=== PATIENT | female | born 1940 | race Caucasian/White ===

== ENCOUNTER → 2017-09-21 08:33 | Outpatient (CLI) | payer OTHER, SELFPAY ==
[2017-09-21 09:21] LABS: Add Manual Diff / Slide Review NO; Basophils Percent Auto 0.8 % (0-2); Hematocrit 39.8 % (36-46); Hemoglobin 13.4 g/dL (12.0-16.0); Lymphocytes Percent Auto 30.5 % (25-40); Mean Corpuscular HGB Conc 33.7 % (30-36); Mean Corpuscular Hemoglobin 29.4 PG (26-34); Mean Corpuscular Volume 87.2 fL (80-100); Monocytes Percent Auto 6.7 % (3-14); Neutrophils Absolute Auto 3700 /uL (3000-5900); Platelet Count 355 X10^3/uL (150-400); Red Blood Cell Count 4.56 X10^6/uL (4.0-5.2); Red Cell Distribution Width 14.7 % (11.6-14.8); White Blood Cell Count 6.5 X10^3/uL (4.5-11.0)
[2017-09-21 09:59] LABS: Alanine Aminotransferase 27 IU/L (9-52); Albumin 4.3 g/dL (3.5-5.0); Albumin Globulin Ratio 1.4 (1.0-2.8); Alkaline Phosphatase 102 U/L (38-126); Aspartate Aminotransferase 16 IU/L (14-36); BUN Creatinine Ratio 22.2 (6-22); Bilirubin Total 0.6 mg/dL (0.2-1.3); Blood Urea Nitrogen 20 mg/dL (7-17); Calcium 10.4 mg/dL (8.4-10.2); Carbon Dioxide 28 mmol/L (22-32); Chloride 104 mmol/L (98-107); Estimated Glomerular Filt Rate > 60.0 mL/min (>60); Glucose 112 mg/dL (80-110); HEMOLYSIS < 15 (0-50); Potassium 4.3 mmol/L (3.4-5.1); Sodium 144 mmol/L (137-145); Total Protein 7.3 g/dL (6.3-8.2)
[2017-09-21 10:59] LABS: Folate > 20.0 ng/mL (2.76-20.0); Vitamin B12 912 pg/mL (239-931)
== END ==
PROVIDERS: PCP Internal Medicine; Visit Provider Internal Medicine Gastroenterology
DX: K90.0 Celiac disease (principal); K59.1 Functional diarrhea; R10.84 Generalized abdominal pain; R13.12 Dysphagia, oropharyngeal phase; E66.01 Morbid (severe) obesity due to excess calories; M81.0 Age-related osteoporosis without current pathological fracture; Z86.010 Personal history of colon polyps
CPT/HCPCS: 36415; 80053; 82607; 82746; 83516; 85025

== ENCOUNTER → 2017-11-14 16:31 | Outpatient (CLI) | payer OTHER, SELFPAY ==
--- NOTE | 2017-11-14 | DI.MRI.S_ITS ---
PROCEDURE: MR LUMBAR SPINE WO CON INDICATIONS: LOW BACK PAIN RADIATING INTO RIGHT HIP AND DOWN LEG TECHNIQUE: Noncontrast sagittal T1 spin echo and T2 fast echo, sagittal STIR, axial T1 and T2 fast spin echo through the lumbar spine. In cases with scoliosis, additional coronal T2 fast spin echo may be performed. COMPARISON: [facility], , L-SPINE WITHOUT CONTRAST, 09/14/2016, 12:08. FINDINGS: Image quality: Excellent. Alignment and Curvature: There is normal bony alignment except for slight retrolisthesis at L3-4.. Bone Marrow: Marrow is of normal overall signal. Reactive changes at the L3-4 level. No acute vertebral body compression fractures. Spinal Cord: Conus medullaris terminates at the L1-2 level. Visualized cord demonstrates normal signal and size. Paraspinous Soft Tissues: No paravertebral masses. Exophytic 4.4 cm right renal cyst again noted. L1-L2: Mild disc degeneration and facet arthropathy with no central canal or foraminal stenosis, unchanged. L2-L3: Mild disc degeneration and facet arthropathy with no central canal or foraminal stenosis, unchanged. L3-L4: Disc degeneration with mild annular bulge, slight retrolisthesis deformity and mild facet arthropathy, unchanged. No central canal or right foraminal stenosis, mild left foraminal stenosis, unchanged. L4-L5: Operative level with dilatation of the thecal sac. No recurrent disc protrusion or central canal stenosis. Mild facet arthropathy. Left-sided transpedicular screw. There is moderate right and mild left foraminal stenosis, unchanged. L5-S1: Operative level with dilatation of the thecal sac. No recurrent disc protrusion or central canal stenosis. Left-sided transpedicular screw. There is mild right and moderate left foraminal stenosis, appearing unchanged. IMPRESSION: 1. Stable postoperative changes without evidence of recurrent disc protrusion or central canal stenosis. 2. Slight retrolisthesis at L3-4 and associated endplate reactive signal changes are also stable. 3. No new disc protrusions.. There is moderate foraminal stenosis on the right at L4-5 and on the left at L5-S1, unchanged. Mild foraminal stenosis left L3-L4, left L4-L5 and right L5-S1. Dictated by: Williams Weiss M.D. on 11/15/2017 at 8:59 Approved by: Williams Weiss M.D. on 11/15/2017 at 9:18
== END ==
PROVIDERS: PCP Internal Medicine; Visit Provider Orthopaedic Surgery
DX: M48.061 Spinal stenosis, lumbar region without neurogenic claudication (principal); M48.07 Spinal stenosis, lumbosacral region; M54.16 Radiculopathy, lumbar region; M54.5 Low back pain
CPT/HCPCS: 72148

== ENCOUNTER 2017-12-08 18:58 | Emergency (ER) | payer OTHER, SELFPAY ==
[2017-12-08 19:05] VITALS: BP 148/73; PULSE 100; RESP 22; TEMP 36.7; O2SAT 94
--- NOTE | 2017-12-08 19:06 | ED.ALLEREA ---
HPI - Allergic Reaction General Chief complaint: Allergic Reaction Stated complaint: STATES SEAFOOD ALLERGIC REACTION Time Seen by Provider: 12/08/17 19:06 Source: patient Mode of arrival: ambulatory Limitations: no limitations History of Present Illness HPI narrative: The patient has a history of multiple allergic reactions, but never to shellfish until this evening. She had shrimp about 6:00 p.m.. She developed facial and lip swelling. She used an EpiPen autoinjector. She also took 50 of Benadryl p.o.. She arrives with slight airway tightness, but no wheezing or dyspnea. She has no chest pain. This facial swelling has resolved. She still has erythema around the neck and only upper chest and upper back. She is in no distress talking in full sentences. She denies any recent illness. Related Data Home Medications Medication Instructions Recorded Confirmed loratadine [Claritin] 10 mg PO PRN #0 08/23/12 10/28/17 Previous Rx's Medication Instructions Recorded Fluticasone Propionate (FLONASE) 2 spray INTRANASAL QDAY #16 11/29/11 cyanocobalamin (vitamin B-12) 1,000 mcg PO QDAY #90 tab 04/27/16 olopatadine [Patanol] 0.1 % OPHTH TID #5 ml 09/24/16 naratriptan [Amerge] 0 PO PRN PRN #9 tab 12/03/16 furosemide [Lasix] 0 PO QDAY #450 tab 12/27/16 potassium chloride 10 meq PO BID #180 cap 12/27/16 betamethasone, augmented 1 jennifer TOPICAL BID #15 gm 02/22/17 atorvastatin [Lipitor] 10 mg PO HS #90 tab 03/29/17 lansoprazole 30 mg PO QDAY #90 tab 03/29/17 valsartan 80 mg PO QDAY #90 tab 04/15/17 amlodipine [Norvasc] 10 mg PO Q DAY #90 tab 06/27/17 sucralfate 1 gm PO ACHS #360 tab 07/15/17 epinephrine [EpiPen 2-Juanito] 0.3 mg IM PRN PRN #1 ea 09/20/17 albuterol sulfate [Ventolin HFA] 1 - 2 puff INH Q4HP PRN #8 gm 09/26/17 paroxetine 40 mg tablet 40 mg PO DAILY #90 tab 09/27/17 mometasone 200 mcg/actuation HFA 1 puff INHALATION BID #13 gram 10/25/17 aerosol inhaler clobetasol 0.05 % topical cream See Label Instructions TOP BID #60 10/28/17 gram losartan 100 mg tablet 100 mg PO DAILY #30 tab 10/28/17 cyclobenzaprine 10 mg tablet 10 mg PO TID #60 tab 11/24/17 hydrocodone 5 mg-acetaminophen 325 1 - 2 tab PO Q4HP PRN #90 tab 12/06/17 mg tablet epinephrine 0.3 mg IM Q10M PRN #2 each 12/08/17 epinephrine 0.3 mg IM Q10M PRN #2 each 12/08/17 epinephrine [EpiPen 2-Juanito] 0.3 mg IM Q10M PRN #2 each 12/08/17 prednisone 20 mg PO DAILY #10 tab 12/08/17 Allergies Allergy/AdvReac Type Severity Reaction Status Date / Time aspirin Allergy Severe ANAPHYLACTIC Verified 12/08/17 19:09 SHOCK venom-honey bee Allergy Severe ANAPHYLACTIC Verified 12/08/17 19:09 [bee venom (honey bee)] SHOCK adhesive Allergy Intermediate RASH FROM Verified 12/08/17 19:09 TAPE cephalexin Allergy Mild DIARRHEA Verified 12/08/17 19:09 shellfish derived Allergy Mild Anaphylaxis Verified 12/08/17 19:09 tetracycline Allergy Mild ITCH Verified 12/08/17 19:09 peanut Allergy Unknown Verified 12/08/17 19:09 oxycodone AdvReac Severe HALLUCINAT Verified 12/08/17 19:09 IONS Review of Systems Review of Systems All systems reviewed & are unremarkable except as noted in HPI and below Constitutional Reports as per HPI, Denies chills, Denies fever(s), Denies lethargy and Denies weakness Eyes Denies change in vision, Denies eye discharge and Denies irritation ENT Ears, Nose, Mouth, and Throat: Denies change in voice, Denies neck pain and Denies throat swelling Cardiovascular Denies chest pain, Denies irregular heart rhythm, Denies lightheadedness, Denies palpitations, Denies dyspnea and Denies orthopnea Respiratory Denies cough, Denies dyspnea and Denies wheezing Gastrointestinal Gastrointestinal: Denies abdominal pain, Denies change in bowel habits, Denies diarrhea, Denies nausea and Denies vomiting Musculoskeletal Denies neck pain Integumentary/Breasts Denies rash Neurologic Denies weakness Endocrine Denies palpitations Allergic/Immunologic Denies throat swelling and Denies wheezing [facility] Medical History Essential hypertension (Chronic 11/23/10) Hyperlipidemia (Chronic 11/23/10) Asthma (Chronic) Sleep apnea (Chronic) History of malignant neoplasm of breast (Inactive 11/23/10) History of deep venous thrombosis (Chronic 11/23/10) Celiac disease (Chronic 04/27/16) Nonrheumatic aortic valve stenosis (Chronic 04/27/16) Morbid obesity with body mass index (BMI) of 40.0 or higher (Chronic 07/27/16) Chronic obstructive pulmonary disease (Chronic 08/26/16) Surgical History History of cataract removal with insertion of prosthetic lens Status post breast lumpectomy (~2002) Social History marital status: number of children: 3 household members: spouse caregiver/support person: No housing: house pets and animals: No education level: college occupational status: other (Retired.) 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) Smoking Status: Never smoker Tobacco: How many years used: 0 quit status: quit date established (Never Started) second hand exposure: No alcohol intake: current (Occasionally) substance use type: does not use Exam Initial Vital Signs Initial Vital Signs: Vital Signs Temperature 98.1 F 12/08/17 19:05 Pulse Rate 100 H 12/08/17 19:05 Respiratory Rate 22 12/08/17 19:05 Blood Pressure 148/73 H 12/08/17 19:05 Pulse Oximetry 94 12/08/17 19:05 Const General: cooperative, healthy appearing and comfortable [facility] Head: normocephalic and atraumatic Nose: external nose normal and No nasal discharge Face and sinus: face symmetric Mouth: oral mucosae normal, moist mucous membranes and other ( No edema) Teeth and gingiva: dentition normal Throat: posterior oropharynx normal ( no edema) Eyes General: appearance normal, both eyes and all related structures Periorbital: periorbital findings normal Eyelids: eyelids normal Conjunctivae: conjunctivae normal Sclera: sclerae normal Pupils: PERRL EOM: EOM intact bilaterally Neck Neck: normal visual inspection, trachea midline and No lymphadenopathy Resp Effort & Inspection: normal respiratory effort, able to speak in complete sentences, no respiratory distress and no use of accessory muscles Auscultation: clear to auscultation bilaterally, no rales, no rhonchi and no wheezes Cardio Rate: regular rate Rhythm: regular rhythm Heart Sounds: no click, no gallops, no murmurs and no rubs Pulses: normal peripheral pulses Skin General: erythema ( to the face, neck, and upper torso.) Neuro General: alert, oriented x3, gait normal and no focal motor deficits Speech: speech normal Motor: muscle tone normal throughout Extrem General: full ROM and no pedal edema Psych Appearance: well kempt Attitude: cooperative Thought Content: suicidality Course Orders Ordered: Discontinued Medications Diphenhydramine HCl (Benadryl) 25 mg IV NOW ONE Stop: 12/08/17 19:12 Last Admin: 12/08/17 19:22 Dose: 25 mg Methylprednisolone (Solu-Medrol 125 Mg Vial) 125 mg IV NOW ONE Stop: 12/08/17 19:12 Last Admin: 12/08/17 19:24 Dose: 125 mg Vital Signs - 8 hr 12/08/17 19:05 12/08/17 20:33 12/08/17 21:12 Temperature 98.1 F Pulse Rate 100 H 88 87 Respiratory Rate 22 Blood Pressure 148/73 H 134/66 Blood Pressure [Left Arm] 134/66 Pulse Oximetry 94 91 96 [facility] - Allergic Reaction Medical Records Attestation: I reviewed the patient's medical records. [facility] Narrative Medical decision making narrative: All symptoms have resolved. There is no erythema or swelling. There is no airway tightness. She feels well, other than sleepy. She will be discharged. I will refill her EpiPen and discharge her on prednisone. Discharge Plan Departure Patient Disposition: Home Clinical Impression: Allergic reaction Discharge Date/Time: 12/08/17 21:28 Interventions: ED Discharge Assessment Last Done: 12/08/17 21:12 Instructions: Food Allergy Activity Restrictions/Additional Instructions: Benadryl every 4-6 hours as needed for itching or swelling. Prednisone 60 mg daily for 5 days if symptoms persist into tomorrow. I have refilled your EpiPen. Return here if symptoms return. Prescriptions: New prednisone 10 mg tablet 20 mg PO DAILY Qty: 10 RF: 0 epinephrine [EpiPen 2-Juanito] 0.3 mg/0.3 mL auto-injector 0.3 mg IM Q10M PRN (Reason: anaphylaxis) Qty: 2 RF: 0 epinephrine 0.3 mg/0.3 mL auto-injector 0.3 mg IM Q10M PRN (Reason: anaphylaxis) Qty: 2 RF: 1 epinephrine 0.3 mg/0.3 mL auto-injector 0.3 mg IM Q10M PRN (Reason: anaphylaxis) Qty: 2 RF: 1 No Action Fluticasone Propionate (FLONASE) 2 spray Intranasal QDAY Qty: 16 RF: 3 loratadine [Claritin] 10 MG tablet 10 mg PO PRN Qty: 0 RF: 0 cyanocobalamin (vitamin B-12) 1,000 MCG tablet extended release 1,000 mcg PO QDAY Qty: 90 RF: 11 olopatadine [Patanol] 5 ML drops 0.1 % OPHTH TID Qty: 5 RF: 0 naratriptan [Amerge] 2.5 MG tablet PO PRN PRNQty: 9 RF: 0 potassium chloride 10 MEQ capsule, extended release 10 meq PO BID Qty: 180 RF: 3 furosemide [Lasix] 20 MG tablet PO QDAY Qty: 450 RF: 3 betamethasone, augmented 0.05 % cream 1 jennifer Topical BID Qty: 15 RF: 3 atorvastatin [Lipitor] 10 MG tablet 10 mg PO HS Qty: 90 RF: 3 lansoprazole 30 MG capsule,delayed release(DR/EC) 30 mg PO QDAY Qty: 90 RF: 3 valsartan 80 MG tablet 80 mg PO QDAY Qty: 90 RF: 4 amlodipine [Norvasc] 10 MG tablet 10 mg PO Q DAY Qty: 90 RF: 2 sucralfate 1 GM tablet 1 gm PO ACHS Qty: 360 RF: 3 epinephrine [EpiPen 2-Juanito] 0.3 mg/0.3 mL auto-injector 0.3 mg IM PRN PRNQty: 1 RF: 1 albuterol sulfate [Ventolin HFA] 90 mcg/actuation HFA aerosol inhaler 1 - 2 puff INH Q4HP PRNQty: 8 RF: PRN paroxetine HCl [Paxil] 40 mg tablet 40 mg PO DAILY Qty: 90 RF: 3 mometasone [Asmanex HFA] 200 mcg/actuation HFA aerosol inhaler 1 puff INHALATION BID Qty: 13 RF: 2 cyclobenzaprine 10 mg tablet 10 mg PO TID Qty: 60 RF: 1 hydrocodone-acetaminophen [[place]] 5-325 mg tablet 1 - 2 tab PO Q4HP PRN (Reason: pain) Qty: 90 RF: 0 losartan 100 mg tablet 100 mg PO DAILY Qty: 30 RF: 0 clobetasol 0.05 % cream See Label Instructions TOP BID Qty: 60 RF: 0
[2017-12-08] MEDS: diphenhydrAMINE 50 MG/ML VIAL 25 MG IV (19:22)
[2017-12-08] MEDS: methylPREDNISolone 125 MG/2 ML VIAL IV (19:24)
[2017-12-08 20:33] VITALS: BP 134/66; PULSE 88; O2SAT 91
[2017-12-08 21:12] VITALS: BP 134/66; PULSE 87; O2SAT 96
== END 2017-12-08 21:28 | disposition home or self-care (01) ==
PROVIDERS: Emergency Provider Emergency Medicine; PCP Internal Medicine
DX: T78.40XA Allergy, unspecified, initial encounter (principal)
CPT/HCPCS: 96374; 96375; 99282; 99284; J1200; J2930

== ENCOUNTER → 2018-03-21 08:15 | Outpatient (CLI) | payer OTHER, SELFPAY ==
--- NOTE | 2018-03-21 | DI.MG.S_ITS ---
BILATERAL DIGITAL SCREENING MAMMOGRAM 3D/2D WITH CAD: 03/21/2018 CLINICAL: Routine screening. Personal history of right breast cancer. Family history of breast cancer. Comparison is made to exams dated: 02/28/2017 mammogram, 02/27/2016 mammogram, and 02/24/2015 mammogram - [facility]. There are scattered fibroglandular elements in both breasts. Current study was also evaluated with a Computer Aided Detection (CAD) system. There are benign post operative findings in the right breast. There also are benign vascular calcifications in both breasts. No significant masses, calcifications, or other findings are seen in either breast. There has been no significant interval change. IMPRESSION: There is no mammographic evidence of malignancy. A 1 year screening mammogram is recommended. This exam was interpreted at Station ID: [id number]. NOTE: For mammograms, a report in lay terms will be sent to the patient. Approximately 15% of breast malignancies will not be visualized mammographically. In the management of a palpable breast mass, a negative mammogram must not discourage biopsy of a clinically suspicious lesion. Electronically Signed By: Lety gonzalez/josh:03/21/2018 16:36:39 letter sent: Normal Exam ACR BI-RADS Category 2: Benign Finding(s) [id number]
== END ==
PROVIDERS: PCP Internal Medicine; Visit Provider Internal Medicine
DX: Z12.31 Encounter for screening mammogram for malignant neoplasm of breast (principal); Z85.3 Personal history of malignant neoplasm of breast; Z80.3 Family history of malignant neoplasm of breast
CPT/HCPCS: 77063; 77067

== ENCOUNTER → 2018-06-05 11:47 | Outpatient (CLI) | payer OTHER, SELFPAY ==
--- NOTE | 2018-06-05 | DI.US.S_ITS ---
PROCEDURE: US PERIPH VENOUS UP EXTREM RT INDICATIONS: ARM SWELLING TECHNIQUE: Real-time imaging, as well as color and pulse Doppler interrogation, was performed of the right upper extremity deep veins from the inferior neck to the antecubital fossa. COMPARISON: None. FINDINGS: The internal jugular vein, visualized portions of the subclavian vein, axillary, and brachial veins are free of intraluminal thrombus. Where physically possible, the veins are normally compressible. Color and pulse Doppler demonstrate normal intraluminal flow, with expected phasicity and pulsatility. Additional scanning of the cephalic and basilic veins of the superficial system demonstrate normal compressibility, without thrombus. IMPRESSION: No DVT found. Dictated by: Umiar Moreno M.D. on 06/05/2018 at 17:04 Approved by: Umair Moreno M.D. on 06/05/2018 at 17:04
== END ==
PROVIDERS: PCP Internal Medicine; Visit Provider Internal Medicine
DX: M79.89 Other specified soft tissue disorders (principal)
CPT/HCPCS: 93971

== ENCOUNTER → 2019-01-15 08:02 | Outpatient (CLI) | payer OTHER, SELFPAY ==
[2019-01-15 09:54] LABS: Alanine Aminotransferase 13 IU/L (9-52); Albumin 4.3 g/dL (3.5-5.0); Albumin Globulin Ratio 1.3 (1.0-2.8); Alkaline Phosphatase 104 U/L (38-126); Aspartate Aminotransferase 22 IU/L (14-36); BUN Creatinine Ratio 28.8 (6-22); Bilirubin Total 0.5 mg/dL (0.2-1.3); Blood Urea Nitrogen 23 mg/dL (7-17); Calcium 10.1 mg/dL (8.4-10.2); Carbon Dioxide 28 mmol/L (22-32); Chloride 106 mmol/L (98-107); Cholesterol 163 mg/dL (140-199); Estimated Glomerular Filt Rate > 60.0 mL/min (>60); Globulin 3.2 g/dL (1.7-4.1); Glucose 124 mg/dL (80-110); HDL Cholesterol 41 mg/dL (40-60); HEMOLYSIS < 15 (0-50); LDL Cholesterol Calculated 80 mg/dL (<100); Sodium 141 mmol/L (137-145); Total Protein 7.5 g/dL (6.3-8.2); Triglycerides 210 mg/dL (35-150)
[2019-01-15 11:01] LABS: TSH w/ Reflex to FT4 1.55 uIU/mL (0.47-4.68)
== END ==
PROVIDERS: PCP Internal Medicine; Visit Provider Internal Medicine
DX: E78.5 Hyperlipidemia, unspecified (principal); I10 Essential (primary) hypertension
CPT/HCPCS: 36415; 80053; 80061; 84443

== ENCOUNTER 2019-01-25 13:52 | Outpatient (CLI) | payer OTHER, SELFPAY ==
[2019-01-25] VITALS (7 sets, daily range): BP systolic 102–153; BP diastolic 58–81; PULSE 79–87; RESP 16–18; TEMP 37.3; O2SAT 93–95
--- NOTE | 2019-01-25 13:54 | DI.RAD.S_ITS ---
PROCEDURE: PAIN L/S TRANSFORAMINAL INJECT INDICATIONS: SPONDYLOSIS FINDINGS: Fluoroscopic spot filming was performed to verify placement of spinal needles at the L5-S1 level(s), as labeled on the films. Appropriate location(s) of the needle tip(s) was confirmed by injection of iodinated contrast. Dictated by: Jason Rascon M.D. on 01/25/2019 at 16:17 Approved by: Jason Rascon M.D. on 01/25/2019 at 16:19
[2019-01-25] MEDS: fentaNYL 100 MCG/2 ML INJ 50 MCG IV (14:50)
[2019-01-25] MEDS: MIDAZOLAM 5 MG/5 ML VIAL IV (14:50)
[2019-01-25] MEDS: BETAMETHASONE 30 MG/5 ML MDV 6 MG INJ (14:53)
[2019-01-25] MEDS: BUPIVACAINE 0.25% (PF) VIAL 2 ML INJ (14:53)
[2019-01-25] MEDS: IOPAMIDOL 15 ML VIAL 3 ML INJ (14:53)
[2019-01-25] MEDS: DEXAMETHASONE 10 MG/ML VIAL 20 MG INJ (14:54)
--- NOTE | 2019-01-25 14:59 | PC.NURSE ---
Post procedure note: Time out at 1447. Medicated per providers orders. tolerated well. VSS and O2 sat WNL on 3L/MINER OPERATOR. Procedure end at 1459. Patient sat up and transfered to wheelchair with 2 stand by assist. Mild right leg weakness without numbness or tingling. Pain level 0/10 Transported for post procedure monitoring. handoff report given to Merary Perkins RN at 1505.
--- NOTE | 2019-01-25 15:06 | PM.PROC.1 ---
Procedures Date/Time Date of procedure: 01/25/19 Time of procedure: 15:06 General Procedure description: PREOP DIAGNOSIS 1. FORMAINAL STENOSIS WITH LE SYMPTOMS, POST OP DIAGNOSIS 1. FORMAINAL STENOSIS WITH LE SYMPTOMS, PROCEDURES 1.FLUOROSCOPICALLY GUIDED CONTRAST CONTROLLED TRANSFORAMINAL EPIDURAL STEROID INJECTION - RIGHT L5/S1 TFESI PHYSICIAN: Uli Gillis DO INDICATIONS: Rj is referred by for treatment of Foraminal Stenosis with right LE Symptoms FINDINGS Foraminal Nerve Root Compression secondary to disc disease and facet hypertrophy DESCRIPTION OF PROCEDURE Following review of allergy and review of potential side effects and complications, including, but not necessarily limited to, infection, allergic reaction, local tissue breakdown, stroke, temporary or permanent nerve injury, paralysis, and possible , the patient indicated that the patient understood and agreed to proceed. An informed consent document was signed by the patient, witnessed by a nurse, and placed in the patient's chart. Additionally, other treatment options including medications, modalities, and physical therapy were reviewed with the patient. After review of previous anaesthesic history and IV conscious sedation the patient was deemed safe to proceed with todays procedure with IV conscious sedation as ASA class II designation. Safety time-out was performed to confirm patient ID, procedure to be performed and site of procedure. IV sedation was accomplished with a combination of 2mg of Versed and 50mcg of Fentanyl was administered by the RN after DO order, titrated to patient comfort during the course of the procedure while the patient remained responsive to all verbal commands In the prone position following sterile prep and drape of the lumbar region, the right L5/S1 posterior neuroforamen was identified fluoroscopically. The skin was anesthetized via a 25-gauge 1.5-inch needle with 1% lidocaine solution. At this point, a 22-gauge 5-inch spinal needle was atraumatically introduced and advanced under fluoroscopic guidance through the posterior right L5/S1 neuroforamen to approximately the anterior aspect of the canal. Depth was confirmed on lateral view. Following negative aspiration, injection of approximately 1.5 cc of Isovue 200 under live fluoroscopy in the AP view confirmed excellent flow along the nerve root, into the epidural space without vascular or intrathecal uptake observed Radiological data, including multiple fluoroscopic views of the lumbosacral spine, reveal a spinal needle at the right L5/S1 posterior neuroforamen. Subsequent views show flow of contrast material flowing superiorly and inferiorly along the nerve root confirming epidural flow. Subsequently, a test dose of 1.5 cc of 1% lidocaine solution was administered and patient was observed for two minutes for signs or symptoms of complications, including abdominal pain, shortness of breath, bilateral upper or lower extremity weakness, nausea and vomiting, prior to steroid injection. At this point, a total of 3cc or 20mg of dexamethasone and 6mg betamethasone was injected without incident. The procedure tolerated the procedure well without signs or symptoms of complications prior to transfer to the recovery area continued monitoring without incident. The patient was then transferred to the recovery area where they were observed for an appropriate time after the injection. The patient reported a VAS score of 7 prior to the procedure and a post-procedure VAS of 0. Total Fluoroscopy Time: 20.9 seconds Total Conscious Sedation Time: 24min POST OP INSTRUCTIONS The patient was provided a Pain Log to continue to record their response to the target-specific procedure prior to follow-up visit with their referring physician. Additionally, specific post-injection care instructions and a contact number to our office were provided if concerns arise regarding possible complications associated with the procedure are suspected. Uli Gillis, Complications: none
--- NOTE | 2019-01-25 15:12 | PC.NURSE ---
ACCEPTED CARE OF PT IN POST PROC AREA IN STABLE CONDITION AT 1510
== END 2019-01-25 15:28 | disposition home or self-care (01) ==
LOC: RAD 13:53
PROVIDERS: PCP Internal Medicine; Visit Provider Physical Medicine & Rehabilitation
DX: M48.07 Spinal stenosis, lumbosacral region (principal); M51.17 Intervertebral disc disorders with radiculopathy, lumbosacral region
CPT/HCPCS: 64483; 99152; J0702; J1100; J2250; J3010

== ENCOUNTER → 2019-02-26 07:28 | Outpatient (CLI) | payer OTHER, SELFPAY ==
--- NOTE | 2019-02-26 07:29 | DI.MRI.S_ITS ---
PROCEDURE: MR CERVICAL SPINE WO CON INDICATIONS: Neck pain radiating into right shoulder TECHNIQUE: Noncontrast sagittal T1 spin echo and T2 fast spin echo, sagittal STIR, foraminal oblique sagittal T2 fast spin echo, and axial gradient echo or T2 fast spin echo through the cervical spine. COMPARISON: [facility], , C-SPINE WITHOUT CONTRAST, 08/13/2014, 10:35. FINDINGS: Image quality: Excellent. Alignment and Curvature: There is normal bony alignment. Bone Marrow: Marrow demonstrates normal overall signal. Spinal Cord: Visualized spinal cord has normal size and signal. No cerebellar tonsillar herniation. Paraspinous Soft Tissues: No paravertebral masses. Prevertebral soft tissues are normal in thickness. C2-C3: Normal appearance. C3-C4: Mild degenerative disc height reduction, slight asymmetric right greater than left foraminal stenosis due to facet hyperostosis. There is potential for mild impingement on the course of the right C4 nerve root C4-C5: Bilateral degenerative facet osteoarthritis produces encroachment on the neural foramen also greater on the right than the left, minimal on the left and mild to moderate on the right. No significant spinal stenosis. Potential for right sided C5 nerve root impingement. C5-C6: Degenerative disc disease is moderately severe, and facet osteoarthritis is greater on the right than the left resulting in anterior effacement of CSF from the thecal sac and also asymmetric moderate right and mild left nerve root impingement involving the C6 nerve roots at the neural foraminal level. C6-C7: Left greater than right foraminal stenosis is present associated with a posterior mild transverse disc bulge combining with asymmetric left greater than right facet hyperostosis, moderate on the left and mild on the right. Minimal anterior spinal stenosis is associated. C7-T1: Normal appearance. IMPRESSION: Multilevel degenerative disc disease and facet osteoarthritis generally greater on the right than the left with asymmetric neural foraminal stenosis as discussed in detail by level in the body of the report above. No acute disease, no disc herniation is found. Dictated by: Umair Moreno M.D. on 02/26/2019 at 14:52 Approved by: Umair Moreno M.D. on 02/26/2019 at 15:05
--- NOTE | 2019-02-26 07:29 | DI.RAD.S_ITS ---
PROCEDURE: XR CERVICAL SPINE 2V OR 3V INDICATIONS: axial neck pain with right UE symptoms TECHNIQUE: 3 view(s) of the cervical spine were acquired. COMPARISON: None. FINDINGS: Bones: No fractures or dislocations to the T1 level. The lateral masses of C1 appear intact on the odontoid view. No suspicious bony lesions. There is moderately severe to severe degenerative disc disease from C3 inferiorly, with facet osteoarthritis also near severe to severe over the middle and lower thirds of the cervical spine. Soft tissues: No prevertebral soft tissue swelling. IMPRESSION: No trauma foun or subluxation but there is near severe multilevel degenerative disc disease and facet osteoarthritis over the middle and lower thirds of the cervical spine. MR scanning likely is warranted given the severity of disease in symptoms reported. Dictated by: Umair Moreno M.D. on 02/26/2019 at 9:37 Approved by: Umair Moreno M.D. on 02/26/2019 at 9:38
== END ==
PROVIDERS: PCP Internal Medicine; Visit Provider Registered Nurse
DX: M50.121 Cervical disc disorder at C4-C5 level with radiculopathy (principal); M47.22 Other spondylosis with radiculopathy, cervical region; M48.02 Spinal stenosis, cervical region
CPT/HCPCS: 72040; 72141

== ENCOUNTER → 2019-03-24 10:18 | Outpatient (CLI) | payer OTHER, SELFPAY ==
--- NOTE | 2019-03-24 | DI.MG.S_ITS ---
BILATERAL DIGITAL SCREENING MAMMOGRAM 3D/2D WITH CAD: 03/24/2019 CLINICAL: Routine screening. Personal history of right breast cancer. Family history of breast cancer. Comparison is made to exams dated: 03/21/2018 mammogram, 02/28/2017 mammogram, and 02/27/2016 mammogram - [facility]. There are scattered fibroglandular elements in both breasts. Current study was also evaluated with a Computer Aided Detection (CAD) system. The right breast has post-operative findings. There are benign appearing calcifications in both breasts that are not significantly changed. There is a possible developing irregular equal density asymmetry in the left breast at 1 o'clock middle depth. There also is an oval equal density focal asymmetry in the left breast at 1 o'clock posterior depth. No other significant masses, calcifications, or other findings are seen in either breast. IMPRESSION: INCOMPLETE: NEEDS ADDITIONAL IMAGING EVALUATION The possible developing irregular equal density asymmetry in the left breast at 1 o'clock middle depth is indeterminate. Additional views with possible ultrasound are recommended. The oval equal density focal asymmetry in the left breast at 1 o'clock posterior depth is indeterminate. Additional views with possible ultrasound are recommended. This exam was interpreted at Station ID: [id number]. NOTE: For mammograms, a report in lay terms will be sent to the patient. Approximately 15% of breast malignancies will not be visualized mammographically. In the management of a palpable breast mass, a negative mammogram must not discourage biopsy of a clinically suspicious lesion. Electronically Signed By: Darryl lloyd/:03/26/2019 11:42:25 Entry: - 03/26/2019 11:42:25 letter sent: Additional Imaging Needed ACR BI-RADS Category 0: Incomplete [id number]
== END ==
PROVIDERS: PCP Internal Medicine; Visit Provider Internal Medicine
DX: Z12.31 Encounter for screening mammogram for malignant neoplasm of breast (principal); Z85.3 Personal history of malignant neoplasm of breast; Z80.3 Family history of malignant neoplasm of breast
CPT/HCPCS: 77063; 77067

== ENCOUNTER → 2019-04-23 12:34 | Outpatient (CLI) | payer MEDICARE, SELFPAY ==
--- NOTE | 2019-04-23 | DI.MG.S_ITS ---
UNILATERAL LEFT DIGITAL DIAGNOSTIC MAMMOGRAM 3D/2D WITH ADDITIONAL VIEWS: 04/23/2019 CLINICAL: Additional evaluation requested from prior study. Prior history of left breast cancer. Comparison is made to exams dated: 03/24/2019 mammogram, 03/21/2018 mammogram, and 02/28/2017 mammogram - [facility]. There are scattered fibroglandular elements in left breast. Previously identified irregular equal density asymmetry in the superior lateral left breast (described as being at 1 o'clock middle depth on comparison screening mammogram of 03/24/19 but localizing closer to posterior depth on additional views performed today 04/23/19) persists with addtional views. Previously identified oval equal density focal asymmetry in the superior lateral left breast (described as being at 1 o'clock posterior depth on comparison screening mammogram of 03/24/19) persists with addtional views. There are vascular calcifications within the left breast. IMPRESSION: INCOMPLETE: NEEDS ADDITIONAL IMAGING EVALUATION 1) Previously identified irregular equal density asymmetry in the superior lateral left breast (described as being at 1 o'clock middle depth on comparison screening mammogram of 03/24/19 but localizing closer to posterior depth on additional views performed today 04/23/19) persists with addtional views. A targeted ultrasound is recommended and will be performed immediately following this exam. 2) Previously identified oval equal density focal asymmetry in the superior lateral left breast (described as being at 1 o'clock posterior depth on comparison screening mammogram of 03/24/19) persists with addtional views. A targeted ultrasound is recommended and will be performed immediately following this exam. This exam was interpreted at Station ID: [id number]. NOTE: For mammograms, a report in lay terms will be sent to the patient. Approximately 15% of breast malignancies will not be visualized mammographically. In the management of a palpable breast mass, a negative mammogram must not discourage biopsy of a clinically suspicious lesion. Electronically Signed By: Molina Aviles M.D. ecl/:04/23/2019 13:35:09 ACR BI-RADS Category 0: Incomplete [id number]
--- NOTE | 2019-04-23 12:36 | DI.US.S_ITS ---
LIMITED ULTRASOUND OF LEFT BREAST: 04/23/2019 CLINICAL: Additional evaluation requested from prior study. Comparison is made to exams dated: 04/23/2019 mammogram, 03/24/2019 mammogram, 03/21/2018 mammogram, 02/28/2017 mammogram, 03/16/2016 mammogram, and 02/27/2016 mammogram - [facility]. Color flow ultrasound of the left breast 12-3 o'clock, and retroareolar regions was performed. Santos scale images of the real-time examination were reviewed. There is a 2.0 cm x 1.4 cm x 1.1 cm irregular mass with an indistinct margin in the left breast at 3 o'clock 6 cm from the nipple. This irregular mass is hypoechoic with posterior acoustic shadowing. This may or may not correlate with mammography findings, as the mass is approximately the same size as the focal asymmetry seen on comparison mammography but appears to be located more inferior and lateral on ultrasound than expected position on mammography. Color flow imaging demonstrates that there is no vascularity present. Targeted ultrasound of the left axilla demonstrates a 1.6 cm left axillary lymph node demonstrating diffuse borderline cortical thickening just above 3 mm in thickness. This may correlate with the oval asymmetry seen on comparison screening and diagnostic mammography. IMPRESSION: SUSPICIOUS OF MALIGNANCY 1) 2.0 cm x 1.4 cm x 1.1 cm irregular mass in the left breast at 3 o'clock 6 cm from the nipple is suspicious of malignancy. An ultrasound guided biopsy is recommended. 2) Targeted ultrasound of the left axilla demonstrates a 1.6 cm left axillary lymph node demonstrating diffuse borderline cortical thickening just above 3 mm in thickness. An ultrasound guided biopsy is recommended. These results and recommendations were discussed with the patient at the time of the exam by the [facility] Radiologist Dr. Umair Moreno in person. This exam was interpreted at Station ID: [id number]. Electronically Signed By: Molina Aviles M.D. ecl/:04/23/2019 14:58:40 letter sent: Biopsy Required Ultrasound BI-RADS: 4 Suspicious for malignancy
== END ==
PROVIDERS: PCP Internal Medicine; Visit Provider Internal Medicine
DX: R92.8 Other abnormal and inconclusive findings on diagnostic imaging of breast (principal); N63.25 Unspecified lump in the left breast, overlapping quadrants; Z85.3 Personal history of malignant neoplasm of breast
CPT/HCPCS: 76642; 77065; G0279

== ENCOUNTER → 2019-05-14 07:30 | Outpatient (CLI) | payer MEDICARE, SELFPAY ==
--- NOTE | 2019-05-14 | DI.MG.S_ITS ---
UNILATERAL LEFT DIGITAL DIAGNOSTIC MAMMOGRAM POST-NEEDLE BIOPSY: 05/14/2019 CLINICAL: Left breast masses. Comparison is made to exams dated: 04/23/2019 mammogram, 03/24/2019 mammogram, and 03/21/2018 mammogram - [facility]. There are scattered fibroglandular elements in left breast. There is a marker clip in the appropriate position in the left breast at 3 o'clock anterior depth. This marker clip placement is at the biopsy site. There also is a marker clip in the appropriate position in the left axilla . This marker clip placement is at the biopsy site. IMPRESSION: POST PROCEDURE MAMMOGRAM FOR MARKER PLACEMENT There was a successful marker clip placement in the left breast at 3 o'clock anterior depth. There was a successful marker clip placement in the left axilla This exam was interpreted at Station ID: [id number]. NOTE: For mammograms, a report in lay terms will be sent to the patient. Approximately 15% of breast malignancies will not be visualized mammographically. In the management of a palpable breast mass, a negative mammogram must not discourage biopsy of a clinically suspicious lesion. Electronically Signed By: Jason delacruz/:05/14/2019 14:49:09 ACR BI-RADS Category Post-procedure mammogram for marker placement
--- NOTE | 2019-05-14 | PATH_ITS ---
[facility] Accession Number: [id number] . 01 Material submitted: . PART A: breast - LEFT BREAST MASS 3:00 6 CM FN PART B: axillary tail of breast - LEFT AXILLARY LYMPH NODE . 01 Diagnosis: A. Left Breast, 3 o'clock, 6 cm from Nipple, Ultrasound Guided Core Biopsy: Invasive mammary carcinoma, mixed ductal and lobular types, intermediate grade. - Valley score: 6 out of 9 possible (histologic=3, nuclear=2, mitotic index=1). - In situ carcinoma: Present, lobular type. - Greatest linear dimension of invasive carcinoma: 1.2 cm, as measured from the glass slide. -Lymphovascular invasion: Not identified. -Predictive markers: Positive for estrogen and progesterone receptors, and negative for overexpression of HER2 by immunohistochemistry (see comment). . B. Left Axilla, Lymph Node, Ultrasound Guided Core Biopsy: Fibroadipose tissue with involvement by invasive mammary carcinoma. Lymph node tissue not present in specimen. [facility] 05/16/2019 1502 Local . 01 Comment: Predictive marker immunohistochemical studies are performed on block A1 with the invasive carcinoma showing the following results: . Estrogen receptor (SP1): Positive (greater than 95%, strong intensity). Progesterone receptor (1E2): Positive (90%, strong intensity). Her2 (4B5): Positive for overexpression (1+). . . Internal controls for ER and DC are positive. Cold ischemic time is not provided. The scoring criteria for breast biomarkers by immunohistochemistry is based on the ASCO/CAP guidelines (Shanelle AC et al, J Clin Oncol: 2017Oct 11;36(20):4445-7457 and Carter ME et al, Arch Pathol Lab Med: 2009;134(6):907-22). Deparaffinized sections of formalin fixed tissue (along with appropriate positive controls) are incubated with the above antibody(s). Using the automated [place] stainer, tissue is incubated with the designated antibody which is then localized by a non-biotin, dual polymer detection system. The external controls are reviewed for appropriate reactivity and found to be adequate. Results on the target cell population are indicated above. These tests have not been validated on decalcified tissue. This test was developed and its performance characteristics determined by [facility]. It has not been cleared or approved by the U.S. Food and Drug Administration. The FDA has determined that such clearance or approval is not necessary. This test is used for clinical purposes. It should not be regarded as investigational or for research. . Note: The results of this case are verbally provided by Dr. Cobb to nurse Tianna Fam on 05/16/2019 at 2:00 p.m. . 01 Electronically signed: . Radha Cobb MD, Pathologist NPI- [id number] . 01 Gross description: . Received two formalin-filled containers, both labeled with the patient's name: . A. In a container labeled #1. LT 3 o'clock, the specimen is received with a plastic filter in container, sample loose in container and consists of multiple light yellow, partial cylindrical-shaped portions of tissue which range in size from less than 0.1 cm to 0.7 x 0.2 x 0.2 cm. The specimen is filtered, wrapped, and entirely submitted in cassette A. Collection date: 05/14/19. Collection time per container: 8:42 a.m. Total fixation time: Approximately 12 hours. B. In a container labeled #2, are two 0.1 cm in diameter, cylindrical shaped portions of tissue which range in length from 0.4 cm to 1.0 cm. The specimen is entirely submitted in cassette B. ([id number]) /ANJELICA 05/15/2019 0228 Local . 01 Microscopic: . E-cadherin and beta-catenin immunostains are performed on specimen A (left breast), with controls stained appropriately. The invasive tumor shows focal expression of both markers in a pattern which supports mixed ductal and lobular carcinoma. . Broad spectrum cytokeratins (TIFFANY) immunostain is performed on specimen B (left axillary lymph node), with control stained appropriately, and shows uniform expression in the scattered cells of interest, supporting the morphologic interpretation of invasive carcinoma. . 01 Pathologist provided ICD-10: C50.912 . 01 CPT . 963945, 152281, I90050, H11735, 806275, 138494, 169870 Performed at: 01 [facility] [address] [place] [address] [address], [place], [place] [id number] MD Asad Gomez MD Phone: [phone]
--- NOTE | 2019-05-14 07:32 | DI.US.S_ITS ---
ULTRASOUND GUIDED BIOPSY LEFT BREAST WITH MARKING DEVICE INSERTED: 05/14/2019 CLINICAL: Left breast mass. PATIENT CONSENT: Risks (minor bleeding, infection, vasovagal reaction and repeat procedure), benefits and alternatives were explained to the patient and written informed consent was obtained. Correlation is made to exams dated: 04/23/2019 ultrasound, 04/23/2019 mammogram, 03/24/2019 mammogram, and 03/21/2018 mammogram - [facility]. An ultrasound guided biopsy using real-time ultrasound was performed for the lymph node located in the left axilla/axillary tail. The skin was prepped in the usual manner. Local anesthetic was administered to the access site. The abnormality was approached from the lateral aspect. A biopsy needle was placed adjacent to the abnormality under ultrasound guidance. Once the needle was documented to be in the correct location, five specimens were obtained using a BARD biopsy device. A clip was inserted into the biopsy cavity. The specimens were sent to the laboratory for pathological analysis. IMPRESSION: ULTRASOUND GUIDED BIOPSY MALIGNANT Ultrasound guided biopsy of the lymph node in the left axilla/axillary tail was successful. Final pathology results per pathologist Dr. Radha Cobb identified fibroadipose tissue with involvement by invasive mammary carcinoma. Lymph node tissue not present in specimen. Pathology findings are concordant with imaging. Surgical and oncology consults are recommended for further evaluation and management. These results will be communicated to the patient's referring provider. This exam was interpreted at Station ID: [id number]. Jason delacruz,ecl/:05/18/2019 11:16:37
--- NOTE | 2019-05-14 07:59 | DI.US.S_ITS ---
Patient Name: ESTEFANIA LERMA date: 1940 Sex: F Attending Physician: Sandra Indications: Date: 05/14/2019 07:59 At the request of: MAKAYLA ARELLANO Procedure: US biopsy of axilla only ULTRASOUND GUIDED BIOPSY LEFT BREAST USING VACUUM DEVICE WITH MARKING DEVICE INSERTED: 05/14/2019 CLINICAL: Left axillary node biopsy. PATIENT CONSENT: Risks (minor bleeding, infection, vasovagal reaction and repeat procedure), benefits and alternatives were explained to the patient and written informed consent was obtained. Correlation is made to exams dated: 04/23/2019 ultrasound, 04/23/2019 mammogram, 03/24/2019 mammogram, and 03/21/2018 mammogram - [facility]. An ultrasound guided biopsy using real-time ultrasound was performed for the irregular shaped mass located in the left breast at 3 o'clock middle depth. The skin was prepped in the usual manner. Local anesthetic was administered to the access site. A small incision was made in the breast. The abnormality was approached from the lateral aspect. A biopsy needle was placed adjacent to the abnormality under ultrasound guidance. Once the needle was documented to be in the correct location, nine specimens were obtained using the Mammotome biopsy system. A clip was inserted into the biopsy cavity. The specimens were sent to the laboratory for pathological analysis. IMPRESSION: ULTRASOUND GUIDED BIOPSY MALIGNANT Ultrasound guided biopsy of the mass in the left breast at 3 o'clock middle depth was successful. Final pathology results per pathologist Dr. Radha Cobb identified invasive mammary carcinoma, mixed ductal and lobular types, intermediate grade, with in situ carcinoma present (lobular type). Pathology findings are concordant with imaging. Surgical and oncology consults are recommended for further evaluation and management. These results will be communicated to the patient's referring provider. This exam was interpreted at Station ID: [id number]. Jason Aviles M.D. Continued Report - Page 2 of 2 Patient Name: ESTEFANIA LERMA date: 1940 Sex: F Attending Physician: Sandra Indications: Date: 05/14/2019 07:59 At the request of: MAKAYLA ARELLANO Procedure: US biopsy of axilla only nubia,ecl/:05/18/2019 11:15:01
--- NOTE | 2019-05-21 14:37 | ONC.MSW ---
Description: Initial Referral Navigation T/C Activity: Called pt to introduce myself as the navigator, confirm that we received her referral and discussed the ongoing support and assistance through navigation. Discussed a potential time for initial consult with the provider next Tuesday, forwarded to schedulers to confirm the availability of the time for the that day. Called Dr. Flores' nurse and requested that they enter a referral to [facility].
== END ==
PROVIDERS: PCP Internal Medicine; Referring Provider Internal Medicine; Visit Provider Internal Medicine
DX: C50.812 Malignant neoplasm of overlapping sites of left female breast (principal); C77.3 Secondary and unspecified malignant neoplasm of axilla and upper limb lymph nodes; Z17.0 Estrogen receptor positive status [ER+]
CPT/HCPCS: 19083; 38505; 76942; 77065

== ENCOUNTER 2019-06-04 07:25 | Day surgery (SDC) | payer MEDICARE, SELFPAY ==
[2019-05-31 08:25] VITALS: BMI 52.4
[2019-06-04] VITALS (18 sets, daily range): BP systolic 98–158; BP diastolic 67–98; PULSE 73–99; RESP 9–23; TEMP 35.9–37.3; O2SAT 90–96; BMI 58.9
--- NOTE | 2019-06-04 | DI.MG.S_ITS ---
SPECIMEN: 06/04/2019 CLINICAL: Left breast specimen. Correlation is made to exams dated: 06/04/2019 localization, 05/14/2019 mammogram, and 04/23/2019 mammogram - [facility]. Left breast lumpectomy specimen includes the targeted biopsy clip and the localization wire. IMPRESSION: SPECIMEN Left breast lumpectomy specimen includes the targeted biopsy clip and the localization wire. This exam was interpreted at Station ID: [id number]. Sang Salomon M.D. slc/:06/04/2019 12:36:28
--- NOTE | 2019-06-04 | PATH_ITS ---
[facility] Accession Number: [id number] . 01 Material submitted: . PART A: breast - LEFT BREAST MASS PART B: breast - LEFT BREAST MASS PART C: lymph node - LEFT AXILLARY LYMPH NODES . 01 Clinical history: . A: SHORT STITCH IS MEDIAL, LONG STITCH ANTERIOR INTERMEDIATE STITCH IS SUPERIOR-TO RADIOLOGY B: STITCH TRUJILLO TUMOR SIDE C: TO RADIOLOGY THEN PATHOLOGY. SUTURE TRUJILLO SENTINEL NODE . 01 Diagnosis: A. Left Breast Mass, Lumpectomy: Invasive (lobular) carcinoma, grade 2 of 3 ([place] combined histologic grade, total score 7/9), with the following features: 1. Tumor size (invasive component): 2.7 cm tumor mass (grossly measured) in association with multiple additional smaller foci of invasive carcinoma measuring 0.05 cm to 0.5 cm; see comment. 2. Tubular differentiation: Little or none. (3/3) 3. Nuclear pleomorphism: High. (3/3) 4. Mitotic rate: Low. (1/3) 5. In situ carcinoma: a. Lobular carcinoma in situ/atypical lobular hyperplasia present, with focal pleomorphic features; see comment. b. 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 c. Ductal carcinoma in situ is not present. 6. Calcifications: Present; in association with invasive carcinoma (focally), atypical hyperplasia/lobular carcinoma in situ, benign breast tissue, and media of vessels. 7. Lymphovascular space invasion: Not applicable (see part C below). 8. Resection margins: a. Invasive carcinoma: Positive (tumor touching ink): - Medial and Inferomedial margins: Positive (blocks A17, A35, A36). - Lateral margin: 0.05 cm (A11), 0.1 cm (A15), 0.15 cm (A28 and A34). - Inferior and superior margins: 0.22 cm. - Remaining margins: More than 1 cm. b. Pleomorphic lobular carcinoma in situ: - Medial margin: less than 0.1 cm (A7) and 0.2 cm (A5). - Remaining margins: More than 1 cm. 9. Prognostic markers (performed on prior biopsy, [facility] case [id number], 05/14/2019), with the following reported results: a. Estrongen receptor: Positive. b. Progesterone receptor: Positive. c. HER2 status: Negative for protein overexpression (1+). 10. Regional lymph node status (see part C below): Metastatic carcinoma in nine out of ten lymph nodes (9/10) (including one positive sentinel lymph node). 11. Additional findings: a. Background breast with fibrocystic change, including columnar cell change/columnar cell hyperplasia, apocrine metaplasia, usual ductal hyperplasia, cystic duct dilatation, microcysts, and adenosis; small incidental papilloma is also present. b. Prior biopsy site/foreign body giant cell reaction is present. c. Skin, nipple, and skeletal muscle/chest wall are not present for evaluation. 12. Pathologic stage: At least pT2 pN2a(sn); see comment. . B. Left Breast Mass, Excision: Multiple foci of invasive lobular carcinoma ranging in size from 0.05 cm up to 0.55 cm. Resection margins: a. Invasive carcinoma: Focally positive (tumor touching ink): - 'Non-tumor side': Focally positive (block B6) and less than 0.03 cm away (B4). - 'Tumor side': 0.05 cm. Background with atypical lobular hyperplasia, focal atypical ductal hyperplasia, and focal flat epithelial atypia. Focal usual ductal hyperplasia and apocrine metaplasia also present. Calcifications are present in association with benign breast tissue and media of vessels. Ductal carcinoma in situ is not identified. . C. Left Axillary Lymph Nodes, Dissection: Metastatic carcinoma in nine out of ten lymph nodes (9/10), including one positive sentinel lymph node. Size of largest metastatic deposit: 15 mm. Extranodal extension: Present, multiple prominent foci; see comment. [facility] 06/11/2019 1013 Local . 01 Comment: - The invasive lobular carcinoma consists of one grossly measurable mass (2.7 cm) with irregular contours, spanning slices 7 through 12, in association with multiple smaller foci of invasive lobular carcinoma, of similar histomorphology (ranging in size from 0.05 cm to 0.5 cm) spanning slices 2 through slice 10. - In situ lobular neoplasia demonstrates a spectrum of morphologic change ranging from atypical lobular hyperplasia to lobular carcinoma in situ, to focally showing pleomorphic features, the latter spanning no more than 3 slices ( 1.4 cm of extent). - Given the involvement of the additional breast tissue excision in part B, the pathologic stage pT2 is considered a minimal stage; clinical and radiographic correlation is necessary to determine the appropriate T stage. - In addition to the positive lymph nodes and lymphovascular space invasion, there is secondary invasion of surrounding soft tissue. . 01 Electronically signed: . Regi Lester MD, Pathologist NPI- [id number] . 01 Gross description: . (A) Received: In formalin, labeled with left breast mass, short stitch is medial, long stitch-anterior, intermediate is superior. Specimen: Left partial mastectomy. Weight: 66 grams. Measurement: 9.2 cm anterior to posterior, 3.1 cm medial to lateral, and 6.0 cm superior to inferior. Skin Ellipse: Absent. Wire: Present, penetrating at the superior posterolateral aspect and exiting the central superomedial aspect. Margins: Oriented by surgeon with short superior suture, long anterior suture, and intermediate superior suture, and inked as follows: posterior=black; anterior=purple; superior=blue; inferior=green; medial=yellow; lateral=orange. Sliced: Anterior to posterior into 19 slices. Lesion: One mass is identified along with possible clusters of satellite masses. It is difficult to determine if these are separate masses or an extension of the main mass. Lesion: Description: Ballard, white, firm, lobulated mass with a nannette-shaped biopsy marker in slice 10. Size: 2.7 x 1.8 x 1.3 cm. Slices Involved: Slices 8-10. Biopsy Site: Present, nannette shaped, identified in slice 10. Distance To Margins: 2.9 cm from the anterior margin, 3.5 cm from the posterior margin, 1.2 cm from the superior margin, 1.3 cm from the inferior margin, 0.1 cm from the medial margin, and 1.0 cm from the lateral margin. Clusters/Possible Satellite Masses: Description: Ballard-white, firm, mostly clustered. Size: The largest cluster is 2.0 x 1.8 x 0.6 cm. Slices Involved: Slices 7-11. Distance To Margins: 2.2 cm from the anterior margin, 3.1 cm from the posterior margin, 1.1 cm from the superior margin, 0.1 cm from the inferior margin, less than 0.1 cm from the medial margin, and 0.7 cm from the lateral margin. Other: The remaining parenchyma is ballard-yellow, lobulated, adipose tissue. No other nodules, masses or lesions are identified. Fixation Time: The specimen was placed in formalin on 06/04/2019 with no time given. The total fixation time is calculated to be 56 hours 30 minutes. Sections: A1: Slice 1, manufacturers service representative anterior end of specimen, perpendicular. A2-A3: Slice 2, entirely submitted. A4-A5: Slice 3, no lesion identified, entirely submitted. A6-A8: Slice 4, no definitive lesion is identified, irregular firm area involving the lateral aspect, entirely submitted. A9-A11: Slice 5, possible cluster extension, not included in measurement, entirely submitted. A12-A15: Slice 6, no definitive lesion identified, irregular firm area along the lateral margin, tissue directly anterior to measurable cluster, entirely submitted. (Not included in cluster measurement.) A16-A21: Slice 7, cluster, tissue directly anterior to lesion, entirely submitted. A22-A25: Slice 8, mass with cluster, manufacturers service representative, tissue anterior to localization wire. A26-A29: Slice 9, mass with cluster, manufacturers service representative, tissue posterior to localization wire. A30-A33: Slice 10, mass with cluster, location of biopsy marker, manufacturers service representative. A34-A35: Slice 11, cluster, tissue directly posterior to lesion, manufacturers service representative. A36-A38: Slice 12, no cluster or lesion identified, tissue posterior to cluster, entirely submitted. A39: Slice 19, manufacturers service representative posterior end of specimen, perpendicular. (:[id number]) Additional sections: A40: Remainder of slice 1; slice is now entirely submitted. A41-A43: Slice 13, entirely submitted. A44-A45: Slice 14, entirely submitted. (:[id number]) . (B) Received: In formalin, labeled left breast mass, stitch trujillo tumor side. Specimen: Left partial mastectomy: Weight: 14 grams. Measurement: 6.2 x 4.8 x 0.8 cm. Skin Ellipse: Absent. Wire: Absent. Margins: The surgeon placed a suture indicating the tumor side. No other orientation is given. Therefore, the tumor side is inked orange and the remaining tissue is inked purple. Sliced: Serially sectioned along the long axis into 10 slices. Lesions: Multiple possible lesions are identified. Description: Ballard-white and firm. Size: 0.3 x 0.2 x 0.2 cm-0.6 x 0.5 x 0.5 cm. Slices Involved: Slices 1, 3, and 4. Biopsy Site: Absent. Distance To Margins: 0.4 cm from the tumor side and 0.1 cm from the opposite side (purple margin). Other: The remaining parenchyma is ballard-yellow, lobulated, adipose tissue. Fixation Time: The specimen was placed in formalin on 06/04/2019 with no time given. The total fixation time is calculated to be 56 hours 30 minutes. Sections: B1: Slice 1, perpendicularly sectioned, entirely submitted. B2: Slice 2, entirely submitted. B3-B4: Slice 3, entirely submitted. B5-B6: Slice 4, entirely submitted. B7-B8: Slice 5, entirely submitted. B9-B10: Slice 6, entirely submitted. B11-B12: Slice 7, entirely submitted. B13-B14: Slice 8, entirely submitted. B15-B16: Slice 9, entirely submitted. B17: Slice 10, perpendicularly sectioned, entirely submitted. . (C) Received in formalin, labeled left axillary lymph nodes, suture trujillo sentinel node, are multiple pieces of ballard-yellow rubbery adipose tissue (8.0 x 7.5 x 1.0 cm in aggregate) containing multiple possible lymph nodes (0.1 cm-1.8 x 1.8 x 0.9 cm). A suture indicates the sentinel node. Sections: The sentinel node is serially sectioned and entirely submitted in cassettes C1-C3, and the remaining are submitted as follows: (C4) one cluster, bisected; (C5-C6) one bisected lymph node; (C7) one bisected lymph node; (C8-C9) one trisected lymph node; (C10-C11) one cluster, bisected; (C12-C13) one bisected lymph node; (C14) one bisected cluster; (C15) one bisected lymph node; (C16-C17) one bisected cluster. ([id number]) /MRV 06/07/2019 1547 Local . 01 Microscopic: . In block B6, an TIFFANY immunostain is obtained, with appropriately staining external controls, to evaluate for carcinoma at inked/cauterized margins at 'non-tumor side'. Although TIFFANY highlights the invasive carcinoma being present less than 0.03 cm from the inked/cauterized margins, the subsequent H/E deeper sections show infiltrating tumor cells focally at the inked/cauterized margin at 'non-tumor side', in support of the diagnosis. . For future studies, block A32 contains good representation of the carcinoma. . * This test was developed and its performance characteristics determined by [facility]. It has not been cleared or approved by the U.S. Food and Drug Administration. The FDA has determined that such clearance or approval is not necessary. This test is used for clinical purposes. It should not be regarded as investigational or for research. . 01 Pathologist provided ICD-10: C50.912 . 01 CPT . 988055, 148576, 208086, F91506 Performed at: 01 [facility] [address] [place] [address], [place], [place] [id number] MD Asad Gomez MD Phone: [phone]
--- NOTE | 2019-06-04 | DI.MG.S_ITS ---
DIGITAL MAMMOGRAPHY GUIDED NEEDLE LOCALIZATION LEFT BREAST WITH POST DIGITAL MAMMOGRAPHIC IMAGIN06/04/2019 CLINICAL: Left breast cancer. Correlation is made to exams dated: 05/14/2019 mammogram, 04/23/2019 mammogram, and 03/24/2019 mammogram - [facility]. A needle localization using digital mammography guidance was performed for the marker clip located in the left breast at 3 o'clock middle depth. The skin was prepped in the usual manner. Local anesthetic was administered to the access site. A skin salazar was made in the breast. The localization was approached from the lateral aspect. A needle was inserted into the targeted area under digital mammography guidance. A skin adhesive was applied to the access site. Post placement digital mammographic imaging demonstrates the tip demarcates the boundaries of the targeted area. IMPRESSION: NEEDLE LOCALIZATION Needle localization for the marker clip in the left breast at 3 o'clock middle depth was successful with no apparent post procedure complications. A surgical excision is recommended. This exam was interpreted at Station ID: [id number]. Sánchez [email or web address]/:06/05/2019 10:37:05
--- NOTE | 2019-06-04 07:55 | DI.NM.S_ITS ---
PROCEDURE: NM SENTINEL NODE W IMAGING RADIOPHARMACEUTICAL: 0.5-1.0 mCi Millipore filtered Tc-99m sulfur colloid. INDICATIONS: Left breast cancer TECHNIQUE: The area around the nipple was prepped and draped in a sterile fashion. Tc-99m sulfur colloid was injected intra-dermally in the outer edge of the areola in the left breast. Images were obtained subsequently. A body contour outline was obtained. FINDINGS: There is/are no sentinel nodes identified by gamma camera imaging. [place] nodes will be localized intraoperatively. IMPRESSION: Administration of radiotracer into the left breast periareolar region for intra-operative sentinel lymph node localization. Dictated by: Lala Escamilla MD, PhD on 06/04/2019 at 10:51 Approved by: Lala Escamilla MD, PhD on 06/04/2019 at 10:58
--- NOTE | 2019-06-04 10:23 | PM.PREOP ---
Pre-operative Note Interval Note History & Physical reviewed/Exam performed by Physician: Yes Changes to H&P: Yes H&P completed within 30 days and has changed as indicated here:: Lesion in the breast localized. Nuclear medicine study shows positive sentinel nodes. 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
[2019-06-04] MEDS: LACTATED RINGERS 1,000 ML 100 ML IV ×2 (10:37→14:36)
[2019-06-04] MEDS: CEFAZOLIN VIAL 3 GM in SODIUM CHLORIDE 0.9% 100 ML 200 ML IV (11:00)
--- NOTE | 2019-06-04 11:05 | SUR.OPER ---
Supine on padded OR bed, head on pillow, arms secured on padded arm boards at <90 degrees abduction, legs uncrossed, safety belt at thigh, tape over blanket over lower legs.
[2019-06-04] MEDS: BUPIVACAINE 0.5% (PF) VIAL 30 ML INJ (11:19)
[2019-06-04] MEDS: ACETAMINOPHEN IV 1,000 MG/100 ML VIAL 400 MG IV (13:31)
--- NOTE | 2019-06-04 14:07 | PM.OP.1 ---
Operative Date/Time/Diagnoses Date of procedure: 06/04/19 Time of procedure: 14:07 Pre-op diagnosis: Left-sided breast cancer with positive lymph node left axilla Post-op diagnosis: same Procedure & Clinicians Procedure: Needle localization lumpectomy with sentinel node biopsy and removal of additional deep axillary nodes. Same procedure as scheduled: Yes Indications: Patient with breast cancer. Opted adamantly to undergo lumpectomy and sentinel node biopsy. Surgeon: Gustabo Wesley Click Yes if Unassisted: Yes Anesthesia Type: General Operative Notes Findings: Multiple small hard nodes in the axilla. Clips removed from the breast and the axilla in were in both specimens. The mass in the breast appeared to be completely removed. Closure Type: primary Specimen(s): other (Breast mass with wire and multiple lymph nodes) Applied: drain(s) (7 mm Mt-Cordova placed in the axilla) Estimated Blood Loss (mL): 50 Blood products transfused: none Procedure in detail: The patient is placed supine on the operating room table and underwent general LMA anesthesia. She was prepped and draped in the usual fashion. Care was taken not to move the wire. The radiologist reported he attempted to place a wire in the axilla but with movement after placement the wire dislodged. Therefore he was not able to localize the axillary clip. Curvilinear incision was made overlying the mass in the central portion of the breast. Was carried down into breast tissue proper. I was able to feel a mass and using palpation in the wire excise a large amount of tissue around the wire. It was marked with sutures medial was a short sutures superior was a medium length suture an anterior was a long suture. Specimen was removed and sent for specimen mammography. The clip and wire were within the specimen. As I was dissecting the specimen out I could feel the tip of the wire and this was located in the medial specimen. I removed additional tissue at that margin should it be positive that additional tissue will be significant. The additional tissue was sent separately and marked with a suture on the tumor side. Meticulous hemostasis was achieved. Major vessels or arteries were ligated with 3 0 Vicryl sutures. Wound was irrigated and space closed with interrupted 3 0 Vicryl. The subcu was closed with interrupted 3 0 Vicryl and skin was closed running 4 0 Vicryl subcuticular stitch. Attention was turned to the axilla. An incision was made fade at what appeared to be the natural fold between the axilla and breast. Was carried down into the axilla proper. Using palpation and the navigator probe I isolated numerous nodes that were palpable. It was difficult however to identify unique node with the navigator as whole areas seem to light up. I ultimately decided that I had removed enough tissue and had removed the sentinel node and sent all of the axillary tissue for specimen mammography to make sure the clip was present. It was. 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 Any further outflow problems of her lymphatics would certainly be a problem and she would probably require axillary radiation as well. Therefore I did not want to do a complete axillary dissection on this particular patient. Therefore I had removed the positive node and additional lymphadenopathy. Hemostasis was achieved with cautery and with suture ligatures. A drain was placed and brought through a separate stab incision inferior to the wound. This was mm Mt-Cordova drain. It was secured to the skin with 3 0 nylon. Axilla was closed with interrupted 3 0 Vicryl and subcu was closed with interrupted 3 0 Vicryl. The skin was closed running 4 0 Vicryl subcuticular stitch. The wounds were cleaned. Steri-Strips and Mastisol were applied. Dressing was applied. The patient was awakened extubated and taken to the recovery room in good condition. Complications: none Post-operative Condition: stable Disposition: PACU Plan for aftercare: Deep pending on patient's status may be kept overnight.
[2019-06-04] MEDS: fentaNYL 100 MCG/2 ML INJ IV ×2 (14:14→14:23)
--- NOTE | 2019-06-04 14:33 | SUR.PHASEI ---
Patient reports pain at tolerable level.
[2019-06-04] MEDS: MORPHINE 4 MG/ML INJ IV (15:54)
--- NOTE | 2019-06-04 15:56 | SUR.PHASEII ---
Addendum entered by Phyllis Don R.N. 06/04/19 17:33: Patient taken up to room 224 with all belongings. Receiving RN at bedside. Addendum entered by Phyllis Don R.N. 06/04/19 16:37: Coordinator updated and patient assigned to room 224. Report given to receiving RN Kezia. Room is not clean yet, Kezia states she will call when it is ready. Original Note: When patient got to phase 2 she was placed on pulse oximeter and remains on her CPAP. Denied pain. Rested peacefully in bed for a while. Then began complaining of pain 11/11. Discussed options with patient and then with Dr. Wesley. Received orders to admit patient to acute care and order for IV morphine. Medicated per orders and updated patient on plan to stay the night. Patient and agree to stay.
[2019-06-04] MEDS: HYDROCODONE/ACET 5/325 TABLET 2 TAB PO (18:00)
[2019-06-04] MEDS: LACTATED RINGERS 1,000 ML 42 ML IV (19:50)
[2019-06-04] MEDS: GABAPENTIN 300 MG CAPSULE PO (22:20)
[2019-06-05] MEDS: HYDROCODONE/ACET 5/325 TABLET 2 TAB PO ×3 (00:07→11:09)
[2019-06-05 00:08] VITALS: BP 131/74; PULSE 78; RESP 16; TEMP 36.1; O2SAT 92
[2019-06-05 05:00] VITALS: BP 120/69; PULSE 68; RESP 18; TEMP 36.1; O2SAT 93
[2019-06-05 07:20] VITALS: BP 123/66; PULSE 70; RESP 19; TEMP 36.4; O2SAT 92
[2019-06-05] MEDS: LOSARTAN 50 MG TABLET PO (09:13)
[2019-06-05] MEDS: GABAPENTIN 300 MG CAPSULE PO (09:13)
[2019-06-05] MEDS: AMLODIPINE 5 MG TABLET PO (09:13)
[2019-06-05] MEDS: ENOXAPARIN 40 MG/0.4 ML SYRINGE SUBCUT (09:14)
[2019-06-05] MEDS: PARoxetine 20 MG TABLET 40 MG PO (09:14)
--- NOTE | 2019-06-05 13:04 | PC.NURSE ---
Days shift: Paperwork signed and all questions answered. Pt has all personal belongings. No new MD scrips. Instructed Pt and her spouse on MAXIMILIANO drain and dressing around the MAXIMILIANO entry site. Encouraged Pt to take stool softeners if taking narcs for pain. Taken to car by LUIS ANGEL John in . Pt's spouse will drive them home.
--- NOTE | 2019-06-05 15:00 | CM.DANOTE ---
DCP Assessment: (EMR Reviewed): Patient is a 78 year old female admitted to the care of Dr. Wesley following mastectomy of her left breast. Pt's PCP is Dr. Flores. Met with patient in room with , Deshawn, at bedside and introduced self and role. Patient reports lives at home with her , was previously independent with all ADLs, but that her is a big help and takes care of shopping, cooking, and cleaning for her. Patient reports has a four wheel walker which was in the room with her for discharge. Follow-up appointment with Dr. Wesley scheduled for Tuesday06/12/2019. Patient reports her DC wishes to return home with her . I: [employer] Medicare P: Discharge home with Deshawn. CM will remain available for any other discharge needs. SN Holly Loyola RN Discharge Planning/Care Management CM Discharge Assessment Start: 06/05/19 14:58 Freq: Status: Active Protocol: Document 06/05/19 11:00 HS (Rec: 06/05/19 15:00 HS [id number]) Discharge Planning Assessment Assigned Supervisor Film Processing Holly Zamora RN/SN Nir Advance Directives? Yes History Provided By Patient,Significant Other, Medical Record Has Patient been admitted in last 30 No days? Prior Living Arrangements House Household Members spouse Type of transporation used prior to Drives own vehicle admit Comment Pt does drive own vehicle but reports mainly relies on for transportation. Independent with ADL's Yes Is patient alert and oriented? Yes Needs Assistance With Meal Prep,Home Chores / Shopping Comment assists patient at home with chores, shopping, and cooking. Caregiver for Another No DME Already Rented / Owned FWW / Walker Barriers to Discharge No Discharge Plan Home Referrals Initiated None needed Whiteboard Updated in Patient Room with Yes name and ext. # of Supervisor Film Processing Review Status In Process Next Review Type Continued Stay Review Pre-Anesthesia Assessment Start: 05/31/19 08:25 Freq: Status: Active Protocol: Document 05/31/19 08:25 CAB (Rec: 05/31/19 08:42 CAB [id number]) Pre-Anesthesia Assessment PAC Comment Pt did not list current medications or allergies on medical history form, wrote, See hospital list Patient Information Reviewed Via Chart Review Primary Care Provider Sandor Flores Seen Specialist in Last 12 Months Yes Specialist Seen General surgeon,Oncologist, Sleep specialist Primary Language French Ui Designer Required No Height 160.02 cm Weight 134.263 kg Body Mass Index (BMI) 52.4 Hearing Ability Normal Visual Assist Glasses Dentition Type Teeth, Natural Present Barriers to Learning None Other Aids Yes: CPAP Hx Anesthesia Reactions No Hx Family Anesthesia Reaction No Hx Malignant Hyperthermia No Hx Blood Transfusions Yes: 1962 Hx Blood Transfusion Reaction No Anesthesia Review Requested No alcohol intake current alcohol intake frequency 0-2 drinks per day Smoking Status Never smoker Substance Use Type does not use Pain Present Pain Reported Comment All over Musculoskeletal Symptoms Back Pain,Joint Pain Patient is completely paralyzed or No completely immobile Prosthesis or Orthotic Device Cane,Front Wheel Walker Mental Status Oriented to own ability Is patient on oxygen? No Does patient have SMITH/SOB Yes: r/t COPD, Asthma Hx Sleep Apnea Yes: Wears CPAP, compliance unknown Currently Taking a Beta Alcides No Can You Climb a Flight of Stairs Without No SOB Hx Chest Pain No Hx SOB Yes: r/t COPD, Asthma Hx Syncope or Dizziness No Anti-Coagulant Therapy No Has a Chief Executive Or Managing Director No Cardiac Testing No Hx Pacemaker/ICD No Pacemaker Rep Required? No Urinary Catheter Present No Hx Urinary Self Catheterization No Diabetes No Patient No Lactating No Marital Status Lives With spouse Patient Discharge Plan Description Return Home Advance Directives? No
== END 2019-06-05 13:06 | disposition home or self-care (01) ==
LOC: OR 17:35 → AC 06-05 08:34
PROVIDERS: PCP Internal Medicine; Referring Provider Specialist; Visit Provider Specialist
PROC: (CPT 19301; principal; 2019-06-04 11:30)
DX: C50.912 Malignant neoplasm of unspecified site of left female breast (principal); C77.3 Secondary and unspecified malignant neoplasm of axilla and upper limb lymph nodes; Z17.0 Estrogen receptor positive status [ER+]
CPT/HCPCS: 38525; 19301; 19281; 76098; 78195; A9541; G0378; J0131; J0690; J1100; J1650; J2250; J2270; J2405; J2704; J3010

== ENCOUNTER → 2019-06-18 10:12 | Outpatient (CLI) | payer MEDICARE, SELFPAY ==
[2019-06-04 19:04] VITALS: BMI 58.9
--- NOTE | 2019-06-18 10:13 | DI.NM.S_ITS ---
PROCEDURE: [place] BONE SCAN WHOLE BODY RADIOPHARMACEUTICAL: 19.0 mCi Tc-99m MDP IV. INDICATIONS: breast cancer TECHNIQUE: Delayed whole-body scintigrams were obtained approximately 3-4 hours after intravenous injection of radiotracer. Anterior and posterior views were acquired from vertex to feet. COMPARISON: [facility], CT, CT CHEST ABD PEL W CON, 06/18/2019, 11:28. [facility], [place], BONE SCAN WHOLE BODY, 10/02/2007, 12:00. FINDINGS: Possibly diffuse increased uptake in skull. Slightly increased uptake in clavicles bilaterally. No definitive focal lesions are identified in sternum, scapulae, ribs, bony pelvis, and visualized shafts of the long bones. There is increased soft tissue uptake in the left breast. The comparison CT demonstrates diffuse mixed lytic and blastic bone lesions involving both axial and appendicular skeletons consist with widespread osseous metastasis. IMPRESSION: The bone scan grossly underestimates extensive osseous metastases which are seen on the comparison CT is diffuse mixed blastic and lytic bone lesions. Dictated by: Boris Jenkins M.D. on 06/18/2019 at 17:15 Approved by: Boris Jenkins M.D. on 06/18/2019 at 18:43
[2019-06-18 10:56] LABS: Add Manual Diff / Slide Review NO; Basophils Absolute Auto 0 /uL (0-100); Basophils Percent Auto 0.6 % (0-2); Eosinophils Absolute Auto 200 /uL (0-450); Eosinophils Percent Auto 3.3 % (2-4); Hematocrit 35.2 % (36-46); Hemoglobin 11.7 g/dL (12.0-16.0); Lymphocytes Absolute Auto 1800 /uL (1100-4500); Lymphocytes Percent Auto 32.5 % (25-40); Mean Corpuscular HGB Conc 33.2 % (30-36); Mean Corpuscular Hemoglobin 29.4 PG (26-34); Mean Corpuscular Volume 88.6 fL (80-100); Monocytes Absolute Auto 500 /uL (0-900); Monocytes Percent Auto 8.4 % (3-14); Neutrophils Absolute Auto 3100 /uL (1500-7000); Neutrophils Percent Auto 55.2 % (50-75); Platelet Count 425 X10^3/uL (150-400); Red Blood Cell Count 3.97 X10^6/uL (4.0-5.2); Red Cell Distribution Width 16.1 % (11.6-14.8); White Blood Cell Count 5.7 X10^3/uL (4.5-11.0)
[2019-06-18 11:11] LABS: Alanine Aminotransferase 23 IU/L (<35); Albumin 4.3 g/dL (3.5-5.0); Albumin Globulin Ratio 1.3 (1.0-2.8); Alkaline Phosphatase 174 U/L (38-126); Aspartate Aminotransferase 34 IU/L (14-36); BUN Creatinine Ratio 12.4 (6-22); Bilirubin Total 0.6 mg/dL (0.2-1.3); Blood Urea Nitrogen 12 mg/dL (7-17); Calcium 9.8 mg/dL (8.4-10.2); Carbon Dioxide 26 mmol/L (22-32); Chloride 105 mmol/L (98-107); Estimated Glomerular Filt Rate 55.7 mL/min (>60); Globulin 3.3 g/dL (1.7-4.1); Glucose 133 mg/dL (80-110); HEMOLYSIS < 15 (0-50); Potassium 4.1 mmol/L (3.4-5.1); Sodium 140 mmol/L (137-145); Total Protein 7.6 g/dL (6.3-8.2)
--- NOTE | 2019-06-18 11:28 | DI.CT.S_ITS ---
PROCEDURE: CT CHEST ABD PEL W CON INDICATIONS: breast cancer TECHNIQUE: After the administration of oral and intravenous contrast, 5 mm thick sections acquired from the lung apices to the symphysis. 5 mm coronal and sagittal reformats were performed, with additional 7 mm coronal MIP reformats through the lungs. For radiation dose reduction, the following was used: automated exposure control, adjustment of mA and/or kV according to patient size. COMPARISON: [facility], [place], [place] BONE SCAN WHOLE BODY, 06/18/2019, 14:15. [facility], RG, CT ABDOMEN/PELVIS W/WO CONTRAST, 12/05/2001, 10:18. [facility], [place], THYROID, 05/24/2016, 8:43. [facility], [place], US BREAST LT LIMITED, 04/23/2019, 14:16. [facility], CT, ANGIOGRAPHY CHEST, 05/13/2016, 13:47. FINDINGS: Image quality: There is mild motion artifact in. CHEST: Lungs and pleura: There is focal nodular thickening within the right upper lobe along the major fissure measuring up to 7 mm on series 3 image 90. Mild scarring and atelectasis are demonstrated bilaterally with a basilar predominance most prominent in the left base along a large hiatal hernia. No pleural effusions or pneumothorax. Central and peripheral airways appear patent and normal in caliber. Mediastinum: Heart size is normal. No pericardial effusion. There is cardiothoracic calcification. No mediastinal or hilar adenopathy by size criteria. Thoracic aorta and central pulmonary arteries are normal in size. Esophagus is normal in caliber. There is a large hiatal hernia redemonstrated. A small amount of fluid is demonstrated within the hernia. Chest wall: There are postsurgical changes within the left breast laterally as well as the left axilla with associated lobulated peripheral enhancing fluid collections consistent with postsurgical seromas or hematomas. There is associated subcutaneous edema and fat stranding. No axillary or supraclavicular adenopathy by size criteria. Thyroid gland is enlarged and heterogeneous in appearance with multiple nodules, measuring up to approximately 2.7 cm in the inferior left lobe. The findings are similar in appearance to the prior CT. ABDOMEN: Solid organs: Evaluation of the liver demonstrates no focal hepatic lesions. The gallbladder is surgically absent. Biliary system is non-dilated. Pancreas enhances normally. No peripancreatic fat stranding or fluid collections. No pancreatic duct dilatation. The spleen is normal in size. No adrenal nodules. Kidneys demonstrate no hydronephrosis. Peritoneum and bowel: Bowel loops demonstrate normal wall thickness and caliber. There is colonic diverticulosis without acute diverticulitis. There is a small amount of ascites in the abdomen and pelvis. Mild fat stranding is demonstrated within the omentum. No discrete peritoneal mass implant identified. Nodes and vessels: No retroperitoneal or mesenteric adenopathy by size criteria. Aorta and inferior vena cava are normal in size. Miscellaneous: No ventral hernias. PELVIS: Genitourinary: Bladder wall thickness is normal. Miscellaneous: No inguinal hernias or adenopathy. Bones: There are diffuse sclerotic and lytic lesions demonstrated throughout the visualized osseous structures consistent with metastatic disease. These include the axial and appendicular skeleton. No pathologic fractures identified. However, there is a lytic lesion within the T6 vertebral body involving the majority of the left vertebral body height. Patient may be at risk for pathologic fracture. No vertebral body compression fractures. IMPRESSION: 1. Extensive osseous metastases demonstrated throughout the visualized osseous structures. Lytic lesion within the T7 vertebral body may be at risk for pathologic fracture. 2. Small amount of ascites with mild hazy fat stranding of the omentum. The findings are suspicious for possible peritoneal carcinomatosis. 3. Postsurgical changes within the left breast and left axilla. 4. Small indeterminate pulmonary nodule along the right major fissure. Recommend attention on followup. 5. Diffuse enlargement of the thyroid with multiple nodules. Recommend followup ultrasound if clinically indicated. Dictated by: Asad Pires M.D. on 06/18/2019 at 17:09 Approved by: Asad Pires M.D. on 06/18/2019 at 17:21
== END ==
PROVIDERS: PCP Internal Medicine; Referring Provider Internal Medicine; Visit Provider Internal Medicine Hematology & Oncology
DX: C50.912 Malignant neoplasm of unspecified site of left female breast (principal); C79.51 Secondary malignant neoplasm of bone; R18.8 Other ascites; Z90.49 Acquired absence of other specified parts of digestive tract; E04.2 Nontoxic multinodular goiter; K44.9 Diaphragmatic hernia without obstruction or gangrene; K57.90 Diverticulosis of intestine, part unspecified, without perforation or abscess without bleeding; R91.1 Solitary pulmonary nodule
CPT/HCPCS: 36415; 71260; 74177; 78306; 80053; 85025; A9503; Q9967

== ENCOUNTER → 2019-07-18 10:30 | Outpatient (CLI) | payer MEDICARE, SELFPAY ==
[2019-06-04 19:04] VITALS: BMI 58.9
--- NOTE | 2019-07-18 | DI.MRI.S_ITS ---
PROCEDURE: MR THORACIC SPINE WO/W CON INDICATIONS: METS CANCER TECHNIQUE: Noncontrast sagittal T1 spin echo and T2 fast spin echo, sagittal STIR, axial T1 and T2 fast spin echo through the thoracic spine. After the administration of contrast, axial and sagittal T1 spin echo with fat saturation through the thoracic spine. COMPARISON: [facility], CT, CT CHEST ABD PEL W CON, 06/18/2019, 11:28. [facility], NM, NM BONE SCAN WHOLE BODY, 06/18/2019, 14:15. FINDINGS: Image quality: Excellent. Alignment and curvature: There is normal bony alignment. Marrow: Marrow is of generalized abnormal overall signal with replacement of normal fatty marrow by cellularity, throughout the entire visualized osseous components of the spine. The manubrium and sternum show the same pattern which was also seen on CT scanning as a heterogeneous mixed osteolytic and blastic change involving all the visualized axial and appendicular skeleton components. Extensive osseous metastatic disease appears present, with several areas of elevated signal on T1 imaging involving the T6 and T7 vertebral bodies considered most likely pre-existing vertebral body hemangiomas with fat content within. No acute vertebral body compression fractures. Spinal cord: Visualized spinal cord is of normal signal and size, without abnormal enhancement. Paraspinous soft tissues: No paravertebral masses or abnormal enhancement. Miscellaneous: Central canal and foramina appear widely patent at all scanned levels. IMPRESSION: Extensive osseous metastatic disease involving all visualized osseous components of the axial and appendicular skeleton. Focal elevated fat signal on T1 imaging within the T6 and T7 vertebral bodies is most likely a manifestation of pre-existing small vertebral body hemangiomas. No pathologic fracture is found. Dictated by: Umair Moreno M.D. on 07/18/2019 at 14:09 Approved by: Umair Moreno M.D. on 07/18/2019 at 14:18
[2019-07-18 11:05] LABS: Add Manual Diff / Slide Review NO; Basophils Absolute Auto 100 /uL (0-100); Basophils Percent Auto 0.9 % (0-2); Eosinophils Absolute Auto 200 /uL (0-450); Eosinophils Percent Auto 2.7 % (2-4); Hematocrit 35.5 % (36-46); Hemoglobin 11.8 g/dL (12.0-16.0); Lymphocytes Absolute Auto 1800 /uL (1100-4500); Mean Corpuscular HGB Conc 33.1 % (30-36); Mean Corpuscular Hemoglobin 29.3 PG (26-34); Mean Corpuscular Volume 88.6 fL (80-100); Monocytes Absolute Auto 500 /uL (0-900); Monocytes Percent Auto 8.7 % (3-14); Neutrophils Absolute Auto 3700 /uL (1500-7000); Neutrophils Percent Auto 58.7 % (50-75); Platelet Count 355 X10^3/uL (150-400); Red Blood Cell Count 4.01 X10^6/uL (4.0-5.2); Red Cell Distribution Width 16.4 % (11.6-14.8); White Blood Cell Count 6.3 X10^3/uL (4.5-11.0)
[2019-07-18 11:17] LABS: Alanine Aminotransferase 12 IU/L (<35); Albumin 4.2 g/dL (3.5-5.0); Albumin Globulin Ratio 1.3 (1.0-2.8); Alkaline Phosphatase 164 U/L (38-126); Aspartate Aminotransferase 19 IU/L (14-36); BUN Creatinine Ratio 15.6 (6-22); Bilirubin Total 0.5 mg/dL (0.2-1.3); Blood Urea Nitrogen 12 mg/dL (7-17); Calcium 10.4 mg/dL (8.4-10.2); Carbon Dioxide 24 mmol/L (22-32); Chloride 107 mmol/L (98-107); Estimated Glomerular Filt Rate > 60.0 mL/min (>60); Globulin 3.3 g/dL (1.7-4.1); Glucose 101 mg/dL (80-110); HEMOLYSIS < 15 (0-50); Potassium 4.1 mmol/L (3.4-5.1); Sodium 140 mmol/L (137-145); Total Protein 7.5 g/dL (6.3-8.2)
== END ==
PROVIDERS: PCP Internal Medicine; Referring Provider Internal Medicine Hematology & Oncology; Visit Provider Internal Medicine Hematology & Oncology
DX: C50.412 Malignant neoplasm of upper-outer quadrant of left female breast (principal); C79.51 Secondary malignant neoplasm of bone; Z17.0 Estrogen receptor positive status [ER+]
CPT/HCPCS: 36415; 72157; 80053; 85025; A9579

== ENCOUNTER 2019-07-23 09:47 | Emergency (ER) | payer MEDICARE, SELFPAY ==
[2019-06-04 19:04] VITALS: BMI 58.9
--- NOTE | 2019-07-23 09:58 | ED.GENADULT ---
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 They were on their way to see their oncologist when she had a near syncopal episode while sitting on her walker. She was brought to the emergency room for further evaluation. She describes no pain, headache, nausea, vomiting, diarrhea, chest pain, dyspnea or localizing weakness, simply global weakness that is worse than usual. Related Data Home Medications Medication Instructions Recorded Confirmed loratadine [Claritin] 10 mg PO PRN #0 08/23/12 06/04/19 propylene glycol 0.6 % eye drops 1 drp EYE-BOTH PRN PRN 12/12/18 05/31/19 albuterol sulfate [Ventolin HFA] 1 - 2 puff INH Q4HP PRN 05/31/19 06/04/19 furosemide 20 mg PO SEEINSTR 06/04/19 06/04/19 hyoscyamine sulfate 0.125 mg PO PRN PRN 06/04/19 06/04/19 naratriptan [Amerge] 2.5 mg PO PRN PRN 06/04/19 06/04/19 sucralfate 1 gram PO PRN PRN 06/04/19 06/04/19 Previous Rx's Medication Instructions Recorded cyanocobalamin (vitamin B-12) 1,000 mcg PO QDAY #90 tab 04/27/16 Disabled Parking #1 each 08/18/18 paroxetine HCl 40 mg tablet 40 mg PO DAILY #90 tab 09/18/18 mometasone 200 mcg/actuation HFA See Rx Instructions .ROUTE 12/26/18 aerosol inhaler .COMPLEX #13 gram hydrocodone 5 mg-acetaminophen 325 1 - 2 tab PO Q4HP PRN #90 tab 02/05/19 mg tablet epinephrine 0.3 mg/0.3 mL See Rx Instructions .ROUTE 02/26/19 injection, auto-injector .COMPLEX #2 unspecified fluticasone propionate 50 1 spray NASAL BID #18.2 ml 02/28/19 mcg/actuation nasal spray,suspension amlodipine 10 mg tablet See Rx Instructions .ROUTE 03/15/19 .COMPLEX #90 tablet atorvastatin 10 mg tablet See Rx Instructions .ROUTE 03/15/19 .COMPLEX #90 tablet lansoprazole 30 mg capsule,delayed See Rx Instructions .ROUTE 03/15/19 release .COMPLEX #90 capsule losartan 100 mg tablet See Rx Instructions .ROUTE 03/15/19 .COMPLEX #90 tablet potassium chloride 10 mEq See Rx Instructions .ROUTE 03/15/19 capsule,extended release .COMPLEX #180 capsule clobetasol 0.05 % topical cream See Rx Instructions TOP BID PRN 04/05/19 #60 gram lidocaine 5 % topical ointment 1 applic TOP BID-TID PRN #35.44 04/19/19 gram MDD three applications salmeterol 50 mcg/dose blister See Rx Instructions .ROUTE 04/19/19 powder for inhalation .COMPLEX #60 unspecified cyclobenzaprine 10 mg tablet 10 mg PO BID PRN #60 tab 04/30/19 letrozole [Femara] 2.5 mg PO DAILY #90 tab 06/21/19 palbociclib [Ibrance] 125 mg PO DAILY #21 cap 06/21/19 Allergies Allergy/AdvReac Type Severity Reaction Status Date / Time aspirin Allergy Severe ANAPHYLACTIC Verified 06/04/19 07:58 SHOCK venom-honey bee Allergy Severe ANAPHYLACTIC Verified 06/04/19 07:58 [bee venom (honey bee)] SHOCK adhesive Allergy Intermediate RASH FROM Verified 06/04/19 07:58 TAPE cephalexin Allergy Mild DIARRHEA Verified 06/04/19 07:58 shellfish derived Allergy Mild Anaphylaxis Verified 06/04/19 07:58 tetracycline Allergy Mild ITCH Verified 06/04/19 07:58 peanut Allergy Unknown Verified 06/04/19 07:58 oxycodone AdvReac Severe HALLUCINAT Verified 06/04/19 07:58 IONS Review of Systems Review of Systems Narrative: All systems reviewed and are unremarkable except as noted in HPI and below Patient History Medical History Arthritis (Acute) Asthma (Chronic) Celiac disease (Chronic 04/27/16) Chronic obstructive pulmonary disease (Chronic 08/26/16) Dorsalgia (Chronic) Edema (Acute) Essential hypertension (Chronic 11/23/10) Heart murmur (Acute) History of deep venous thrombosis (Chronic 11/23/10) History of malignant neoplasm of breast (Inactive 11/23/10) Hx of migraine headaches (Acute) Hyperlipidemia (Chronic 11/23/10) Morbid obesity with body mass index (BMI) of 40.0 or higher (Chronic 07/27/16) Nonrheumatic aortic valve stenosis (Chronic 04/27/16) Paresthesia and pain of both upper extremities (Chronic) Sinus drainage (Acute) Sleep apnea (Chronic) Ulcer (Acute) Surgical History History of bladder suspension procedure (Acute) History of cataract removal with insertion of prosthetic lens Hx of appendectomy (Acute) Hx of arthroscopy of knee (Acute) Hx of cholecystectomy (Acute) Hx of discectomy (Acute) Hx of hysterectomy (Acute) Hx of laminectomy (Acute) Hx of left breast biopsy (Acute 05/14/19) Hx of tonsillectomy (Acute) Status post breast lumpectomy (~2002) Family History Mother Hypertension Breast cancer Father Hypertension Heart disease Social History marital status: number of children: 3 household members: spouse caregiver/support person: No housing: house pets and animals: No education level: college occupational status: other 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 alessandro/denominational: [employer] travel history: recent leisure activities: reading and other Smoking Status: Never smoker Tobacco: How many years used: 0 quit status: quit date established second hand exposure: No alcohol intake: current substance use type: does not use Smoking Status: Never smoker alcohol intake frequency: a few times a month Substance Use Type: does not use Exam Narrative Exam Narrative: General: no acute distress. Globally weak but able to give pertinent history details HEENT: Moist mucous membranes, normal sclera with reactive pupils, Neck: No JVD, supple Respiratory: Lungs are clear to auscultation, no wheezing no rales no rhonchi. Full and symmetrical air movement Cardiac: Regular rate and rhythm, 4/6 systolic ejection murmur without bruits Abdomen: Soft nontender good bowel tones, no flank pain Skin: Warm and dry, no rashes Neurologic: Grossly neurologically intact with no obvious asymmetries or abnormalities Extremities: No trauma, well perfused Psych: Cooperative, appropriate insight and affect Initial Vital Signs Initial Vital Signs: Vital Signs Temperature 96.7 F L 07/23/19 10:21 Pulse Rate 67 07/23/19 10:21 Respiratory Rate 18 07/23/19 10:21 Blood Pressure 122/64 07/23/19 10:21 Pulse Oximetry 94 07/23/19 10:21 Course Orders Ordered: Discontinued Medications Sodium Chloride (Normal Saline 0.9%) 1,000 mls @ 1,000 mls/hr IV BOLUS ONE Stop: 07/23/19 11:09 Last Infusion: 07/23/19 12:31 Dose: 0 mls/hr Documented by: Admin: 07/23/19 11:06 Dose: 1,000 mls/hr Documented by: LIA Ondansetron HCl (Zofran) 4 mg IV NOW ONE Stop: 07/23/19 10:11 Last Admin: 07/23/19 11:07 Dose: 4 mg Documented by: LIA Vital Signs Vital signs: Vital Signs - 8 hr 07/23/19 10:21 Temperature 96.7 F L Pulse Rate 67 Respiratory Rate 18 Blood Pressure 122/64 Pulse Oximetry 94 Medical Decision Making Medical Records Medical records reviewed: Yes I reviewed the patient's medical records. Lab Data Lab results reviewed: Yes I reviewed the patient's lab results. Lab results narrative: Minimally elevated calcium at 10.7 Urine with multiple squamous epithelial cells likely simply not a clean catch. Will wait for culture prior to calling this an infection Result diagrams: 07/23/19 10:05 07/23/19 10:05 Labs: Lab Results 07/23/19 07/23/19 07/23/19 Range/Units 10:05 10:05 10:05 WBC 5.8 (4.5-11.0) X10^3/uL RBC 4.27 (4.0-5.2) X10^6/uL Hgb 12.7 (12.0-16.0) g/dL Hct 38.0 (36-46) % MCV 89.0 (80-100) fL MCH 29.7 (26-34) PG MCHC 33.3 (30-36) % RDW 16.6 H (11.6-14.8) % Plt Count 369 (150-400) X10^3/uL Neut % (Auto) 55.2 (50-75) % Lymph % (Auto) 33.3 (25-40) % [place] % (Auto) 7.3 (3-14) % Eos % (Auto) 3.1 (2-4) % Baso % (Auto) 1.1 (0-2) % Neut # (Auto) 3200 (2885-8775) /uL Lymph # (Auto) 1900 (2167-7346) /uL [place] # (Auto) 400 (0-900) /uL Eos # (Auto) 200 (0-450) /uL Baso # (Auto) 100 (0-100) /uL Sodium 143 (137-145) mmol/L Potassium 4.1 (3.4-5.1) mmol/L Chloride 108 H (98-107) mmol/L Carbon Dioxide 25 (22-32) mmol/L BUN 12 (7-17) mg/dL Creatinine 0.95 (0.52-1.04) mg/dL Estimated GFR 57.0 L (>60) mL/min BUN/Creatinine Ratio 12.6 (6-22) Glucose 156 H (80-110) mg/dL Calcium 10.7 H (8.4-10.2) mg/dL Total Bilirubin 0.6 (0.2-1.3) mg/dL AST 24 (14-36) IU/L ALT 15 (<35) IU/L Alkaline Phosphatase 188 H (38-126) U/L Troponin I < 0.012 (0.01-0.034) ng/mL Total Protein 7.9 (6.3-8.2) g/dL Albumin 4.4 (3.5-5.0) g/dL Globulin 3.5 (1.7-4.1) g/dL Albumin/Globulin Ratio 1.3 (1.0-2.8) Procalcitonin < 0.05 (<0.5) ng/mL Urine Color Urine Appearance Urine pH (4.5-8.0) Ur Specific [place] (1.000-1.035) Urine Protein (Negative) Urine Glucose (UA) (Negative) g/dL Urine Ketones (NEGATIVE) Urine Occult Blood (Negative) Urine Nitrate (Negative) Urine Bilirubin (NEGATIVE) Urine Urobilinogen (0.2) E.U./dL Ur Leukocyte Esterase (NEGATIVE) Urine RBC (0-5/HPF) Urine WBC (0-5/HPF) Ur Squamous Epith Cells (0-5/HPF) Ur Transition Epith Cell (0-5/HPF) Ur Renal Epithelial Cell (0-1/HPF) Calcium Oxalate Crystal Urine Bacteria (None) Hyaline Casts (None) Ur Culture Indicated? 07/23/19 Range/Units 11:13 WBC (4.5-11.0) X10^3/uL RBC (4.0-5.2) X10^6/uL Hgb (12.0-16.0) g/dL Hct (36-46) % MCV (80-100) fL MCH (26-34) PG MCHC (30-36) % RDW (11.6-14.8) % Plt Count (150-400) X10^3/uL Neut % (Auto) (50-75) % Lymph % (Auto) (25-40) % [place] % (Auto) (3-14) % Eos % (Auto) (2-4) % Baso % (Auto) (0-2) % Neut # (Auto) (9103-1363) /uL Lymph # (Auto) (5515-9294) /uL [place] # (Auto) (0-900) /uL Eos # (Auto) (0-450) /uL Baso # (Auto) (0-100) /uL Sodium (137-145) mmol/L Potassium (3.4-5.1) mmol/L Chloride (98-107) mmol/L Carbon Dioxide (22-32) mmol/L BUN (7-17) mg/dL Creatinine (0.52-1.04) mg/dL Estimated GFR (>60) mL/min BUN/Creatinine Ratio (6-22) Glucose (80-110) mg/dL Calcium (8.4-10.2) mg/dL Total Bilirubin (0.2-1.3) mg/dL AST (14-36) IU/L ALT (<35) IU/L Alkaline Phosphatase (38-126) U/L Troponin I (0.01-0.034) ng/mL Total Protein (6.3-8.2) g/dL Albumin (3.5-5.0) g/dL Globulin (1.7-4.1) g/dL Albumin/Globulin Ratio (1.0-2.8) Procalcitonin (<0.5) ng/mL Urine Color Yellow Urine Appearance Clear Urine pH 6.5 (4.5-8.0) Ur Specific [place] 1.020 (1.000-1.035) Urine Protein 2+ H (Negative) Urine Glucose (UA) Negative (Negative) g/dL Urine Ketones Negative (NEGATIVE) Urine Occult Blood Trace-intact (Negative) Urine Nitrate Negative (Negative) Urine Bilirubin Negative (NEGATIVE) Urine Urobilinogen 0.2 (0.2) E.U./dL Ur Leukocyte Esterase 1+ H (NEGATIVE) Urine RBC 1-5/hpf (0-5/HPF) Urine WBC 5-10/hpf H (0-5/HPF) Ur Squamous Epith Cells 5-10 /hpf H (0-5/HPF) Ur Transition Epith Cell 1-5/hpf (0-5/HPF) Ur Renal Epithelial Cell 1-5/hpf H (0-1/HPF) Calcium Oxalate Crystal Many H Urine Bacteria Few (2-10) H (None) Hyaline Casts 30-100/lpf (None) Ur Culture Indicated? Specimen cultured Imaging Data CT scan - head: Attestation: I personally reviewed and interpreted this imaging study as follows: Radiologist's Impression: IMPRESSION: 1. Age related volume loss and mild to moderate small vessel ischemic change. 2. No evidence acute stroke, hemorrhage, or mass. Dictated by: Edilberto Montejo M.D. on 07/23/2019 at 10:28 ECG Data Attestation: I personally reviewed and interpreted this ECG as follows: Interpretation: Sinus rhythm at a rate of 70 Normal axis, normal intervals No acute ischemia MDM Narrative Medical decision making narrative: 78-year-old woman with increasing global weakness today. Feeling better at this point with no evidence of sepsis, significant metabolic abnormalities, UTI, metastases to brain. She is safe for home discharge at this point. She has been tested for coronavirus as we have seen global weakness is the presenting and only concern for a number of cases. At this point she is safe for home discharge. She will follow-up with her oncologist regarding starting additional medications to treat her metastatic breast cancer. Discharge Plan Departure Patient Disposition: Home Clinical Impression: Weakness, Metastatic breast cancer Discharge Date/Time: 07/23/19 12:37 Activity Restrictions/Additional Instructions: Thank you for coming in today I am glad that you are feeling better. I am not finding any evidence of infection or significant metabolic abnormalities. Your calcium level was slightly elevated and will need to be followed as an outpatient. You did receive a L of fluid in the emergency department. The CT scan of your brain did not suggest any metastatic cancer to your brain. Please continue all currently scheduled medications and reschedule your appointment with your oncologist. If you develop fever, worsening weakness, new or changing symptoms please feel free to return to the emergency department for further evaluation I wish you the best Prescriptions: No Action loratadine [Claritin] 10 MG tablet 10 mg PO PRN Qty: 0 RF: 0 cyanocobalamin (vitamin B-12) 1,000 MCG tablet extended release 1,000 mcg PO QDAY Qty: 90 RF: 11 paroxetine HCl [Paxil] 40 mg tablet 40 mg PO DAILY Qty: 90 RF: 3 mometasone [Asmanex HFA] 200 mcg/actuation HFA aerosol inhaler See Rx Instructions .ROUTE .COMPLEX Qty: 13 RF: 3 epinephrine [EpiPen 2-Juanito] 0.3 mg/0.3 mL auto-injector See Rx Instructions .ROUTE .COMPLEX Qty: 2 RF: 0 fluticasone propionate 50 mcg/actuation spray,suspension 1 spray NASAL BID Qty: 18.2 RF: 3 potassium chloride 10 mEq capsule, extended release See Rx Instructions .ROUTE .COMPLEX Qty: 180 RF: 3 atorvastatin 10 mg tablet See Rx Instructions .ROUTE .COMPLEX Qty: 90 RF: 3 amlodipine 10 mg tablet See Rx Instructions .ROUTE .COMPLEX Qty: 90 RF: 3 losartan 100 mg tablet See Rx Instructions .ROUTE .COMPLEX Qty: 90 RF: 3 lansoprazole 30 mg capsule,delayed release(DR/EC) See Rx Instructions .ROUTE .COMPLEX Qty: 90 RF: 3 clobetasol 0.05 % cream See Rx Instructions TOP BID PRN (Reason: pain) Qty: 60 RF: 0 Serevent Diskus 50 mcg/dose blister with device See Rx Instructions .ROUTE .COMPLEX Qty: 60 RF: 3 (DME) Disabled Parking Qty: 1 RF: 0 hydrocodone-acetaminophen [[place]] 5-325 mg tablet 1 - 2 tab PO Q4HP PRN (Reason: pain) Qty: 90 RF: 0 cyclobenzaprine 10 mg tablet 10 mg PO BID PRN (Reason: muscle spasm) Qty: 60 RF: 0 albuterol sulfate [Ventolin HFA] 90 mcg/actuation HFA aerosol inhaler 1 - 2 puff INH Q4HP PRN (Reason: Shortness Of Breath) RF: 0 hyoscyamine sulfate 0.125 mg Tablet 0.125 mg PO PRN PRN (Reason: Stomach Upset) RF: 0 sucralfate 1 gram tablet 1 gram PO PRN PRN (Reason: Acid Reflux) RF: 0 furosemide 20 mg tablet 20 mg PO SEEINSTR RF: 0 naratriptan [Amerge] 2.5 MG tablet 2.5 mg PO PRN PRN (Reason: Headache) RF: 0 letrozole [Femara] 2.5 mg Tablet 2.5 mg PO DAILY Qty: 90 RF: 3 Ibrance 125 mg Capsule 125 mg PO DAILY Qty: 21 RF: 11 Systane Complete 0.6 % drops 1 drp EYE-BOTH PRN PRN (Reason: dry eye(s)) RF: 0 lidocaine 5 % ointment 1 applic TOP BID-TID MDD three applications PRN (Reason: lumbar pain) Qty: 35.44 RF: 5 Referrals: Sandor Flores MD [Primary Care Provider] -
--- NOTE | 2019-07-23 10:11 | DI.CT.S_ITS ---
PROCEDURE: CT HEAD/BRAIN WO CON INDICATIONS: weakness, known metastatic breast CA TECHNIQUE: Noncontrast 4.5 mm thick angled axial sections acquired from the foramen magnum to the vertex, with coronal and sagittal reformats. For radiation dose reduction, the following was used: automated exposure control, adjustment of mA and/or kV according to patient size. COMPARISON: None. FINDINGS: Image quality: Excellent. CSF spaces: Basal cisterns are patent. No extra-axial fluid collections. The ventricles are symmetric in size and shape. Brain: No intracranial bleeds or masses. There is cerebral volume loss for age, with resultant ventricular and sulcal prominence. There are mild to moderate periventricular and deep white matter chronic small vessel ischemic changes. There is intracranial internal carotid artery atherosclerosis. Skull and face: Calvarium and visualized facial bones appear intact, without suspicious lesions. Sinuses: Visualized sinuses and mastoids are clear. IMPRESSION: 1. Age related volume loss and mild to moderate small vessel ischemic change. 2. No evidence acute stroke, hemorrhage, or mass. Dictated by: Edilberto Montejo M.D. on 07/23/2019 at 10:28 Approved by: Edilberto Montejo M.D. on 07/23/2019 at 10:29
[2019-07-23 10:19] LABS: Add Manual Diff / Slide Review NO; Basophils Absolute Auto 100 /uL (0-100); Basophils Percent Auto 1.1 % (0-2); Eosinophils Absolute Auto 200 /uL (0-450); Eosinophils Percent Auto 3.1 % (2-4); Hemoglobin 12.7 g/dL (12.0-16.0); Lymphocytes Absolute Auto 1900 /uL (1100-4500); Lymphocytes Percent Auto 33.3 % (25-40); Mean Corpuscular HGB Conc 33.3 % (30-36); Mean Corpuscular Hemoglobin 29.7 PG (26-34); Monocytes Absolute Auto 400 /uL (0-900); Monocytes Percent Auto 7.3 % (3-14); Neutrophils Absolute Auto 3200 /uL (1500-7000); Neutrophils Percent Auto 55.2 % (50-75); Platelet Count 369 X10^3/uL (150-400); Red Blood Cell Count 4.27 X10^6/uL (4.0-5.2); Red Cell Distribution Width 16.6 % (11.6-14.8); White Blood Cell Count 5.8 X10^3/uL (4.5-11.0)
[2019-07-23 10:21] VITALS: BP 122/64; PULSE 67; RESP 18; TEMP 35.9; O2SAT 94
[2019-07-23 10:43] LABS: Alanine Aminotransferase 15 IU/L (<35); Albumin 4.4 g/dL (3.5-5.0); Albumin Globulin Ratio 1.3 (1.0-2.8); Alkaline Phosphatase 188 U/L (38-126); Aspartate Aminotransferase 24 IU/L (14-36); BUN Creatinine Ratio 12.6 (6-22); Bilirubin Total 0.6 mg/dL (0.2-1.3); Blood Urea Nitrogen 12 mg/dL (7-17); Calcium 10.7 mg/dL (8.4-10.2); Carbon Dioxide 25 mmol/L (22-32); Chloride 108 mmol/L (98-107); Globulin 3.5 g/dL (1.7-4.1); Glucose 156 mg/dL (80-110); HEMOLYSIS < 15 (0-50); Potassium 4.1 mmol/L (3.4-5.1); Sodium 143 mmol/L (137-145); Total Protein 7.9 g/dL (6.3-8.2)
[2019-07-23 10:55] LABS: Troponin I < 0.012 ng/mL (0.01-0.034)
[2019-07-23] MEDS: SODIUM CHLORIDE 0.9% 1,000 ML 1000 ML IV (11:06)
[2019-07-23] MEDS: ONDANSETRON 4 MG/2 ML INJ IV (11:07)
[2019-07-23 11:33] LABS: Procalcitonin < 0.05 ng/mL (<0.5)
[2019-07-23 12:00] VITALS: BP 140/69; PULSE 83; RESP 18; O2SAT 97
[2019-07-23 12:06] LABS: Appearance Urine UA CLEAR; Bilirubin Urine UA NEGATIVE (NEGATIVE); Color Urine UA YELLOW; Glucose Urine UA NEGATIVE (Negative); Ketones Urine UA NEGATIVE (NEGATIVE); Leukocyte Esterase Urine UA 1+ (NEGATIVE); Nitrite Urine UA NEGATIVE (Negative); Occult Blood Urine UA TRACE-INTACT (Negative); Protein Urine UA 2+ (Negative); Urobilinogen Urine UA 0.2 E.U./dL (0.2)
[2019-07-23 12:07] LABS: pH Urine UA 6.5 (4.5-8.0)
[2019-07-23 12:08] LABS: Bacteria Urine Few (2-10); Calcium Oxalate Crystals Urine Many; Culture Indicated Urine Specimen Cultured; Hyaline Casts Urine 30-100/LPF; RBC Urine 1-5/HPF (0-5/HPF); Renal Epithelial Cells Urine 1-5/HPF (0-1/HPF); Squamous Epithelial Cell Urine 5-10 /HPF (0-5/HPF); Transitional Epi Cells Urine 1-5/HPF (0-5/HPF); WBC Urine 5-10/HPF (0-5/HPF)
[2019-07-25 07:36] LABS: COVID19 Sendout Not Detected (Not Detected)
== END 2019-07-23 12:37 | disposition home or self-care (01) ==
PROVIDERS: Emergency Provider Emergency Medicine; PCP Internal Medicine
DX: R53.1 Weakness (principal); C50.912 Malignant neoplasm of unspecified site of left female breast; C79.51 Secondary malignant neoplasm of bone
CPT/HCPCS: 36415; 70450; 80053; 81001; 84145; 84484; 85025; 87086; 87635; 93005; 96361; 96374; 99284; J2405

== ENCOUNTER → 2019-08-10 10:04 | Outpatient (CLI) | payer MEDICARE, SELFPAY ==
[2019-06-04 19:04] VITALS: BMI 58.9
[2019-08-10 10:18] LABS: Add Manual Diff / Slide Review NO; Basophils Absolute Auto 0 /uL (0-100); Basophils Percent Auto 0.7 % (0-2); Eosinophils Absolute Auto 100 /uL (0-450); Eosinophils Percent Auto 4.3 % (2-4); Hematocrit 34.1 % (36-46); Hemoglobin 11.3 g/dL (12.0-16.0); Lymphocytes Absolute Auto 1600 /uL (1100-4500); Lymphocytes Percent Auto 49.5 % (25-40); Mean Corpuscular Hemoglobin 29.5 PG (26-34); Mean Corpuscular Volume 89.6 fL (80-100); Monocytes Absolute Auto 100 /uL (0-900); Monocytes Percent Auto 2.9 % (3-14); Neutrophils Absolute Auto 1400 /uL (1500-7000); Neutrophils Percent Auto 42.6 % (50-75); Platelet Count 352 X10^3/uL (150-400); Red Blood Cell Count 3.81 X10^6/uL (4.0-5.2); Red Cell Distribution Width 16.7 % (11.6-14.8); White Blood Cell Count 3.2 X10^3/uL (4.5-11.0)
[2019-08-10 10:48] LABS: Alanine Aminotransferase 20 IU/L (<35); Albumin 4.1 g/dL (3.5-5.0); Albumin Globulin Ratio 1.2 (1.0-2.8); Alkaline Phosphatase 157 U/L (38-126); Aspartate Aminotransferase 22 IU/L (14-36); BUN Creatinine Ratio 13.7 (6-22); Bilirubin Total 0.6 mg/dL (0.2-1.3); Blood Urea Nitrogen 13 mg/dL (7-17); Calcium 9.8 mg/dL (8.4-10.2); Carbon Dioxide 22 mmol/L (22-32); Chloride 109 mmol/L (98-107); Globulin 3.4 g/dL (1.7-4.1); Glucose 149 mg/dL (80-110); HEMOLYSIS 32 (0-50); Potassium 4.4 mmol/L (3.4-5.1); Sodium 141 mmol/L (137-145); Total Protein 7.5 g/dL (6.3-8.2)
== END ==
PROVIDERS: PCP Internal Medicine; Referring Provider Internal Medicine Hematology & Oncology; Visit Provider Internal Medicine Hematology & Oncology
DX: C50.912 Malignant neoplasm of unspecified site of left female breast (principal)
CPT/HCPCS: 36415; 80053; 85025

== ENCOUNTER → 2019-09-07 09:55 | Outpatient (CLI) | payer MEDICARE, SELFPAY ==
[2019-06-04 19:04] VITALS: BMI 58.9
[2019-09-07 10:26] LABS: Add Manual Diff / Slide Review NO; Basophils Absolute Auto 100 /uL (0-100); Basophils Percent Auto 1.5 % (0-2); Eosinophils Absolute Auto 100 /uL (0-450); Eosinophils Percent Auto 2.5 % (2-4); Hemoglobin 12.1 g/dL (12.0-16.0); Lymphocytes Absolute Auto 2100 /uL (1100-4500); Lymphocytes Percent Auto 48.8 % (25-40); Mean Corpuscular HGB Conc 34.6 % (30-36); Mean Corpuscular Hemoglobin 31.7 PG (26-34); Mean Corpuscular Volume 91.7 fL (80-100); Monocytes Absolute Auto 100 /uL (0-900); Monocytes Percent Auto 3.1 % (3-14); Neutrophils Absolute Auto 1900 /uL (1500-7000); Neutrophils Percent Auto 44.1 % (50-75); Platelet Count 502 X10^3/uL (150-400); Red Blood Cell Count 3.82 X10^6/uL (4.0-5.2); Red Cell Distribution Width 21.7 % (11.6-14.8); White Blood Cell Count 4.2 X10^3/uL (4.5-11.0)
[2019-09-07 10:42] LABS: Alanine Aminotransferase 12 IU/L (<35); Albumin 4.4 g/dL (3.5-5.0); Albumin Globulin Ratio 1.3 (1.0-2.8); Alkaline Phosphatase 132 U/L (38-126); Aspartate Aminotransferase 19 IU/L (14-36); BUN Creatinine Ratio 15.2 (6-22); Bilirubin Total 0.4 mg/dL (0.2-1.3); Blood Urea Nitrogen 15 mg/dL (7-17); Calcium 10.5 mg/dL (8.4-10.2); Carbon Dioxide 22 mmol/L (22-32); Chloride 110 mmol/L (98-107); Estimated Glomerular Filt Rate 54.4 mL/min (>60); Globulin 3.4 g/dL (1.7-4.1); Glucose 127 mg/dL (80-110); HEMOLYSIS < 15 (0-50); Potassium 3.9 mmol/L (3.4-5.1); Sodium 142 mmol/L (137-145); Total Protein 7.8 g/dL (6.3-8.2)
[2019-09-07 10:50] LABS: Anisocytosis 2+
== END ==
PROVIDERS: PCP Internal Medicine; Referring Provider Internal Medicine Hematology & Oncology; Visit Provider Internal Medicine Hematology & Oncology
DX: C50.912 Malignant neoplasm of unspecified site of left female breast (principal)
CPT/HCPCS: 36415; 80053; 85025

== ENCOUNTER → 2019-09-21 13:33 | Outpatient (CLI) | payer MEDICARE, SELFPAY ==
[2019-06-04 19:04] VITALS: BMI 58.9
[2019-09-21 13:56] LABS: Add Manual Diff / Slide Review NO; Basophils Absolute Auto 100 /uL (0-100); Basophils Percent Auto 2.6 % (0-2); Eosinophils Absolute Auto 100 /uL (0-450); Eosinophils Percent Auto 1.7 % (2-4); Hematocrit 33.7 % (36-46); Hemoglobin 11.6 g/dL (12.0-16.0); Lymphocytes Absolute Auto 1700 /uL (1100-4500); Lymphocytes Percent Auto 45.2 % (25-40); Mean Corpuscular HGB Conc 34.5 % (30-36); Mean Corpuscular Hemoglobin 32.4 PG (26-34); Mean Corpuscular Volume 93.8 fL (80-100); Monocytes Absolute Auto 300 /uL (0-900); Monocytes Percent Auto 8.3 % (3-14); Neutrophils Absolute Auto 1600 /uL (1500-7000); Neutrophils Percent Auto 42.2 % (50-75); Platelet Count 380 X10^3/uL (150-400); Red Blood Cell Count 3.59 X10^6/uL (4.0-5.2); Red Cell Distribution Width 23.1 % (11.6-14.8); White Blood Cell Count 3.7 X10^3/uL (4.5-11.0)
[2019-09-21 14:08] LABS: Alanine Aminotransferase 11 IU/L (<35); Albumin 4.4 g/dL (3.5-5.0); Albumin Globulin Ratio 1.4 (1.0-2.8); Alkaline Phosphatase 120 U/L (38-126); Aspartate Aminotransferase 17 IU/L (14-36); BUN Creatinine Ratio 13.7 (6-22); Bilirubin Total 0.5 mg/dL (0.2-1.3); Blood Urea Nitrogen 13 mg/dL (7-17); Calcium 10.4 mg/dL (8.4-10.2); Carbon Dioxide 24 mmol/L (22-32); Chloride 108 mmol/L (98-107); Globulin 3.2 g/dL (1.7-4.1); Glucose 107 mg/dL (80-110); HEMOLYSIS < 15 (0-50); Potassium 4.7 mmol/L (3.4-5.1); Sodium 142 mmol/L (137-145); Total Protein 7.6 g/dL (6.3-8.2)
[2019-09-21 14:22] LABS: Anisocytosis 2+; Macrocytosis 1+
== END ==
PROVIDERS: PCP Internal Medicine; Referring Provider Internal Medicine Hematology & Oncology; Visit Provider Internal Medicine Hematology & Oncology
DX: C50.912 Malignant neoplasm of unspecified site of left female breast (principal); Z78.0 Asymptomatic menopausal state; Z82.62 Family history of osteoporosis
CPT/HCPCS: 36415; 77080; 80053; 85025

== ENCOUNTER → 2019-10-09 16:58 | Outpatient (CLI) | payer MEDICARE, SELFPAY ==
[2019-06-04 19:04] VITALS: BMI 58.9
--- NOTE | 2019-10-09 | DI.MRI.S_ITS ---
PROCEDURE: MR CERVICAL SPINE WO/W CON INDICATIONS: Secondary malignant neoplasm of bone TECHNIQUE: Noncontrast sagittal T1 spin echo and T2 fast spin echo, sagittal STIR, foraminal oblique sagittal T2 fast spin echo, axial gradient echo or T2 fast spin echo through the cervical spine. After the administration of contrast, axial and sagittal T1 spin echo with fat saturation through the cervical spine. COMPARISON: [facility], [place], [place] BONE SCAN WHOLE BODY, 06/18/2019, 14:15. [facility], MR, MR CERVICAL SPINE WO CON, 02/26/2019, 7:37. [facility], MR, C-SPINE WITHOUT CONTRAST, 08/13/2014, 10:35. [facility], MR, MR THORACIC SPINE WO/W CON, 07/18/2019, 11:11. [facility], CT, CT HEAD/BRAIN WO CON, 07/23/2019, 10:11. FINDINGS: Image quality: This examination is limited by involuntary motion artifact. Alignment and curvature: There is mild reversal of the normal cervical lordosis, with the apex at the C5-C6 level. Marrow: Marrow is normal in overall signal, without suspicious enhancement. An apparent vertebral body hemangioma can be seen within the posterior aspect of the C2 vertebral body. Spinal cord: Visualized spinal cord has normal size and signal. No cerebellar tonsillar herniation. No abnormal intramedullary enhancement. Paraspinous soft tissues: No paravertebral masses or suspicious enhancement. There is a prominent thyroid seen, particularly on the left. C2-3: Moderate loss of disc height is seen. Loss of disc signal is seen. A mild degree of generalized disc osteophyte complex is seen. There is moderate right-sided and mild left-sided facet hypertrophy seen. No significant neural foraminal or central canal narrowing can be seen. Stable from the prior study. C3-4: Moderate loss of disc height is seen. Loss of disc signal is seen. At least moderate disc osteophyte complex is seen, which is eccentric to the right. Moderate facet hypertrophy is seen, right worse than left. There is moderate to severe right-sided and mild left-sided neural foraminal narrowing seen. Mild central canal narrowing is seen. When comparison is made with the prior examination, these findings are similar. C4-5: Moderate loss of disc height is seen. Loss of disc signal is seen. Mild to moderate disc osteophyte complex is seen. There is prominent right-sided and mild left-sided facet hypertrophy seen. There is moderate to severe right-sided and minimal left-sided neural foraminal narrowing seen. Mild central canal narrowing is seen. When comparison is made with the prior examination, these findings are similar. C5-6: There is at least moderate loss of disc height and disc signal seen. Moderate generalized disc osteophyte complex is seen. Bridging endplate osteophytes are seen. Moderate facet joint hypertrophy is seen. At least moderate bilateral neural foraminal narrowing is seen. Moderate central canal narrowing is seen. There is associated mass effect upon the ventral spinal cord. When comparison is made with the prior examination, these findings are similar. C6-7: At least moderate loss of disc height and disc signal can be seen. Bridging endplate osteophytes are seen. At least moderate disc osteophyte complex is seen, which is eccentric to the left. There is moderate to severe left-sided and at least moderate right-sided neural foraminal narrowing seen. Mild central canal narrowing is seen. No significant change from the prior. C7-T1: No significant abnormality is seen. IMPRESSION: No ramiro findings of metastatic disease can be seen to the cervical spine. No abnormal enhancement is seen. Multiple levels of cervical spine degenerative change are seen, which are not significantly progressed compared to the 2019 examination. Posterior C3 level hemangioma noted. Reversal of the normal cervical lordosis is seen. This is commonly observed in patients with muscular spasm. Dictated by: John Garrido M.D. on 10/09/2019 at 17:03 Approved by: John Garrido M.D. on 10/09/2019 at 17:10
== END ==
PROVIDERS: PCP Internal Medicine; Referring Provider Radiology Radiation Oncology; Visit Provider Radiology Radiation Oncology
DX: C50.412 Malignant neoplasm of upper-outer quadrant of left female breast (principal); C79.51 Secondary malignant neoplasm of bone; C77.3 Secondary and unspecified malignant neoplasm of axilla and upper limb lymph nodes; M47.812 Spondylosis without myelopathy or radiculopathy, cervical region; D18.09 Hemangioma of other sites; Z17.0 Estrogen receptor positive status [ER+]
CPT/HCPCS: 72156

== ENCOUNTER → 2019-10-19 10:31 | Outpatient (CLI) | payer MEDICARE, SELFPAY ==
[2019-06-04 19:04] VITALS: BMI 58.9
--- NOTE | 2019-10-19 | DI.NM.S_ITS ---
PROCEDURE: [place] BONE SCAN WHOLE BODY RADIOPHARMACEUTICAL: 19.7 mCi Tc-99m MDP IV. INDICATIONS: SECONDARY MALIGNANT OF BONE TECHNIQUE: Delayed whole-body scintigrams were obtained approximately 3-4 hours after intravenous injection of radiotracer. Anterior and posterior views were acquired from vertex to feet. Oblique images of the chest were acquired. COMPARISON: [facility], CT, CT CRUZ, 10/02/2019, 14:54. [place], [place], [place] BONE SCAN WHOLE BODY, 06/18/2019, 14:15. FINDINGS: Axial skeleton: Increased uptake in a confluent manner over the vertex of the calvarium and in a patchy distribution over the right frontal bone. Fairly symmetric and confluent uptake in the sternum, clavicular heads, thoracolumbar spine, and sacral ala. Appendicular skeleton: Symmetric uptake in the shoulder joints, knee joints, ankles, and and feet. Slight increase linear uptake in the right mid tibial diaphysis. Photopenic defect of right knee prosthesis is present. There is asymmetric right breast soft tissue uptake. There is physiologic excretion of radiotracer. IMPRESSION: 1. As before, bone scan appearance underestimates the extent of widespread osseous metastases seen on the recent localizing CT scan. Metastases appear largely sclerotic on CT. 2. Linear uptake over the right tibial diaphysis may be secondary to stress fracture but has not significantly progressed since the prior study. Correlate clinically. 3. Mild right breast uptake. Dictated by: Padmini Nevarez M.D. on 10/19/2019 at 15:37 Approved by: Padmini Nevarez M.D. on 10/19/2019 at 15:47
[2019-10-19 11:53] LABS: Add Manual Diff / Slide Review NO; Basophils Absolute Auto 100 /uL (0-100); Basophils Percent Auto 1.8 % (0-2); Eosinophils Absolute Auto 100 /uL (0-450); Eosinophils Percent Auto 1.6 % (2-4); Hematocrit 34.5 % (36-46); Hemoglobin 11.7 g/dL (12.0-16.0); Lymphocytes Absolute Auto 1600 /uL (1100-4500); Mean Corpuscular HGB Conc 33.9 % (30-36); Mean Corpuscular Hemoglobin 33.5 PG (26-34); Mean Corpuscular Volume 98.9 fL (80-100); Monocytes Absolute Auto 300 /uL (0-900); Monocytes Percent Auto 7.6 % (3-14); Neutrophils Absolute Auto 1600 /uL (1500-7000); Platelet Count 282 X10^3/uL (150-400); Red Blood Cell Count 3.49 X10^6/uL (4.0-5.2); Red Cell Distribution Width 21.8 % (11.6-14.8); White Blood Cell Count 3.6 X10^3/uL (4.5-11.0)
[2019-10-19 12:27] LABS: Alanine Aminotransferase 12 IU/L (<35); Albumin 4.2 g/dL (3.5-5.0); Albumin Globulin Ratio 1.6 (1.0-2.8); Alkaline Phosphatase 106 U/L (38-126); Anisocytosis 2+; Aspartate Aminotransferase 18 IU/L (14-36); BUN Creatinine Ratio 17.7 (6-22); Bilirubin Total 0.4 mg/dL (0.2-1.3); Blood Urea Nitrogen 17 mg/dL (7-17); Calcium 10.5 mg/dL (8.4-10.2); Carbon Dioxide 25 mmol/L (22-32); Chloride 108 mmol/L (98-107); Estimated Glomerular Filt Rate 56.2 mL/min (>60); Globulin 2.7 g/dL (1.7-4.1); Glucose 109 mg/dL (80-110); HEMOLYSIS < 15 (0-50); Macrocytosis 2+; Potassium 4.1 mmol/L (3.4-5.1); Sodium 141 mmol/L (137-145); Total Protein 6.9 g/dL (6.3-8.2)
== END ==
PROVIDERS: Internal Medicine; PCP Internal Medicine; Referring Provider Radiology Radiation Oncology; Visit Provider Radiology Radiation Oncology
DX: C50.912 Malignant neoplasm of unspecified site of left female breast (principal); C79.51 Secondary malignant neoplasm of bone
CPT/HCPCS: 78306; 80053; 85025; A9503

== ENCOUNTER → 2019-10-31 10:34 | Outpatient (CLI) | payer MEDICARE, SELFPAY ==
[2019-06-04 19:04] VITALS: BMI 58.9
[2019-10-31 11:30] LABS: Alanine Aminotransferase 13 IU/L (<35); Albumin 4.3 g/dL (3.5-5.0); Albumin Globulin Ratio 1.4 (1.0-2.8); Alkaline Phosphatase 98 U/L (38-126); Aspartate Aminotransferase 18 IU/L (14-36); BUN Creatinine Ratio 15.5 (6-22); Bilirubin Total 0.6 mg/dL (0.2-1.3); Blood Urea Nitrogen 18 mg/dL (7-17); Calcium 10.6 mg/dL (8.4-10.2); Carbon Dioxide 26 mmol/L (22-32); Chloride 109 mmol/L (98-107); Estimated Glomerular Filt Rate 45.2 mL/min (>60); Globulin 3.1 g/dL (1.7-4.1); Glucose 116 mg/dL (80-110); HEMOLYSIS < 15 (0-50); Potassium 4.1 mmol/L (3.4-5.1); Sodium 141 mmol/L (137-145); Total Protein 7.4 g/dL (6.3-8.2)
== END ==
PROVIDERS: PCP Internal Medicine; Referring Provider Internal Medicine; Visit Provider Internal Medicine
DX: C79.51 Secondary malignant neoplasm of bone (principal)
CPT/HCPCS: 36415; 80053

== ENCOUNTER → 2019-11-20 09:21 | Outpatient (CLI) | payer MEDICARE, SELFPAY ==
[2019-06-04 19:04] VITALS: BMI 58.9
--- NOTE | 2019-11-20 | DI.MRI.S_ITS ---
PROCEDURE: MR SHOULDER RT WO/W CON INDICATIONS: SECONDARY METS TO BONE TECHNIQUE: Noncontrast oblique coronal T1 spin echo and T2 fast spin echo with fat saturation, oblique sagittal T1 spin echo and T2 fast spin echo with fat saturation, axial T1 spin echo and T2 fast spin echo with fat saturation through the shoulder. Post-contrast oblique coronal, oblique sagittal, and axial T1 spin echo with fat saturation through the shoulder. COMPARISON: [facility], CT, CT CHEST ABD PEL W CON, 06/18/2019, 11:28. [facility], [place], [place] BONE SCAN WHOLE BODY, 10/19/2019, 14:27. FINDINGS: Image quality: Excellent. Rotator cuff: Supraspinatus tendinopathy with partial thickness articular and bursal sided tear however no full-thickness tear identified. There is also infraspinatus tendinopathy and mild thickening. Teres minor appears grossly intact. Subscapularis appears grossly intact. Atrophy of the supraspinatus muscle, and fatty infiltration of the supraspinatus and infraspinatus muscles. Bones and bursae: No bone marrow contusions or fractures. There are marked diffuse patchy marrow signal changes extending to the visualized humeral diaphysis, presumably represent reflecting diffuse osseous metastases. Associated patchy ill-defined enhancement. Based on the CT appearance from the prior study, there is probably infiltrative metastatic disease involving the visualized clavicle and scapula, although the marrow signal changes are less conspicuous. There is also T2 hyperintense signal changes present within the glenoid, which could be degenerative versus less likely metastatic in nature. There is full-thickness articular cartilage loss in the glenohumeral joint. Severe hypertrophic acromioclavicular joint degeneration. There is also glenohumeral osteoarthritis. Acromion demonstrates conventional anatomy, without an os acromiale. No subacromial-subdeltoid bursitis. Joint effusion is present. Capsule and soft tissues: Labrum: Circumferential degenerative fraying of the labrum, likely chronic. Slight posterior subluxed appearance of the humeral head relative to the glenoid raising the possibility of microinstability. Long head biceps tendinopathy. The rotator interval appears normal, without fibrosis. Coracohumeral ligament intact. IMPRESSION: Diffuse ill-defined, marrow signal changes throughout the visualized humerus extending from the humeral head to the mid diaphysis presumably reflecting intraosseous metastatic disease. Based on the CT appearance from prior study from 06/18/19, there is probable metastatic involvement of the scapula and visualized clavicle although the marrow signal changes are less conspicuous. Supraspinatus tendinopathy with partial thickness articular and bursal sided tear. Infraspinatus tendinopathy with mild thickening Atrophy of the supraspinatus muscle. Severe osteoarthritis. Joint effusion Circumferential labral degenerative fraying versus chronic tear. Slight posterior subluxed appearance of the humeral head relative to the glenoid raising the possibility of microinstability. Long head biceps tendinopathy Dictated by: Jason Rascon M.D. on 11/20/2019 at 12:05 Approved by: Jason Rascon M.D. on 11/20/2019 at 13:27
== END ==
PROVIDERS: PCP Internal Medicine; Referring Provider Radiology Radiation Oncology; Visit Provider Radiology Radiation Oncology
DX: C50.412 Malignant neoplasm of upper-outer quadrant of left female breast; C79.51 Secondary malignant neoplasm of bone; Z17.0 Estrogen receptor positive status [ER+]; M75.111 Incomplete rotator cuff tear or rupture of right shoulder, not specified as traumatic; M19.011 Primary osteoarthritis, right shoulder; M25.411 Effusion, right shoulder; M67.921 Unspecified disorder of synovium and tendon, right upper arm
CPT/HCPCS: 73223; A9579

== ENCOUNTER → 2019-12-11 09:41 | Outpatient (CLI) | payer MEDICARE, SELFPAY ==
[2019-06-04 19:04] VITALS: BMI 58.9
--- NOTE | 2019-12-11 09:43 | DI.CT.S_ITS ---
PROCEDURE: CT CHEST ABD PEL W CON INDICATIONS: f/u metastatic breast ca with bone mets TECHNIQUE: After the administration of oral and intravenous contrast, 5 mm thick sections acquired from the lung apices to the symphysis. 5 mm coronal and sagittal reformats were performed, with additional 7 mm coronal MIP reformats through the lungs. For radiation dose reduction, the following was used: automated exposure control, adjustment of mA and/or kV according to patient size. COMPARISON: [facility], [place], NM BONE SCAN WHOLE BODY, 10/19/2019, 14:27. [facility], CT, CT CHEST ABD PEL W CON, 06/18/2019, 11:28. FINDINGS: Image quality: Excellent. CHEST: Scattered subsegmental atelectasis and/or scarring. No focal consolidation. Airway thickening in keeping with nonspecific bronchitis and/or reactive airways disease. Nodular thickening involving the right fissure has resolved since the prior study from 06/18/19. Diffuse mosaic lung attenuation suggestive of small airways disease. Mediastinum: Heart size is normal. Coronary artery calcifications are present. Trace pericardial effusion. No mediastinal or hilar adenopathy by size criteria. Thoracic aorta and central pulmonary arteries are normal in size. Large hiatal hernia is present.. Chest wall: No axillary or supraclavicular adenopathy by size criteria. Thyroid gland demonstrates multinodular appearance, with enlargement of the left lobe and substernal extension. Multiple surgical breast clips are seen. There is interval resolution of large hematoma/seroma within the left breast since the prior study. Bilateral breast thickening is again noted, grossly unchanged. Of note, there are prominent left parasternal and paravertebral/periscapular contrast opacified collaterals raising possibility of left subclavian vein narrowing/stenosis.. ABDOMEN: Solid organs: Liver is normal in size and enhancement. Gallbladder surgically absent. Biliary system is non dilated. Pancreas enhances normally. Spleen is normal in size and enhancement. No adrenal nodules. Simple appearing right renal cyst Peritoneum and bowel: Bowel loops demonstrate normal wall thickness and caliber. No free fluid or air. Colonic diverticulosis is seen without evidence of acute complication. Nodes and vessels: No retroperitoneal or mesenteric adenopathy by size criteria. Aorta and inferior vena cava are normal in size. Miscellaneous: No ventral hernias. PELVIS: Genitourinary: Bladder wall thickness is normal. Miscellaneous: No inguinal hernias or adenopathy. Widespread skeletal metastases are again noted, involving essentially all visualized bony structures. The appearance is grossly unchanged since the prior study. IMPRESSION: Widespread skeletal metastases as before. Interval resolution of right fissural nodular thickening since the prior study. Interval improvement in presumed left breast postsurgical changes. Prominent left-sided periscapular, paravertebral and parasternal venous collaterals suggestive of left subclavian vein stenosis. Large hiatal hernia. Additional chronic and incidental findings as above. Dictated by: Jason Rascon M.D. on 12/11/2019 at 14:02 Approved by: Jason Rascon M.D. on 12/11/2019 at 14:23
[2019-12-11 10:01] LABS: Add Manual Diff / Slide Review NO; Basophils Absolute Auto 100 /uL (0-100); Basophils Percent Auto 2.2 % (0-2); Eosinophils Absolute Auto 100 /uL (0-450); Eosinophils Percent Auto 2.2 % (2-4); Lymphocytes Absolute Auto 1600 /uL (1100-4500); Lymphocytes Percent Auto 48.1 % (25-40); Mean Corpuscular HGB Conc 34.2 % (30-36); Mean Corpuscular Hemoglobin 35.9 PG (26-34); Monocytes Absolute Auto 200 /uL (0-900); Monocytes Percent Auto 5.7 % (3-14); Neutrophils Absolute Auto 1400 /uL (1500-7000); Neutrophils Percent Auto 41.8 % (50-75); Platelet Count 265 X10^3/uL (150-400); Red Blood Cell Count 3.33 X10^6/uL (4.0-5.2); Red Cell Distribution Width 16.1 % (11.6-14.8); White Blood Cell Count 3.4 X10^3/uL (4.5-11.0)
[2019-12-11 10:20] LABS: Alanine Aminotransferase 22 IU/L (<35); Albumin 4.3 g/dL (3.5-5.0); Albumin Globulin Ratio 1.3 (1.0-2.8); Alkaline Phosphatase 99 U/L (38-126); Aspartate Aminotransferase 44 IU/L (14-36); BUN Creatinine Ratio 16.4 (6-22); Bilirubin Total 0.7 mg/dL (0.2-1.3); Blood Urea Nitrogen 22 mg/dL (7-17); Calcium 9.2 mg/dL (8.4-10.2); Carbon Dioxide 29 mmol/L (22-32); Chloride 106 mmol/L (98-107); Estimated Glomerular Filt Rate 38.3 mL/min (>60); Globulin 3.4 g/dL (1.7-4.1); Glucose 97 mg/dL (80-110); HEMOLYSIS < 15 (0-50); Potassium 4.2 mmol/L (3.4-5.1); Sodium 140 mmol/L (137-145); Total Protein 7.7 g/dL (6.3-8.2)
== END ==
PROVIDERS: PCP Internal Medicine; Referring Provider Internal Medicine; Visit Provider Internal Medicine
DX: C50.412 Malignant neoplasm of upper-outer quadrant of left female breast (principal); C79.51 Secondary malignant neoplasm of bone; K44.9 Diaphragmatic hernia without obstruction or gangrene; I25.10 Atherosclerotic heart disease of native coronary artery without angina pectoris; Z17.0 Estrogen receptor positive status [ER+]
CPT/HCPCS: 36415; 71260; 74177; 80053; 85025; Q9967

== ENCOUNTER → 2019-12-27 11:59 | Outpatient (CLI) | payer MEDICARE, SELFPAY ==
[2019-06-04 19:04] VITALS: BMI 58.9
--- NOTE | 2019-12-27 | DI.MRI.S_ITS ---
PROCEDURE: MR LUMBAR SPINE WO/W CON INDICATIONS: Breast cancer. Assess for bone Mets. TECHNIQUE: Noncontrast sagittal T1 spin echo and T2 fast spin echo, sagittal STIR, post-Gadolinium axial T1 spin echo with fat saturation through the thoracic and lumbar spines, with additional T2 fast spin echo and post-contrast axial T1 spin echo with fat saturation sequences acquired through levels of suspected cord compression. COMPARISON: [facility], CT, CT CHEST ABD PEL W CON, 12/11/2019, 10:35. FINDINGS: Image quality: Excellent. Bones: Postsurgical changes compatible with L4-L5 PLIF. Postsurgical changes compatible with prior L4 and L5 laminectomies. Diffuse decreased T1 signal, heterogeneous T2 signal and heterogeneous post-contrast enhancement noted in the visualized osseous skeleton compatible with extensive osseous metastatic disease. Hyperintense T1 and hyperintense fast T2 signal noted in the marrow space of the L4 and L5 vertebral bodies compatible with fatty replacement which could be related to chronic reactive change versus prior radiation therapy. No central canal narrowing. No significant neural foraminal narrowing. Spinal cord: Visualized spinal cord is normal in size and signal. Conus medullaris is normal in location. No enhancing epidural mass lesions. Paraspinous soft tissues: No paravertebral masses. 4.5 centimeter exophytic right renal cyst. IMPRESSION: 1. Extensive skeletal metastatic disease. 2. Status post L4-L5 PLIF and L4, L5 laminectomies. 3. No vertebral body compression fractures. 4. No central canal narrowing. 5. No significant neural foraminal narrowing. 6. No neural compression. Dictated by: Lala Escamilla MD, PhD on 12/27/2019 at 16:50 Approved by: Lala Escamilla MD, PhD on 12/27/2019 at 16:56
--- NOTE | 2019-12-27 12:02 | DI.RAD.S_ITS ---
PROCEDURE: XR FEMUR LT MIN 2V INDICATIONS: Breast cancer metastatic to bone, left femur pain TECHNIQUE: 4 views of the femur were acquired. COMPARISON: [facility], CT, CT CHEST ABD PEL W CON, 12/11/2019, 10:35. FINDINGS: Bones: Mottled appearance of the included skeleton with innumerable tiny osteoblastic foci is compatible with known diffuse osseous metastatic disease as seen on prior CT from 12/11/2019. Findings are more prominent at the proximal femur relative to the distal femur. No pathologic fracture is seen. Mild degenerative changes are seen in the left hip with formation of small marginal osteophytes. Soft tissues: No suspicious soft tissue calcifications or masses. IMPRESSION: Diffusely mottled appearance of the visualized osseous structures is compatible with known diffuse osseous metastatic disease. No pathologic fracture is seen. Dictated by: Alvin Bourgeois M.D. on 12/27/2019 at 13:26 Approved by: Alvin Bourgeois M.D. on 12/27/2019 at 13:39
== END ==
PROVIDERS: PCP Internal Medicine; Referring Provider Internal Medicine; Visit Provider Internal Medicine
DX: C50.412 Malignant neoplasm of upper-outer quadrant of left female breast (principal); C79.51 Secondary malignant neoplasm of bone; M79.652 Pain in left thigh; Z98.1 Arthrodesis status
CPT/HCPCS: 72158; 73552

== ENCOUNTER 2020-01-14 15:32 | Emergency (ER) | payer MEDICARE, SELFPAY ==
[2019-06-04 19:04] VITALS: BMI 58.9
[2020-01-14] VITALS (12 sets, daily range): BP systolic 134–162; BP diastolic 62–96; PULSE 78–93; RESP 24; TEMP 37; O2SAT 88–98; BMI 46.9
--- NOTE | 2020-01-14 15:45 | DI.RAD.S_ITS ---
PROCEDURE: XR HIP W PEL IF DONE LT 2V INDICATIONS: Fall, hx bone cancer, radiation TECHNIQUE: AP pelvis with lateral view(s) of the left hip(s). [facility], [facility], XR FEMUR LT MIN 2V, 12/27/2019, 11:57. FINDINGS: Bones: No fractures or dislocations. Pelvic ring appears intact. There is diffuse sclerosis of the lumbar spine, bony pelvis and proximal femurs, consistent with diffuse osseous metastatic disease. Lower lumbar spine fusion. Soft tissues: The visualized bowel gas pattern is normal. No suspicious soft tissue calcifications. IMPRESSION: 1. No fracture or dislocation. 2. Diffuse osseous metastatic disease. Dictated by: Boris Jenkins M.D. on 01/14/2020 at 17:05 Approved by: Boris Jenkins M.D. on 01/14/2020 at 17:08
--- NOTE | 2020-01-14 15:52 | DI.CT.S_ITS ---
PROCEDURE: CT LUMBAR SPINE WO CON INDICATIONS: lumbar pain post fall TECHNIQUE: Noncontrast 3 mm thick sections acquired from the T12 level to the sacrum. Sagittal and coronal reformats were constructed. For radiation dose reduction, the following was used: automated exposure control. COMPARISON: [facility], MR, MR LUMBAR SPINE WO/W CON, 12/27/2019, 12:27. FINDINGS: Image quality: Excellent. Bones: There is normal bony alignment. No acute vertebral body compression fractures. There is diffuse skeletal sclerosis consistent with diffuse osseous metastases. Postsurgical changes with discectomy, laminectomy and posterior fusion at L4-L5. Central spinal caliber is of normal overall caliber. No pars defects. Soft tissues: No retroperitoneal masses or hematomas. Visualized aorta is normal in caliber. There is a moderate-sized hiatal hernia. Mild atherosclerosis. IMPRESSION: 1. No acute osseous abnormalities. 2. Extensive osseous metastases. Dictated by: Boris Jenkins M.D. on 01/14/2020 at 16:46 Approved by: Boris Jenkins M.D. on 01/14/2020 at 16:51
--- NOTE | 2020-01-14 15:52 | DI.RAD.S_ITS ---
PROCEDURE: XR KNEE LT 1TO2V INDICATIONS: Left knee pain post fall TECHNIQUE: 2 views of the knee were acquired. COMPARISON: [facility], CR, XR HIP W PEL IF DONE LT 2V, 01/14/2020, 15:57. [facility], CT, CT LUMBAR SPINE WO CON, 01/14/2020, 16:12. FINDINGS: Bones: There is appearance of cortical step-off in the medial tibial plateau. No suspicious bony lesions. There is moderate degenerative joint disease. Soft tissues: No joint effusion. No suspicious soft tissue calcifications. IMPRESSION: 1. Appearance of cortical step of in the medial tibial plateau. CT or MRI is suggested for further evaluation. 2. Moderate degenerative joint disease. Dictated by: Boris Jenkins M.D. on 01/14/2020 at 17:00 Approved by: Boris Jenkins M.D. on 01/14/2020 at 17:04
--- NOTE | 2020-01-14 15:55 | ED.FALL ---
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 Patient reports she received an injection of radiation to her left hip approximately a week ago. She has had a rash for a week, was given fluconazole but states the rash is worse. She was on her way to see her primary care provider but fell on her bottom due to pain. Patient has a history of left-sided hip pain, she has had previous left hip x-ray and lumbar spine MRI on 12/27/2019 showing extensive metastatic disease without fracture. Patient denies any other symptoms such as fevers, chills, chest pain, shortness of breath, nausea, vomiting, diarrhea, or any concerns. Related Data Home Medications Medication Instructions Recorded Confirmed loratadine [Claritin] 10 mg PO PRN #0 08/23/12 01/15/20 propylene glycol 0.6 % eye drops 1 drp EYE-BOTH PRN PRN 12/12/18 01/15/20 albuterol sulfate [Ventolin HFA] 1 - 2 puff INH Q4HP PRN 05/31/19 01/15/20 furosemide 20 mg PO SEEINSTR 06/04/19 01/15/20 hyoscyamine sulfate 0.125 mg PO PRN PRN 06/04/19 01/15/20 naratriptan [Amerge] 2.5 mg PO PRN PRN 06/04/19 01/15/20 sucralfate 1 gram PO PRN PRN 06/04/19 01/15/20 Previous Rx's Medication Instructions Recorded cyanocobalamin (vitamin B-12) 1,000 mcg PO QDAY #90 tab 04/27/16 Disabled [address]ing #1 each 08/18/18 epinephrine 0.3 mg/0.3 mL See Rx Instructions .ROUTE 02/26/19 injection, auto-injector .COMPLEX #2 unspecified fluticasone propionate 50 1 spray NASAL BID #18.2 ml 02/28/19 mcg/actuation nasal spray,suspension amlodipine 10 mg tablet See Rx Instructions .ROUTE 03/15/19 .COMPLEX #90 tablet atorvastatin 10 mg tablet See Rx Instructions .ROUTE 03/15/19 .COMPLEX #90 tablet lansoprazole 30 mg capsule,delayed See Rx Instructions .ROUTE 03/15/19 release .COMPLEX #90 capsule losartan 100 mg tablet See Rx Instructions .ROUTE 03/15/19 .COMPLEX #90 tablet potassium chloride 10 mEq See Rx Instructions .ROUTE 03/15/19 capsule,extended release .COMPLEX #180 capsule clobetasol 0.05 % topical cream See Rx Instructions TOP BID PRN 04/05/19 #60 gram lidocaine 5 % topical ointment 1 applic TOP BID-TID PRN #35.44 04/19/19 gram MDD three applications letrozole [Femara] 2.5 mg PO DAILY #90 tab 06/21/19 palbociclib [Ibrance] 125 mg PO DAILY #21 cap 06/21/19 paroxetine HCl 40 mg tablet 40 mg PO DAILY #90 tab 09/11/19 salmeterol 50 mcg/dose blister See Rx Instructions .ROUTE 10/15/19 powder for inhalation .COMPLEX #60 unspecified cyclobenzaprine 10 mg tablet 10 mg PO BID PRN #60 tab 12/11/19 mometasone 200 mcg/actuation HFA 1 puff INHALATION BID #13 gram 12/27/19 aerosol inhaler hydrocodone-acetaminophen [Perry] 1 - 2 tab PO Q4HP PRN #90 tab 01/01/20 clotrimazole 1 applictn TOP BID 14 Days gram 01/14/20 hydrocodone-acetaminophen [Perry] 2 tab PO Q6H PRN #14 tab 01/14/20 Allergies Allergy/AdvReac Type Severity Reaction Status Date / Time aspirin Allergy Severe ANAPHYLACTIC Verified 01/15/20 15:19 SHOCK venom-honey bee Allergy Severe ANAPHYLACTIC Verified 01/15/20 15:19 [bee venom (honey bee)] SHOCK adhesive Allergy Intermediate RASH FROM Verified 01/15/20 15:19 TAPE cephalexin Allergy Mild DIARRHEA Verified 01/15/20 15:19 shellfish derived Allergy Mild Anaphylaxis Verified 01/15/20 15:19 tetracycline Allergy Mild ITCH Verified 01/15/20 15:19 peanut Allergy Unknown Verified 01/15/20 15:19 oxycodone AdvReac Severe HALLUCINAT Verified 01/15/20 15:19 IONS Review of Systems <Shaniqua Hedlin, POWER CUTTING MACHINE OPERATOR - Last Filed: 01/14/20 21:18> Review of Systems Narrative: REVIEW OF SYSTEMS: GENERAL: Denies fever or chills. HENT: No head trauma. CARDIOVASCULAR: No chest pain. RESPIRATORY: No shortness of breath or cough. GASTROINTESTINAL: No nausea, vomiting, diarrhea, or constipation. GENITOURINARY: No flank pain. MUSCULOSKELETAL: Complains of left leg pain post fall, see HPI. INTEGUMENTARY: Reports rash on abdomen, see HPI. NEURO: No numbness, tingling. PSYCH: No behavior or mood changes. Patient History <YUN Buckley - Last Filed: 01/14/20 21:18> Medical History Arthritis (Acute) Asthma (Chronic) Celiac disease (Chronic 04/27/16) Chronic obstructive pulmonary disease (Chronic 08/26/16) Dorsalgia (Chronic) Edema (Acute) Essential hypertension (Chronic 11/23/10) Heart murmur (Acute) History of deep venous thrombosis (Chronic 11/23/10) History of malignant neoplasm of breast (Inactive 11/23/10) Hx of migraine headaches (Acute) Hyperlipidemia (Chronic 11/23/10) Morbid obesity with body mass index (BMI) of 40.0 or higher (Chronic 07/27/16) Nonrheumatic aortic valve stenosis (Chronic 04/27/16) Paresthesia and pain of both upper extremities (Chronic) Sinus drainage (Acute) Sleep apnea (Chronic) Ulcer (Acute) Surgical History History of bladder suspension procedure (Acute) History of cataract removal with insertion of prosthetic lens Hx of appendectomy (Acute) Hx of arthroscopy of knee (Acute) Hx of cholecystectomy (Acute) Hx of discectomy (Acute) Hx of hysterectomy (Acute) Hx of laminectomy (Acute) Hx of left breast biopsy (Acute 05/14/19) Hx of tonsillectomy (Acute) Status post breast lumpectomy (~2002) Family History Mother Hypertension Breast cancer Father Hypertension Heart disease Social History marital status: number of children: 3 household members: spouse caregiver/support person: No housing: house pets and animals: No education level: college occupational status: other 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 alessandro/spiritism: Holiness travel history: recent leisure activities: reading and other Smoking Status: Never smoker Tobacco: How many years used: 0 quit status: quit date established second hand exposure: No alcohol intake: current substance use type: does not use Smoking Status: Never smoker alcohol intake frequency: a few times a month Substance Use Type: does not use Exam <YUN Buckley - Last Filed: 01/14/20 21:18> Initial Vital Signs Initial Vital Signs: Vital Signs Temperature 98.6 F 01/14/20 15:35 Pulse Rate 92 H 01/14/20 15:35 Respiratory Rate 24 01/14/20 15:35 Blood Pressure 162/79 H 01/14/20 15:35 Pulse Oximetry 98 01/14/20 15:35 PHYSICAL EXAMINATION: GENERAL: Obese, alert, slow to answer questions. is the main source of history. HENT: Normocephalic, atraumatic. EYES: Symmetrical, sclera white, no periorbital swelling. CARDIOVASCULAR: S1 and S2 sounds normal. Regular rate and rhythm, no murmurs, clicks, or bruits. RESPIRATORY: Normal respiratory rate, trachea midline, airway patent. No stridor, nasal flaring or accessory muscle use. Lungs are clear in all mckeon. MUSCULOSKELETAL: Normal gait and coordination. Equal tone and mass bilaterally. No spinal tenderness or deformities. EXTREMITIES: CMS intact. No pedal edema. SKIN: Warm, dry, soft, appropriate color for ethnicity. Yeast-like rash noted to inter abdominal folds, small amount of yellow exudate, no pustules. NEURO: Alert and Oriented X 3. No sensory deficits. PSYCH: Appropriate affect and mood. <Jose D Nuñez MD - Last Filed: 01/15/20 18:08> Initial Vital Signs Initial Vital Signs: Vital Signs Temperature 98.6 F 01/14/20 15:35 Pulse Rate 92 H 01/14/20 15:35 Respiratory Rate 24 01/14/20 15:35 Blood Pressure 162/79 H 01/14/20 15:35 Pulse Oximetry 98 01/14/20 15:35 Course <Shaniqua Boyd POWER CUTTING MACHINE OPERATOR - Last Filed: 01/14/20 21:18> Course Course Narrative: 173: Patient reported increasing pain per nursing. She was prescribed 0.5 of IM Dilaudid. 1814: Nursing reports patient is still in pain, has some concerns about taking her home with the amount of pain. 1844: Dr. Barron, discussed chronic versus acute pain. She recommended trying morphine and she discussed she will have Dr. Flores follow up with her in the morning. Discussed increasing hydrocodone to 2 pills versus her usual 1. 1929: Patient states she is feeling much better, discussed plan of care with such as follow-up in the morning. He states that have an appointment tomorrow as well. He feels comfortable taking her home at this time. Patient able to transfer to wheelchair without significant pain. Orders Ordered: Discontinued Medications Hydromorphone HCl (Dilaudid) 0.5 mg IM NOW ONE Stop: 01/14/20 17:46 Last Admin: 01/14/20 17:52 Dose: 0.5 mg Documented by: RIANNA Morphine Sulfate (Morphine) 4 mg IV NOW ONE Stop: 01/14/20 18:47 Last Admin: 01/14/20 18:58 Dose: 4 mg Documented by: SRINIVAS Reevaluation(s) Reevaluation #1: Patient staffed with Dr. Nuñez. Discussed test and test results. Vital Signs Vital signs: Vital Signs - 8 hr 01/14/20 15:35 01/14/20 15:52 01/14/20 15:53 Temperature 98.6 F Pulse Rate 92 H 82 82 Respiratory Rate 24 Blood Pressure 162/79 H 143/76 H Pulse Oximetry 98 96 95 01/14/20 16:00 01/14/20 16:37 01/14/20 16:38 Temperature Pulse Rate 78 81 81 Respiratory Rate Blood Pressure 142/66 H 151/69 H Pulse Oximetry 95 92 90 L 01/14/20 17:00 01/14/20 18:57 01/14/20 18:58 Temperature Pulse Rate 84 90 90 Respiratory Rate Blood Pressure 153/70 H 160/96 H Pulse Oximetry 91 88 L 98 01/14/20 19:00 01/14/20 19:30 01/14/20 20:00 Temperature Pulse Rate 93 H 86 89 Respiratory Rate Blood Pressure 134/62 136/63 Pulse Oximetry 98 <Jose D Nuñez MD - Last Filed: 01/15/20 18:08> Orders Ordered: Discontinued Medications Hydromorphone HCl (Dilaudid) 0.5 mg IM NOW ONE Stop: 01/14/20 17:46 Last Admin: 01/14/20 17:52 Dose: 0.5 mg Documented by: RIANNA Morphine Sulfate (Morphine) 4 mg IV NOW ONE Stop: 01/14/20 18:47 Last Admin: 01/14/20 18:58 Dose: 4 mg Documented by: SRINIVAS Vital Signs Vital signs: Vital Signs - 8 hr 01/14/20 15:35 01/14/20 15:52 01/14/20 15:53 Temperature 98.6 F Pulse Rate 92 H 82 82 Respiratory Rate 24 Blood Pressure 162/79 H 143/76 H Pulse Oximetry 98 96 95 01/14/20 16:00 01/14/20 16:37 01/14/20 16:38 Temperature Pulse Rate 78 81 81 Respiratory Rate Blood Pressure 142/66 H 151/69 H Pulse Oximetry 95 92 90 L 01/14/20 17:00 01/14/20 18:57 01/14/20 18:58 Temperature Pulse Rate 84 90 90 Respiratory Rate Blood Pressure 153/70 H 160/96 H Pulse Oximetry 91 88 L 98 01/14/20 19:00 01/14/20 19:30 01/14/20 20:00 Temperature Pulse Rate 93 H 86 89 Respiratory Rate Blood Pressure 134/62 136/63 Pulse Oximetry 98 MDM - Fall <YUN Buckley - Last Filed: 01/14/20 21:18> Medical Records Attestation: I reviewed the patient's medical records. Lab Data Attestation: I reviewed the patient's lab results. Result diagrams: 01/14/20 18:48 01/14/20 18:48 Labs: Lab Results 01/14/20 01/14/20 Range/Units 18:48 18:48 WBC 4.8 (4.5-11.0) X10^3/uL RBC 3.26 L (4.0-5.2) X10^6/uL Hgb 11.5 L (12.0-16.0) g/dL Hct 34.4 L (36-46) % MCV 105.3 H (80-100) fL MCH 35.3 H (26-34) PG MCHC 33.5 (30-36) % RDW 15.3 H (11.6-14.8) % Plt Count 388 (150-400) X10^3/uL Neut % (Auto) 47.5 L (50-75) % Lymph % (Auto) 35.0 (25-40) % Amite % (Auto) 14.8 H (3-14) % Eos % (Auto) 1.3 L (2-4) % Baso % (Auto) 1.4 (0-2) % Neut # (Auto) 2300 (6680-0745) /uL Lymph # (Auto) 1700 (2749-1943) /uL Amite # (Auto) 700 (0-900) /uL Eos # (Auto) 100 (0-450) /uL Baso # (Auto) 100 (0-100) /uL Sodium 140 (137-145) mmol/L Potassium 4.1 (3.4-5.1) mmol/L Chloride 110 H (98-107) mmol/L Carbon Dioxide 24 (22-32) mmol/L BUN 13 (7-17) mg/dL Creatinine 0.70 (0.52-1.04) mg/dL Estimated GFR > 60.0 (>60) mL/min BUN/Creatinine Ratio 18.6 (6-22) Glucose 98 (80-110) mg/dL Calcium 8.8 (8.4-10.2) mg/dL Total Bilirubin 0.5 (0.2-1.3) mg/dL AST 29 (14-36) IU/L ALT 26 (<35) IU/L Alkaline Phosphatase 122 D (38-126) U/L Total Protein 7.3 (6.3-8.2) g/dL Albumin 3.9 (3.5-5.0) g/dL Globulin 3.4 (1.7-4.1) g/dL Albumin/Globulin Ratio 1.1 (1.0-2.8) Imaging Data Extremity x-ray #1: Radiologist's Impression: [address] [address] XRay Report Signed Patient: Rj Beck LMR#: [id number] : 2Acct:[id number] Age/Sex: 79 / FDate of Service: 01/14/20 Loc: ED Accession Number: [id number] Procedure: XR knee LT 1to2V Ordering Provider: Shaniqua Boyd PROCEDURE: XR KNEE LT 1TO2V INDICATIONS: Left knee pain post fall TECHNIQUE: 2 views of the knee were acquired. COMPARISON: [facility], CR, XR HIP W PEL IF DONE LT 2V, 01/14/2020, 15:57. [facility], CT, CT LUMBAR SPINE WO CON, 01/14/2020, 16:12. FINDINGS: Bones: There is appearance of cortical step-off in the medial tibial plateau. No suspicious bony lesions. There is moderate degenerative joint disease. Soft tissues: No joint effusion. No suspicious soft tissue calcifications. IMPRESSION: 1. Appearance of cortical step of in the medial tibial plateau. CT or MRI is suggested for further evaluation. 2. Moderate degenerative joint disease. Dictated by: Boris Jenkins M.D. on 01/14/2020 at 17:00 Approved by: Boris Jenkins M.D. on 01/14/2020 at 17:04 Extremity x-ray #2: Radiologist's Impression: [place] [address] XRay Report Signed Patient: Rj Beck LMR#: [id number] : 2Acct:[id number] Age/Sex: 79 / FDate of Service: 01/14/20 Loc: ED Accession Number: [id number] Procedure: XR hip w pel if done LT 2V Ordering Provider: Jose D Nuñez MD PROCEDURE: XR HIP W PEL IF DONE LT 2V INDICATIONS: Fall, hx bone cancer, radiation TECHNIQUE: AP pelvis with lateral view(s) of the left hip(s). COMPARISON: [facility], CR, HIP 2V RIGHT, 10/02/2007, 12:52. [facility], CR, XR FEMUR LT MIN 2V, 12/27/2019, 11:57. FINDINGS: Bones: No fractures or dislocations. Pelvic ring appears intact. There is diffuse sclerosis of the lumbar spine, bony pelvis and proximal femurs, consistent with diffuse osseous metastatic disease. Lower lumbar spine fusion. Soft tissues: The visualized bowel gas pattern is normal. No suspicious soft tissue calcifications. IMPRESSION: 1. No fracture or dislocation. 2. Diffuse osseous metastatic disease. Dictated by: Boris Jenkins M.D. on 01/14/2020 at 17:05 Approved by: Boris Jenkins M.D. on 01/14/2020 at 17:[address]: Radiologist's Impression: [address] [address] [address] Scan Report Signed Patient: Rj Beck LMR#: [id number] : 2At:[id number] Age/Sex: 79 / FDate of Service: 01/14/20 Loc: ED Accession Number: [id number] Procedure: CT lumbar spine wo con Ordering Provider: Shaniqua Boyd PROCEDURE: CT LUMBAR SPINE WO CON INDICATIONS: lumbar pain post fall TECHNIQUE: Noncontrast 3 mm thick sections acquired from the T12 level to the sacrum. Sagittal and coronal reformats were constructed. For radiation dose reduction, the following was used: automated exposure control. COMPARISON: [facility], , MR LUMBAR SPINE WO/W CON, 12/27/2019, 12:27. FINDINGS: Image quality: Excellent. Bones: There is normal bony alignment. No acute vertebral body compression fractures. There is diffuse skeletal sclerosis consistent with diffuse osseous metastases. Postsurgical changes with discectomy, laminectomy and posterior fusion at L4-L5. Central spinal caliber is of normal overall caliber. No pars defects. Soft tissues: No retroperitoneal masses or hematomas. Visualized aorta is normal in caliber. There is a moderate-sized hiatal hernia. Mild atherosclerosis. IMPRESSION: 1. No acute osseous abnormalities. 2. Extensive osseous metastases. Dictated by: Boris Jenkins M.D. on 01/14/2020 at 16:46 Approved by: Boris Jenkins M.D. on 01/14/2020 at 16:[address]: Radiologist's Impression: [address] [address] [address] Scan Report Signed Patient: Rj Beck LMR#: [id number] : 2Acct:[id number] Age/Sex: 79 / FDate of Service: 01/14/20 Loc: ED Accession Number: [id number] Procedure: CT LE LT wo con Ordering Provider: Shaniqua Boyd PROCEDURE: CT LE LT W CON INDICATIONS: Cortical step seen on x-ray, CT for further eval TECHNIQUE: Noncontrast 1-1.5 mm axial sections acquired from the mid-patella to the proximal tibia, with coronal and sagittal reformats. COMPARISON: [facility], CR, XR KNEE LT 1TO2V, 01/14/2020, 15:57. FINDINGS: Image quality: Diagnostic. . Bones: Alignment of left knee is anatomic. There is no acute fracture or dislocation. Moderate medial femoral tibial compartment osteoarthritic changes are seen with joint space narrowing, subchondral sclerosis and cyst formation and marginal osteophyte formation. Mild lateral femoral tibial compartment and patellofemoral compartment osteoarthritic changes also seen. No suspicious intraosseous lesion. Soft tissues: There is no joint effusion. No gross cruciate ligament rupture. Distal quadriceps tendon and patellar tendon are intact. IMPRESSION: 1. No acute left knee fracture or dislocation. 2. Moderate medial femoral tibial compartment osteoarthritis and mild osteoarthritis in lateral femoral tibial compartment and patellofemoral compartment. 3. No joint effusion. Distal quadriceps tendon and patellar tendon are grossly intact. No gross cruciate ligament rupture. Dictated by: Sánchez Amaral M.D. on 01/14/2020 at 17:46 Approved by: Sánchez Amaral M.D. on 01/14/2020 at 17:49 MDM Narrative Medical decision making narrative: 79-year-old female with history of metastatic bone lesions from breast cancer presents emergency department for left hip pain post fall. Initially, there is some concern for tibia plateau fracture on the x-ray, however, lower extremity CT reveals no fractures but extensive bone metastasis. Negative left hip x-ray and lumbar CT. Initially, there is some concern for inability to control pain. Patient's had some concern for caring for her. After discussion with , morphine was given, patient had significant improvement after administration of morphine. She was able to transfer to wheelchair, reported feeling better. Dr. Barron recommended follow-up in the morning, she will relay the message to Dr. Flores for discussion about long-term care, I discussed this plan of care with patient's felt comfortable taking her home at this time. Pain medication was increased to 2 Vicodin every 6 hours versus 1. Discussed with , there is some concern with ongoing dementia however, this has been ongoing problem. Return precautions given for new or worsening symptoms. Patient and family agreed to plan of care verbalized understanding. <Jose D Nuñez MD - Last Filed: 01/15/20 18:08> Lab Data Labs: Lab Results 01/14/20 01/14/20 Range/Units 18:48 18:48 WBC 4.8 (4.5-11.0) X10^3/uL RBC 3.26 L (4.0-5.2) X10^6/uL Hgb 11.5 L (12.0-16.0) g/dL Hct 34.4 L (36-46) % MCV 105.3 H (80-100) fL MCH 35.3 H (26-34) PG MCHC 33.5 (30-36) % RDW 15.3 H (11.6-14.8) % Plt Count 388 (150-400) X10^3/uL Neut % (Auto) 47.5 L (50-75) % Lymph % (Auto) 35.0 (25-40) % Amite % (Auto) 14.8 H (3-14) % Eos % (Auto) 1.3 L (2-4) % Baso % (Auto) 1.4 (0-2) % Neut # (Auto) 2300 (3416-0420) /uL Lymph # (Auto) 1700 (1544-8194) /uL Amite # (Auto) 700 (0-900) /uL Eos # (Auto) 100 (0-450) /uL Baso # (Auto) 100 (0-100) /uL Sodium 140 (137-145) mmol/L Potassium 4.1 (3.4-5.1) mmol/L Chloride 110 H (98-107) mmol/L Carbon Dioxide 24 (22-32) mmol/L BUN 13 (7-17) mg/dL Creatinine 0.70 (0.52-1.04) mg/dL Estimated GFR > 60.0 (>60) mL/min BUN/Creatinine Ratio 18.6 (6-22) Glucose 98 (80-110) mg/dL Calcium 8.8 (8.4-10.2) mg/dL Total Bilirubin 0.5 (0.2-1.3) mg/dL AST 29 (14-36) IU/L ALT 26 (<35) IU/L Alkaline Phosphatase 122 D (38-126) U/L Total Protein 7.3 (6.3-8.2) g/dL Albumin 3.9 (3.5-5.0) g/dL Globulin 3.4 (1.7-4.1) g/dL Albumin/Globulin Ratio 1.1 (1.0-2.8) Discharge Plan Departure Patient Disposition: Home Clinical Impression: Metastatic cancer to bone, [place] infection Fall Qualifiers: Encounter type: initial encounter Qualified Code(s): W19.XXXA - Unspecified fall, initial encounter Discharge Date/Time: 01/14/20 20:26 Instructions: How to Prevent Falls, Yeast Infection-Skin Activity Restrictions/Additional Instructions: Thank you for entrusting me with your care today. As discussed, your hip x-ray, lumbar CT, and lower extremity CT are negative for any fractures. Arthritis and metastatic bone disease has been seen on your images, this is most likely the cause of pain. I spoke with Dr. Barron today, who states she will have Dr. Flores check in with you tomorrow morning. I prescribed you additional Vicodin, she can take 2 pills every 8 hours to help with pain. Additionally, I prescribed you a cream, please apply this to the rash. Is very important that you keep this area dry, after washing the area placed a towel in between the skin folds to help prevent moisture buildup. Please call Dr. Flores if he does not get in touch with you tomorrow. Keep your scheduled appointment tomorrow. Return emergency department for any new or worsening symptoms. Prescriptions: New hydrocodone-acetaminophen [Perry] 5-325 mg tablet 2 tab PO Q6H PRN (Reason: pain) Qty: 14 RF: 0 clotrimazole 1 % cream 1 applictn TOP BID 14 Days RF: 0 No Action loratadine [Claritin] 10 MG tablet 10 mg PO PRN Qty: 0 RF: 0 cyanocobalamin (vitamin B-12) 1,000 MCG tablet extended release 1,000 mcg PO QDAY Qty: 90 RF: 11 epinephrine [EpiPen 2-Juanito] 0.3 mg/0.3 mL auto-injector See Rx Instructions .ROUTE .COMPLEX Qty: 2 RF: 0 fluticasone propionate 50 mcg/actuation spray,suspension 1 spray NASAL BID Qty: 18.2 RF: 3 potassium chloride 10 mEq capsule, extended release See Rx Instructions .ROUTE .COMPLEX Qty: 180 RF: 3 atorvastatin 10 mg tablet See Rx Instructions .ROUTE .COMPLEX Qty: 90 RF: 3 amlodipine 10 mg tablet See Rx Instructions .ROUTE .COMPLEX Qty: 90 RF: 3 losartan 100 mg tablet See Rx Instructions .ROUTE .COMPLEX Qty: 90 RF: 3 lansoprazole 30 mg capsule,delayed release(DR/EC) See Rx Instructions .ROUTE .COMPLEX Qty: 90 RF: 3 clobetasol 0.05 % cream See Rx Instructions TOP BID PRN (Reason: pain) Qty: 60 RF: 0 paroxetine HCl [Paxil] 40 mg tablet 40 mg PO DAILY Qty: 90 RF: 3 Serevent Diskus 50 mcg/dose blister with device See Rx Instructions .ROUTE .COMPLEX Qty: 60 RF: 3 cyclobenzaprine 10 mg tablet 10 mg PO BID PRN (Reason: muscle spasm) Qty: 60 RF: 0 Asmanex HFA 200 mcg/actuation HFA aerosol inhaler 1 puff inhalation BID Qty: 13 RF: 3 (DME) Disabled Parking Qty: 1 RF: 0 albuterol sulfate [Ventolin HFA] 90 mcg/actuation HFA aerosol inhaler 1 - 2 puff INH Q4HP PRN (Reason: Shortness Of Breath) RF: 0 hyoscyamine sulfate 0.125 mg Tablet 0.125 mg PO PRN PRN (Reason: Stomach Upset) RF: 0 sucralfate 1 gram tablet 1 gram PO PRN PRN (Reason: Acid Reflux) RF: 0 furosemide 20 mg tablet 20 mg PO SEEINSTR RF: 0 naratriptan [Amerge] 2.5 MG tablet 2.5 mg PO PRN PRN (Reason: Headache) RF: 0 letrozole [Femara] 2.5 mg Tablet 2.5 mg PO DAILY Qty: 90 RF: 3 Ibrance 125 mg Capsule 125 mg PO DAILY Qty: 21 RF: 11 hydrocodone-acetaminophen [Perry] 5-325 mg tablet 1 - 2 tab PO Q4HP PRN (Reason: pain) Qty: 90 RF: 0 Systane Complete 0.6 % drops 1 drp EYE-BOTH PRN PRN (Reason: dry eye(s)) RF: 0 lidocaine 5 % ointment 1 applic TOP BID-TID MDD three applications PRN (Reason: lumbar pain) Qty: 35.44 RF: 5 Referrals: Sandor Flores MD [Primary Care Provider] - <Jose D Nuñez MD - Last Filed: 01/15/20 18:08> Cosign ED Attending Cosignature Attestation: I was immediately available in the department for consultation. This documentation has been reviewed and I agree with assessment and plan. Supervised by Jose D Nuñez MD
--- NOTE | 2020-01-14 17:05 | DI.CT.S_ITS ---
PROCEDURE: CT LE LT W CON INDICATIONS: Cortical step seen on x-ray, CT for further eval TECHNIQUE: Noncontrast 1-1.5 mm axial sections acquired from the mid-patella to the proximal tibia, with coronal and sagittal reformats. COMPARISON: [facility], CR, XR KNEE LT 1TO2V, 01/14/2020, 15:57. FINDINGS: Image quality: Diagnostic. . Bones: Alignment of left knee is anatomic. There is no acute fracture or dislocation. Moderate medial femoral tibial compartment osteoarthritic changes are seen with joint space narrowing, subchondral sclerosis and cyst formation and marginal osteophyte formation. Mild lateral femoral tibial compartment and patellofemoral compartment osteoarthritic changes also seen. No suspicious intraosseous lesion. Soft tissues: There is no joint effusion. No gross cruciate ligament rupture. Distal quadriceps tendon and patellar tendon are intact. IMPRESSION: 1. No acute left knee fracture or dislocation. 2. Moderate medial femoral tibial compartment osteoarthritis and mild osteoarthritis in lateral femoral tibial compartment and patellofemoral compartment. 3. No joint effusion. Distal quadriceps tendon and patellar tendon are grossly intact. No gross cruciate ligament rupture. Dictated by: Sánchez Amaral M.D. on 01/14/2020 at 17:46 Approved by: Sánchez Amaral M.D. on 01/14/2020 at 17:49
--- NOTE | 2020-01-14 17:37 | PC.NURSE ---
Pt reports increasing pain. Deb romero.
[2020-01-14] MEDS: HYDROMORPHONE 1 MG INJ 0.5 MG IM (17:52)
[2020-01-14] MEDS: MORPHINE 4 MG/ML INJ IV (18:58)
[2020-01-14 19:06] LABS: Add Manual Diff / Slide Review NO; Basophils Absolute Auto 100 /uL (0-100); Basophils Percent Auto 1.4 % (0-2); Eosinophils Absolute Auto 100 /uL (0-450); Eosinophils Percent Auto 1.3 % (2-4); Hematocrit 34.4 % (36-46); Hemoglobin 11.5 g/dL (12.0-16.0); Lymphocytes Absolute Auto 1700 /uL (1100-4500); Mean Corpuscular HGB Conc 33.5 % (30-36); Mean Corpuscular Hemoglobin 35.3 PG (26-34); Mean Corpuscular Volume 105.3 fL (80-100); Monocytes Absolute Auto 700 /uL (0-900); Monocytes Percent Auto 14.8 % (3-14); Neutrophils Absolute Auto 2300 /uL (1500-7000); Neutrophils Percent Auto 47.5 % (50-75); Platelet Count 388 X10^3/uL (150-400); Red Blood Cell Count 3.26 X10^6/uL (4.0-5.2); Red Cell Distribution Width 15.3 % (11.6-14.8); White Blood Cell Count 4.8 X10^3/uL (4.5-11.0)
[2020-01-14 19:18] LABS: Alanine Aminotransferase 26 IU/L (<35); Albumin 3.9 g/dL (3.5-5.0); Albumin Globulin Ratio 1.1 (1.0-2.8); Alkaline Phosphatase 122 U/L (38-126); Aspartate Aminotransferase 29 IU/L (14-36); BUN Creatinine Ratio 18.6 (6-22); Bilirubin Total 0.5 mg/dL (0.2-1.3); Blood Urea Nitrogen 13 mg/dL (7-17); Calcium 8.8 mg/dL (8.4-10.2); Carbon Dioxide 24 mmol/L (22-32); Chloride 110 mmol/L (98-107); Estimated Glomerular Filt Rate > 60.0 mL/min (>60); Globulin 3.4 g/dL (1.7-4.1); Glucose 98 mg/dL (80-110); HEMOLYSIS 30 (0-50); Potassium 4.1 mmol/L (3.4-5.1); Sodium 140 mmol/L (137-145); Total Protein 7.3 g/dL (6.3-8.2)
== END 2020-01-14 20:26 | disposition home or self-care (01) ==
PROVIDERS: Emergency Provider Nurse Practitioner; PCP Internal Medicine
DX: B37.2 Candidiasis of skin and nail (principal); C79.51 Secondary malignant neoplasm of bone; M54.5 Low back pain; M25.562 Pain in left knee; W19.XXXA Unspecified fall, initial encounter
CPT/HCPCS: 36415; 72131; 73502; 73560; 73700; 80053; 85025; 96372; 96374; 99284; J1170; J2270

== ENCOUNTER → 2020-01-15 13:40 | Oncology outpatient (ONC) | payer MEDICARE, SELFPAY ==
--- NOTE | 2019-05-28 10:49 | ONC.CONS ---
History of Present Illness - Data of Consult Patient: new to practice Consult date: 05/28/19 Requesting Physician: Dr. Wesley Primary Care Provider: Sandor Flores MD - Consult Narrative Reason for consult: Left sided ER+, DC+, HER2- breast cancer Narrative: Rj Beck is a 78 year old female. She has a remote history of right breast invasive ductal carcinoma, ER/DC positive, HER2 negative, status post lumpectomy, 6months of CMF followed by adjuvant radiation and letrozole completed 10/2007. She underwent screening mammogram in 03/2019 which was reported as abnormal. On 04/10/2019, she was evaluated by Sandor Hanson. On 04/23/2019 patient underwent diagnostic unilateral left digital mammogram that showed previously identified irregular equal density asymmetry in the superior lateral left breast, and previously identified oval equal density focal asymmetry in the superior lateral left breast. On 05/14/2019, patient underwent ultrasound-guided biopsy of left breast with marking device inserted. In addition patient also underwent ultrasound-guided biopsy of the lymph node in the left axillary/axillary tail. 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 Lymph nodes not present. The breast cancer was found to be ER positive (greater than 95%, strong intensity), progesterone receptor positive (90%, strong intensity), HER2 negative (1+, IHC). She did not note any palpable lumps or pain. She has a little headache, not new, more like sinus. She has low energy, and she just wanted to sleep. No chest pain. She has shortness of breath due to COPD/asthma, and is using inhaler. She has bone pain, and she is hurting all over, which was started early Mar 2019. Any joint, fingers and shoulders, knees and back are really bad. She has spinal stenosis. 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 She is taking Tylenol and flexeril. She is using [place] occasionally. She is only taking 4# a week. No nausea, and no vomiting. She has ciliac disease. Dr. Wesley is planning for surgery (lumpecotomy and sentinel node biopsy) next Tuesday. CC: Shayan Lamas MD Patient reports pain?: Yes Home Medications and Allergies Home Medications Medication Instructions Recorded Confirmed Type loratadine [Claritin] 10 mg PO PRN #0 08/23/12 05/23/19 History cyanocobalamin (vitamin B-12) 1,000 mcg PO QDAY #90 tab 04/27/16 05/23/19 Rx naratriptan [Amerge] 0 PO PRN PRN #9 tab 12/03/16 05/23/19 Rx albuterol sulfate [Ventolin HFA] 1 - 2 puff INH Q4HP PRN #8 gm 07/03/18 05/23/19 Rx Disabled Parking #1 each 08/18/18 04/30/19 Rx paroxetine HCl 40 mg tablet 40 mg PO DAILY #90 tab 09/18/18 05/23/19 Rx propylene glycol 0.6 % eye drops EYE-BOTH PRN 12/12/18 04/30/19 History furosemide 20 mg tablet See Rx Instructions .ROUTE 12/14/18 05/23/19 Rx .COMPLEX #450 tablet mometasone 200 mcg/actuation HFA See Rx Instructions .ROUTE 12/26/18 05/23/19 Rx aerosol inhaler .COMPLEX #13 gram hydrocodone 5 mg-acetaminophen 325 1 - 2 tab PO Q4HP PRN #90 tab 02/05/19 05/23/19 Rx mg tablet epinephrine 0.3 mg/0.3 mL See Rx Instructions .ROUTE 02/26/19 04/30/19 Rx injection, auto-injector .COMPLEX #2 unspecified fluticasone propionate 50 1 spray NASAL BID #18.2 ml 02/28/19 05/23/19 Rx mcg/actuation nasal spray,suspension amlodipine 10 mg tablet See Rx Instructions .ROUTE 03/15/19 05/23/19 Rx .COMPLEX #90 tablet atorvastatin 10 mg tablet See Rx Instructions .ROUTE 03/15/19 05/23/19 Rx .COMPLEX #90 tablet lansoprazole 30 mg capsule,delayed See Rx Instructions .ROUTE 03/15/19 05/23/19 Rx release .COMPLEX #90 capsule losartan 100 mg tablet See Rx Instructions .ROUTE 03/15/19 05/23/19 Rx .COMPLEX #90 tablet potassium chloride 10 mEq See Rx Instructions .ROUTE 03/15/19 05/23/19 Rx capsule,extended release .COMPLEX #180 capsule sucralfate 1 gram tablet 1 gram PO ACHS #360 tab 03/21/19 05/23/19 Rx clobetasol 0.05 % topical cream See Rx Instructions TOP BID PRN 04/05/19 05/23/19 Rx #60 gram lidocaine 5 % topical ointment 1 applic TOP BID-TID PRN #35.44 04/19/19 05/23/19 Rx gram MDD three applications salmeterol 50 mcg/dose blister See Rx Instructions .ROUTE 04/19/19 05/23/19 Rx powder for inhalation .COMPLEX #60 unspecified cyclobenzaprine 10 mg tablet 10 mg PO BID PRN #60 tab 04/30/19 05/23/19 Rx Allergies Allergy/AdvReac Type Severity Reaction Status Date / Time aspirin Allergy Severe ANAPHYLACTIC Verified 05/23/19 15:32 SHOCK venom-honey bee Allergy Severe ANAPHYLACTIC Verified 05/23/19 15:32 [bee venom (honey bee)] SHOCK adhesive Allergy Intermediate RASH FROM Verified 05/23/19 15:32 TAPE cephalexin Allergy Mild DIARRHEA Verified 05/23/19 15:32 shellfish derived Allergy Mild Anaphylaxis Verified 05/23/19 15:32 tetracycline Allergy Mild ITCH Verified 05/23/19 15:32 peanut Allergy Unknown Verified 05/23/19 15:32 oxycodone AdvReac Severe HALLUCINAT Verified 05/23/19 15:32 IONS Medical History - Medical, Surgical, Family History Medical History: Medical History (Last Reviewed 05/02/19 @ 10:20 by Sandor Flores MD) Asthma Celiac disease Onset Date: 04/27/16 Chronic obstructive pulmonary disease Onset Date: 08/26/16 Dorsalgia Essential hypertension Onset Date: 11/23/10 History of deep venous thrombosis Onset Date: 11/23/10 History of malignant neoplasm of breast Onset Date: 11/23/10 Hyperlipidemia Onset Date: 11/23/10 Morbid obesity with body mass index (BMI) of 40.0 or higher Onset Date: 07/27/16 Nonrheumatic aortic valve stenosis Onset Date: 04/27/16 Paresthesia and pain of both upper extremities Sleep apnea Surgical History: Surgical History (Last Updated 05/23/19 @ 15:44 by Justina Longoria RN) History of bladder suspension procedure History of cataract removal with insertion of prosthetic lens Hx of appendectomy Hx of arthroscopy of knee Hx of cholecystectomy Hx of discectomy Hx of hysterectomy Hx of laminectomy Hx of tonsillectomy Status post breast lumpectomy Onset Date: ~2002 Family History: Family History (Last Reviewed 05/28/19 @ 11:11 by Shayan Lamas MD) Mother Hypertension Breast cancer Father Hypertension Heart disease - Social History Smoking Status: Never smoker Review of Systems All systems PM: reviewed and no additional remarkable complaints except as stated Constitutional: decreased activity level, decreased exercise tolerance Eyes: no double vision Cardiovascular: no chest pain, no palpitations, no edema, no heart murmur Respiratory: shortness of breath, wheezing, no hemoptysis Musculoskeletal: pain Exam Vital signs: 05/28/19 11:34 Last Vital Signs Temp 97.8 F 05/28/19 10:52 Pulse 78 05/28/19 10:52 Resp 16 05/28/19 10:52 BP 120/75 05/28/19 10:52 Pulse Ox 94 05/28/19 10:52 Narrative: ECOG 1 Gen: WDWN, NAD, pleasant and cooperative. Morbid obese. Accompanied by her . HEENT: NCAT, EOMI, PERRLA, anicteric sclera. Neck: Supple, No palpable thyromegaly or lymphadenopathy. Respiratory: CTAB, no wheezes audible. No JVD Cardiovascular: RRR, S1 and S2 normal, 4/6 SM at aortic valve. Abdomen: Soft, exquisite tenderness elicited over the right abdomen, even when I palpated on the left side. Because of the obesity, it is difficult to examine the organomegaly. Extremities: No LE pitting edema. Lymphatic: no palpable lymph nodes in the neck, axillae Neurological: AOx3, CN II-XII grossly intact. No focal motor or sensory deficit. Psychiatric: Good judgment and insight; normal affect; normal thought process; cooperative, no depression, no anxiety. Breast exam: Right breast is status post previous lumpectomy. There is some deformity. No palpable nodes. No palpable lumps. The left breast is without nipple retraction. No actually palpable lumps in the left breast. No palpable lymph nodes in the left axilla either. All physical examinations were chaperoned. Results - Labs Pending - Imaging Additional studies: Procedures Excision of intervertebral disc (12/04/10) Fusion or refusion of 2-3 vertebrae (11/21/12) Injection of steroid (02/20/13) Injection or infusion of other therapeutic or prophylactic substance (02/20/13) Insertion of interbody spinal fusion device (11/21/12) Intra-operative neurophysiologic monitoring (11/21/12) Lumbar and lumbosacral fusion of the anterior column, anterior technique (11/21/12) Lumbar and lumbosacral fusion of the anterior column, posterior technique (11/21/12) Non-invasive mechanical ventilation (11/21/12) Other nonoperative respiratory measurements (02/20/13) Total knee replacement (11/01/13) Assessment and Plan (1) Breast cancer, left breast Overveiw: 78-year-old female with recently diagnosed left breast invasive ductal/lobular carcinoma, ER positive, DC positive, HER2 negative, and potentially node positive on 05/14/2019. Patient clinically is complaining of significant whole body aches as well as abdominal pain on my physical examination. Assessment: Given the positivity of axillary lymph node on biopsy, and also clinically patient is complaining significant whole body aches as well as abdominal pain on my physical examination, I will proceed with more complete staging including bone scan and CT of the chest abdomen pelvis. Plan : 1. CT CAP w/contrast 2. Bone scan 3. CBC, CMP 4. F/u with Dr. Wesley for planned surgery next Tuesday 5. RTC in 2 weeks (2) History of right breast cancer She has a remote history of right breast invasive ductal carcinoma, ER/DC positive, HER2 negative, status post lumpectomy, 6months of CMF followed by adjuvant radiation and letrozole completed 10/2007.
[2019-05-28 10:52] VITALS: BP 120/75; PULSE 78; RESP 16; TEMP 36.6; O2SAT 94
--- NOTE | 2019-05-29 12:43 | ONC.SCHED ---
Sent clinicals for review for [facility] Whole Body Bone Scan.
--- NOTE | 2019-06-04 14:07 | ONC.MSW ---
Description: T/C re: Scheduling Activity: Pt called and left this INSOLE BUFFER a question asking about when her bone scan and CT scan will be scheduled. INSOLE BUFFER called back and left message that the sales and production manager is waiting for prior-authorization from the insurance company, then she will call and schedule both of these scans, hopefully by tomorrow, or at the latest, the day after.
--- NOTE | 2019-06-11 11:03 | ONC.MSW ---
Description: T/C from pt's spouse re: next appt. time Activity: Pt's spouse called expressing frustration that they did not know when their next provider appt is, and that they had thought they had an appt. last , however were told that they didn't when they called. Forwarded to scheduling to f/u and reschedule the soonest appt. w/.
--- NOTE | 2019-06-11 13:02 | ONC.SCHED ---
Received approval on [place] Bone Scan, CT's do not require PA. Auths in system. Patient scheduled for scans 06/18/19 with follow up on 06/21/19. Relayed all this to , Deshawn.
[2019-06-21 13:36] VITALS: BP 145/65; PULSE 74; RESP 20; TEMP 37.7; O2SAT 92
--- NOTE | 2019-06-21 13:38 | P.PNONC_ITS ---
PN -Subjective Interval history: ID/CC: 78-year-old female with newly diagnosed metastatic left breast cancer. HPI: Rj Beck is a 78 year old female. She has a remote history of right breast invasive ductal carcinoma, ER/NC positive, HER2 negative, status post lumpectomy, 6months of CMF followed by adjuvant radiation and letrozole completed 10/2007. She underwent screening mammogram in 03/2019 which was reported as abnormal. On 04/10/2019, she was evaluated by Sandor Hanson. On 04/23/2019 patient underwent diagnostic unilateral left digital mammogram that showed previously identified irregular equal density asymmetry in the superior lateral left breast, and previously identified oval equal density focal asymmetry in the superior lateral left breast. On 05/14/2019, patient underwent ultrasound-guided biopsy of left breast with marking device inserted. In addition patient also underwent ultrasound-guided biopsy of the lymph node in the left axillary/axillary tail. The pathology showed mixed ductal and lobular breast cancer, [place] grade 6/9, in-situ carcinoma present lobular type, lymphovascular invasion not identified, left axilla lymph node biopsy showed fibroadipose tissue with involvement by invasive mammary carcinoma. Lymph nodes not present. The breast cancer was found to be ER positive (greater than 95%, strong intensity), progesterone receptor positive (90%, strong intensity), HER2 negative (1+, IHC). She did not note any palpable lumps or pain. She has a little headache, not new, more like sinus. She has low energy, and she just wanted to sleep. No chest pain. She has shortness of breath due to COPD/asthma, and is using inhaler. She has bone pain, and she is hurting all over, which was started early Mar 2019. Any joint, fingers and shoulders, knees and back are really bad. She has spinal stenosis. 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 She is taking Tylenol and flexeril. She is using [place] occasionally. She is only taking 4# a week. No nausea, and no vomiting. She has ciliac disease. Interim Events: On 06/04/2019, patient underwent needle localization lumpectomy with sentinel lymp h node biopsy and removal of additional deep axillary nodes. The pathology showed invasive lobular carcinoma, grade 2/3, measuring 2.7 cm, with lobular carcinoma in-situ/atypical lobular hyperplasia, without ductal carcinoma in- situ, with calcifications, with negative lymphovascular invasion, with positive margins, ER positive, NC positive, HER2 negative. Left axillary lymph node dissection removed 10 lymph nodes 9 of them positive. Postoperatively, patient has recovered smoothly from the surgical procedures. Patient is complaining mild left upper breast tenderness. On 06/18/2019, patient underwent a CT chest abdomen pelvis that showed extensive osseous metastatic disease demonstrating throughout the visualized osseous structures. Lytic lesion within the T7 vertebral body may be at risk for pathological fracture, small amount of ascites with mild hazy fat stranding of the omentum, postsurgical changes within the left breast and left axilla, small indeterminate pulmonary nodule along the right major fissure, and diffuse enlargement of the thyroid with multiple nodules. A 06/18/2019 patient also underwent whole-body bone scans, it underestimates extensive osseous metastasis which are seen on the comparison CT scan. She and her presented here today for follow-up. According to patient's , patient has become somewhat confused since after the surgery. Patient herself denies any headache double vision or blurred vision. She has pleasant. She is not complaining any shortness of breath or chest pain. No abdominal pain no diarrhea and no constipation. Especially she is not complaining any bone pain today - Patient Self-Reported Symptoms SR Constitution: Fatigue/Malaise SR eye issues: Vision changes SR respiratory issues: Difficulty breathing SR Cardiovascular issues: Shortness of breath with activity or lying flat SR Gastrointestinal issues: Diarrhea SR Genitourinary issues: Incontinence SR Musculoskeletal issues: Joint pain or swelling, Muscle weakness, Muscle pain or cramps, Back or neck pain, Cold hands or feet, Difficulty walking SR Neuro issues: Lightheaded/dizzy, Tremors or shaking - Additional ROS All systems PM: reviewed and no additional remarkable complaints except as stated Home Medications and Allergies Home Medications Medication Instructions Recorded Confirmed Type loratadine [Claritin] 10 mg PO PRN #0 08/23/12 06/04/19 History cyanocobalamin (vitamin B-12) 1,000 mcg PO QDAY #90 tab 04/27/16 06/04/19 Rx Disabled Parking #1 each 08/18/18 06/05/19 Rx paroxetine HCl 40 mg tablet 40 mg PO DAILY #90 tab 09/18/18 06/04/19 Rx propylene glycol 0.6 % eye drops 1 drp EYE-BOTH PRN PRN 12/12/18 05/31/19 History mometasone 200 mcg/actuation HFA See Rx Instructions .ROUTE 12/26/18 06/04/19 Rx aerosol inhaler .COMPLEX #13 gram hydrocodone 5 mg-acetaminophen 325 1 - 2 tab PO Q4HP PRN #90 tab 02/05/19 06/04/19 Rx mg tablet epinephrine 0.3 mg/0.3 mL See Rx Instructions .ROUTE 02/26/19 06/04/19 Rx injection, auto-injector .COMPLEX #2 unspecified fluticasone propionate 50 1 spray NASAL BID #18.2 ml 02/28/19 06/04/19 Rx mcg/actuation nasal spray,suspension amlodipine 10 mg tablet See Rx Instructions .ROUTE 03/15/19 06/04/19 Rx .COMPLEX #90 tablet atorvastatin 10 mg tablet See Rx Instructions .ROUTE 03/15/19 06/04/19 Rx .COMPLEX #90 tablet lansoprazole 30 mg capsule,delayed See Rx Instructions .ROUTE 03/15/19 06/04/19 Rx release .COMPLEX #90 capsule losartan 100 mg tablet See Rx Instructions .ROUTE 03/15/19 06/04/19 Rx .COMPLEX #90 tablet potassium chloride 10 mEq See Rx Instructions .ROUTE 03/15/19 05/31/19 Rx capsule,extended release .COMPLEX #180 capsule clobetasol 0.05 % topical cream See Rx Instructions TOP BID PRN 04/05/19 05/31/19 Rx #60 gram lidocaine 5 % topical ointment 1 applic TOP BID-TID PRN #35.44 04/19/19 05/31/19 Rx gram MDD three applications salmeterol 50 mcg/dose blister See Rx Instructions .ROUTE 04/19/19 06/04/19 Rx powder for inhalation .COMPLEX #60 unspecified cyclobenzaprine 10 mg tablet 10 mg PO BID PRN #60 tab 04/30/19 05/31/19 Rx albuterol sulfate [Ventolin HFA] 1 - 2 puff INH Q4HP PRN 05/31/19 06/04/19 History furosemide 20 mg PO SEEINSTR 06/04/19 06/04/19 History hyoscyamine sulfate 0.125 mg PO PRN PRN 06/04/19 06/04/19 History naratriptan [Amerge] 2.5 mg PO PRN PRN 06/04/19 06/04/19 History sucralfate 1 gram PO PRN PRN 06/04/19 06/04/19 History letrozole [Femara] 2.5 mg PO DAILY #90 tab 06/21/19 Rx palbociclib [Ibrance] 125 mg PO DAILY #21 cap 06/21/19 Rx Allergies Allergy/AdvReac Type Severity Reaction Status Date / Time aspirin Allergy Severe ANAPHYLACTIC Verified 06/04/19 07:58 SHOCK venom-honey bee Allergy Severe ANAPHYLACTIC Verified 06/04/19 07:58 [bee venom (honey bee)] SHOCK adhesive Allergy Intermediate RASH FROM Verified 06/04/19 07:58 TAPE cephalexin Allergy Mild DIARRHEA Verified 06/04/19 07:58 shellfish derived Allergy Mild Anaphylaxis Verified 06/04/19 07:58 tetracycline Allergy Mild ITCH Verified 06/04/19 07:58 peanut Allergy Unknown Verified 06/04/19 07:58 oxycodone AdvReac Severe HALLUCINAT Verified 06/04/19 07:58 IONS Exam Vital signs: Vital Signs Temp Pulse Resp BP Pulse Ox 06/21/19 13:36 99.8 F H 74 20 145/65 H 92 Intake and Output 06/20/19 06/21/19 06/21/19 23:59 07:59 15:59 Other: Weight 131 kg Patient Weight 06/21/19 23:59 Weight 131 kg Narrative: ECOG 1 Gen: WDWN, NAD, pleasant and cooperative. HEENT: NCAT, EOMI, PERRLA, anicteric sclera. Neck: Supple, No palpable thyromegaly or lymphadenopathy. Respiratory: CTAB, no wheezes audible. No JVD Cardiovascular: RRR, S1 and S2 normal, no M/G/R. Abdomen: Soft, NTND, BS normal, no palpable organomegaly Extremities: No LE pitting edema. Lymphatic: no palpable lymph nodes in the neck, axillae, or groins. Neurological: AOx3, CN II-XII grossly intact. No focal motor or sensory deficit. Psychiatric: Normal affect, appropriate mood, no depression, no anxiety. Breast exams: Deferred. Results - Labs Reviewed. See HPI. - Imaging Additional studies: Procedures Excision of intervertebral disc (03/07/10) Fusion or refusion of 2-3 vertebrae (11/21/12) Injection of steroid (02/20/13) Injection or infusion of other therapeutic or prophylactic substance (02/20/13) Insertion of interbody spinal fusion device (11/21/12) Intra-operative neurophysiologic monitoring (11/21/12) Lumbar and lumbosacral fusion of the anterior column, anterior technique (11/21/12) Lumbar and lumbosacral fusion of the anterior column, posterior technique (0 11/21/12) Non-invasive mechanical ventilation (11/21/12) Other nonoperative respiratory measurements (02/20/13) Total knee replacement (11/01/13) Assessment and Plan (1) Breast cancer, left breast Overveiw: 78-year-old female with recently diagnosed left breast invasive ductal/lobular carcinoma, ER positive, NC positive, HER2 negative, and potentially node positive on 05/14/2019. Patient clinically is complaining of significant whole body aches as well as abdominal pain on my physical examination. Assessment: I reviewed the CT scan results as well as the bone scan results with the patient. I pointed out to her and her that the scan showed extensive bone metastasis. I explained to the patient that for metastatic breast cancer, it is usually considered incurable. The goal of the therapy is trying to slow down the progression of the disease and to maintain the quality of time as best as we can. I talked with her that the treatment options will include aromatase inhibitor with CDK4 6 inhibitor. I talked with the patient that she can start the aromatase inhibitor letrozole now after she receives the medication. However I would like her to hold the palbociclib until she sees me next visit. Plan : Letrozole 2.5 mg once daily, Pre authorization for palbociclib 125 mg daily on day 1 through 21 every 28 days, Brain MRI Thoracic spine MRI DEXA scan Return to clinic in 4 weeks for follow-up. (2) History of right breast cancer She has a remote history of right breast invasive ductal carcinoma, ER/NC p ositive, HER2 negative, status post lumpectomy, 6months of CMF followed by adjuvant radiation and letrozole completed 10/2007.
--- NOTE | 2019-06-26 09:26 | ONC.SCHED ---
Submitted PA for Ibrance through covermymeds.
--- NOTE | 2019-06-26 09:28 | ONC.SCHED ---
Letrozole: per covermymeds, Letrozole is on your plan's list of covered drugs. PA is not required at this time.
--- NOTE | 2019-06-27 11:26 | ONC.SCHED ---
Received PA for Ibrance: Approved through Medicare Part D through 04/03/2020 [id number]. Entered in ARM and scanned.
--- NOTE | 2019-06-27 16:32 | PC.NURSE ---
[facility] ACCOUNT ESTABLISHED: PATIENT ACCOUNT NR. IS [id number]. [facility] PHONE NR: [phone]. PRESCRIPTIONS CAN BE FAXED TO [phone] OR [phone]. PATIENT CALLED AND INFORMED OF ACCOUNT NR AND THAT RX HAS BEEN FAXED.
--- NOTE | 2019-06-28 13:52 | ONC.MSW ---
Description: T/C re: financial concerns re: Ibrance Activity: Pt's called with concerns about the potential out of pocket cost that Ibrance may pose for them. AUT[employer]IC [employer] OPERATOR shared that it appears that the insurances that they have will most likely cover it 100%, however if there is going to be a significant out of pocket, that there is financial assistance available for this drug. They expressed feeling reassured, and have no further needs at this time.
--- NOTE | 2019-06-28 15:33 | PC.NURSE ---
BRAIN MRI: [employer] ASKED IF BRAIN MRI HAD BEEN APPROVED. MESSAGE GIVEN TO SENIOR SVP BOBBY TO LET PATIENT KNOW WHEN PRE-AUTH IS DONE.
--- NOTE | 2019-07-02 10:30 | PC.NURSE ---
FAXED RX FOR IBRANCE TO [facility]
--- NOTE | 2019-07-02 15:13 | ONC.MSW ---
T/C re: Ibrance Financial Assistance Activity: Spoke with pt/spouse re: the need for financial assistance for the co-pay for Ibrance. Spouse came in and signed the [employer] Patient Assistance forms, will fax in later today. Plan to call pt once [employer] has made a determination.
--- NOTE | 2019-07-03 15:51 | PC.NURSE ---
CALLED STATING PATIENT HAS A SMALL RED SPOT AT TIP OF TONGUE WHICH HE SAYS LOOKS LIKE A CUT. SHE IS EATING (VERY LITTLE APPETITE) AND DRINKING, NO OTHER SORES IN MOUTH, NO FACIAL OR ORAL SWELLING, URINATION AND BOWEL MOVEMENTS OK, NO FEVER. THIS NURSE ADVISED TO DO ORAL RINSES WITH 1/2 TSP SALT AND 1/2 TSP BAKING SODA IN [place]KE[place] WATER AND TO CALL IF NOT IMPROVING.
--- NOTE | 2019-07-09 10:44 | ONC.MSW ---
Description: T/C re: [employer] Co-Pay Assistance Activity: Left message for pt's spouse that [employer] is requesting that we need to either fax in copies of his DPOA forms, or Maribell will need to come in and sign them herself. Provided direct contact info for him to return this call.
--- NOTE | 2019-07-12 15:07 | ONC.MSW ---
Ibrance Co-Pay Assistance Activity: BISQUE TILE BURNER made several calls today in trying to determine open funding for [employer], as [employer] is denying due to open funds available elsewhere. Obtained funding through [employer], for $4000. Pt ID#[id number]. Called [employer] to provide co-pay jayda details, however they were unable to verify the info with [employer], as CC had already closed for the day. They will call again tomorrow. BISQUE TILE BURNER called pt's spouse, Deshawn, to let him know that [place] would be contacting him about delivery details, and that when this jayda runs out, we will be able to apply for a second jayda. BISQUE TILE BURNER will f/u on Tuesday to confirm that delivery has been set-up.
--- NOTE | 2019-07-30 12:36 | ONC.PN ---
PN -Subjective Interval history: ID/CC: 78-year-old female with newly diagnosed metastatic left breast cancer. HPI: Rj Beck is a 78 year old female. She has a remote history of right breast invasive ductal carcinoma, ER/AL positive, HER2 negative, status post lumpectomy, 6months of CMF followed by adjuvant radiation and letrozole completed 10/2007. She underwent screening mammogram in 03/2019 which was reported as abnormal. On 04/10/2019, she was evaluated by aSndor Hanson. On 04/23/2019 patient underwent diagnostic unilateral left digital mammogram that showed previously identified irregular equal density asymmetry in the superior lateral left breast, and previously identified oval equal density focal asymmetry in the superior lateral left breast. On 05/14/2019, patient underwent ultrasound-guided biopsy of left breast with marking device inserted. In addition patient also underwent ultrasound-guided biopsy of the lymph node in the left axillary/axillary tail. 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 Lymph nodes not present. The breast cancer was found to be ER positive (greater than 95%, strong intensity), progesterone receptor positive (90%, strong intensity), HER2 negative (1+, IHC). She did not note any palpable lumps or pain. She has a little headache, not new, more like sinus. She has low energy, and she just wanted to sleep. No chest pain. She has shortness of breath due to COPD/asthma, and is using inhaler. She has bone pain, and she is hurting all over, which was started early Mar 2019. Any joint, fingers and shoulders, knees and back are really bad. She has spinal stenosis. 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 She is taking Tylenol and flexeril. She is using [place] occasionally. She is only taking 4# a week. No nausea, and no vomiting. She has ciliac disease. On 06/04/2019, patient underwent needle localization lumpectomy with sentinel lymph node biopsy and removal of additional deep axillary nodes. The pathology showed invasive lobular carcinoma, grade 2/3, measuring 2.7 cm, with lobular carcinoma in-situ/atypical lobular hyperplasia, without ductal carcinoma in-situ, with calcifications, with negative lymphovascular invasion, with positive margins, ER positive, AL positive, HER2 negative. Left axillary lymph node dissection removed 10 lymph nodes 9 of them positive. Postoperatively, patient has recovered smoothly from the surgical procedures. Patient is complaining mild left upper breast tenderness. On 06/18/2019, patient underwent a CT chest abdomen pelvis that showed extensive osseous metastatic disease demonstrating throughout the visualized osseous structures. Lytic lesion within the T7 vertebral body may be at risk for pathological fracture, small amount of ascites with mild hazy fat stranding of the omentum, postsurgical changes within the left breast and left axilla, small indeterminate pulmonary nodule along the right major fissure, and diffuse enlargement of the thyroid with multiple nodules. A 06/18/2019 patient also underwent whole-body bone scans, it underestimates extensive osseous metastasis which are seen on the comparison CT scan. Interim Events: Since her previous visit, patient has been using letrozole 2.5 mg once a day. According to patient and patient's , patient has tolerated the letrozole well. No significant hot flashes or shortness of breath. No joint pain. However patient is complaining of severe back pain. Patient does not have any lower extremity tingling or weakness at this moment. On 07/18/2019, patient underwent MR thoracic spine without and with contrast. It showed extensive osseous metastatic disease involving all visualized osseous components of the axial and appendicular skeleton. Focal elevated fat signal on T1 imaging within the T6 and T7 vertebral bodies is most likely a manifestation of pre-existing small vertebral body hemangiomas. No pathologic fracture is found. In addition, she underwent CT of the head on 07/23/2019. It showed age-related volume loss and mild to moderate small vessel ischemic change. No evidence of acute stroke, hemorrhage, or mass. - Patient Self-Reported Symptoms SR Constitution: Fatigue/Malaise SR eye issues: Vision changes SR respiratory issues: Difficulty breathing SR Cardiovascular issues: Shortness of breath with activity or lying flat SR Skin issues: Skin rash or itching SR Gastrointestinal issues: Diarrhea SR Genitourinary issues: Incontinence SR Musculoskeletal issues: Joint pain or swelling, Muscle weakness, Muscle pain or cramps, Back or neck pain, Cold hands or feet, Difficulty walking SR Neuro issues: Lightheaded/dizzy, Tremors or shaking - Additional ROS All systems PM: reviewed and no additional remarkable complaints except as stated (those mentioned in HPI, Interval History and SR above.) Home Medications and Allergies Home Medications Medication Instructions Recorded Confirmed Type loratadine [Claritin] 10 mg PO PRN #0 08/23/12 06/04/19 History cyanocobalamin (vitamin B-12) 1,000 mcg PO QDAY #90 tab 04/27/16 06/04/19 Rx Disabled Parking #1 each 08/18/18 06/05/19 Rx paroxetine HCl 40 mg tablet 40 mg PO DAILY #90 tab 09/18/18 06/04/19 Rx propylene glycol 0.6 % eye drops 1 drp EYE-BOTH PRN PRN 12/12/18 05/31/19 History mometasone 200 mcg/actuation HFA See Rx Instructions .ROUTE 12/26/18 06/04/19 Rx aerosol inhaler .COMPLEX #13 gram epinephrine 0.3 mg/0.3 mL See Rx Instructions .ROUTE 02/26/19 06/04/19 Rx injection, auto-injector .COMPLEX #2 unspecified fluticasone propionate 50 1 spray NASAL BID #18.2 ml 02/28/19 06/04/19 Rx mcg/actuation nasal spray,suspension amlodipine 10 mg tablet See Rx Instructions .ROUTE 03/15/19 06/04/19 Rx .COMPLEX #90 tablet atorvastatin 10 mg tablet See Rx Instructions .ROUTE 03/15/19 06/04/19 Rx .COMPLEX #90 tablet lansoprazole 30 mg capsule,delayed See Rx Instructions .ROUTE 03/15/19 06/04/19 Rx release .COMPLEX #90 capsule losartan 100 mg tablet See Rx Instructions .ROUTE 03/15/19 06/04/19 Rx .COMPLEX #90 tablet potassium chloride 10 mEq See Rx Instructions .ROUTE 03/15/19 05/31/19 Rx capsule,extended release .COMPLEX #180 capsule clobetasol 0.05 % topical cream See Rx Instructions TOP BID PRN 04/05/19 05/31/19 Rx #60 gram lidocaine 5 % topical ointment 1 applic TOP BID-TID PRN #35.44 04/19/19 05/31/19 Rx gram MDD three applications salmeterol 50 mcg/dose blister See Rx Instructions .ROUTE 04/19/19 06/04/19 Rx powder for inhalation .COMPLEX #60 unspecified cyclobenzaprine 10 mg tablet 10 mg PO BID PRN #60 tab 04/30/19 05/31/19 Rx albuterol sulfate [Ventolin HFA] 1 - 2 puff INH Q4HP PRN 05/31/19 06/04/19 History furosemide 20 mg PO SEEINSTR 06/04/19 06/04/19 History hyoscyamine sulfate 0.125 mg PO PRN PRN 06/04/19 06/04/19 History naratriptan [Amerge] 2.5 mg PO PRN PRN 06/04/19 06/04/19 History sucralfate 1 gram PO PRN PRN 06/04/19 06/04/19 History letrozole [Femara] 2.5 mg PO DAILY #90 tab 06/21/19 Rx palbociclib [Ibrance] 125 mg PO DAILY #21 cap 06/21/19 Rx hydrocodone-acetaminophen [[place]] 1 - 2 tab PO Q4HP PRN #90 tab 07/30/19 Rx Allergies Allergy/AdvReac Type Severity Reaction Status Date / Time aspirin Allergy Severe ANAPHYLACTIC Verified 06/04/19 07:58 SHOCK venom-honey bee Allergy Severe ANAPHYLACTIC Verified 06/04/19 07:58 [bee venom (honey bee)] SHOCK adhesive Allergy Intermediate RASH FROM Verified 06/04/19 07:58 TAPE cephalexin Allergy Mild DIARRHEA Verified 06/04/19 07:58 shellfish derived Allergy Mild Anaphylaxis Verified 06/04/19 07:58 tetracycline Allergy Mild ITCH Verified 06/04/19 07:58 peanut Allergy Unknown Verified 06/04/19 07:58 oxycodone AdvReac Severe HALLUCINAT Verified 06/04/19 07:58 IONS Exam Vital signs: Last Vital Signs Temp 99.8 F H 06/21/19 13:36 Pulse 74 06/21/19 13:36 Resp 20 06/21/19 13:36 BP 145/65 H 06/21/19 13:36 Pulse Ox 92 06/21/19 13:36 Narrative: ECOG 1 Gen: WDWN, NAD, pleasant and cooperative. HEENT: NCAT, EOMI, PERRLA, anicteric sclera. Respiratory: No use of accessory respiratory muscle. Extremities: No LE pitting edema. Neurological: AOx3, CN II-XII grossly intact. No focal motor or sensory deficit. Psychiatric: Normal affect, appropriate mood, no depression, no anxiety. Breast exams: Deferred. Results - Labs Labs from 07/23/2019 were reviewed. CBCs are unremarkable. CMP showed mildly elevated serum calcium level of 10.7 and mildly elevated serum alk-phos level of 188. The remaining 6 MP is on remarkable. - Imaging Additional studies: Procedures Excision of intervertebral disc (03/07/10) Fusion or refusion of 2-3 vertebrae (11/21/12) Injection of steroid (02/20/13) Injection or infusion of other therapeutic or prophylactic substance (02/20/13) Insertion of interbody spinal fusion device (11/21/12) Intra-operative neurophysiologic monitoring (11/21/12) Lumbar and lumbosacral fusion of the anterior column, anterior technique (11/21/12) Lumbar and lumbosacral fusion of the anterior column, posterior technique (11/21/12) Non-invasive mechanical ventilation (11/21/12) Other nonoperative respiratory measurements (02/20/13) Total knee replacement (11/01/13) Assessment and Plan (1) Breast cancer, left breast Overveiw: 78-year-old female with recently diagnosed left breast invasive ductal/lobular carcinoma, ER positive, AL positive, HER2 negative, and potentially node positive on 05/14/2019. Patient clinically is complaining of significant whole body aches as well as abdominal pain on my physical examination. Assessment: Today, I reviewed the CT of the head and MRI of the thoracic spine with the patient. I talked with the patient and her that there is no evidence of intracranial metastasis. There is no evidence of pathological fractures in T7. However it confirms the widely metastatic osseous disease. Patient has already received palbociclib. I talked with the patient that I will initiate the treatment today. We will see the patient in 2 weeks. I explained to the patient that per product insert, patient will be monitored every 2 weeks for about 2 months. Then I will probably space out to once a month follow-up. I once again explained to the patient that the main concern has been the benign neutropenia. Occasionally we see significant neutropenia requiring dose adjustment. Plan : Continue Letrozole 2.5 mg once daily, Ok to start palbociclib 125 mg daily on day 1 through 21 every 28 days, Pending DEXA scan RTC in 2 weeks, CBC, CMP (2) History of right breast cancer She has a remote history of right breast invasive ductal carcinoma, ER/AL positive, HER2 negative, status post lumpectomy, 6 months of CMF followed by adjuvant radiation and letrozole completed 10/2007.
[2019-08-13 11:17] VITALS: BP 127/61; PULSE 77; RESP 16; TEMP 37.1; O2SAT 96
--- NOTE | 2019-08-13 11:23 | P.PNONC_ITS ---
PN -Subjective Interval history: Identification and Chief Complaint: 78-year-old female with metastatic left breast cancer. History of Present Illness: Rj Beck is a 78 year old female. She has a remote history of right breast invasive ductal carcinoma, ER/ND positive, HER2 negative, status post lumpectomy, 6 months of CMF followed by adjuvant radiation and letrozole completed 10/2007. She underwent screening mammogram in 03/2019 which was reported as abnormal. On 04/10/2019, she was evaluated by Sandor Hanson. On 04/23/2019 patient underwent diagnostic unilateral left digital mammogram that showed previously identified irregular equal density asymmetry in the superior lateral left breast, and previously identified oval equal density focal asymmetry in the superior lateral left breast. On 05/14/2019, patient underwent ultrasound-guided biopsy of left breast with marking device inserted. In addition patient also underwent ultrasound-guided biopsy of the lymph node in the left axillary/axillary tail. 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 Lymph nodes not present. The breast cancer was found to be ER positive (greater than 95%, strong intensity), progesterone receptor positive (90%, strong intensity), HER2 negative (1+, IHC). She did not note any palpable lumps or pain. She has a little headache, not new, more like sinus. She has low energy, and she just wanted to sleep. No chest pain. She has shortness of breath due to COPD/asthma, and is using inhaler. She has bone pain, and she is hurting all over, which was started early Mar 2019. Any joint, fingers and shoulders, knees and back are really bad. She has spinal stenosis. 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 She is taking Tylenol and flexeril. She is using [place] occasionally. She is only taking 4# a week. No nausea, and no vomiting. She has ciliac disease. On 06/04/2019, patient underwent needle localization lumpectomy with sentinel lymph node biopsy and removal of additional deep axillary nodes. The pathology showed invasive lobular carcinoma, grade 2/3, measuring 2.7 cm, with lobular carcinoma in-situ/atypical lobular hyperplasia, without ductal carcinoma in- situ, with calcifications, with negative lymphovascular invasion, with positive margins, ER positive, ND positive, HER2 negative. Left axillary lymph node dissection removed 10 lymph nodes, 9 of them positive. Postoperatively, patient has recovered smoothly from the surgical procedures. Patient is complaining mild left upper breast tenderness. On 06/18/2019, patient underwent a CT chest abdomen pelvis that showed extensive osseous metastatic disease demonstrating throughout the visualized osseous structures. Lytic lesion within the T7 vertebral body may be at risk for pathological fracture, small amount of ascites with mild hazy fat stranding of the omentum, postsurgical changes within the left breast and left axilla, small indeterminate pulmonary nodule along the right major fissure, and diffuse enlargement of the thyroid with multiple nodules. A 06/18/2019 patient also underwent whole-body bone scans, it underestimates extensive osseous metastasis which are seen on the comparison CT scan. About in 06/2019, she was started on letrozole 2.5 mg once a day. On 07/18/2019, patient underwent MR thoracic spine without and with contrast. It showed extensive osseous metastatic disease involving all visualized osseous components of the axial and appendicular skeleton. Focal elevated fat signal on T1 imaging within the T6 and T7 vertebral bodies is most likely a manifestation of pre-existing small vertebral body hemangiomas. No pathologic fracture is found. In addition, she underwent CT of the head on 07/23/2019. It showed age-re lated volume loss and mild to moderate small vessel ischemic change. No evidence of acute stroke, hemorrhage, or mass. Interim Events: Since her previous visit, she has been on Ibrance for about 15 days (started 07/30/2019). Overall she has tolerated very well. She denies any fever or chills. She denies any nausea or vomiting. She denies any abdominal pain, diarrhea or constipation. She does report right shoulder pain. She said she was not able to move the showed around otherwise it is painful. - Patient Self-Reported Symptoms SR Constitution: Weight loss/gain SR eye issues: Vision changes SR ears, nose, mouth, throat issues: Bleeding gums SR respiratory issues: Difficulty breathing SR Cardiovascular issues: Shortness of breath with activity or lying flat SR Skin issues: Skin rash or itching SR Gastrointestinal issues: Diarrhea SR Genitourinary issues: Incontinence SR Musculoskeletal issues: Joint pain or swelling, Muscle weakness, Muscle pain or cramps, Back or neck pain, Cold hands or feet, Difficulty walking SR Neuro issues: Lightheaded/dizzy, Tremors or shaking - Additional ROS All systems PM: reviewed and no additional remarkable complaints except as stated (those in HPI, interval history and above self-reported.) Home Medications and Allergies Home Medications Medication Instructions Recorded Confirmed Type loratadine [Claritin] 10 mg PO PRN #0 08/23/12 08/13/19 History cyanocobalamin (vitamin B-12) 1,000 mcg PO QDAY #90 tab 04/27/16 08/13/19 Rx Disabled Parking #1 each 08/18/18 08/13/19 Rx paroxetine HCl 40 mg tablet 40 mg PO DAILY #90 tab 09/18/18 08/13/19 Rx propylene glycol 0.6 % eye drops 1 drp EYE-BOTH PRN PRN 12/12/18 08/13/19 History mometasone 200 mcg/actuation HFA See Rx Instructions .ROUTE 12/26/18 08/13/19 Rx aerosol inhaler .COMPLEX #13 gram epinephrine 0.3 mg/0.3 mL See Rx Instructions .ROUTE 02/26/19 08/13/19 Rx injection, auto-injector .COMPLEX #2 unspecified fluticasone propionate 50 1 spray NASAL BID #18.2 ml 02/28/19 08/13/19 Rx mcg/actuation nasal spray,suspension amlodipine 10 mg tablet See Rx Instructions .ROUTE 03/15/19 08/13/19 Rx .COMPLEX #90 tablet atorvastatin 10 mg tablet See Rx Instructions .ROUTE 03/15/19 08/13/19 Rx .COMPLEX #90 tablet lansoprazole 30 mg capsule,delayed See Rx Instructions .ROUTE 03/15/19 08/13/19 Rx release .COMPLEX #90 capsule losartan 100 mg tablet See Rx Instructions .ROUTE 03/15/19 08/13/19 Rx .COMPLEX #90 tablet potassium chloride 10 mEq See Rx Instructions .ROUTE 03/15/19 08/13/19 Rx capsule,extended release .COMPLEX #180 capsule clobetasol 0.05 % topical cream See Rx Instructions TOP BID PRN 04/05/19 08/13/19 Rx #60 gram lidocaine 5 % topical ointment 1 applic TOP BID-TID PRN #35.44 04/19/19 08/13/19 Rx gram MDD three applications salmeterol 50 mcg/dose blister See Rx Instructions .ROUTE 04/19/19 08/13/19 Rx powder for inhalation .COMPLEX #60 unspecified cyclobenzaprine 10 mg tablet 10 mg PO BID PRN #60 tab 04/30/19 08/13/19 Rx albuterol sulfate [Ventolin HFA] 1 - 2 puff INH Q4HP PRN 05/31/19 08/13/19 History furosemide 20 mg PO SEEINSTR 06/04/19 08/13/19 History hyoscyamine sulfate 0.125 mg PO PRN PRN 06/04/19 08/13/19 History naratriptan [Amerge] 2.5 mg PO PRN PRN 06/04/19 08/13/19 History sucralfate 1 gram PO PRN PRN 06/04/19 08/13/19 History letrozole [Femara] 2.5 mg PO DAILY #90 tab 06/21/19 08/13/19 Rx palbociclib [Ibrance] 125 mg PO DAILY #21 cap 06/21/19 08/13/19 Rx hydrocodone-acetaminophen [[place]] 1 - 2 tab PO Q4HP PRN #90 tab 07/30/19 08/13/19 Rx Allergies Allergy/AdvReac Type Severity Reaction Status Date / Time aspirin Allergy Severe ANAPHYLACTIC Verified 06/04/19 07:58 SHOCK venom-honey bee Allergy Severe ANAPHYLACTIC Verified 06/04/19 07:58 [bee venom (honey bee)] SHOCK adhesive Allergy Intermediate RASH FROM Verified 06/04/19 07:58 TAPE cephalexin Allergy Mild DIARRHEA Verified 06/04/19 07:58 shellfish derived Allergy Mild Anaphylaxis Verified 06/04/19 07:58 tetracycline Allergy Mild ITCH Verified 06/04/19 07:58 peanut Allergy Unknown Verified 06/04/19 07:58 oxycodone AdvReac Severe HALLUCINAT Verified 06/04/19 07:58 IONS Exam Vital signs: Vital Signs Temp Pulse Resp BP Pulse Ox 08/13/19 11:17 98.8 F 77 16 127/61 96 Intake and Output 08/12/19 08/13/19 08/13/19 23:59 07:59 15:59 Other: Weight 124.2 kg Patient Weight 08/13/19 23:59 Weight 124.2 kg Narrative: ECOG 1 Gen: WDWN, NAD, pleasant and cooperative. HEENT: NCAT, EOMI, PERRLA, anicteric sclera. Respiratory: No use of accessory respiratory muscle. Extremities: No LE pitting edema. Neurological: AOx3, CN II-XII grossly intact. No focal motor or sensory deficit. Psychiatric: Normal affect, appropriate mood, no depression, no anxiety. Breast exams: Deferred. Results - Imaging Additional studies: Procedures Excision of intervertebral disc (03/07/10) Fusion or refusion of 2-3 vertebrae (11/21/12) Injection of steroid (02/20/13) Injection or infusion of other therapeutic or prophylactic substance (02/20/13) Insertion of interbody spinal fusion device (11/21/12) Intra-operative neurophysiologic monitoring (11/21/12) Lumbar and lumbosacral fusion of the anterior column, anterior technique (11/21/12) Lumbar and lumbosacral fusion of the anterior column, posterior technique (11/21/12) Non-invasive mechanical ventilation (11/21/12) Other nonoperative respiratory measurements (02/20/13) Total knee replacement (11/01/13) Assessment and Plan (1) Breast cancer, left breast Overveiw: 78-year-old female was diagnosed with left breast invasive ductal/lobular carcinoma, ER+, ND+, HER2-, potentially node positive on 05/14/2019. He underwent needle localization lumpectomy with sentinel lymph node biopsy and removal of additional deep axillary nodes on 06/04/2019. Pathology stage was at least pT2 pN2a(sn). CT CAP on 06/18/2019 extensive osseous metastatic disease demonstrating throughout the visualized osseous structures. About in 06/2019, she was started on letrozole 2.5 mg once a day. Assessment: She started Ibrance on 07/30/2019. I reviewed the laboratory tests results with the patient. Patient has developed mild neutropenia and mild anemia. I explained to patient and her that these findings are expected. It has been reported that Ibrance can be associated with afebrile neutropenia. Majority of the time it does not need to any significant infectious disease complications. However we do have to be diligent in monitoring the counts. Based on the label, it is recommended every 2 weeks for 2 months. Patient voiced understanding. As far as the right shoulder pain is concerned, it is probably related to the clavicle metastatic disease or it may be a different disease for example frozen shoulder etc.. I talked with them that if the pain becomes progressively worse, I will repeat the scan and consider possibly palliative radiation therapy. Plan : Continue Letrozole 2.5 mg once daily, Continue palbociclib 125 mg daily on day 1 through 21 every 28 days, Pending DEXA scan RTC in 2 weeks, CBC, CMP (2) History of right breast cancer She has a remote history of right breast invasive ductal carcinoma, ER/ND positive, HER2 negative, status post lumpectomy, 6 months of CMF followed by adjuvant radiation and letrozole completed 10/2007.
--- NOTE | 2019-09-10 12:42 | ONC.PN ---
PN -Subjective Interval history: Identification and Chief Complaint: 78-year-old female with metastatic left breast cancer. History of Present Illness: Rj Beck is a 78 year old female. She has a remote history of right breast invasive ductal carcinoma, ER/MT positive, HER2 negative, status post lumpectomy, 6 months of CMF followed by adjuvant radiation and letrozole completed 10/2007. She underwent screening mammogram in 03/2019 which was reported as abnormal. On 04/10/2019, she was evaluated by Sandor Hanson. On 04/23/2019 patient underwent diagnostic unilateral left digital mammogram that showed previously identified irregular equal density asymmetry in the superior lateral left breast, and previously identified oval equal density focal asymmetry in the superior lateral left breast. On 05/14/2019, patient underwent ultrasound-guided biopsy of left breast with marking device inserted. In addition patient also underwent ultrasound-guided biopsy of the lymph node in the left axillary/axillary tail. The pathology showed mixed ductal and lobular breast cancer, [place] grade 6/9, in-situ carcinoma present lobular type, lymphovascular invasion not identified, left axilla lymph node biopsy showed fibroadipose tissue with involvement by invasive mammary carcinoma. Lymph nodes not present. The breast cancer was found to be ER positive (greater than 95%, strong intensity), progesterone receptor positive (90%, strong intensity), HER2 negative (1+, IHC). She did not note any palpable lumps or pain. She has a little headache, not new, more like sinus. She has low energy, and she just wanted to sleep. No chest pain. She has shortness of breath due to COPD/asthma, and is using inhaler. She has bone pain, and she is hurting all over, which was started early Mar 2019. Any joint, fingers and shoulders, knees and back are really bad. She has spinal stenosis. 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 She is taking Tylenol and flexeril. She is using [place] occasionally. She is only taking 4# a week. No nausea, and no vomiting. She has ciliac disease. On 06/04/2019, patient underwent needle localization lumpectomy with sentinel lymph node biopsy and removal of additional deep axillary nodes. The pathology showed invasive lobular carcinoma, grade 2/3, measuring 2.7 cm, with lobular carcinoma in-situ/atypical lobular hyperplasia, without ductal carcinoma in-situ, with calcifications, with negative lymphovascular invasion, with positive margins, ER positive, MT positive, HER2 negative. Left axillary lymph node dissection removed 10 lymph nodes, 9 of them positive. Postoperatively, patient has recovered smoothly from the surgical procedures. Patient is complaining mild left upper breast tenderness. On 06/18/2019, patient underwent a CT chest abdomen pelvis that showed extensive osseous metastatic disease demonstrating throughout the visualized osseous structures. Lytic lesion within the T7 vertebral body may be at risk for pathological fracture, small amount of ascites with mild hazy fat stranding of the omentum, postsurgical changes within the left breast and left axilla, small indeterminate pulmonary nodule along the right major fissure, and diffuse enlargement of the thyroid with multiple nodules. A 06/18/2019 patient also underwent whole-body bone scans, it underestimates extensive osseous metastasis which are seen on the comparison CT scan. About in 06/2019, she was started on letrozole 2.5 mg once a day. On 07/18/2019, patient underwent MR thoracic spine without and with contrast. It showed extensive osseous metastatic disease involving all visualized osseous components of the axial and appendicular skeleton. Focal elevated fat signal on T1 imaging within the T6 and T7 vertebral bodies is most likely a manifestation of pre-existing small vertebral body hemangiomas. No pathologic fracture is found. In addition, she underwent CT of the head on 07/23/2019. It showed age-related volume loss and mild to moderate small vessel ischemic change. No evidence of acute stroke, hemorrhage, or mass. She was started on Ibrance on 07/30/2019. Interim Events: Up until now, patient has tolerated very well. Patient said the main complaint has been fatigue. However she does not have shortness breath or chest pain. She does not have fever or chills. She does not have any abdominal pain diarrhea or constipation. She continues to complain right shoulder pain which has remained about the same. - Patient Self-Reported Symptoms SR Constitution: Weight loss/gain SR eye issues: Vision changes SR ears, nose, mouth, throat issues: Bleeding gums SR respiratory issues: Difficulty breathing SR Cardiovascular issues: Shortness of breath with activity or lying flat SR Skin issues: Skin rash or itching SR Gastrointestinal issues: Diarrhea SR Genitourinary issues: Incontinence SR Musculoskeletal issues: Joint pain or swelling, Muscle weakness, Muscle pain or cramps, Back or neck pain, Cold hands or feet, Difficulty walking SR Neuro issues: Lightheaded/dizzy, Tremors or shaking - Additional ROS All systems PM: reviewed and no additional remarkable complaints except as stated Home Medications and Allergies Home Medications Medication Instructions Recorded Confirmed Type loratadine [Claritin] 10 mg PO PRN #0 08/23/12 08/13/19 History cyanocobalamin (vitamin B-12) 1,000 mcg PO QDAY #90 tab 04/27/16 08/13/19 Rx Disabled Parking #1 each 08/18/18 08/13/19 Rx paroxetine HCl 40 mg tablet 40 mg PO DAILY #90 tab 09/18/18 08/13/19 Rx propylene glycol 0.6 % eye drops 1 drp EYE-BOTH PRN PRN 12/12/18 08/13/19 History mometasone 200 mcg/actuation HFA See Rx Instructions .ROUTE 12/26/18 08/13/19 Rx aerosol inhaler .COMPLEX #13 gram epinephrine 0.3 mg/0.3 mL See Rx Instructions .ROUTE 02/26/19 08/13/19 Rx injection, auto-injector .COMPLEX #2 unspecified fluticasone propionate 50 1 spray NASAL BID #18.2 ml 02/28/19 08/13/19 Rx mcg/actuation nasal spray,suspension amlodipine 10 mg tablet See Rx Instructions .ROUTE 03/15/19 08/13/19 Rx .COMPLEX #90 tablet atorvastatin 10 mg tablet See Rx Instructions .ROUTE 03/15/19 08/13/19 Rx .COMPLEX #90 tablet lansoprazole 30 mg capsule,delayed See Rx Instructions .ROUTE 03/15/19 08/13/19 Rx release .COMPLEX #90 capsule losartan 100 mg tablet See Rx Instructions .ROUTE 03/15/19 08/13/19 Rx .COMPLEX #90 tablet potassium chloride 10 mEq See Rx Instructions .ROUTE 03/15/19 08/13/19 Rx capsule,extended release .COMPLEX #180 capsule clobetasol 0.05 % topical cream See Rx Instructions TOP BID PRN 04/05/19 08/13/19 Rx #60 gram lidocaine 5 % topical ointment 1 applic TOP BID-TID PRN #35.44 04/19/19 08/13/19 Rx gram MDD three applications salmeterol 50 mcg/dose blister See Rx Instructions .ROUTE 04/19/19 08/13/19 Rx powder for inhalation .COMPLEX #60 unspecified cyclobenzaprine 10 mg tablet 10 mg PO BID PRN #60 tab 04/30/19 08/13/19 Rx albuterol sulfate [Ventolin HFA] 1 - 2 puff INH Q4HP PRN 05/31/19 08/13/19 History furosemide 20 mg PO SEEINSTR 06/04/19 08/13/19 History hyoscyamine sulfate 0.125 mg PO PRN PRN 06/04/19 08/13/19 History naratriptan [Amerge] 2.5 mg PO PRN PRN 06/04/19 08/13/19 History sucralfate 1 gram PO PRN PRN 06/04/19 08/13/19 History letrozole [Femara] 2.5 mg PO DAILY #90 tab 06/21/19 08/13/19 Rx palbociclib [Ibrance] 125 mg PO DAILY #21 cap 06/21/19 08/13/19 Rx hydrocodone-acetaminophen [[place]] 1 - 2 tab PO Q4HP PRN #90 tab 07/30/19 08/13/19 Rx Allergies Allergy/AdvReac Type Severity Reaction Status Date / Time aspirin Allergy Severe ANAPHYLACTIC Verified 06/04/19 07:58 SHOCK venom-honey bee Allergy Severe ANAPHYLACTIC Verified 06/04/19 07:58 [bee venom (honey bee)] SHOCK adhesive Allergy Intermediate RASH FROM Verified 06/04/19 07:58 TAPE cephalexin Allergy Mild DIARRHEA Verified 06/04/19 07:58 shellfish derived Allergy Mild Anaphylaxis Verified 06/04/19 07:58 tetracycline Allergy Mild ITCH Verified 06/04/19 07:58 peanut Allergy Unknown Verified 06/04/19 07:58 oxycodone AdvReac Severe HALLUCINAT Verified 06/04/19 07:58 IONS Exam Vital signs: 09/10/19 13:07 Last Vital Signs Temp 98.4 F 09/10/19 12:43 Pulse 80 09/10/19 12:43 Resp 18 09/10/19 12:43 BP 137/71 09/10/19 12:43 Pulse Ox 97 09/10/19 12:43 Narrative: ECOG 1 Gen: WDWN, NAD, pleasant and cooperative. HEENT: NCAT, EOMI, PERRLA, anicteric sclera. Respiratory: No use of accessory respiratory muscle. CTAB, no wheezes. Card: RRR, S1/S2 normal, no MRG. ABD: soft, non-tender Extremities: No LE pitting edema. Lymph nodes: No palpable lymph nodes in the neck, or axillary areas. Neurological: AOx3, CN II-XII grossly intact. No focal motor or sensory deficit. Psychiatric: Normal affect, appropriate mood, no depression, no anxiety. Breast exams: Deferred. Results - Labs Labs from 09/07/2019, WBC 4.2, hemoglobin 12.1, hematocrit 35.0, platelets 502, sodium 142, potassium 3.9, chloride 110, carbon dioxide 22, BUN 15, creatinine 0.99, glucose 127, calcium 10.5, total bilirubin 0.4, AST 19, ALT 12, alkaline phosphate is 132, total protein 7.8, albumin 4.4, globulin 3.4. - Imaging Additional studies: Procedures Endoscopic destruction of other lesion or tissue of large intestine (11/10/11) Endoscopic polypectomy of large intestine (11/10/11) Excision of intervertebral disc (03/07/10) Fusion or refusion of 2-3 vertebrae (11/21/12) Injection of steroid (02/20/13) Injection or infusion of other therapeutic or prophylactic substance (02/20/13) Insertion of interbody spinal fusion device (11/21/12) Intra-operative neurophysiologic monitoring (11/21/12) Lumbar and lumbosacral fusion of the anterior column, anterior technique (11/21/12) Lumbar and lumbosacral fusion of the anterior column, posterior technique (11/21/12) Non-invasive mechanical ventilation (11/21/12) Other endoscopy of small intestine (12/29/11) Other nonoperative respiratory measurements (02/20/13) Total knee replacement (11/01/13) Assessment and Plan (1) Breast cancer, left breast Overveiw: 78-year-old female was diagnosed with left breast invasive ductal/lobular carcinoma, ER+, MT+, HER2-, potentially node positive on 05/14/2019. She underwent needle localization lumpectomy with sentinel lymph node biopsy and removal of additional deep axillary nodes on 06/04/2019. Pathology stage was at least pT2 pN2a(sn). CT CAP on 06/18/2019 extensive osseous metastatic disease demonstrating throughout the visualized osseous structures. About in 06/2019, she was started on letrozole 2.5 mg once a day. She started Ibrance on 07/30/2019. Assessment: Up until now patient has tolerated the combination of letrozole and Ibrance very well. No neutropenic fever. I reviewed the CBCs and CMPs with the patient. The results are not remarkable. I talked with her that I will continue current treatment without any changes. Today I discussed with the patient and her about the use of Xgeva. Patient has extensive bone metastasis. Xgeva usually is highly recommended. I recommended that patient be evaluated by dentist for clearance. Patient voiced understanding. I have scheduled the patient to come back in 2 weeks for follow-up visit. Plan : Continue Letrozole 2.5 mg once daily, Continue palbociclib 125 mg daily on day 1 through 21 every 28 days, Re-order DEXA scan Dental clearance RTC in 2 weeks, CBC, CMP (2) History of right breast cancer She has a remote history of right breast invasive ductal carcinoma, ER/MT positive, HER2 negative, status post lumpectomy, 6 months of CMF followed by adjuvant radiation and letrozole completed 10/2007.
[2019-09-10 12:43] VITALS: BP 137/71; PULSE 80; RESP 18; TEMP 36.9; O2SAT 97
--- NOTE | 2019-09-25 13:04 | ONC.MSW ---
Rosaura Co-Pay Assistance Activity: Second day of coordination calls with [facility] and [facility]. [employer] was able to request an additional $6000 in jayda funding from [employer], as pt's previous jayda had just ran out. [facility] faxed them a claim to prove the co-pay amount. Called pt to update, they will call [facility] and confirm for their next delivery in a few days.
[2019-09-26 13:10] VITALS: BP 124/70; PULSE 71; RESP 18; TEMP 36.7; O2SAT 96
--- NOTE | 2019-09-26 13:47 | ONC.PN ---
PN -Subjective Interval history: Ms. Beck presents today for follow-up of her metastatic breast cancer. She is 78 years old. She originally presented in 2002 with a right breast cancer treated with lumpectomy, CMF, radiation therapy, and 5 years of letrozole which she completed in October of 2007. She did well until March 2019 when a screening mammogram showed showed an abnormality in the left (contralateral) breast which was confirmed on additional mammographic views and ultrasound. On May 14, 2019 biopsy of the breast mass showed a grade 2 invasive ductal carcinoma with lobular features, lobular carcinoma in Situ, no lymphovascular invasion ER 3+ greater than 95% of the cells, DC 3+ in 90% of the cells, HER2 [place] gene product negative. Node biopsy at that time was negative. On June 04, 2019 she had a left lumpectomy that showed a 2.7 cm grade 2 invasive lobular carcinoma metastatic 9 of 10 lymph nodes. Subsequent staging study on June 17 CT scan of the chest, abdomen and pelvis showed extensive bone metastases involving a lytic lesion at T7. There was also haziness of the omental fat with stranding and indeterminate right lung nodule. Bone scan showed metastatic disease to bone but was much less apparent on the bone scan than it was on the CT scan. In on June 21 she started on letrozole. On July 17 she had an MRI of the thoracic spine that showed diffuse metastatic disease but no fractures. On July [address] scan was negative. On July 29 started on palbociclib. On September 09 she was seen by Dr[address] Lamas for follow-up and advised to see the dentist prior to starting Xgeva treatments. She comes today for follow-up visit. She notes increasing pain in her right scapular area. It bothers her during the day and at night. It makes it hard to sleep. She takes Tylenol and as needed Vicodin for this with some improvement but the pain has been a chronic an increasing problem over the last several weeks. She has not had any history of any injury or trauma. She is not having much in the way of pain in other locations. She notes increasing fatigue over the last month or 2 and is wanting this is due to her palbociclib. She denies other pain, bleeding, localized weakness, fever, chills, nausea or vomiting. She has dyspnea on exertion. All other systems are negative. Past medical history is reviewed from her previous notes. - Patient Self-Reported Symptoms SR Constitution: Weight loss/gain, Fatigue/Malaise, Night Sweats SR eye issues: Vision changes SR ears, nose, mouth, throat issues: Changes in taste SR respiratory issues: Shortness of breath SR Cardiovascular issues: Dizzy/lightheaded SR Skin issues: Dry skin, Skin rash or itching SR Gastrointestinal issues: Diarrhea, Abdominal pain SR Genitourinary issues: Incontinence SR Musculoskeletal issues: Joint pain or swelling, Muscle weakness, Muscle pain or cramps, Back or neck pain, Cold hands or feet, Difficulty walking SR Neuro issues: Lightheaded/dizzy SR Endocrine issues: Cold intolerance Home Medications and Allergies Home Medications Medication Instructions Recorded Confirmed Type loratadine [Claritin] 10 mg PO PRN #0 08/23/12 08/13/19 History cyanocobalamin (vitamin B-12) 1,000 mcg PO QDAY #90 tab 04/27/16 08/13/19 Rx Disabled Parking #1 each 08/18/18 08/13/19 Rx propylene glycol 0.6 % eye drops 1 drp EYE-BOTH PRN PRN 12/12/18 08/13/19 History mometasone 200 mcg/actuation HFA See Rx Instructions .ROUTE 12/26/18 08/13/19 Rx aerosol inhaler .COMPLEX #13 gram epinephrine 0.3 mg/0.3 mL See Rx Instructions .ROUTE 02/26/19 08/13/19 Rx injection, auto-injector .COMPLEX #2 unspecified fluticasone propionate 50 1 spray NASAL BID #18.2 ml 02/28/19 08/13/19 Rx mcg/actuation nasal spray,suspension amlodipine 10 mg tablet See Rx Instructions .ROUTE 03/15/19 08/13/19 Rx .COMPLEX #90 tablet atorvastatin 10 mg tablet See Rx Instructions .ROUTE 03/15/19 08/13/19 Rx .COMPLEX #90 tablet lansoprazole 30 mg capsule,delayed See Rx Instructions .ROUTE 03/15/19 08/13/19 Rx release .COMPLEX #90 capsule losartan 100 mg tablet See Rx Instructions .ROUTE 03/15/19 08/13/19 Rx .COMPLEX #90 tablet potassium chloride 10 mEq See Rx Instructions .ROUTE 03/15/19 08/13/19 Rx capsule,extended release .COMPLEX #180 capsule clobetasol 0.05 % topical cream See Rx Instructions TOP BID PRN 04/05/19 08/13/19 Rx #60 gram lidocaine 5 % topical ointment 1 applic TOP BID-TID PRN #35.44 04/19/19 08/13/19 Rx gram MDD three applications salmeterol 50 mcg/dose blister See Rx Instructions .ROUTE 04/19/19 08/13/19 Rx powder for inhalation .COMPLEX #60 unspecified cyclobenzaprine 10 mg tablet 10 mg PO BID PRN #60 tab 04/30/19 08/13/19 Rx albuterol sulfate [Ventolin HFA] 1 - 2 puff INH Q4HP PRN 05/31/19 08/13/19 History furosemide 20 mg PO SEEINSTR 06/04/19 08/13/19 History hyoscyamine sulfate 0.125 mg PO PRN PRN 06/04/19 08/13/19 History naratriptan [[place]merge] 2.5 mg PO PRN PRN 06/04/19 08/13/19 History sucralfate 1 gram PO PRN PRN 06/04/19 08/13/19 History letrozole [Femara] 2.5 mg PO DAILY #90 tab 06/21/19 08/13/19 Rx palbociclib [Ibrance] 125 mg PO DAILY #21 cap 06/21/19 08/13/19 Rx hydrocodone-acetaminophen [[place]] 1 - 2 tab PO Q4HP PRN #90 tab 07/30/19 08/13/19 Rx paroxetine HCl 40 mg tablet 40 mg PO DAILY #90 tab 09/11/19 Rx Allergies Allergy/AdvReac Type Severity Reaction Status Date / Time aspirin Allergy Severe ANAPHYLACTIC Verified 06/04/19 07:58 SHOCK venom-honey bee Allergy Severe ANAPHYLACTIC Verified 06/04/19 07:58 [bee venom (honey bee)] SHOCK adhesive Allergy Intermediate RASH FROM Verified 06/04/19 07:58 TAPE cephalexin Allergy Mild DIARRHEA Verified 06/04/19 07:58 shellfish derived Allergy Mild Anaphylaxis Verified 06/04/19 07:58 tetracycline Allergy Mild ITCH Verified 06/04/19 07:58 peanut Allergy Unknown Verified 06/04/19 07:58 oxycodone AdvReac Severe HALLUCINAT Verified 06/04/19 07:58 IONS Exam Vital signs: Vital Signs Temp Pulse Resp BP Pulse Ox 09/26/19 13:10 98.1 F 71 18 124/70 96 Intake and Output 09/25/19 09/26/19 09/26/19 23:59 07:59 15:59 Other: Weight 123 kg Patient Weight 09/26/19 23:59 Weight 123 kg Narrative: She was awake, alert and oriented x3. She was ambulatory with her walker. Results - Imaging Additional studies: Procedures Endoscopic destruction of other lesion or tissue of large intestine (11/10/11) Endoscopic polypectomy of large intestine (11/10/11) Excision of intervertebral disc (03/07/10) Fusion or refusion of 2-3 vertebrae (11/21/12) Injection of steroid (02/20/13) Injection or infusion of other therapeutic or prophylactic substance (02/20/13) Insertion of interbody spinal fusion device (11/21/12) Intra-operative neurophysiologic monitoring (11/21/12) Lumbar and lumbosacral fusion of the anterior column, anterior technique (11/21/12) Lumbar and lumbosacral fusion of the anterior column, posterior technique (11/21/12) Non-invasive mechanical ventilation (11/21/12) Other endoscopy of small intestine (12/29/11) Other nonoperative respiratory measurements (02/20/13) Total knee replacement (11/01/13) Assessment and Plan (1) Breast cancer, left breast Overveiw: 78-year-old female was diagnosed with left breast invasive ductal/lobular carcinoma, ER+, DC+, HER2-, potentially node positive on 05/14/2019. She underwent needle localization lumpectomy with sentinel lymph node biopsy and removal of additional deep axillary nodes on 06/04/2019. Pathology stage was at least pT2 pN2a(sn). CT CAP on 06/18/2019 extensive osseous metastatic disease demonstrating throughout the visualized osseous structures. About in 06/2019, she was started on letrozole 2.5 mg once a day. She started Ibrance on 07/30/2019. Assessment: Up until now patient has tolerated the combination of letrozole and Ibrance very well. No neutropenic fever. I reviewed the CBCs and CMPs with the patient. The results are not remarkable. I talked with her that I will continue current treatment without any changes. Today I discussed with the patient and her about the use of Xgeva. Patient has extensive bone metastasis. Xgeva usually is highly recommended. I recommended that patient be evaluated by dentist for clearance. Patient voiced understanding. I have scheduled the patient to come back in 2 weeks for follow-up visit. Plan : Continue Letrozole 2.5 mg once daily, Continue palbociclib 125 mg daily on day 1 through 21 every 28 days, Re-order DEXA scan Dental clearance RTC in 2 weeks, CBC, CMP (2) History of right breast cancer The patient is having increasing right scapular pain. She has diffuse metastatic disease. Her alkaline phosphatase has normalized. She is tolerating her treatments well except for fatigue. Her counts have been holding up well. Her bone density at baseline is normal. I personally reviewed her CT scan from June. This shows extensive bone disease including involvement of her scapula where there is appears to be a cortical break. Given these findings, she will be referred to Radiation Oncology at [facility] for consideration of palliative radiation therapy to her symptomatic bone disease. She will continue with her letrozole and palbociclib. We will want to consider reimaging her after 3-6 months on the combination. A follow-up CT scan would likely be the most informative study. We discussed the fact that about 30-40% of patients on palbociclib require dose adjustments, typically for myelosuppression or fatigue. Her counts are holding up fairly well. If treatment of her right shoulder with radiation therapy improves her fatigue, we will continue with current program. She also needs to have a tooth pulled. I explained we want to get this done before starting her on Xgeva. We will do a blood count in 2 weeks and 4 weeks in anticipation of her upcoming dental procedure. 0 when she returns in 4 weeks for follow-up, if things are going smoothly, we could increase her follow-up blood count monitoring to every 4 weeks instead of every 2 weeks. She and her had multiple questions that were answered in detail I personally spent 26 minutes in today's [id number] visit with greater than 50% of the time spent in counseling regarding the issues outlined above.
[2019-10-23 11:48] VITALS: BP 133/79; PULSE 70; RESP 16; TEMP 36.5; O2SAT 95
--- NOTE | 2019-10-23 12:31 | ONC.PN ---
PN -Subjective Interval history: Ms. Beck presents today for follow-up of her metastatic breast cancer. She is 78 years old. She originally presented in 2002 with a right breast cancer treated with lumpectomy, CMF, radiation therapy, and 5 years of letrozole which she completed in October of 2007. She did well until March 2019 when a screening mammogram showed showed an abnormality in the left (contralateral) breast which was confirmed on additional mammographic views and ultrasound. 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 Node biopsy at that time was negative. On June 04, 2019 she had a left lumpectomy that showed a 2.7 cm grade 2 invasive lobular carcinoma metastatic 9 of 10 lymph nodes. Subsequent staging study on June 17 CT scan of the chest, abdomen and pelvis showed extensive bone metastases involving a lytic lesion at T7. There was also haziness of the omental fat with stranding and indeterminate right lung nodule. Bone scan showed metastatic disease to bone but was much less apparent on the bone scan than it was on the CT scan. In on June 21 she started on letrozole. On July 17 she had an MRI of the thoracic spine that showed diffuse metastatic disease but no fractures. On July [address] scan was negative. On July 29 started on palbociclib. On September 09 she was seen by Dr. Lamas for follow-up and advised to see the dentist prior to starting Xgeva treatments. She comes today for follow-up visit. She notes increasing pain in her right scapular area. It bothers her during the day and at night. It makes it hard to sleep. She takes Tylenol and as needed Vicodin for this with some improvement but the pain has been a chronic an increasing problem over the last several weeks. She has not had any history of any injury or trauma. She is not having much in the way of pain in other locations. She notes increasing fatigue over the last month or 2 and is wondering if this is due to her palbociclib. The fatigue that she is experiencing carries over into the off week but has essentially resolved by the time she starts the next cycle. She denies other pain, bleeding, localized weakness, fever, chills, nausea or vomiting. She has dyspnea on exertion. All other systems are negative. She went to the dentist and had a tooth extraction on September 30. The socket is healing up well without any problems. She needs to have an eye exam is wondering if that is okay while she is on the combination of letrozole and palbociclib. She needs new hearing aids in wondering if that is okay to do well she is on letrozole and palbociclib. I told her that both of these would be okay. Past medical history is reviewed from her previous notes. - Patient Self-Reported Symptoms SR Constitution: Weight loss/gain, Fatigue/Malaise, Night Sweats SR eye issues: Vision changes SR ears, nose, mouth, throat issues: Changes in taste SR respiratory issues: Shortness of breath SR Cardiovascular issues: Dizzy/lightheaded SR Skin issues: Dry skin, Skin rash or itching SR Gastrointestinal issues: Constipation SR Genitourinary issues: Incontinence SR Musculoskeletal issues: Back or neck pain, Difficulty walking SR Neuro issues: Lightheaded/dizzy SR Endocrine issues: Cold intolerance Home Medications and Allergies Home Medications Medication Instructions Recorded Confirmed Type loratadine [Claritin] 10 mg PO PRN #0 08/23/12 10/23/19 History cyanocobalamin (vitamin B-12) 1,000 mcg PO QDAY #90 tab 04/27/16 10/23/19 Rx Disabled Parking #1 each 08/18/18 10/23/19 Rx propylene glycol 0.6 % eye drops 1 drp EYE-BOTH PRN PRN 12/12/18 10/23/19 History mometasone 200 mcg/actuation HFA See Rx Instructions .ROUTE 12/26/18 10/23/19 Rx aerosol inhaler .COMPLEX #13 gram epinephrine 0.3 mg/0.3 mL See Rx Instructions .ROUTE 02/26/19 10/23/19 Rx injection, auto-injector .COMPLEX #2 unspecified fluticasone propionate 50 1 spray NASAL BID #18.2 ml 02/28/19 10/23/19 Rx mcg/actuation nasal spray,suspension amlodipine 10 mg tablet See Rx Instructions .ROUTE 03/15/19 10/23/19 Rx .COMPLEX #90 tablet atorvastatin 10 mg tablet See Rx Instructions .ROUTE 03/15/19 10/23/19 Rx .COMPLEX #90 tablet lansoprazole 30 mg capsule,delayed See Rx Instructions .ROUTE 03/15/19 10/23/19 Rx release .COMPLEX #90 capsule losartan 100 mg tablet See Rx Instructions .ROUTE 03/15/19 10/23/19 Rx .COMPLEX #90 tablet potassium chloride 10 mEq See Rx Instructions .ROUTE 03/15/19 10/23/19 Rx capsule,extended release .COMPLEX #180 capsule clobetasol 0.05 % topical cream See Rx Instructions TOP BID PRN 04/05/19 10/23/19 Rx #60 gram lidocaine 5 % topical ointment 1 applic TOP BID-TID PRN #35.44 04/19/19 10/23/19 Rx gram MDD three applications cyclobenzaprine 10 mg tablet 10 mg PO BID PRN #60 tab 04/30/19 10/23/19 Rx albuterol sulfate [Ventolin HFA] 1 - 2 puff INH Q4HP PRN 05/31/19 10/23/19 History furosemide 20 mg PO SEEINSTR 06/04/19 10/23/19 History hyoscyamine sulfate 0.125 mg PO PRN PRN 06/04/19 10/23/19 History naratriptan [Amerge] 2.5 mg PO PRN PRN 06/04/19 10/23/19 History sucralfate 1 gram PO PRN PRN 06/04/19 10/23/19 History letrozole [Femara] 2.5 mg PO DAILY #90 tab 06/21/19 10/23/19 Rx palbociclib [Ibrance] 125 mg PO DAILY #21 cap 06/21/19 10/23/19 Rx hydrocodone-acetaminophen [Kerens] 1 - 2 tab PO Q4HP PRN #90 tab 07/30/19 10/23/19 Rx paroxetine HCl 40 mg tablet 40 mg PO DAILY #90 tab 09/11/19 10/23/19 Rx salmeterol 50 mcg/dose blister See Rx Instructions .ROUTE 10/15/19 10/23/19 Rx powder for inhalation .COMPLEX #60 unspecified Allergies Allergy/AdvReac Type Severity Reaction Status Date / Time aspirin Allergy Severe ANAPHYLACTIC Verified 06/04/19 07:58 SHOCK venom-honey bee Allergy Severe ANAPHYLACTIC Verified 06/04/19 07:58 [bee venom (honey bee)] SHOCK adhesive Allergy Intermediate RASH FROM Verified 06/04/19 07:58 TAPE cephalexin Allergy Mild DIARRHEA Verified 06/04/19 07:58 shellfish derived Allergy Mild Anaphylaxis Verified 06/04/19 07:58 tetracycline Allergy Mild ITCH Verified 06/04/19 07:58 peanut Allergy Unknown Verified 06/04/19 07:58 oxycodone AdvReac Severe HALLUCINAT Verified 06/04/19 07:58 IONS Exam Vital signs: Vital Signs Temp Pulse Resp BP Pulse Ox 10/23/19 11:48 97.7 F 70 16 133/79 95 Intake and Output 10/22/19 10/23/19 10/23/19 23:59 07:59 15:59 Other: Weight 122.7 kg Patient Weight 10/23/19 23:59 Weight 122.7 kg Narrative: She was awake, alert and oriented x3. She was ambulatory with her walker. Results - Imaging Additional studies: Procedures Endoscopic destruction of other lesion or tissue of large intestine (11/10/11) Endoscopic polypectomy of large intestine (11/10/11) Excision of intervertebral disc (03/07/10) Fusion or refusion of 2-3 vertebrae (11/21/12) Injection of steroid (02/20/13) Injection or infusion of other therapeutic or prophylactic substance (02/20/13) Insertion of interbody spinal fusion device (11/21/12) Intra-operative neurophysiologic monitoring (11/21/12) Lumbar and lumbosacral fusion of the anterior column, anterior technique (11/21/12) Lumbar and lumbosacral fusion of the anterior column, posterior technique (11/21/12) Non-invasive mechanical ventilation (11/21/12) Other endoscopy of small intestine (12/29/11) Other nonoperative respiratory measurements (02/20/13) Total knee replacement (11/01/13) Assessment and Plan (1) Breast cancer, left breast Overveiw: She is now 79 years old. She has been undergoing combined endocrine therapy with letrozole and palbociclib. She has some progressive fatigue and asymptomatic leukopenia which is not severe. Overall she is tolerating the program fairly well. Next week she will be a month out from her tooth extraction so we will start her on Xgeva at that time. Orders were meant entered for Xgeva to be given every 4 weeks. We discussed the rationale for this in terms of reducing the rate of bone complications and we also discussed possible side effects including flu-like symptoms and osteonecrosis of the jaw. She continues to have right scapular and shoulder pain. I personally reviewed her recent bone scan which does show increased uptake in the right humeral head. This may be the source of her pain and a potential target for radiation therapy. The patient has a follow-up appointment with Dr. bateman for him to review the bone scan and her recent MRI which showed only degenerative changes. We discussed her fatigue that is complicating her palbociclib therapy. Will leave her on the same dose for the time being. Showed her fatigue continue to worsen, a dose reduction of palbociclib to 100 mg daily 3 weeks out of 4 would be appropriate. She will continue to have blood counts and a chemistry panel done every 4 weeks. Will get a follow-up CT scan in December to further assess her response to treatment. Plan : Continue Letrozole 2.5 mg once daily, Continue palbociclib 125 mg daily on day 1 through 21 every 28 days, Continue monthly labs Begin Xgeva injections every 4 weeks starting next week Follow-up with me in 4 weeks She may require a dose adjustment of palbociclib if her fatigue is progressive Follow-up with Dr. bateman to consider palliative radiation therapy to her bone metastases Plan follow-up CT scan of the chest abdomen pelvis in December. (2) History of right breast cancer The patient is having increasing right scapular pain. She has diffuse metastatic disease. Her alkaline phosphatase has normalized. She is tolerating her treatments well except for fatigue. Her counts have been holding up well. Her bone density at baseline is normal. I personally reviewed her CT scan from June. This shows extensive bone disease including involvement of her scapula where there is appears to be a cortical break. Given these findings, she will be referred to Radiation Oncology at [facility] for consideration of palliative radiation therapy to her symptomatic bone disease. She will continue with her letrozole and palbociclib. We will want to consider reimaging her after 3-6 months on the combination. A follow-up CT scan would likely be the most informative study. We discussed the fact that about 30-40% of patients on palbociclib require dose adjustments, typically for myelosuppression or fatigue. Her counts are holding up fairly well. If treatment of her right shoulder with radiation therapy improves her fatigue, we will continue with current program. She also needs to have a tooth pulled. I explained we want to get this done before starting her on Xgeva. We will do a blood count in 2 weeks and 4 weeks in anticipation of her upcoming dental procedure. 0 when she returns in 4 weeks for follow-up, if things are going smoothly, we could increase her follow-up blood count monitoring to every 4 weeks instead of every 2 weeks. She and her had multiple questions that were answered in detail I personally spent 26 minutes in today's [id number] visit with greater than 50% of the time spent in counseling regarding the issues outlined above.
[2019-10-31 14:12] VITALS: BP 118/72; PULSE 74; RESP 18; TEMP 36.6; O2SAT 96
[2019-10-31] MEDS: DENOSUMAB 120 MG/1.7 ML VIAL SUBCUT (14:15)
[2019-11-16 11:55] LABS: Add Manual Diff / Slide Review NO; Basophils Absolute Auto 100 /uL (0-100); Basophils Percent Auto 2.5 % (0-2); Eosinophils Absolute Auto 100 /uL (0-450); Eosinophils Percent Auto 2.4 % (2-4); Hemoglobin 11.6 g/dL (12.0-16.0); Lymphocytes Absolute Auto 1700 /uL (1100-4500); Mean Corpuscular HGB Conc 33.3 % (30-36); Mean Corpuscular Hemoglobin 34.6 PG (26-34); Monocytes Absolute Auto 200 /uL (0-900); Monocytes Percent Auto 7.1 % (3-14); Neutrophils Absolute Auto 1200 /uL (1500-7000); Platelet Count 284 X10^3/uL (150-400); Red Blood Cell Count 3.36 X10^6/uL (4.0-5.2); Red Cell Distribution Width 18.2 % (11.6-14.8); White Blood Cell Count 3.2 X10^3/uL (4.5-11.0)
[2019-11-16 12:24] LABS: Alanine Aminotransferase 11 IU/L (<35); Albumin Globulin Ratio 1.5 (1.0-2.8); Alkaline Phosphatase 96 U/L (38-126); Aspartate Aminotransferase 18 IU/L (14-36); BUN Creatinine Ratio 14.1 (6-22); Bilirubin Total 0.5 mg/dL (0.2-1.3); Blood Urea Nitrogen 14 mg/dL (7-17); Calcium 9.4 mg/dL (8.4-10.2); Carbon Dioxide 23 mmol/L (22-32); Chloride 110 mmol/L (98-107); Estimated Glomerular Filt Rate 54.2 mL/min (>60); Globulin 2.7 g/dL (1.7-4.1); Glucose 118 mg/dL (80-110); HEMOLYSIS < 15 (0-50); Potassium 4.4 mmol/L (3.4-5.1); Sodium 141 mmol/L (137-145); Total Protein 6.7 g/dL (6.3-8.2)
[2019-11-21 14:28] VITALS: BP 119/82; PULSE 123; RESP 16; TEMP 36; O2SAT 94
--- NOTE | 2019-11-21 15:09 | ONC.PN ---
PN -Subjective Interval history: Ms. Beck presents today for follow-up of her metastatic breast cancer. She is 78 years old. She originally presented in 2002 with a right breast cancer treated with lumpectomy, CMF, radiation therapy, and 5 years of letrozole which she completed in October of 2007. She did well until March 2019 when a screening mammogram showed showed an abnormality in the left (contralateral) breast which was confirmed on additional mammographic views and ultrasound. 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 Node biopsy at that time was negative. On June 04, 2019 she had a left lumpectomy that showed a 2.7 cm grade 2 invasive lobular carcinoma metastatic 9 of 10 lymph nodes. Subsequent staging study on June 17 CT scan of the chest, abdomen and pelvis showed extensive bone metastases involving a lytic lesion at T7. There was also haziness of the omental fat with stranding and indeterminate right lung nodule. Bone scan showed metastatic disease to bone but was much less apparent on the bone scan than it was on the CT scan. In on June 21 she started on letrozole. On July 17 she had an MRI of the thoracic spine that showed diffuse metastatic disease but no fractures. On July [address] scan was negative. On July 29 started on palbociclib. On September 09 she was seen by Dr[address] Lamas for follow-up and advised to see the dentist prior to starting Xgeva treatments. She comes today for follow-up visit. She notes increasing pain in her right scapular area. It bothers her during the day and at night. It makes it hard to sleep. She takes Tylenol and as needed Vicodin for this with some improvement but the pain has been a chronic an increasing problem over the last several weeks. She has not had any history of any injury or trauma. She is not having much in the way of pain in other locations. She notes increasing fatigue over the last month or 2 and is wondering if this is due to her palbociclib. The fatigue that she is experiencing carries over into the off week but has essentially resolved by the time she starts the next cycle. She denies other pain, bleeding, localized weakness, fever, chills, nausea or vomiting. She has dyspnea on exertion. All other systems are negative. She went to the dentist and had a tooth extraction on September 30. She got her 1st dose of Xgeva on October 30. She had some flu-like symptoms for a day after this. She has pain in her lower back and pelvis that is worse when she is walking around. It responds sometimes to Tylenol and Flexeril. It also responds well to a Vicodin tablet but this makes her sleepy sometimes. Her shoulder pain is a little better. She saw Dr. bateman. She had a bone scan October 18 and at shoulder MRI on November 19 that showed metastatic disease, degenerative changes, tendinopathy and a partial rotator cuff tear. She is otherwise feeling fairly good. Past medical history is reviewed from her previous notes. - Patient Self-Reported Symptoms SR Constitution: Fatigue/Malaise SR eye issues: Vision changes SR ears, nose, mouth, throat issues: Cough, Nose bleeds SR respiratory issues: Cough SR Cardiovascular issues: Dizzy/lightheaded SR Skin issues: Dry skin, Skin rash or itching, Skin lesions or moles, Hair loss or scalp prob SR Gastrointestinal issues: Constipation SR Genitourinary issues: Incontinence SR Musculoskeletal issues: Joint pain or swelling, Muscle weakness, Back or neck pain, Cold hands or feet, Difficulty walking SR Neuro issues: Headache SR Hematologic issues: Slow healing SR Endocrine issues: Cold intolerance Home Medications and Allergies Home Medications Medication Instructions Recorded Confirmed Type loratadine [Claritin] 10 mg PO PRN #0 08/23/12 11/21/19 History cyanocobalamin (vitamin B-12) 1,000 mcg PO QDAY #90 tab 04/27/16 11/21/19 Rx Disabled Parking #1 each 08/18/18 11/21/19 Rx propylene glycol 0.6 % eye drops 1 drp EYE-BOTH PRN PRN 12/12/18 11/21/19 History mometasone 200 mcg/actuation HFA See Rx Instructions .ROUTE 12/26/18 11/21/19 Rx aerosol inhaler .COMPLEX #13 gram epinephrine 0.3 mg/0.3 mL See Rx Instructions .ROUTE 02/26/19 11/21/19 Rx injection, auto-injector .COMPLEX #2 unspecified fluticasone propionate 50 1 spray NASAL BID #18.2 ml 02/28/19 11/21/19 Rx mcg/actuation nasal spray,suspension amlodipine 10 mg tablet See Rx Instructions .ROUTE 03/15/19 11/21/19 Rx .COMPLEX #90 tablet atorvastatin 10 mg tablet See Rx Instructions .ROUTE 03/15/19 11/21/19 Rx .COMPLEX #90 tablet lansoprazole 30 mg capsule,delayed See Rx Instructions .ROUTE 03/15/19 11/21/19 Rx release .COMPLEX #90 capsule losartan 100 mg tablet See Rx Instructions .ROUTE 03/15/19 11/21/19 Rx .COMPLEX #90 tablet potassium chloride 10 mEq See Rx Instructions .ROUTE 03/15/19 11/21/19 Rx capsule,extended release .COMPLEX #180 capsule clobetasol 0.05 % topical cream See Rx Instructions TOP BID PRN 04/05/19 11/21/19 Rx #60 gram lidocaine 5 % topical ointment 1 applic TOP BID-TID PRN #35.44 04/19/19 11/21/19 Rx gram MDD three applications cyclobenzaprine 10 mg tablet 10 mg PO BID PRN #60 tab 04/30/19 11/21/19 Rx albuterol sulfate [Ventolin HFA] 1 - 2 puff INH Q4HP PRN 05/31/19 11/21/19 History furosemide 20 mg PO SEEINSTR 06/04/19 11/21/19 History hyoscyamine sulfate 0.125 mg PO PRN PRN 06/04/19 11/21/19 History naratriptan [Amerge] 2.5 mg PO PRN PRN 06/04/19 11/21/19 History sucralfate 1 gram PO PRN PRN 06/04/19 11/21/19 History letrozole [Femara] 2.5 mg PO DAILY #90 tab 06/21/19 11/21/19 Rx palbociclib [Ibrance] 125 mg PO DAILY #21 cap 06/21/19 11/21/19 Rx hydrocodone-acetaminophen [Clinton] 1 - 2 tab PO Q4HP PRN #90 tab 07/30/19 11/21/19 Rx paroxetine HCl 40 mg tablet 40 mg PO DAILY #90 tab 09/11/19 11/21/19 Rx salmeterol 50 mcg/dose blister See Rx Instructions .ROUTE 10/15/19 11/21/19 Rx powder for inhalation .COMPLEX #60 unspecified Allergies Allergy/AdvReac Type Severity Reaction Status Date / Time aspirin Allergy Severe ANAPHYLACTIC Verified 06/04/19 07:58 SHOCK venom-honey bee Allergy Severe ANAPHYLACTIC Verified 06/04/19 07:58 [bee venom (honey bee)] SHOCK adhesive Allergy Intermediate RASH FROM Verified 06/04/19 07:58 TAPE cephalexin Allergy Mild DIARRHEA Verified 06/04/19 07:58 shellfish derived Allergy Mild Anaphylaxis Verified 06/04/19 07:58 tetracycline Allergy Mild ITCH Verified 06/04/19 07:58 peanut Allergy Unknown Verified 06/04/19 07:58 oxycodone AdvReac Severe HALLUCINAT Verified 06/04/19 07:58 IONS Exam Vital signs: Vital Signs Temp Pulse Resp BP Pulse Ox 11/21/19 14:28 96.8 F L 123 H 16 119/82 94 Intake and Output 11/20/19 11/21/19 11/21/19 23:59 07:59 15:59 Other: Weight 122.7 kg Patient Weight 11/21/19 23:59 Weight 122.7 kg Narrative: She was awake, alert and oriented x3. She was ambulatory with her walker. Results - Labs Laboratory Last Values WBC 3.2 X10^3/uL (4.5-11.0) L 11/16/19 10:54 RBC 3.36 X10^6/uL (4.0-5.2) L 11/16/19 10:54 Hgb 11.6 g/dL (12.0-16.0) L 11/16/19 10:54 Hct 35.0 % (36-46) L 11/16/19 10:54 MCV 104.0 fL (80-100) H 11/16/19 10:54 MCH 34.6 PG (26-34) H 11/16/19 10:54 MCHC 33.3 % (30-36) 11/16/19 10:54 RDW 18.2 % (11.6-14.8) H 11/16/19 10:54 Plt Count 284 X10^3/uL (150-400) 11/16/19 10:54 Neut % (Auto) 37.0 % (50-75) L 11/16/19 10:54 Lymph % (Auto) 51.0 % (25-40) H 11/16/19 10:54 [place] % (Auto) 7.1 % (3-14) 11/16/19 10:54 Eos % (Auto) 2.4 % (2-4) 11/16/19 10:54 Baso % (Auto) 2.5 % (0-2) H 11/16/19 10:54 Neut # (Auto) 1200 /uL (6173-8939) L 11/16/19 10:54 Lymph # (Auto) 1700 /uL (8134-9665) 11/16/19 10:54 [place] # (Auto) 200 /uL (0-900) 11/16/19 10:54 Eos # (Auto) 100 /uL (0-450) 11/16/19 10:54 Baso # (Auto) 100 /uL (0-100) 11/16/19 10:54 Sodium 141 mmol/L (137-145) 11/16/19 10:54 Potassium 4.4 mmol/L (3.4-5.1) 11/16/19 10:54 Chloride 110 mmol/L (98-107) H 11/16/19 10:54 Carbon Dioxide 23 mmol/L (22-32) 11/16/19 10:54 BUN 14 mg/dL (7-17) 11/16/19 10:54 Creatinine 0.99 mg/dL (0.52-1.04) 11/16/19 10:54 Estimated GFR 54.2 mL/min (>60) L 11/16/19 10:54 BUN/Creatinine Ratio 14.1 (6-22) 11/16/19 10:54 Glucose 118 mg/dL (80-110) H 11/16/19 10:54 Calcium 9.4 mg/dL (8.4-10.2) 11/16/19 10:54 Total Bilirubin 0.5 mg/dL (0.2-1.3) 11/16/19 10:54 AST 18 IU/L (14-36) 11/16/19 10:54 ALT 11 IU/L (<35) 11/16/19 10:54 Alkaline Phosphatase 96 U/L (38-126) 11/16/19 10:54 Total Protein 6.7 g/dL (6.3-8.2) 11/16/19 10:54 Albumin 4.0 g/dL (3.5-5.0) 11/16/19 10:54 Globulin 2.7 g/dL (1.7-4.1) 11/16/19 10:54 Albumin/Globulin Ratio 1.5 (1.0-2.8) 11/16/19 10:54 - Imaging Additional studies: Procedures Endoscopic destruction of other lesion or tissue of large intestine (11/10/11) Endoscopic polypectomy of large intestine (11/10/11) Excision of intervertebral disc (03/07/10) Fusion or refusion of 2-3 vertebrae (11/21/12) Injection of steroid (02/20/13) Injection or infusion of other therapeutic or prophylactic substance (02/20/13) Insertion of interbody spinal fusion device (11/21/12) Intra-operative neurophysiologic monitoring (11/21/12) Lumbar and lumbosacral fusion of the anterior column, anterior technique (11/21/12) Lumbar and lumbosacral fusion of the anterior column, posterior technique (11/21/12) Non-invasive mechanical ventilation (11/21/12) Other endoscopy of small intestine (12/29/11) Other nonoperative respiratory measurements (02/20/13) Total knee replacement (11/01/13) Assessment and Plan (1) Breast cancer, left breast Overveiw: Overall she is doing fairly well. Her shoulder pain is better. She has some pelvic pain. Bone scan from last month showed no changes in that area. She is due for CT scan which we will schedule in about 3 weeks and will see that area on the CT scan as well. We discussed getting plain films today but she was not inclined to do that. She was advised that she could try half a Vicodin instead of a whole Vicodin try to preserve the analgesics affect with less sedation. She will also continue to use her Tylenol Flexeril. Her shoulder is better. Her MRI shows multiple findings. She does have metastatic disease to bone but I suspect her arthritis and rotator cuff tear are playing a significant role. Will hold off any treatment directed that area for the time being. She also will continue with her Xgeva shots every 4 weeks. She would like to have things lined up as much as possible. Accordingly, orders were entered for her to have a CBC, metabolic panel and CT scan of the chest, abdomen pelvis without contrast on TuesdayDecember 16. She will see me on TuesdayDecember 17 when she will get her next dose of Xgeva and will start her next round of palbociclib if her counts are good. She will continue on daily letrozole. Will then continue with this schedule every 4 weeks with Tuesday labs Tuesday visit and Xgeva injection with initiation of palbociclib. I planned leave her on the current program unless she shows evidence of clinically significant disease progression in the future. Plan : Continue Letrozole 2.5 mg once daily, Continue palbociclib 125 mg daily on day 1 through 21 every 28 days, Continue monthly labs Continue Xgeva injections every 4 weeks Follow-up with me in 3 weeks with CBC, CMP, CT of the chest, abdomen pelvis without contrast prior Her schedule was adjusted so she gets her labs and CT scan the day prior to her visit and Xgeva injections. (2) History of right breast cancer The patient is having increasing right scapular pain. She has diffuse metastatic disease. Her alkaline phosphatase has normalized. She is tolerating her treatments well except for fatigue. Her counts have been holding up well. Her bone density at baseline is normal. I personally reviewed her CT scan from June. This shows extensive bone disease including involvement of her scapula where there is appears to be a cortical break. Given these findings, she will be referred to Radiation Oncology at [facility] for consideration of palliative radiation therapy to her symptomatic bone disease. She will continue with her letrozole and palbociclib. We will want to consider reimaging her after 3-6 months on the combination. A follow-up CT scan would likely be the most informative study. We discussed the fact that about 30-40% of patients on palbociclib require dose adjustments, typically for myelosuppression or fatigue. Her counts are holding up fairly well. If treatment of her right shoulder with radiation therapy improves her fatigue, we will continue with current program. She also needs to have a tooth pulled. I explained we want to get this done before starting her on Xgeva. We will do a blood count in 2 weeks and 4 weeks in anticipation of her upcoming dental procedure. 0 when she returns in 4 weeks for follow-up, if things are going smoothly, we could increase her follow-up blood count monitoring to every 4 weeks instead of every 2 weeks. She and her had multiple questions that were answered in detail I personally spent 26 minutes in today's [id number] visit with greater than 50% of the time spent in counseling regarding the issues outlined above.
[2019-12-18 14:00] VITALS: BP 111/68; PULSE 78; RESP 18; TEMP 36.6; O2SAT 94
[2019-12-18] MEDS: DENOSUMAB 120 MG/1.7 ML VIAL SUBCUT (15:01)
--- NOTE | 2019-12-18 15:11 | ONC.PN ---
PN -Subjective Interval history: Ms. Beck presents today for follow-up of her metastatic breast cancer. She is 78 years old. She originally presented in 2002 with a right breast cancer treated with lumpectomy, CMF, radiation therapy, and 5 years of letrozole which she completed in October of 2007. She did well until March 2019 when a screening mammogram showed showed an abnormality in the left (contralateral) breast which was confirmed on additional mammographic views and ultrasound. 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 Node biopsy at that time was negative. On June 04, 2019 she had a left lumpectomy that showed a 2.7 cm grade 2 invasive lobular carcinoma metastatic 9 of 10 lymph nodes. Subsequent staging study on June 17 CT scan of the chest, abdomen and pelvis showed extensive bone metastases involving a lytic lesion at T7. There was also haziness of the omental fat with stranding and indeterminate right lung nodule. Bone scan showed metastatic disease to bone but was much less apparent on the bone scan than it was on the CT scan. In on June 21 she started on letrozole. On July 17 she had an MRI of the thoracic spine that showed diffuse metastatic disease but no fractures. On July [address] scan was negative. On July 29 started on palbociclib. On September 09 she was seen by Dr[address] Lamas for follow-up and advised to see the dentist prior to starting Xgeva treatments. She went to the dentist and had a tooth extraction on September 30. She got her 1st dose of Xgeva on October 30. She was having right scapular pain and was referred to Dr. bateman. He did a bone scan and certified substance abuse counselor her about the possibility of radiation therapy. She has not pursue this in this pains gotten better. Today her main complaint is pain in her left thigh. She describes it is going from the groin I am somewhat to the back down to the knee. It goes along the medial aspect of her left thigh and into the groin. It is an ache that she describes as severe. It is worse with weight-bearing and it also wakes her up at night. She is using a walker. Narcotic pain medicine and a heating pad help with the pain. She does not have any bowel or bladder symptoms. She has not noticed any increase in leg weakness. Her other pains are doing fairly well. She denies other pain, bleeding, localized weakness, fever, chills, nausea, vomiting, cough shortness of breath. All other systems are negative. Past medical history is reviewed from her previous notes. - Patient Self-Reported Symptoms SR Constitution: Fatigue/Malaise SR eye issues: Vision changes, Double vision SR ears, nose, mouth, throat issues: Cough, Nose bleeds SR respiratory issues: Cough SR Cardiovascular issues: Dizzy/lightheaded SR Skin issues: Dry skin, Skin rash or itching, Nail changes SR Gastrointestinal issues: Diarrhea, Constipation SR Genitourinary issues: Incontinence SR Musculoskeletal issues: Muscle pain or cramps, Cold hands or feet, Difficulty walking, Bone pain SR Neuro issues: Difficulty balancing SR Hematologic issues: Slow healing SR Endocrine issues: Cold intolerance, Excessive thirst Home Medications and Allergies Home Medications Medication Instructions Recorded Confirmed Type loratadine [Claritin] 10 mg PO PRN #0 08/23/12 12/18/19 History cyanocobalamin (vitamin B-12) 1,000 mcg PO QDAY #90 tab 04/27/16 12/18/19 Rx Disabled Parking #1 each 08/18/18 11/21/19 Rx propylene glycol 0.6 % eye drops 1 drp EYE-BOTH PRN PRN 12/12/18 12/18/19 History mometasone 200 mcg/actuation HFA See Rx Instructions .ROUTE 12/26/18 12/18/19 Rx aerosol inhaler .COMPLEX #13 gram epinephrine 0.3 mg/0.3 mL See Rx Instructions .ROUTE 02/26/19 12/18/19 Rx injection, auto-injector .COMPLEX #2 unspecified fluticasone propionate 50 1 spray NASAL BID #18.2 ml 02/28/19 12/18/19 Rx mcg/actuation nasal spray,suspension amlodipine 10 mg tablet See Rx Instructions .ROUTE 03/15/19 12/18/19 Rx .COMPLEX #90 tablet atorvastatin 10 mg tablet See Rx Instructions .ROUTE 03/15/19 12/18/19 Rx .COMPLEX #90 tablet lansoprazole 30 mg capsule,delayed See Rx Instructions .ROUTE 03/15/19 12/18/19 Rx release .COMPLEX #90 capsule losartan 100 mg tablet See Rx Instructions .ROUTE 03/15/19 12/18/19 Rx .COMPLEX #90 tablet potassium chloride 10 mEq See Rx Instructions .ROUTE 03/15/19 12/18/19 Rx capsule,extended release .COMPLEX #180 capsule clobetasol 0.05 % topical cream See Rx Instructions TOP BID PRN 04/05/19 12/18/19 Rx #60 gram lidocaine 5 % topical ointment 1 applic TOP BID-TID PRN #35.44 04/19/19 12/18/19 Rx gram MDD three applications albuterol sulfate [Ventolin HFA] 1 - 2 puff INH Q4HP PRN 05/31/19 12/18/19 History furosemide 20 mg PO SEEINSTR 06/04/19 12/18/19 History hyoscyamine sulfate 0.125 mg PO PRN PRN 06/04/19 12/18/19 History naratriptan [Amerge] 2.5 mg PO PRN PRN 06/04/19 12/18/19 History sucralfate 1 gram PO PRN PRN 06/04/19 12/18/19 History letrozole [Femara] 2.5 mg PO DAILY #90 tab 06/21/19 12/18/19 Rx palbociclib [Ibrance] 125 mg PO DAILY #21 cap 06/21/19 12/18/19 Rx paroxetine HCl 40 mg tablet 40 mg PO DAILY #90 tab 09/11/19 12/18/19 Rx salmeterol 50 mcg/dose blister See Rx Instructions .ROUTE 10/15/19 12/18/19 Rx powder for inhalation .COMPLEX #60 unspecified cyclobenzaprine 10 mg tablet 10 mg PO BID PRN #60 tab 12/11/19 12/18/19 Rx hydrocodone-acetaminophen [[place]] 1 - 2 tab PO Q4HP PRN #90 tab 12/18/19 Rx Allergies Allergy/AdvReac Type Severity Reaction Status Date / Time aspirin Allergy Severe ANAPHYLACTIC Verified 06/04/19 07:58 SHOCK venom-honey bee Allergy Severe ANAPHYLACTIC Verified 06/04/19 07:58 [bee venom (honey bee)] SHOCK adhesive Allergy Intermediate RASH FROM Verified 06/04/19 07:58 TAPE cephalexin Allergy Mild DIARRHEA Verified 06/04/19 07:58 shellfish derived Allergy Mild Anaphylaxis Verified 06/04/19 07:58 tetracycline Allergy Mild ITCH Verified 06/04/19 07:58 peanut Allergy Unknown Verified 06/04/19 07:58 oxycodone AdvReac Severe HALLUCINAT Verified 06/04/19 07:58 IONS Exam Vital signs: Vital Signs Temp Pulse Resp BP Pulse Ox 12/18/19 14:00 98 F 78 18 111/68 94 Intake and Output 12/17/19 12/18/19 12/18/19 23:59 07:59 15:59 Other: Weight 124 kg Patient Weight 12/18/19 23:59 Weight 124 kg Narrative: She was awake, alert and oriented x3. She was ambulatory with her walker. Results - Labs Laboratory Last Values WBC 3.2 X10^3/uL (4.5-11.0) L 11/16/19 10:54 RBC 3.36 X10^6/uL (4.0-5.2) L 11/16/19 10:54 Hgb 11.6 g/dL (12.0-16.0) L 11/16/19 10:54 Hct 35.0 % (36-46) L 11/16/19 10:54 MCV 104.0 fL (80-100) H 11/16/19 10:54 MCH 34.6 PG (26-34) H 11/16/19 10:54 MCHC 33.3 % (30-36) 11/16/19 10:54 RDW 18.2 % (11.6-14.8) H 11/16/19 10:54 Plt Count 284 X10^3/uL (150-400) 11/16/19 10:54 Neut % (Auto) 37.0 % (50-75) L 11/16/19 10:54 Lymph % (Auto) 51.0 % (25-40) H 11/16/19 10:54 [place] % (Auto) 7.1 % (3-14) 11/16/19 10:54 Eos % (Auto) 2.4 % (2-4) 11/16/19 10:54 Baso % (Auto) 2.5 % (0-2) H 11/16/19 10:54 Neut # (Auto) 1200 /uL (4622-1107) L 11/16/19 10:54 Lymph # (Auto) 1700 /uL (8638-7302) 11/16/19 10:54 [place] # (Auto) 200 /uL (0-900) 11/16/19 10:54 Eos # (Auto) 100 /uL (0-450) 11/16/19 10:54 Baso # (Auto) 100 /uL (0-100) 11/16/19 10:54 Sodium 141 mmol/L (137-145) 11/16/19 10:54 Potassium 4.4 mmol/L (3.4-5.1) 11/16/19 10:54 Chloride 110 mmol/L (98-107) H 11/16/19 10:54 Carbon Dioxide 23 mmol/L (22-32) 11/16/19 10:54 BUN 14 mg/dL (7-17) 11/16/19 10:54 Creatinine 0.99 mg/dL (0.52-1.04) 11/16/19 10:54 Estimated GFR 54.2 mL/min (>60) L 11/16/19 10:54 BUN/Creatinine Ratio 14.1 (6-22) 11/16/19 10:54 Glucose 118 mg/dL (80-110) H 11/16/19 10:54 Calcium 9.4 mg/dL (8.4-10.2) 11/16/19 10:54 Total Bilirubin 0.5 mg/dL (0.2-1.3) 11/16/19 10:54 AST 18 IU/L (14-36) 11/16/19 10:54 ALT 11 IU/L (<35) 11/16/19 10:54 Alkaline Phosphatase 96 U/L (38-126) 11/16/19 10:54 Total Protein 6.7 g/dL (6.3-8.2) 11/16/19 10:54 Albumin 4.0 g/dL (3.5-5.0) 11/16/19 10:54 Globulin 2.7 g/dL (1.7-4.1) 11/16/19 10:54 Albumin/Globulin Ratio 1.5 (1.0-2.8) 11/16/19 10:54 - Imaging Additional studies: Procedures Endoscopic destruction of other lesion or tissue of large intestine (11/10/11) Endoscopic polypectomy of large intestine (11/10/11) Excision of intervertebral disc (03/07/10) Fusion or refusion of 2-3 vertebrae (11/21/12) Injection of steroid (02/20/13) Injection or infusion of other therapeutic or prophylactic substance (02/20/13) Insertion of interbody spinal fusion device (11/21/12) Intra-operative neurophysiologic monitoring (11/21/12) Lumbar and lumbosacral fusion of the anterior column, anterior technique (11/21/12) Lumbar and lumbosacral fusion of the anterior column, posterior technique (11/21/12) Non-invasive mechanical ventilation (11/21/12) Other endoscopy of small intestine (12/29/11) Other nonoperative respiratory measurements (02/20/13) Total knee replacement (11/01/13) Assessment and Plan (1) Breast cancer, left breast Overveiw: Overall she is doing fairly well. Her shoulder pain is better. She has some pelvic pain. Bone scan from October showed no changes in that area. Her CT scan from last week was personally reviewed and showed resolution of the nodular thickening in the right fissure as well as resolution of the intra-abdominal mesenteric findings. Bone lesions appeared unchanged. Her pain in the left groin, inner aspect of the left thigh down to the knee would localized to an L1-L2 nerve root distribution. The severity of the pain is also consistent with this. Accordingly, we will set her up for an MRI of the lumbosacral spine as well as a plain film of the leg left femur. Will also check tumor markers given the difficulties in monitoring her bone only metastatic disease not she has had resolution of her previously noted areas of possible soft tissue involvement. She also will continue with her Xgeva shots every 4 weeks. We reviewed the importance of bone support agents such as Xgeva or bisphosphonates. If she continues to have trouble with Xgeva we could switch her over to Zometa or pamidronate but it would be standard of care for her to receive 1 of these agents. She and her understood that. Plan : Continue Letrozole 2.5 mg once daily, Continue palbociclib 125 mg daily on day 1 through 21 every 28 days, Continue monthly labs Continue Xgeva injections every 4 weeks Plain film of the left femur MRI of the lumbosacral spine Tumor markers Return after MRI and plain films with further plans regarding her pain to be made at that time Refill on her pain medicine was sent to her pharmacy I personally spent 26 minutes in today's [id number] visit with greater than 50% of the time spent in counseling regarding the issues outlined above. (2) History of right breast cancer The patient is having increasing right scapular pain. She has diffuse metastatic disease. Her alkaline phosphatase has normalized. She is tolerating her treatments well except for fatigue. Her counts have been holding up well. Her bone density at baseline is normal. I personally reviewed her CT scan from June. This shows extensive bone disease including involvement of her scapula where there is appears to be a cortical break. Given these findings, she will be referred to Radiation Oncology at [facility] for consideration of palliative radiation therapy to her symptomatic bone disease. She will continue with her letrozole and palbociclib. We will want to consider reimaging her after 3-6 months on the combination. A follow-up CT scan would likely be the most informative study. We discussed the fact that about 30-40% of patients on palbociclib require dose adjustments, typically for myelosuppression or fatigue. Her counts are holding up fairly well. If treatment of her right shoulder with radiation therapy improves her fatigue, we will continue with current program. She also needs to have a tooth pulled. I explained we want to get this done before starting her on Xgeva. We will do a blood count in 2 weeks and 4 weeks in anticipation of her upcoming dental procedure. 0 when she returns in 4 weeks for follow-up, if things are going smoothly, we could increase her follow-up blood count monitoring to every 4 weeks instead of every 2 weeks. She and her had multiple questions that were answered in detail I personally spent 26 minutes in today's [id number] visit with greater than 50% of the time spent in counseling regarding the issues outlined above.
--- NOTE | 2019-12-19 16:28 | ONC.SCHED ---
Confirmed no PA required for [employer] members due to reduction act of 04/04/2017 no PA needed for MRI. Called patient with appointment and told to do x-ray after MRI.
[2020-01-01 10:31] VITALS: BP 127/76; PULSE 80; RESP 18; TEMP 36.8; O2SAT 97
--- NOTE | 2020-01-01 11:02 | P.PNONC_ITS ---
PN -Subjective Interval history: Ms. Beck presents today for follow-up of her metastatic breast cancer. She is 78 years old. She originally presented in 2002 with a right breast cancer treated with lumpectomy, CMF, radiation therapy, and 5 years of letrozole which she completed in October of 2007. She did well until March 2019 when a screening mammogram showed showed an abnormality in the left (contralateral) breast which was confirmed on additional mammographic views and ultrasound. 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 Node biopsy at that time was negative. On June 04, 2019 she had a left lumpectomy that showed a 2.7 cm grade 2 invasive lobular carcinoma metastatic 9 of 10 lymph nodes. Subsequent staging study on June 17 CT scan of the chest, abdomen and pelvis showed extensive bone metastases involving a lytic lesion at T7. There was also haziness of the omental fat with stranding and indeterminate right lung nodule. Bone scan showed metastatic disease to bone but was much less apparent on the bone scan than it was on the CT scan. In on June 21 she started on letrozole. On July 17 she had an MRI of the thoracic spine that showed diffuse metastatic disease but no fractures. On July [address] scan was negative. On July 29 started on palbociclib. On September 09 she was seen by Dr[address] Lamas for follow-up and advised to see the dentist prior to starting Xgeva treatments. She went to the dentist and had a tooth extraction on September 30. She got her 1st dose of Xgeva on October 30. Her most recent dose was on December 17. She was having right scapular pain and was referred to Dr. bateman. He did a bone scan and career technical counselor her about the possibility of radiation therapy. She has not pursue this in this pains gotten better. Today her main complaint is pain in her left thigh. She was in for this 2 weeks ago and had imaging studies done. She comes in today to review the results. She describes it is going from the groin I am somewhat to the back down to the knee. It goes along the medial aspect of her left thigh and into the groin. It is an ache that she describes as severe. It is worse with weight-bearing and it also wakes her up at night. She is using a walker. Narcotic pain medicine and a heating pad help with the pain. She does not have any bowel or bladder symptoms. She has not noticed any increase in leg weakness. Her other pains are doing fairly well. She denies other pain, bleeding, localized weakness, fever, chills, nausea, vomiting, cough shortness of breath. All other systems are negative. Past medical history is reviewed from her previous notes. - Patient Self-Reported Symptoms SR Constitution: Fatigue/Malaise SR eye issues: Double vision SR ears, nose, mouth, throat issues: Changes in taste SR respiratory issues: Cough SR Cardiovascular issues: Shortness of breath with activity or lying flat, Dizzy/lightheaded SR Skin issues: Dry skin, Skin rash or itching, Nail changes SR Gastrointestinal issues: Constipation SR Genitourinary issues: Incontinence SR Musculoskeletal issues: Cold hands or feet, Difficulty walking, Bone pain SR Neuro issues: Lightheaded/dizzy SR Hematologic issues: Slow healing SR Endocrine issues: Cold intolerance Home Medications and Allergies Home Medications Medication Instructions Recorded Confirmed Type loratadine [Claritin] 10 mg PO PRN #0 08/23/12 12/18/19 History cyanocobalamin (vitamin B-12) 1,000 mcg PO QDAY #90 tab 04/27/16 12/18/19 Rx Disabled Parking #1 each 08/18/18 11/21/19 Rx propylene glycol 0.6 % eye drops 1 drp EYE-BOTH PRN PRN 12/12/18 12/18/19 History epinephrine 0.3 mg/0.3 mL See Rx Instructions .ROUTE 02/26/19 12/18/19 Rx injection, auto-injector .COMPLEX #2 unspecified fluticasone propionate 50 1 spray NASAL BID #18.2 ml 02/28/19 12/18/19 Rx mcg/actuation nasal spray,suspension amlodipine 10 mg tablet See Rx Instructions .ROUTE 03/15/19 12/18/19 Rx .COMPLEX #90 tablet atorvastatin 10 mg tablet See Rx Instructions .ROUTE 03/15/19 12/18/19 Rx .COMPLEX #90 tablet lansoprazole 30 mg capsule,delayed See Rx Instructions .ROUTE 12/12/19 09/15/20 Rx release .COMPLEX #90 capsule losartan 100 mg tablet See Rx Instructions .ROUTE 03/15/19 12/18/19 Rx .COMPLEX #90 tablet potassium chloride 10 mEq See Rx Instructions .ROUTE 03/15/19 12/18/19 Rx capsule,extended release .COMPLEX #180 capsule clobetasol 0.05 % topical cream See Rx Instructions TOP BID PRN 04/05/19 12/18/19 Rx #60 gram lidocaine 5 % topical ointment 1 applic TOP BID-TID PRN #35.44 04/19/19 12/18/19 Rx gram MDD three applications albuterol sulfate [Ventolin HFA] 1 - 2 puff INH Q4HP PRN 05/31/19 12/18/19 History furosemide 20 mg PO SEEINSTR 06/04/19 12/18/19 History hyoscyamine sulfate 0.125 mg PO PRN PRN 06/04/19 12/18/19 History naratriptan [Amerge] 2.5 mg PO PRN PRN 06/04/19 12/18/19 History sucralfate 1 gram PO PRN PRN 06/04/19 12/18/19 History letrozole [Femara] 2.5 mg PO DAILY #90 tab 06/21/19 12/18/19 Rx palbociclib [Ibrance] 125 mg PO DAILY #21 cap 06/21/19 12/18/19 Rx paroxetine HCl 40 mg tablet 40 mg PO DAILY #90 tab 09/11/19 12/18/19 Rx salmeterol 50 mcg/dose blister See Rx Instructions .ROUTE 10/15/19 12/18/19 Rx powder for inhalation .COMPLEX #60 unspecified cyclobenzaprine 10 mg tablet 10 mg PO BID PRN #60 tab 12/11/19 12/18/19 Rx mometasone 200 mcg/actuation HFA 1 puff INHALATION BID #13 gram 12/27/19 Rx aerosol inhaler hydrocodone-acetaminophen [[place]] 1 - 2 tab PO Q4HP PRN #90 tab 01/01/20 Rx Allergies Allergy/AdvReac Type Severity Reaction Status Date / Time aspirin Allergy Severe ANAPHYLACTIC Verified 06/04/19 07:58 SHOCK venom-honey bee Allergy Severe ANAPHYLACTIC Verified 06/04/19 07:58 [bee venom (honey bee)] SHOCK adhesive Allergy Intermediate RASH FROM Verified 06/04/19 07:58 TAPE cephalexin Allergy Mild DIARRHEA Verified 06/04/19 07:58 shellfish derived Allergy Mild Anaphylaxis Verified 06/04/19 07:58 tetracycline Allergy Mild ITCH Verified 06/04/19 07:58 peanut Allergy Unknown Verified 06/04/19 07:58 oxycodone AdvReac Severe HALLUCINAT Verified 06/04/19 07:58 IONS Exam Vital signs: Vital Signs Temp Pulse Resp BP Pulse Ox 01/01/20 10:31 98.2 F 80 18 127/76 97 Intake and Output 12/31/19 01/01/20 01/01/20 23:59 07:59 15:59 Other: Weight 122 kg Patient Weight 01/01/20 23:59 Weight 122 kg Narrative: She was awake, alert and oriented x3. She was ambulatory with her walker. Results - Labs Laboratory Last Values WBC 3.2 X10^3/uL (4.5-11.0) L 11/16/19 10:54 RBC 3.36 X10^6/uL (4.0-5.2) L 11/16/19 10:54 Hgb 11.6 g/dL (12.0-16.0) L 11/16/19 10:54 Hct 35.0 % (36-46) L 11/16/19 10:54 MCV 104.0 fL (80-100) H 11/16/19 10:54 MCH 34.6 PG (26-34) H 11/16/19 10:54 MCHC 33.3 % (30-36) 11/16/19 10:54 RDW 18.2 % (11.6-14.8) H 11/16/19 10:54 Plt Count 284 X10^3/uL (150-400) 11/16/19 10:54 Neut % (Auto) 37.0 % (50-75) L 11/16/19 10:54 Lymph % (Auto) 51.0 % (25-40) H 11/16/19 10:54 [place] % (Auto) 7.1 % (3-14) 11/16/19 10:54 Eos % (Auto) 2.4 % (2-4) 11/16/19 10:54 Baso % (Auto) 2.5 % (0-2) H 11/16/19 10:54 Neut # (Auto) 1200 /uL (1526-0848) L 11/16/19 10:54 Lymph # (Auto) 1700 /uL (9632-4503) 11/16/19 10:54 [place] # (Auto) 200 /uL (0-900) 11/16/19 10:54 Eos # (Auto) 100 /uL (0-450) 11/16/19 10:54 Baso # (Auto) 100 /uL (0-100) 11/16/19 10:54 Sodium 141 mmol/L (137-145) 11/16/19 10:54 Potassium 4.4 mmol/L (3.4-5.1) 11/16/19 10:54 Chloride 110 mmol/L (98-107) H 11/16/19 10:54 Carbon Dioxide 23 mmol/L (22-32) 11/16/19 10:54 BUN 14 mg/dL (7-17) 11/16/19 10:54 Creatinine 0.99 mg/dL (0.52-1.04) 11/16/19 10:54 Estimated GFR 54.2 mL/min (>60) L 11/16/19 10:54 BUN/Creatinine Ratio 14.1 (6-22) 11/16/19 10:54 Glucose 118 mg/dL (80-110) H 11/16/19 10:54 Calcium 9.4 mg/dL (8.4-10.2) 11/16/19 10:54 Total Bilirubin 0.5 mg/dL (0.2-1.3) 11/16/19 10:54 AST 18 IU/L (14-36) 11/16/19 10:54 ALT 11 IU/L (<35) 11/16/19 10:54 Alkaline Phosphatase 96 U/L (38-126) 11/16/19 10:54 Total Protein 6.7 g/dL (6.3-8.2) 11/16/19 10:54 Albumin 4.0 g/dL (3.5-5.0) 11/16/19 10:54 Globulin 2.7 g/dL (1.7-4.1) 11/16/19 10:54 Albumin/Globulin Ratio 1.5 (1.0-2.8) 11/16/19 10:54 - Imaging Additional studies: Procedures Endoscopic destruction of other lesion or tissue of large intestine (11/10/11) Endoscopic polypectomy of large intestine (11/10/11) Excision of intervertebral disc (03/07/10) Fusion or refusion of 2-3 vertebrae (11/21/12) Injection of steroid (02/20/13) Injection or infusion of other therapeutic or prophylactic substance (02/20/13) Insertion of interbody spinal fusion device (11/21/12) Intra-operative neurophysiologic monitoring (11/21/12) Lumbar and lumbosacral fusion of the anterior column, anterior technique (11/21/12) Lumbar and lumbosacral fusion of the anterior column, posterior technique (11/21/12) Non-invasive mechanical ventilation (11/21/12) Other endoscopy of small intestine (12/29/11) Other nonoperative respiratory measurements (02/20/13) Total knee replacement (11/01/13) Assessment and Plan (1) Breast cancer, left breast Ms. Keane been continues to have severe pain. I personally reviewed her x-ray of the left femur that shows some mottling consistent with metastatic cancer but no orthopedic Sherry significant lesions and no areas of fracture. I also reviewed her MRI of the spine with Radiology. There are no areas of cord compression, neural foraminal narrowing, or paraspinous masses in either the MRI or the recent CT scan. We discussed the fact that her imaging study showed diffuse metastatic breast cancer. We do not see a fracture, severe arthritis, nerve impingement or other potential explanations for this pain. The pain is life dominating. I called Radiation Oncology at [facility] to set up an urgent radiation oncology consultation to try to get her some relief from this. Will plan to see her back after the radiation. She and her wondered if this meant the current letrozole and palbociclib treatment is ineffective. I explained that in other areas where we saw evidence of active disease parentheses in the lungs and abdomen) the scans looked better. She does not have other areas of bone pain to suggest disease progression. Accordingly, and my inclination would be to radiate the current active site, monitor her closely, and consider switching to an alternative therapy if it is clear that she is progressing on the current regimen. She also will continue with her Xgeva shots every 4 weeks. We reviewed the importance of bone support agents such as Xgeva or bisphosphonates. If she continues to have trouble with Xgeva we could switch her over to Zometa or pamidronate but it would be standard of care for her to receive 1 of these agents. She and her understood that. Plan : Continue Letrozole 2.5 mg once daily, Continue palbociclib 125 mg daily on day 1 through 21 every 28 days, Continue monthly labs Continue Xgeva injections every 4 weeks Urgent Radiation Oncology referral to [facility] in [place] Refill on her pain medicine was sent to her pharmacy I personally spent 26 minutes in today's [id number] visit with greater than 50% of the time spent in counseling regarding the issues outlined above. (2) History of right breast cancer The patient is having increasing right scapular pain. She has diffuse metastatic disease. Her alkaline phosphatase has normalized. She is tolerating her treatments well except for fatigue. Her counts have been holding up well. Her bone density at baseline is normal. I personally reviewed her CT scan from June. This shows extensive bone disease including involvement of her scapula where there is appears to be a cortical break. Given these findings, she will be referred to Radiation Oncology at [facility] for consideration of palliative radiation therapy to her symptomatic bone disease. She will continue with her letrozole and palbociclib. We will want to consider reimaging her after 3-6 months on the combination. A follow-up CT scan would likely be the most informative study. We discussed the fact that about 30-40% of patients on palbociclib require dose adjustments, typically for myelosuppress ion or fatigue. Her counts are holding up fairly well. If treatment of her right shoulder with radiation therapy improves her fatigue, we will continue with current program. She also needs to have a tooth pulled. I explained we want to get this done before starting her on Xgeva. We will do a blood count in 2 weeks and 4 weeks in anticipation of her upcoming dental procedure. 0 when she returns in 4 weeks for follow-up, if things are going smoothly, we could increase her follow-up blood count monitoring to every 4 weeks instead of every 2 weeks. She and her had multiple questions that were answered in detail I personally spent 26 minutes in today's [id number] visit with greater than 50% of the time spent in counseling regarding the issues outlined above.
--- NOTE | 2020-01-01 16:06 | ONC.SCHED ---
Sent urgent referral to radiation oncology.
[2020-01-11 10:43] LABS: Add Manual Diff / Slide Review NO; Basophils Absolute Auto 100 /uL (0-100); Basophils Percent Auto 2.7 % (0-2); Eosinophils Absolute Auto 100 /uL (0-450); Eosinophils Percent Auto 2.7 % (2-4); Hematocrit 36.7 % (36-46); Hemoglobin 12.5 g/dL (12.0-16.0); Lymphocytes Absolute Auto 1100 /uL (1100-4500); Lymphocytes Percent Auto 41.7 % (25-40); Mean Corpuscular Hemoglobin 36.1 PG (26-34); Mean Corpuscular Volume 106.1 fL (80-100); Monocytes Absolute Auto 200 /uL (0-900); Neutrophils Absolute Auto 1200 /uL (1500-7000); Neutrophils Percent Auto 43.9 % (50-75); Platelet Count 353 X10^3/uL (150-400); Red Blood Cell Count 3.46 X10^6/uL (4.0-5.2); Red Cell Distribution Width 15.5 % (11.6-14.8); White Blood Cell Count 2.7 X10^3/uL (4.5-11.0)
[2020-01-11 10:58] LABS: Alanine Aminotransferase 72 IU/L (<35); Albumin 4.2 g/dL (3.5-5.0); Albumin Globulin Ratio 1.3 (1.0-2.8); Alkaline Phosphatase 216 U/L (38-126); Aspartate Aminotransferase 104 IU/L (14-36); BUN Creatinine Ratio 11.9 (6-22); Bilirubin Total 0.5 mg/dL (0.2-1.3); Blood Urea Nitrogen 10 mg/dL (7-17); Calcium 8.8 mg/dL (8.4-10.2); Carbon Dioxide 23 mmol/L (22-32); Chloride 112 mmol/L (98-107); Estimated Glomerular Filt Rate > 60.0 mL/min (>60); Globulin 3.2 g/dL (1.7-4.1); Glucose 113 mg/dL (80-110); HEMOLYSIS < 15 (0-50); Potassium 4.6 mmol/L (3.4-5.1); Sodium 140 mmol/L (137-145); Total Protein 7.4 g/dL (6.3-8.2)
[2020-01-12 06:36] LABS: CA 15-3 36.9 U/mL (0.0-25.0); Cancer Antigen 27.29 48.6 U/mL (0.0-38.6)
--- NOTE | 2020-01-15 14:35 | ONC.PN ---
PN -Subjective Interval history: Ms. Beck presents today for follow-up of her metastatic breast cancer. She is 78 years old. She originally presented in 2002 with a right breast cancer treated with lumpectomy, CMF, radiation therapy, and 5 years of letrozole which she completed in October of 2007. She did well until March 2019 when a screening mammogram showed showed an abnormality in the left (contralateral) breast which was confirmed on additional mammographic views and ultrasound. On May 14, 2019 biopsy of the breast mass showed a grade 2 invasive ductal carcinoma with lobular features, lobular carcinoma in Situ, no lymphovascular invasion ER 3+ greater than 95% of the cells, CA 3+ in 90% of the cells, HER2 Winnie gene product negative. Node biopsy at that time was negative. On June 04, 2019 she had a left lumpectomy that showed a 2.7 cm grade 2 invasive lobular carcinoma metastatic 9 of 10 lymph nodes. Subsequent staging study on June 17 CT scan of the chest, abdomen and pelvis showed extensive bone metastases involving a lytic lesion at T7. There was also haziness of the omental fat with stranding and indeterminate right lung nodule. Bone scan showed metastatic disease to bone but was much less apparent on the bone scan than it was on the CT scan. In on June 21 she started on letrozole. On July 17 she had an MRI of the thoracic spine that showed diffuse metastatic disease but no fractures. On July [address] scan was negative. On July 29 started on palbociclib. On September 09 she was seen by Dr. Lamas for follow-up and advised to see the dentist prior to starting Xgeva treatments. She went to the dentist and had a tooth extraction on September 30. She got her 1st dose of Xgeva on October 30. Her most recent dose was on December 17. She was having right scapular pain and was referred to Dr. bateman. He did a bone scan and adolescent counselor her about the possibility of radiation therapy. She has not pursue this in this pains gotten better. For the past 3 weeks she has had problems with left groin pain. Assessment for this has included plain films of her hip, knee and lumbar spine, MRI of the lumbar spine and knee and a CT scan of the lumbar spine and knee. She is known to have widespread metastatic breast cancer involving bone but no fracture is been identified on any of these studies. She saw Dr. bateman and had single fraction radiation treatment 8 days ago on January 06. Since then her pain has not gotten any better. She has developed a rash in both groin areas that is moist. She was in the emergency room yesterday and received Dilaudid with improvement in her pain and she was sent home. She comes to the office today for follow-up. Today she is reporting ongoing pain. Her states that they were not able to manage things at home with her pain. She has been confused and tachypneic. She has not been eating or drinking. She there she there is no history of bleeding, nausea vomiting or cough. All other systems are negative. Past medical history is reviewed from her previous notes. - Patient Self-Reported Symptoms SR Constitution: Fatigue/Malaise SR eye issues: Double vision SR ears, nose, mouth, throat issues: Changes in taste SR respiratory issues: Cough SR Cardiovascular issues: Shortness of breath with activity or lying flat, Dizzy/lightheaded SR Skin issues: Dry skin, Skin rash or itching, Nail changes SR Gastrointestinal issues: Constipation SR Genitourinary issues: Incontinence SR Musculoskeletal issues: Cold hands or feet, Difficulty walking, Bone pain SR Neuro issues: Lightheaded/dizzy SR Hematologic issues: Slow healing SR Endocrine issues: Cold intolerance Home Medications and Allergies Home Medications Medication Instructions Recorded Confirmed Type loratadine [Claritin] 10 mg PO PRN #0 08/23/12 01/15/20 History cyanocobalamin (vitamin B-12) 1,000 mcg PO QDAY #90 tab 04/27/16 01/15/20 Rx Disabled Parking #1 each 08/18/18 01/15/20 Rx propylene glycol 0.6 % eye drops 1 drp EYE-BOTH PRN PRN 12/12/18 01/15/20 History epinephrine 0.3 mg/0.3 mL See Rx Instructions .ROUTE 02/26/19 01/15/20 Rx injection, auto-injector .COMPLEX #2 unspecified fluticasone propionate 50 1 spray NASAL BID #18.2 ml 02/28/19 01/15/20 Rx mcg/actuation nasal spray,suspension amlodipine 10 mg tablet See Rx Instructions .ROUTE 03/15/19 01/15/20 Rx .COMPLEX #90 tablet atorvastatin 10 mg tablet See Rx Instructions .ROUTE 03/15/19 01/15/20 Rx .COMPLEX #90 tablet lansoprazole 30 mg capsule,delayed See Rx Instructions .ROUTE 03/15/19 01/15/20 Rx release .COMPLEX #90 capsule losartan 100 mg tablet See Rx Instructions .ROUTE 03/15/19 01/15/20 Rx .COMPLEX #90 tablet potassium chloride 10 mEq See Rx Instructions .ROUTE 03/15/19 01/15/20 Rx capsule,extended release .COMPLEX #180 capsule clobetasol 0.05 % topical cream See Rx Instructions TOP BID PRN 04/05/19 01/15/20 Rx #60 gram lidocaine 5 % topical ointment 1 applic TOP BID-TID PRN #35.44 04/19/19 01/15/20 Rx gram MDD three applications albuterol sulfate [Ventolin HFA] 1 - 2 puff INH Q4HP PRN 05/31/19 01/15/20 History furosemide 20 mg PO SEEINSTR 06/04/19 01/15/20 History hyoscyamine sulfate 0.125 mg PO PRN PRN 06/04/19 01/15/20 History naratriptan [Amerge] 2.5 mg PO PRN PRN 06/04/19 01/15/20 History sucralfate 1 gram PO PRN PRN 06/04/19 01/15/20 History letrozole [Femara] 2.5 mg PO DAILY #90 tab 06/21/19 01/15/20 Rx palbociclib [Ibrance] 125 mg PO DAILY #21 cap 06/21/19 01/15/20 Rx paroxetine HCl 40 mg tablet 40 mg PO DAILY #90 tab 09/11/19 01/15/20 Rx salmeterol 50 mcg/dose blister See Rx Instructions .ROUTE 10/15/19 01/15/20 Rx powder for inhalation .COMPLEX #60 unspecified cyclobenzaprine 10 mg tablet 10 mg PO BID PRN #60 tab 12/11/19 01/15/20 Rx mometasone 200 mcg/actuation HFA 1 puff INHALATION BID #13 gram 12/27/19 01/15/20 Rx aerosol inhaler hydrocodone-acetaminophen [Basco] 1 - 2 tab PO Q4HP PRN #90 tab 01/01/20 01/15/20 Rx clotrimazole 1 applictn TOP BID 14 Days gram 01/14/20 01/15/20 Rx hydrocodone-acetaminophen [Basco] 2 tab PO Q6H PRN #14 tab 01/14/20 01/15/20 Rx Allergies Allergy/AdvReac Type Severity Reaction Status Date / Time aspirin Allergy Severe ANAPHYLACTIC Verified 01/14/20 15:40 SHOCK venom-honey bee Allergy Severe ANAPHYLACTIC Verified 01/14/20 15:40 [bee venom (honey bee)] SHOCK adhesive Allergy Intermediate RASH FROM Verified 01/14/20 15:40 TAPE cephalexin Allergy Mild DIARRHEA Verified 01/14/20 15:40 shellfish derived Allergy Mild Anaphylaxis Verified 01/14/20 15:40 tetracycline Allergy Mild ITCH Verified 01/14/20 15:40 peanut Allergy Unknown Verified 01/14/20 15:40 oxycodone AdvReac Severe HALLUCINAT Verified 01/14/20 15:40 IONS Exam Narrative: She was tachypneic on exam. Vital signs are as noted with her blood pressure lower than usual. There was no evidence of deep vein thrombosis in either lower extremity. Results - Labs Laboratory Last Values WBC 2.7 X10^3/uL (4.5-11.0) L 01/11/20 10:17 RBC 3.46 X10^6/uL (4.0-5.2) L 01/11/20 10:17 Hgb 12.5 g/dL (12.0-16.0) 01/11/20 10:17 Hct 36.7 % (36-46) 01/11/20 10:17 MCV 106.1 fL (80-100) H 01/11/20 10:17 MCH 36.1 PG (26-34) H 01/11/20 10:17 MCHC 34.0 % (30-36) 01/11/20 10:17 RDW 15.5 % (11.6-14.8) H 01/11/20 10:17 Plt Count 353 X10^3/uL (150-400) 01/11/20 10:17 Neut % (Auto) 43.9 % (50-75) L 01/11/20 10:17 Lymph % (Auto) 41.7 % (25-40) H 01/11/20 10:17 [place] % (Auto) 9.0 % (3-14) 01/11/20 10:17 Eos % (Auto) 2.7 % (2-4) 01/11/20 10:17 Baso % (Auto) 2.7 % (0-2) H 01/11/20 10:17 Neut # (Auto) 1200 /uL (2627-8534) L 01/11/20 10:17 Lymph # (Auto) 1100 /uL (0421-4397) 01/11/20 10:17 [place] # (Auto) 200 /uL (0-900) 01/11/20 10:17 Eos # (Auto) 100 /uL (0-450) 01/11/20 10:17 Baso # (Auto) 100 /uL (0-100) 01/11/20 10:17 Sodium 140 mmol/L (137-145) 01/11/20 10:17 Potassium 4.6 mmol/L (3.4-5.1) 01/11/20 10:17 Chloride 112 mmol/L (98-107) H 01/11/20 10:17 Carbon Dioxide 23 mmol/L (22-32) 01/11/20 10:17 BUN 10 mg/dL (7-17) 01/11/20 10:17 Creatinine 0.84 mg/dL (0.52-1.04) 01/11/20 10:17 Estimated GFR > 60.0 mL/min (>60) 01/11/20 10:17 BUN/Creatinine Ratio 11.9 (6-22) 01/11/20 10:17 Glucose 113 mg/dL (80-110) H 01/11/20 10:17 Calcium 8.8 mg/dL (8.4-10.2) 01/11/20 10:17 Total Bilirubin 0.5 mg/dL (0.2-1.3) 01/11/20 10:17 AST 104 IU/L (14-36) H 01/11/20 10:17 ALT 72 IU/L (<35) H 01/11/20 10:17 Alkaline Phosphatase 216 U/L (38-126) H 01/11/20 10:17 Total Protein 7.4 g/dL (6.3-8.2) 01/11/20 10:17 Albumin 4.2 g/dL (3.5-5.0) 01/11/20 10:17 Globulin 3.2 g/dL (1.7-4.1) 01/11/20 10:17 Albumin/Globulin Ratio 1.3 (1.0-2.8) 01/11/20 10:17 CA 15-3 Antigen 36.9 U/mL (0.0-25.0) H 01/11/20 10:17 CA 27-29 48.6 U/mL (0.0-38.6) H 01/11/20 10:17 - Imaging Additional studies: Procedures Endoscopic destruction of other lesion or tissue of large intestine (11/10/11) Endoscopic polypectomy of large intestine (11/10/11) Excision of intervertebral disc (03/07/10) Fusion or refusion of 2-3 vertebrae (11/21/12) Injection of steroid (02/20/13) Injection or infusion of other therapeutic or prophylactic substance (02/20/13) Insertion of interbody spinal fusion device (11/21/12) Intra-operative neurophysiologic monitoring (11/21/12) Lumbar and lumbosacral fusion of the anterior column, anterior technique (11/21/12) Lumbar and lumbosacral fusion of the anterior column, posterior technique (11/21/12) Non-invasive mechanical ventilation (11/21/12) Other endoscopy of small intestine (12/29/11) Other nonoperative respiratory measurements (02/20/13) Total knee replacement (11/01/13) Assessment and Plan (1) Breast cancer, left breast Ms. Keane been continues to have severe pain. It has not gotten better with radiation. In fact it has gotten worse. Imaging studies have not shown a fracture although she has not had CT scan or MRI of the pelvis and hip for her pain has been centered primarily. These would be appropriate studies to obtain. She also has an increase in her heart rate and respiration rate, a drop in her usual blood pressure in oximetry with bilateral skin rashes with open lesions in the groin. She has been on palbociclib although her most recent neutrophil counts have been consistently over a 1000. Nonetheless, she could have an underlying infection driving her acute deterioration. I discussed with her the fact that she has a living will. We reviewed the fact that she would want fixable problems fixed but he did not think she would want to be on life support system or respirator if there if she did not have a fixable problem. I discussed the case with Dr. Sandor Flores, her primary physician, who agreed to admit her to the hospital. However, with her vital signs and clinical status that involved here in the clinic, I discussed her case with the emergency room and the plan will be to send her there for initial assessment and stabilization prior to admission. She was transported there by our clinic staff. Impression: 1. Metastatic breast cancer with bone involved 2. Marked increase in left pelvic and hip pain 3. Multiple imaging studies have been done but she has not had a CT or MRI of the pelvis and left hip 4. New rash in both groin regions 5. Mental status changes, tachypnea, tachycardia, hypotension, transient hypoxia of uncertain etiology Recommendation: 1. Case was discussed with Dr. Flores 2. Case was discussed with emergency department 3. Transfer to emergency department for stabilization prior to planned admission 4. CT or MRI of the pelvis and left hip to rule out a for supper radiographic fracture 5. Cultures and empiric antibiotics would be a consideration given her more acute changes outlined above 6. She has responded well to IV narcotic medicine yesterday for pain control 7. Would hold palbociclib until her situation is clarified 8. I discussed with her that she has a living will I personally spent 41 minutes in today's [id number] visit with greater than 50% of the time spent in counseling regarding the issues outlined above. (2) History of right breast cancer \
[2020-01-15 14:52] VITALS: BP 95/56; PULSE 101; RESP 20; O2SAT 96
--- NOTE | 2020-01-15 16:40 | PC.NURSE ---
MA came and reported to the triage nurse that the patient wasn't feeling good and was declining in health status, Dr. Alvarado wanted to try and do a direct admit and spoke with Dr. Flores. This RN called [facility] charge nurse to discuss room availability. PAIGE took Pt vitals and they were significantly low. As I went to check back on Pt, pt was found to have altered LOC and was beginning to lose consciousness. With pt current health status, this RN called 911 to have pt transported to the ED. Pt was responsive to stimulus, but was easily confused and not remembering things. Pt could not ambulate. Pt was brought via gurney to ED with paramedics, where transfer of care to ED nurse took place.
--- NOTE | 2020-01-23 15:31 | ONC.SCHED ---
Jocelin Chong to follow up with patient s/p ER visit.
--- NOTE | 2020-01-24 09:36 | ONC.MSW ---
[employer] called [facility], confirmed that pt began hospice care on 01/20/20.
--- NOTE | 2020-02-04 10:04 | ONC.SCHED ---
Patient's , Deshawn, called to inform us that patient is now on Hospice [facility]. He asked that we cancel her upcoming appointment.
--- NOTE | 2020-07-30 09:49 | ONC.MSW ---
*Sent bereavement card.
== END ==
PROVIDERS: PCP Internal Medicine; Referring Provider Internal Medicine; Visit Provider Internal Medicine
DX: C50.412 Malignant neoplasm of upper-outer quadrant of left female breast (principal); C77.3 Secondary and unspecified malignant neoplasm of axilla and upper limb lymph nodes; C79.51 Secondary malignant neoplasm of bone; R10.2 Pelvic and perineal pain; M25.552 Pain in left hip; R21 Rash and other nonspecific skin eruption; R41.82 Altered mental status, unspecified; R06.82 Tachypnea, not elsewhere classified; R00.0 Tachycardia, unspecified; I95.9 Hypotension, unspecified; R09.02 Hypoxemia; Z17.0 Estrogen receptor positive status [ER+]; Z85.3 Personal history of malignant neoplasm of breast
CPT/HCPCS: 36415; 80053; 85025; 86300; 96372; 99204; 99214; 99215; J0897

== ENCOUNTER 2020-01-15 14:54 | Inpatient (IN) | payer MEDICARE, SELFPAY ==
[2019-06-04 19:04] VITALS: BMI 58.9
[2020-01-15] VITALS (19 sets, daily range): BP systolic 105–152; BP diastolic 47–80; PULSE 64–108; RESP 20–48; TEMP 36.4–37.4; O2SAT 80–100; BMI 46.3
--- NOTE | 2020-01-15 15:01 | DI.CT.S_ITS ---
PROCEDURE: CT ANGIO HEAD AND NECK INDICATIONS: Altered mental status TECHNIQUE: Pre-contrast 4.5 mm thick sections acquired from the foramen magnum to the vertex. After the administration of intravenous contrast, 1 mm thick sections acquired from the aortic arch through the [place] of [place]. Post-contrast 4.5 mm thick sections then re-acquired from the foramen magnum to the vertex. 3-dimensional [id number] (MIP) and/or volume rendering reformats were acquired of the central intracranial vasculature and neck separately. COMPARISON: [facility], CT, CT CHEST ABD PEL W CON, 12/11/2019, 10:35. [facility], CT, CT STROKE, 01/15/2020, 15:00. FINDINGS: Image quality: Excellent. BRAIN: CSF spaces: Ventricles are normal in size and shape. Basal cisterns are patent. No extra-axial fluid collections. Brain: No midline shift. No intracranial bleeds or masses. Santos-white matter interface appears intact. No obvious mass. Skull and face: Calvarium and facial bones appear intact, without suspicious lesions. Orbits appear normal. Sinuses: Sinuses and mastoids are clear. HEAD CT ANGIOGRAPHY: Anterior circulation: Intracranial internal carotid arteries are normal in size and flow. The distal ICA intracranial atherosclerotic calcifications. The flow within the paired anterior cerebral arteries is normal and symmetric. The flow within the middle cerebral arteries is normal and symmetric. The anterior communicating artery is seen. Posterior communicating arteries are hypoplastic or absent. No aneurysms are seen. Posterior circulation: Visualized portions of the vertebral arteries demonstrate normal caliber, and join to form a normal appearing basilar artery. Flow within the posterior cerebral arteries is normal and symmetric. No aneurysms are seen. NECK CT ANGIOGRAPHY: Carotid system: The great vessels demonstrate a conventional anatomy as they arise from the aortic arch. The origins of the common carotid arteries appear patent. The common carotid arteries demonstrate normal caliber. Medialization of the common carotid arteries. Moderate calcification at the left carotid bulb and mild on the right. Approximately 50 percent stenosis on the left ICA. Less than 50 percent stenosis on the right. Posterior circulation: The origins of the vertebral arteries both appear widely patent. The more superior extracranial portions of both vertebral arteries also demonstrate normal courses and calibers. They join to form a normal appearing basilar artery. Soft tissues: Multinodular goiter. Rim calcified nodule or cyst posterior to the superior thyroid gland. Small lymph node in the anterior mediastinum. Small nodules in the posterior neck subcutaneous fat, (8/120). Anterior chest wall varices. Right breast surgical clip seen. Large hiatal hernia. Aortic valvular calcifications. Coronary artery calcifications. Mild the patchy airspace opacities in the lung dependent lungs. Subtle mosaic attenuation. Bones: Diffuse heterogeneous appearance of the bones consistent with metastatic disease. No fractures identified. Moderate degenerative change in the cervical spine. IMPRESSION: 1. No large vessel occlusion. Chronic microvascular ischemic disease. 2. Approximately 50 percent stenosis in the left ICA due to moderate calcified atherosclerotic plaque. Less than 50 percent stenosis in the right ICA. 3. Diffuse metastatic osseous disease. 4. Mosaic attenuation and mild patchy airspace opacity bilaterally. This could represent mild fluid overload and/or atelectasis. This is increased compared to the December 2019. 5. Multinodular goiter. Any quantitative measurements of stenosis were performed using NASCET criteria. Comment: Findings were discussed with Jose D Nuñez at the time of dictation. Dictated by: Sang Salomon M.D. on 01/15/2020 at 15:33 Approved by: Sang Salomon M.D. on 01/15/2020 at 15:53
--- NOTE | 2020-01-15 15:01 | DI.CT.S_ITS ---
PROCEDURE: CT STROKE INDICATIONS: Altered mental status. History of breast cancer. TECHNIQUE: Noncontrast 4.5 mm thick angled axial sections acquired from the foramen magnum to the vertex, with coronal reformats. For radiation dose reduction, the following was used: automated exposure control, adjustment of mA and/or kV according to patient size. COMPARISON: [facility], [place], [place] BONE SCAN WHOLE BODY, 06/18/2019, 14:15. [place], [place], [place] BONE SCAN WHOLE BODY, 10/19/2019, 14:27. [facility], CT, CT HEAD/BRAIN WO CON, 07/23/2019, 10:11. FINDINGS: Image quality: Excellent. CSF spaces: Basal cisterns are patent. No extra-axial fluid collections. The ventricles are symmetric in size and shape. There is mild cerebral volume loss, with resultant ventricular and sulcal prominence. Brain: No intracranial hemorrhage, mass, or mass effect. There are subcortical, periventricular and deep white matter hypodensities consistent with mild chronic small vessel ischemic changes. The tafoya-white matter junction appears preserved. Skull and face: Calvarium and visualized facial bones appear intact. There are diffuse heterogeneous sclerotic lesions redemonstrated throughout the calvarium and other visualized osseous structures consistent with bony metastatic disease. Findings are similar to the prior CT. Sinuses: Visualized sinuses and mastoids are clear. IMPRESSION: 1. No acute intracranial abnormality. Specifically, no imaging contraindications to tPA identified. 2. Diffuse sclerotic osseous metastatic disease redemonstrated. 3. Mild chronic white matter small vessel ischemic changes and cerebral volume loss. Findings discussed with Dr. Walter on 01/15/2020 at 3:14 p.m.. This study fulfills neurological imaging criteria for inclusion or exclusion of acute stroke therapies based on available published neurological guidelines. Dictated by: Asad Pires M.D. on 01/15/2020 at 15:12 Approved by: Asad Pires M.D. on 01/15/2020 at 15:17
[2020-01-15 15:37] LABS: Add Manual Diff / Slide Review NO; Basophils Absolute Auto 100 /uL (0-100); Basophils Percent Auto 1.2 % (0-2); Eosinophils Absolute Auto 100 /uL (0-450); Eosinophils Percent Auto 1.9 % (2-4); Hematocrit 34.8 % (36-46); Hemoglobin 11.5 g/dL (12.0-16.0); Lymphocytes Absolute Auto 1200 /uL (1100-4500); Lymphocytes Percent Auto 24.3 % (25-40); Mean Corpuscular HGB Conc 32.9 % (30-36); Mean Corpuscular Hemoglobin 34.9 PG (26-34); Monocytes Absolute Auto 900 /uL (0-900); Monocytes Percent Auto 17.6 % (3-14); Neutrophils Absolute Auto 2700 /uL (1500-7000); Platelet Count 397 X10^3/uL (150-400); Red Blood Cell Count 3.29 X10^6/uL (4.0-5.2); Red Cell Distribution Width 15.4 % (11.6-14.8); White Blood Cell Count 4.9 X10^3/uL (4.5-11.0)
[2020-01-15 15:45] LABS: INR 1.1 (0.9-1.3); Prothrombin Time 12.8 SECONDS (10.1-12.7)
[2020-01-15 15:47] LABS: PTT Partial Thromboplastin Tim 33 SECONDS (26.4-36.2)
[2020-01-15 15:48] LABS: Alanine Aminotransferase 101 IU/L (<35); Albumin 4.1 g/dL (3.5-5.0); Albumin Globulin Ratio 1.2 (1.0-2.8); Alkaline Phosphatase 231 U/L (38-126); Aspartate Aminotransferase 145 IU/L (14-36); Blood Urea Nitrogen 19 mg/dL (7-17); Calcium 8.5 mg/dL (8.4-10.2); Carbon Dioxide 20 mmol/L (22-32); Chloride 110 mmol/L (98-107); Creatine Kinase 138 U/L (30-135); Estimated Glomerular Filt Rate 43.9 mL/min (>60); Globulin 3.5 g/dL (1.7-4.1); Glucose 99 mg/dL (80-110); Sodium 138 mmol/L (137-145); Total Protein 7.6 g/dL (6.3-8.2)
--- NOTE | 2020-01-15 15:48 | ED.NEUROSD ---
HPI - Neuro Symptoms/Deficit General Chief Complaint: Neuro Symptoms/Deficit Stated Complaint: MAJOR PAIN BAD RASH ON THE STOMACH Time Seen by Provider: 01/15/20 15:00 Source: patient, family, EMS and other Mode of arrival: EMS Limitations: altered mental status History of Present Illness HPI Narrative: Patient here for altered mental status. Patient seen here yesterday for injury to the left knee. CT scan of lumbar spine and knee negative for fracture. Please see notes from yesterday. Patient does have history of being set of the pain medication, with hallucinations. 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 I did receive phone call from the oncologist dr dunn, he states that patient's blood pressure had dropped as well as oxygenation and became confused. Had expressive aphasia. Patient blood pressure not hypotensive here. 129 ft 6 on arrival. 100% room air with respiration at 41 which improved quickly to 20. Patient does continue to have expressive aphasia. At times does have answers after correct according to . No motor deficits no slurred speech or facial droop. Patient sent immediately to CAT scan and angiography Related Data Home Medications Medication Instructions Recorded Confirmed loratadine [Claritin] 10 mg PO PRN #0 08/23/12 01/15/20 propylene glycol 0.6 % eye drops 1 drp EYE-BOTH PRN PRN 12/12/18 01/15/20 albuterol sulfate [Ventolin HFA] 1 - 2 puff INH Q4HP PRN 05/31/19 01/15/20 furosemide 20 mg PO SEEINSTR 06/04/19 01/15/20 hyoscyamine sulfate 0.125 mg PO PRN PRN 06/04/19 01/15/20 naratriptan [Amerge] 2.5 mg PO PRN PRN 06/04/19 01/15/20 sucralfate 1 gram PO PRN PRN 06/04/19 01/15/20 Previous Rx's Medication Instructions Recorded cyanocobalamin (vitamin B-12) 1,000 mcg PO QDAY #90 tab 04/27/16 Disabled Parking #1 each 08/18/18 epinephrine 0.3 mg/0.3 mL See Rx Instructions .ROUTE 02/26/19 injection, auto-injector .COMPLEX #2 unspecified fluticasone propionate 50 1 spray NASAL BID #18.2 ml 02/28/19 mcg/actuation nasal spray,suspension amlodipine 10 mg tablet See Rx Instructions .ROUTE 03/15/19 .COMPLEX #90 tablet atorvastatin 10 mg tablet See Rx Instructions .ROUTE 03/15/19 .COMPLEX #90 tablet lansoprazole 30 mg capsule,delayed See Rx Instructions .ROUTE 03/15/19 release .COMPLEX #90 capsule losartan 100 mg tablet See Rx Instructions .ROUTE 03/15/19 .COMPLEX #90 tablet potassium chloride 10 mEq See Rx Instructions .ROUTE 03/15/19 capsule,extended release .COMPLEX #180 capsule clobetasol 0.05 % topical cream See Rx Instructions TOP BID PRN 04/05/19 #60 gram lidocaine 5 % topical ointment 1 applic TOP BID-TID PRN #35.44 04/19/19 gram MDD three applications letrozole [Femara] 2.5 mg PO DAILY #90 tab 06/21/19 palbociclib [Ibrance] 125 mg PO DAILY #21 cap 06/21/19 paroxetine HCl 40 mg tablet 40 mg PO DAILY #90 tab 09/11/19 salmeterol 50 mcg/dose blister See Rx Instructions .ROUTE 10/15/19 powder for inhalation .COMPLEX #60 unspecified cyclobenzaprine 10 mg tablet 10 mg PO BID PRN #60 tab 12/11/19 mometasone 200 mcg/actuation HFA 1 puff INHALATION BID #13 gram 12/27/19 aerosol inhaler hydrocodone-acetaminophen [[place]] 1 - 2 tab PO Q4HP PRN #90 tab 01/01/20 clotrimazole 1 applictn TOP BID 14 Days gram 01/14/20 hydrocodone-acetaminophen [[place]] 2 tab PO Q6H PRN #14 tab 01/14/20 Allergies Allergy/AdvReac Type Severity Reaction Status Date / Time aspirin Allergy Severe ANAPHYLACTIC Verified 01/15/20 15:19 SHOCK venom-honey bee Allergy Severe ANAPHYLACTIC Verified 01/15/20 15:19 [bee venom (honey bee)] SHOCK adhesive Allergy Intermediate RASH FROM Verified 01/15/20 15:19 TAPE cephalexin Allergy Mild DIARRHEA Verified 01/15/20 15:19 shellfish derived Allergy Mild Anaphylaxis Verified 01/15/20 15:19 tetracycline Allergy Mild ITCH Verified 01/15/20 15:19 peanut Allergy Unknown Verified 01/15/20 15:19 oxycodone AdvReac Severe HALLUCINAT Verified 01/15/20 15:19 IONS Review of Systems Review of Systems Narrative: GENERAL: Denies chills, fatigue, malaise, fever, sweats. HEENT: Denies sinus pain, ear pain, sore throat, difficulty swallowing RESPIRATORY: Denies dyspnea, cough CARDIOVASCULAR: Denies chest pain, palpitations, edema, GASTROINTESTINAL: Denies nausea, vomiting, abdominal pain, diarrhea, constipation, melena. : Denies dysuria, frequency, hematuria MUSCULOSKELETAL: denies muscle or bony pain SKIN: Denies rash, skin lesions NEUROLOGIC: Denies weakness, headache, numbness, complains change in speech, confusion PSYCHIATRIC: No SI or HI or hallucinations ROS Unobtainable: All systems reviewed & are unremarkable except as noted in HPI and below Patient History Medical History Arthritis (Acute) Asthma (Chronic) Celiac disease (Chronic 04/27/16) Chronic obstructive pulmonary disease (Chronic 08/26/16) Dorsalgia (Chronic) Edema (Acute) Essential hypertension (Chronic 11/23/10) Heart murmur (Acute) History of deep venous thrombosis (Chronic 11/23/10) History of malignant neoplasm of breast (Inactive 11/23/10) Hx of migraine headaches (Acute) Hyperlipidemia (Chronic 11/23/10) Morbid obesity with body mass index (BMI) of 40.0 or higher (Chronic 07/27/16) Nonrheumatic aortic valve stenosis (Chronic 04/27/16) Paresthesia and pain of both upper extremities (Chronic) Sinus drainage (Acute) Sleep apnea (Chronic) Ulcer (Acute) Surgical History History of bladder suspension procedure (Acute) History of cataract removal with insertion of prosthetic lens Hx of appendectomy (Acute) Hx of arthroscopy of knee (Acute) Hx of cholecystectomy (Acute) Hx of discectomy (Acute) Hx of hysterectomy (Acute) Hx of laminectomy (Acute) Hx of left breast biopsy (Acute 05/14/19) Hx of tonsillectomy (Acute) Status post breast lumpectomy (~2002) Family History Mother Hypertension Breast cancer Father Hypertension Heart disease Social History marital status: number of children: 3 household members: spouse caregiver/support person: No housing: house pets and animals: No education level: college occupational status: other 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 alessandro/restoration: [employer] travel history: recent leisure activities: reading and other Smoking Status: Never smoker Tobacco: How many years used: 0 quit status: quit date established second hand exposure: No alcohol intake: current substance use type: does not use Smoking Status: Never smoker alcohol intake frequency: a few times a month Substance Use Type: does not use Exam Narrative Exam Narrative: GENERAL: patient appears stated age. Well-nourished, well-developed patient, in no distress, not toxic not dyspneic HEAD: Normocephalic. EYES: Pupils equal round and reactive. No scleral icterus. No injection no discharge ENT: Mucous membranes moist. No drooling no tongue elevation no trismus no malocclusion NECK: Trachea midline. Non tender CARDIOVASCULAR: Regular rate and rhythm without murmurs, gallops, or rubs. RESPIRATORY: Clear to auscultation. Breath sounds equal bilaterally. No wheezes, rales, or rhonchi. GASTROINTESTINAL: Abdomen soft, non-tender, nondistended. EXTREMITIES: No gross deformities. BACK: Nontender without deformity or crepitance. No flank tenderness. NEURO: Patient is awake and alert but only oriented to self and name of and her children. Does have clear speech when speaking but does have expressive aphasia with identifying items. 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 Light touch intact to bilateral face hands and legs. Able to identify each limb with light touch. Has existing left knee pain with limited mobility of this limb. SKIN: Warm and dry PSYCH: Is anxious, is cooperative Initial Vital Signs Initial Vital Signs: Vital Signs Temperature 98.1 F 01/15/20 14:54 Pulse Rate 93 H 01/15/20 14:54 Respiratory Rate 41 H 01/15/20 14:54 Blood Pressure 129/56 L 01/15/20 14:54 Pulse Oximetry 100 01/15/20 14:54 Scores NIH Stroke Scale Level of Conciousness: Alert, keenly responsive Ask month/age: Answers both questions correctly. Open/close eyes, close hand: Performs both tasks correctly Best gaze horizontal: Normal Visual mckeon: No visual loss Facial palsy: Normal symetrical movement Left arm drift: No drift for full 10 sec Right arm drift: No drift for full 10 sec Left leg drift: No effort against gravity Right leg drift: No drift for full 5 sec Limb ataxia: Absent Sensory on face/arms/legs: Normal, no sensory loss Best language: Mild to moderate, slurs some words Dysarthria: Normal Extinction or inattention: No abnormality Total NIH Stroke scale score: 4 Course Course Course Narrative: Time 3:42 p.m.. Radiologist called and CAT scan angiogram is negative. Plain CT scan of the head is negative as well. Decision to Admit Date: 01/15/20 Decision to Admit time: 15:59 Orders Ordered: ED Orders 01/15/20 15:[address] angio head and neck Stat 01/15/20 15:02 Urinalysis and Microscopic Stat 01/15/20 15:04 Urine Drug Screen, Rapid Stat EKG-12 Lead Stat 01/15/20 15:26 COVID19 -ED/INPAT/OR/L&D Stat Complete Blood Count AUTO DIFF Stat Comprehensive Metabolic Panel Stat Partial Thromboplastin Time Stat Prothrombin Time INR Stat Troponin & CK Cardiac Panel Stat 01/15/20 18:00 Consult to Discharge Planning Routine Consult to Physical Therapy Evaluate & Treat Consult to Speech Therapy Evaluate & Treat EC echo doppler complete Routine Education, smoking cessation ONGOING 01/16/20 07:02 MR pelvis wo con Urgent Albuterol (Ventolin Hfa (Vent/Covid R/O)) 2 puff INH Q4H PRN PRN Reason: Shortness Of Breath Amlodipine Besylate (Norvasc) 10 mg PO DAILY [facility] Atorvastatin Calcium (Lipitor) 10 mg PO DAILY [facility] Enoxaparin Sodium (Lovenox) 40 mg SUBCUT DAILY [facility] Fentanyl (Duragesic) 25 mcg TOP Q72H [facility] Magnesium Hydroxide (Milk Of Magnesia) 30 ml PO DAILY PRN PRN Reason: Constipation Morphine Sulfate (Morphine) 2 mg IV Q2HR [facility] Morphine Sulfate (Morphine) 4 mg IV Q2H PRN PRN Reason: Pain, Severe (7-10) Naloxone HCl (Narcan) 0.2 mg IV Q2MIN PRN PRN Reason: Opiate Reversal Non-Formulary Medication (Mometasone [Asmanex Hfa]) 1 puff INHALATION BID [facility] Ondansetron HCl (Zofran) 4 mg IV Q6HR PRN PRN Reason: Nausea And Vomiting Pantoprazole Sodium (Protonix) 40 mg PO DAILY [facility] Paroxetine HCl (Paxil) 40 mg PO DAILY [facility] Salmeterol Xinafoate (Serevent Diskus) 1 puff INH BID [facility] Sennosides (Senna) 17.2 mg PO BEDTIME [facility] Discontinued Medications Sodium Chloride (Normal Saline 0.9%) 500 mls @ 1,000 mls/hr IV BOLUS ONE Stop: 01/15/20 15:31 Last Admin: 01/15/20 15:55 Dose: Not Given Documented by: HECTOR Sodium Chloride (Normal Saline 0.9%) 1,000 mls @ 1,000 mls/hr IV BOLUS ONE Stop: 01/15/20 16:54 Last Infusion: 01/15/20 17:49 Dose: 500 mls/hr Documented by: Admin: 01/15/20 16:01 Dose: 500 mls/hr Documented by: HECTOR Calcium Gluconate 4.65 meq/ (Sodium Chloride) 60 mls @ 180 mls/hr IV NOW ONE Stop: 01/15/20 16:39 Last Infusion: 01/15/20 17:49 Dose: 180 mls/hr Documented by: Admin: 01/15/20 17:14 Dose: 180 mls/hr Documented by: CONNOR Letrozole (Femara) 2.5 mg PO DAILY [facility] Morphine Sulfate (Morphine) 4 mg IV NOW ONE Stop: 01/15/20 15:47 Last Admin: 01/15/20 15:51 Dose: 4 mg Documented by: HETCOR Naloxone HCl (Narcan) 0.2 mg IV Q2MIN PRN PRN Reason: Opiate Reversal Palbociclib [Ibrance (] 125 Mg) 125 mg PO DAILY [facility] Ondansetron HCl (Zofran) 4 mg IV NOW ONE Stop: 01/15/20 15:47 Last Admin: 01/15/20 15:51 Dose: 4 mg Documented by: HECTOR Ondansetron HCl (Zofran) 4 mg IV NOW ONE Stop: 01/15/20 16:11 Last Admin: 01/15/20 17:14 Dose: Not Given Documented by: CONNOR Reevaluation(s) Reevaluation #1: No changes this time. Patient complains of pain, globally. Time: 15:48 Reevaluation #2: agrees with the stroke doctor. No no no tPA. Patient can be admitted here. MRI and echocardiogram tomorrow Time: 16:00 Consultations Consultation #1: Spoke with stroke team Dr. Keane, he used robotic telemedicine to interview patient and . After completion patient agrees with stroke doctor no no no tPA. High risk for patient. Possibly opiate reaction with hallucinations that she has had in the past. Time: 15:49 Consultation #2: Spoke with primary care Dr. Flores, he will admit patient. He states likely hallucination from pain medication. He will order MRI and echocardiogram for tomorrow, we reviewed hyperkalemia and laboratory changes from 24 hours ago Time: 16:00 Vital Signs Vital signs: Vital Signs - 8 hr 01/15/20 14:54 01/15/20 15:00 01/15/20 15:21 Temperature 98.1 F Pulse Rate 93 H 64 90 Respiratory Rate 41 H 26 H Blood Pressure 129/56 L 111/53 L Pulse Oximetry 100 99 99 01/15/20 15:30 01/15/20 15:31 01/15/20 15:45 Temperature Pulse Rate 93 H 91 H 88 Respiratory Rate Blood Pressure 139/67 Pulse Oximetry 98 99 99 01/15/20 15:46 01/15/20 16:00 01/15/20 16:15 Temperature Pulse Rate 89 87 88 Respiratory Rate 48 H Blood Pressure 152/60 H 143/79 H 127/70 Pulse Oximetry 99 99 98 01/15/20 16:30 Temperature Pulse Rate 86 Respiratory Rate 20 Blood Pressure 136/80 Pulse Oximetry 80 L MDM - Neuro Symptoms/Deficit Differential Diagnosis Differential diagnosis: Likely other (TIA stroke altered mental status opiate reaction) Medical Records Attestation: I reviewed the patient's medical records. Lab Data Attestation: I reviewed the patient's lab results. Result diagrams: 01/15/20 15:26 01/15/20 15:26 Labs: Lab Results 01/15/20 01/15/20 01/15/20 Range/Units 15:26 15:26 15:26 WBC 4.9 (4.5-11.0) X10^3/uL RBC 3.29 L (4.0-5.2) X10^6/uL Hgb 11.5 L (12.0-16.0) g/dL Hct 34.8 L (36-46) % MCV 106.0 H (80-100) fL MCH 34.9 H (26-34) PG MCHC 32.9 (30-36) % RDW 15.4 H (11.6-14.8) % Plt Count 397 (150-400) X10^3/uL Neut % (Auto) 55.0 (50-75) % Lymph % (Auto) 24.3 L (25-40) % [place] % (Auto) 17.6 H (3-14) % Eos % (Auto) 1.9 L (2-4) % Baso % (Auto) 1.2 (0-2) % Neut # (Auto) 2700 (8670-4767) /uL Lymph # (Auto) 1200 (1862-8018) /uL [place] # (Auto) 900 (0-900) /uL Eos # (Auto) 100 (0-450) /uL Baso # (Auto) 100 (0-100) /uL PT 12.8 H (10.1-12.7) SECONDS INR 1.1 (0.9-1.3) APTT 33 (26.4-36.2) SECONDS Sodium 138 (137-145) mmol/L Potassium 6.1 H D (3.4-5.1) mmol/L Chloride 110 H (98-107) mmol/L Carbon Dioxide 20 L (22-32) mmol/L BUN 19 H (7-17) mg/dL Creatinine 1.19 H (0.52-1.04) mg/dL Estimated GFR 43.9 L (>60) mL/min BUN/Creatinine Ratio 16.0 (6-22) Glucose 99 (80-110) mg/dL Calcium 8.5 (8.4-10.2) mg/dL Total Bilirubin 1.0 (0.2-1.3) mg/dL AST 145 H (14-36) IU/L ALT 101 H (<35) IU/L Alkaline Phosphatase 231 H D (38-126) U/L Total Creatine Kinase 138 H (30-135) U/L CK-MB (CK-2) 1.02 (<2.37) ng/mL CK-MB (CK-2) Rel Index 0.7 L (1.5-5.0) % Troponin I < 0.012 (0.01-0.034) ng/mL Total Protein 7.6 (6.3-8.2) g/dL Albumin 4.1 (3.5-5.0) g/dL Globulin 3.5 (1.7-4.1) g/dL Albumin/Globulin Ratio 1.2 (1.0-2.8) COVID-19 PCR (Negative) 01/15/20 Range/Units 15:26 WBC (4.5-11.0) X10^3/uL RBC (4.0-5.2) X10^6/uL Hgb (12.0-16.0) g/dL Hct (36-46) % MCV (80-100) fL MCH (26-34) PG MCHC (30-36) % RDW (11.6-14.8) % Plt Count (150-400) X10^3/uL Neut % (Auto) (50-75) % Lymph % (Auto) (25-40) % [place] % (Auto) (3-14) % Eos % (Auto) (2-4) % Baso % (Auto) (0-2) % Neut # (Auto) (0164-2899) /uL Lymph # (Auto) (2005-6669) /uL [place] # (Auto) (0-900) /uL Eos # (Auto) (0-450) /uL Baso # (Auto) (0-100) /uL PT (10.1-12.7) SECONDS INR (0.9-1.3) APTT (26.4-36.2) SECONDS Sodium (137-145) mmol/L Potassium (3.4-5.1) mmol/L Chloride (98-107) mmol/L Carbon Dioxide (22-32) mmol/L BUN (7-17) mg/dL Creatinine (0.52-1.04) mg/dL Estimated GFR (>60) mL/min BUN/Creatinine Ratio (6-22) Glucose (80-110) mg/dL Calcium (8.4-10.2) mg/dL Total Bilirubin (0.2-1.3) mg/dL AST (14-36) IU/L ALT (<35) IU/L Alkaline Phosphatase (38-126) U/L Total Creatine Kinase (30-135) U/L CK-MB (CK-2) (<2.37) ng/mL CK-MB (CK-2) Rel Index (1.5-5.0) % Troponin I (0.01-0.034) ng/mL Total Protein (6.3-8.2) g/dL Albumin (3.5-5.0) g/dL Globulin (1.7-4.1) g/dL Albumin/Globulin Ratio (1.0-2.8) COVID-19 PCR Negative (Negative) Point of Care Testing Glucose POC [address] scan - head: Radiologist's Impression: [address] [address] [address] Scan Report Signed Patient: Rj Beck LMR#: [id number] : 2Acct:[id number] Age/Sex: 79 / FDate of Service: 01/15/20 Loc: ED Accession Number: [id number] Procedure: CT Stroke Ordering Provider: Jose D Nuñez MD PROCEDURE: CT STROKE INDICATIONS: Altered mental status. History of breast cancer. TECHNIQUE: Noncontrast 4.5 mm thick angled axial sections acquired from the foramen magnum to the vertex, with coronal reformats. For radiation dose reduction, the following was used: automated exposure control, adjustment of mA and/or kV according to patient size. COMPARISON: [place], [place], CT BONE SCAN WHOLE BODY, 06/18/2019, 14:15. [place], [place] BONE SCAN WHOLE BODY, 10/19/2019, 14:27. [facility], CT, CT HEAD/BRAIN WO CON, 07/23/2019, 10:11. FINDINGS: Image quality: Excellent. CSF spaces: Basal cisterns are patent. No extra-axial fluid collections. The ventricles are symmetric in size and shape. There is mild cerebral volume loss, with resultant ventricular and sulcal prominence. Brain: No intracranial hemorrhage, mass, or mass effect. There are subcortical, periventricular and deep white matter hypodensities consistent with mild chronic small vessel ischemic changes. The santos-white matter junction appears preserved. Skull and face: Calvarium and visualized facial bones appear intact. There are diffuse heterogeneous sclerotic lesions redemonstrated throughout the calvarium and other visualized osseous structures consistent with bony metastatic disease. Findings are similar to the prior CT. Sinuses: Visualized sinuses and mastoids are clear. IMPRESSION: 1. No acute intracranial abnormality. Specifically, no imaging contraindications to tPA identified. 2. Diffuse sclerotic osseous metastatic disease redemonstrated. 3. Mild chronic white matter small vessel ischemic changes and cerebral volume loss. Findings discussed with Dr. Walter on 01/15/2020 at 3:14 p.m.. This study fulfills neurological imaging criteria for inclusion or exclusion of acute stroke therapies based on available published neurological guidelines. Dictated by: Asad Pires M.D. on 01/15/2020 at 15:12 Approved by: Asad Pires M.D. on 01/15/2020 at 15:17 CTA - brain/neck: Radiologist's Impression: [place] [address] CT Scan Report Signed Patient: Rj Beck LMR#: [id number] : 2Acct:[id number] Age/Sex: 79 / FDate of Service: 01/15/20 Loc: ED Accession Number: [id number] Procedure: CT angio head and neck Ordering Provider: Jose D Nuñez MD PROCEDURE: CT ANGIO HEAD AND NECK INDICATIONS: Altered mental status TECHNIQUE: Pre-contrast 4.5 mm thick sections acquired from the foramen magnum to the vertex. After the administration of intravenous contrast, 1 mm thick sections acquired from the aortic arch through the [place] of [place]. Post-contrast 4.5 mm thick sections then re-acquired from the foramen magnum to the vertex. 3-dimensional hnihgxl-rnnpvyome-mokamzdruw (MIP) and/or volume rendering reformats were acquired of the central intracranial vasculature and neck separately. COMPARISON: [facility], CT, CT CHEST ABD PEL W CON, 12/11/2019, 10:35. [facility], CT, CT STROKE, 01/15/2020, 15:00. FINDINGS: Image quality: Excellent. BRAIN: CSF spaces: Ventricles are normal in size and shape. Basal cisterns are patent. No extra-axial fluid collections. Brain: No midline shift. No intracranial bleeds or masses. Santos-white matter interface appears intact. No obvious mass. Skull and face: Calvarium and facial bones appear intact, without suspicious lesions. Orbits appear normal. Sinuses: Sinuses and mastoids are clear. HEAD CT ANGIOGRAPHY: Anterior circulation: Intracranial internal carotid arteries are normal in size and flow. The distal ICA intracranial atherosclerotic calcifications. The flow within the paired anterior cerebral arteries is normal and symmetric. The flow within the middle cerebral arteries is normal and symmetric. The anterior communicating artery is seen. Posterior communicating arteries are hypoplastic or absent. No aneurysms are seen. Posterior circulation: Visualized portions of the vertebral arteries demonstrate normal caliber, and join to form a normal appearing basilar artery. Flow within the posterior cerebral arteries is normal and symmetric. No aneurysms are seen. NECK CT ANGIOGRAPHY: Carotid system: The great vessels demonstrate a conventional anatomy as they arise from the aortic arch. The origins of the common carotid arteries appear patent. The common carotid arteries demonstrate normal caliber. Medialization of the common carotid arteries. Moderate calcification at the left carotid bulb and mild on the right. Approximately 50 percent stenosis on the left ICA. Less than 50 percent stenosis on the right. Posterior circulation: The origins of the vertebral arteries both appear widely patent. The more superior extracranial portions of both vertebral arteries also demonstrate normal courses and calibers. They join to form a normal appearing basilar artery. Soft tissues: Multinodular goiter. Rim calcified nodule or cyst posterior to the superior thyroid gland. Small lymph node in the anterior mediastinum. Small nodules in the posterior neck subcutaneous fat, (8/120). Anterior chest wall varices. Right breast surgical clip seen. Large hiatal hernia. Aortic valvular calcifications. Coronary artery calcifications. Mild the patchy airspace opacities in the lung dependent lungs. Subtle mosaic attenuation. Bones: Diffuse heterogeneous appearance of the bones consistent with metastatic disease. No fractures identified. Moderate degenerative change in the cervical spine. IMPRESSION: 1. No large vessel occlusion. Chronic microvascular ischemic disease. 2. Approximately 50 percent stenosis in the left ICA due to moderate calcified atherosclerotic plaque. Less than 50 percent stenosis in the right ICA. 3. Diffuse metastatic osseous disease. 4. Mosaic attenuation and mild patchy airspace opacity bilaterally. This could represent mild fluid overload and/or atelectasis. This is increased compared to the December 2019. 5. Multinodular goiter. Any quantitative measurements of stenosis were performed using NASCET criteria. Comment: Findings were discussed with Jose D Nuñez at the time of dictation. Dictated by: Sang Salomon M.D. on 01/15/2020 at 15:33 Approved by: Sang Salomon M.D. on 01/15/2020 at 15:53 ECG Data Attestation: I personally reviewed and interpreted this ECG as follows: Interpretation: Normal sinus rhythm normal EKG ventricular rate 88. No peaked T-waves no ST elevation MDM Narrative Medical decision making narrative: Upper for admission. No tPA after evaluation by stroke position with telemedicine robotic. Has been agrees. Electrolytes reviewed. Less than 24 hour difference. Hyperkalemia noted. Calcium gluconate and IV fluids given. Patient being admitted. EKG with no peaked T-waves. Normal sinus rhythm. Normal EKG Discharge Plan Departure Patient Disposition: Admitted as Observation Clinical Impression: Acute hyperkalemia Altered mental status Qualifiers: Altered mental status type: unspecified Qualified Code(s): R41.82 - Altered mental status, unspecified Discharge Date/Time: 01/15/20 17:51 Referrals: Sandor Flores MD [Primary Care Provider] - Admit Date/Time: 01/15/20 16:30 Admit Provider: Sandor Flores
[2020-01-15 15:50] LABS: Potassium 6.1 mmol/L (3.4-5.1)
[2020-01-15] MEDS: MORPHINE 4 MG/ML INJ IV ×2 (15:51→18:07)
[2020-01-15] MEDS: ONDANSETRON 4 MG/2 ML INJ IV (15:51)
[2020-01-15 16:01] LABS: COVID19 -Nasal RAPID Negative (Negative)
[2020-01-15] MEDS: SODIUM CHLORIDE 0.9% 1,000 ML 500 ML IV (16:01)
[2020-01-15 16:04] LABS: CKMB % Relative Index 0.7 % (1.5-5.0); Creatine Kinase MB 1.02 ng/mL (<2.37)
--- NOTE | 2020-01-15 16:08 | PM.HP.1 ---
History of Present Illness History of Present Illness Date Patient Seen: 01/15/20 Time Patient Seen: 16:08 Chief complaint: MAJOR PAIN BAD RASH ON THE STOMACH Narrative: 79-year-old female battling metastatic breast cancer was admitted via emergency department with pain out of control Patient was seen in the oncology clinic earlier today and had severe pain. She had pain was seen in the ER day prior to admission. At that point she had evaluation of both her knee her pelvis and hip and no acute bony fracture was found. Also had imaging of her spine which is another location of pain and no fracture seen. Patient has widespread metastatic disease including in all of those joints and bones. Pain is unable to be managed at home and because of some alterations in mental status was transported to the ED for evaluation. There she underwent a stroke protocol evaluation. Head CT imaging of the head with CT angiography and no findings other than diffuse bony metastasis seen in the calvarium as well Consultation with tele neurologist suggested she should be admitted for complete stroke workup. However was felt to be most likely that she was experiencing mental status changes related to her pain medication and or her out of control pain Patient's breast cancer and treatment course is well documented elsewhere but basically treatment under Dr. Alvarado here in [place]. Has been responding to therapy but shown evidence of widespread metastatic disease and has received palliative radiation for same. Had been having pain but nothing to this degree until the last 24-48 hours Patient easily recognizes me when I enter the room. She is complaining only of pain in her back her hip and leg are better at the moment. She is somewhat tachypneic but does not report any respiratory distress. Patient History Medical History Arthritis (Acute) Asthma (Chronic) Celiac disease (Chronic 04/27/16) Chronic obstructive pulmonary disease (Chronic 08/26/16) Dorsalgia (Chronic) Edema (Acute) Essential hypertension (Chronic 11/23/10) Heart murmur (Acute) History of deep venous thrombosis (Chronic 11/23/10) History of malignant neoplasm of breast (Inactive 11/23/10) Hx of migraine headaches (Acute) Hyperlipidemia (Chronic 11/23/10) Morbid obesity with body mass index (BMI) of 40.0 or higher (Chronic 07/27/16) Nonrheumatic aortic valve stenosis (Chronic 04/27/16) Paresthesia and pain of both upper extremities (Chronic) Sinus drainage (Acute) Sleep apnea (Chronic) Ulcer (Acute) Surgical History History of bladder suspension procedure (Acute) History of cataract removal with insertion of prosthetic lens Hx of appendectomy (Acute) Hx of arthroscopy of knee (Acute) Hx of cholecystectomy (Acute) Hx of discectomy (Acute) Hx of hysterectomy (Acute) Hx of laminectomy (Acute) Hx of left breast biopsy (Acute 05/14/19) Hx of tonsillectomy (Acute) Status post breast lumpectomy (~2002) Family & Social History Family History Mother Hypertension Breast cancer Father Hypertension Heart disease Social History: household members spouse caregiver/support person No Safety & Behavioral: Feels Safe in Current Yes Environment Been Physically Hurt or No Threatened By a Person Tobacco & Substance use: Smoking Status Never smoker alcohol intake current alcohol intake frequency a few times a month Substance Use Type does not use Meds Home Medications and Allergies Home Medications Medication Instructions Recorded Confirmed Type loratadine [Claritin] 10 mg PO PRN #0 08/23/12 01/15/20 History cyanocobalamin (vitamin B-12) 1,000 mcg PO QDAY #90 tab 04/27/16 01/15/20 Rx Disabled Parking #1 each 08/18/18 01/15/20 Rx propylene glycol 0.6 % eye drops 1 drp EYE-BOTH PRN PRN 12/12/18 01/15/20 History epinephrine 0.3 mg/0.3 mL See Rx Instructions .ROUTE 02/26/19 01/15/20 Rx injection, auto-injector .COMPLEX #2 unspecified fluticasone propionate 50 1 spray NASAL BID #18.2 ml 02/28/19 01/15/20 Rx mcg/actuation nasal spray,suspension amlodipine 10 mg tablet See Rx Instructions .ROUTE 03/15/19 01/15/20 Rx .COMPLEX #90 tablet atorvastatin 10 mg tablet See Rx Instructions .ROUTE 03/15/19 01/15/20 Rx .COMPLEX #90 tablet lansoprazole 30 mg capsule,delayed See Rx Instructions .ROUTE 03/15/19 01/15/20 Rx release .COMPLEX #90 capsule losartan 100 mg tablet See Rx Instructions .ROUTE 03/15/19 01/15/20 Rx .COMPLEX #90 tablet potassium chloride 10 mEq See Rx Instructions .ROUTE 03/15/19 01/15/20 Rx capsule,extended release .COMPLEX #180 capsule clobetasol 0.05 % topical cream See Rx Instructions TOP BID PRN 04/05/19 01/15/20 Rx #60 gram lidocaine 5 % topical ointment 1 applic TOP BID-TID PRN #35.44 04/19/19 01/15/20 Rx gram MDD three applications albuterol sulfate [Ventolin HFA] 1 - 2 puff INH Q4HP PRN 05/31/19 01/15/20 History furosemide 20 mg PO SEEINSTR 06/04/19 01/15/20 History hyoscyamine sulfate 0.125 mg PO PRN PRN 06/04/19 01/15/20 History naratriptan [Amerge] 2.5 mg PO PRN PRN 06/04/19 01/15/20 History sucralfate 1 gram PO PRN PRN 06/04/19 01/15/20 History letrozole [Femara] 2.5 mg PO DAILY #90 tab 06/21/19 01/15/20 Rx palbociclib [Ibrance] 125 mg PO DAILY #21 cap 06/21/19 01/15/20 Rx paroxetine HCl 40 mg tablet 40 mg PO DAILY #90 tab 09/11/19 01/15/20 Rx salmeterol 50 mcg/dose blister See Rx Instructions .ROUTE 10/15/19 01/15/20 Rx powder for inhalation .COMPLEX #60 unspecified cyclobenzaprine 10 mg tablet 10 mg PO BID PRN #60 tab 12/11/19 01/15/20 Rx mometasone 200 mcg/actuation HFA 1 puff INHALATION BID #13 gram 12/27/19 01/15/20 Rx aerosol inhaler hydrocodone-acetaminophen [[place]] 1 - 2 tab PO Q4HP PRN #90 tab 01/01/20 01/15/20 Rx clotrimazole 1 applictn TOP BID 14 Days gram 01/14/20 01/15/20 Rx hydrocodone-acetaminophen [[place]] 2 tab PO Q6H PRN #14 tab 01/14/20 01/15/20 Rx Allergies Allergy/AdvReac Type Severity Reaction Status Date / Time aspirin Allergy Severe ANAPHYLACTIC Verified 01/15/20 15:19 SHOCK venom-honey bee Allergy Severe ANAPHYLACTIC Verified 01/15/20 15:19 [bee venom (honey bee)] SHOCK adhesive Allergy Intermediate RASH FROM Verified 01/15/20 15:19 TAPE cephalexin Allergy Mild DIARRHEA Verified 01/15/20 15:19 shellfish derived Allergy Mild Anaphylaxis Verified 01/15/20 15:19 tetracycline Allergy Mild ITCH Verified 01/15/20 15:19 peanut Allergy Unknown Verified 01/15/20 15:19 oxycodone AdvReac Severe HALLUCINAT Verified 01/15/20 15:19 IONS Review of Systems Review of Systems ROS: Yes All systems reviewed with the patient and are negative except as otherwise documented Exam Vital Signs (past 8 hours): - 01/15/20 14:54 01/15/20 15:00 01/15/20 15:21 Temperature 98.1 F Pulse Rate 93 H 90 Respiratory Rate 41 H 20 Blood Pressure 129/56 L Pulse Oximetry 100 99 01/15/20 15:30 01/15/20 15:31 01/15/20 15:45 Temperature Pulse Rate 93 H 91 H 88 Respiratory Rate Blood Pressure 139/67 Pulse Oximetry 98 99 99 01/15/20 15:46 Temperature Pulse Rate 89 Respiratory Rate Blood Pressure 152/60 H Pulse Oximetry 99 Oxygen Delivery Method Room Air Narrative Exam Narrative: Obese elderly female lying on her side in hospital bed. She looks to be uncomfortable despite suggesting she has not HEENT-unremarkable Lungs-good breath sounds no wheezes Heart-regular rate and rhythm grade 4-6 systolic ejection murmur heard best in they left precordium, as before Abdomen-soft nontender nondistended. Under the pannus there is a red angry rash with some open areas with purulent material. Extremities-no cyanosis or clubbing Neuro-moves all 4 extremities, alert and oriented x3, recognizes me easily Objective Labs Result Diagrams: 01/15/20 15:26 01/15/20 15:26 Labs: Laboratory Results - last 24 hr 01/15/20 01/15/20 01/15/20 15:26 15:26 15:26 WBC 4.9 RBC 3.29 L Hgb 11.5 L Hct 34.8 L MCV 106.0 H MCH 34.9 H MCHC 32.9 RDW 15.4 H Plt Count 397 Neut % (Auto) 55.0 Lymph % (Auto) 24.3 L [place] % (Auto) 17.6 H Eos % (Auto) 1.9 L Baso % (Auto) 1.2 Neut # (Auto) 2700 Lymph # (Auto) 1200 [place] # (Auto) 900 Eos # (Auto) 100 Baso # (Auto) 100 PT 12.8 H INR 1.1 APTT 33 Sodium 138 Potassium 6.1 H D Chloride 110 H Carbon Dioxide 20 L BUN 19 H Creatinine 1.19 H Estimated GFR 43.9 L BUN/Creatinine Ratio 16.0 Glucose 99 Calcium 8.5 Total Bilirubin 1.0 AST 145 H ALT 101 H Alkaline Phosphatase 231 H D Total Creatine Kinase 138 H CK-MB (CK-2) 1.02 CK-MB (CK-2) Rel Index 0.7 L Total Protein 7.6 Albumin 4.1 Globulin 3.5 Albumin/Globulin Ratio 1.2 COVID-19 PCR 01/15/20 15:26 WBC RBC Hgb Hct MCV MCH MCHC RDW Plt Count Neut % (Auto) Lymph % (Auto) [place] % (Auto) Eos % (Auto) Baso % (Auto) Neut # (Auto) Lymph # (Auto) [place] # (Auto) Eos # (Auto) Baso # (Auto) PT INR APTT Sodium Potassium Chloride Carbon Dioxide BUN Creatinine Estimated GFR BUN/Creatinine Ratio Glucose Calcium Total Bilirubin AST ALT Alkaline Phosphatase Total Creatine Kinase CK-MB (CK-2) CK-MB (CK-2) Rel Index Total Protein Albumin Globulin Albumin/Globulin Ratio COVID-19 PCR Negative Assessment & Plan Assessment & Plan narrative: 1. Bony pain at a control-will obtain advanced imaging to rule out occult fracture. She basically is going to need an MRI of the pelvis and hip. She has had advanced imaging of the lumbar spine and knee that is not show evidence of fracture. Patient has been quite sensitive to pain medication previously with evidence of altered mental status and hallucinations. I think anything maybe seeing now is related to her meds and or her pain. She was given Dilaudid yesterday and perhaps that is part of the etiology for today's presentation. Will avoid that for now. I had great success using fentanyl topically rather than intermittent dosed parental morphine or other opiates with less in the way of [employer] RECEIV[employer] side effects. Will try that cautiously as well. 2. Question CVA-patient's altered mental status seems to me almost certainly due to her narcotic medication with which she has a history of altered mental status. She also has incredible amounts of pain it would appear and that may be playing a role here as well. I am not overly concerned about possible thromboembolic vascular event. I think repeat echo given her significant murmur which does appear to be somewhat louder a more prominent than before would be important. Last echo was in 2016. Also place her on telemetry looking for cardiac dysrhythmia. Patient has allergy to aspirin will not be started on aspirin and would have low threshold for placing patient on alternative anti thrombotic therapy such as Plavix 3. Metastatic breast cancer-will continue under management with Dr. Alvarado of Oncology 4. Asthma-patient is not having any respiratory symptoms at this time. Continue patient's usual inhalers 5. Morbid obesity-patient size will certainly make it more difficult to care and managed for her in the hospital setting including movement manipulation given her severe pain and inability to self ambulate etcetera. Also probably playing a role in her overall presentation. 6. Hypertension-patient will continue on her usual antihypertensives for now. Monitor blood pressure carefully specially given what seems to be likely large doses of opiate narcotics for pain management 7. Sleep apnea-patient employ CPAP while here in the hospital 8. Chronic back pain-patent chat with multiple etiologies for back pain. Pain will be controlled for other reasons 9. VTE prophylaxis-will employ Lovenox 10. Rash-patient's rash looks fungal but she has been treated aggressively for fungal skin infection with 1st nystatin lotion and then fluconazole orally for 8 days. It has an appearance consistent with bacterial etiology as well. I some eyes that the initial fungal infection cause skin breakdown which resulted in secondary bacterial infection. I am going to place her on IV antibiotics for this as well. 11. Code status-discussed with patient briefly and more importantly I think with spouse who reports to me that both he his and all other children are in agreement that she would not want to be resuscitated the event of a sudden cardiac event such as cardiac or respiratory arrest. Therefore made her do not resuscitate for the purposes this hospitalization 12. Hyperkalemia and acute kidney injury-patient be placed on IV fluids as well as having been treated for her hyperkalemia in the ER. Plan to repeat numbers in the morning.
[2020-01-15 16:11] LABS: HEMOLYSIS 155 (0-50); Troponin I < 0.012 ng/mL (0.01-0.034)
[2020-01-15] MEDS: CALCIUM GLUCONATE 4.65 MEQ in SODIUM CHLORIDE 0.9% 50 ML 180 ML IV (17:14)
[2020-01-15 19:33] LABS: Ur Creatinine Normal (Normal); Ur Specific Gravity Normal (Normal); Urine pH Normal (Normal)
[2020-01-15 19:34] LABS: UR Morphine/Opiate cutoff 300 Positive (Negative); Urine Amphetamines Negative (Negative); Urine Barbiturates Negative (Negative); Urine Benzodiazepines Negative (Negative); Urine Cocaine Negative (Negative); Urine MDMA Negative (Negative); Urine Methadone Negative (Negative); Urine Methamphetamines Negative (Negative); Urine Oxycodone Positive (Negative); Urine Phencyclidine Negative (Negative); Urine Tetrahydrocannabinol Negative (Negative); Urine Tricyclic Antidepressant Positive (Negative)
[2020-01-15 20:02] LABS: RBC Urine None Seen (0-5/HPF)
[2020-01-15 20:03] LABS: Appearance Urine UA SL CLOUDY; Bilirubin Urine UA NEGATIVE (NEGATIVE); Color Urine UA YELLOW; Glucose Urine UA NEGATIVE (Negative); Ketones Urine UA TRACE (NEGATIVE); Leukocyte Esterase Urine UA NEGATIVE (NEGATIVE); Nitrite Urine UA NEGATIVE (Negative); Occult Blood Urine UA NEGATIVE (Negative); Protein Urine UA 1+ (Negative); Urobilinogen Urine UA 0.2 E.U./dL (0.2)
[2020-01-15] MEDS: fentaNYL 25 MCG/PATCH TOP (20:06)
[2020-01-15] MEDS: CEFTRIAXONE 1 GM/50 ML FROZ.PIGGY IV (20:06)
[2020-01-15] MEDS: INFLUENZA HD VACCINE 0.7 ML SYRINGE IM (20:07)
[2020-01-15] MEDS: MORPHINE 2 MG/ML INJ IV (20:10)
[2020-01-15] MEDS: SENNOSIDES 8.6 MG TABLET 17.2 MG PO (20:11)
[2020-01-15 20:15] LABS: pH Urine UA 5.5 (4.5-8.0)
[2020-01-15] MEDS: DEXTROSE 5%-0.45NS W/KCL 20MEQ 1,000 ML 100 MEQ IV (20:21)
[2020-01-15 20:22] LABS: Bacteria Urine Many (>30); Culture Indicated Urine Cult Not Indicated; Hyaline Casts Urine 1-5/LPF; Squamous Epithelial Cell Urine 0-1 /HPF (0-5/HPF); WBC Urine 0-1/HPF (0-5/HPF)
[2020-01-15] MEDS: DEXTROSE 5%-0.45% NS 1,000 ML 100 ML IV (21:36)
--- NOTE | 2020-01-15 23:37 | PC.NURSE ---
Report received from ED, care assumed 1740. at bedside providing history. Pt. confused but generally calm (except with spikes of pain). Experiencing extreme back/hip pain. Pain seems to be moderately responsive to IVP morphine, and patient tolerates well. Increasingly confused and agitated throughout shift. Pulling at tele, pulse ox, and removed both PIV's. Obtained order to get PICC line tonight rather than tomorrow. Placed on continuous pulse ox due to admission diagnosis of AMS and history of PANKAJ. Sats dropped to 87% on RA when sleeping; placed on 2 LNC.
[2020-01-16] VITALS (8 sets, daily range): BP systolic 128–157; BP diastolic 67–84; PULSE 80–105; RESP 16–24; TEMP 36.3–36.9; O2SAT 90–97
[2020-01-16] MEDS: MORPHINE 2 MG/ML INJ IV ×8 (00:08→23:43)
[2020-01-16] MEDS: MORPHINE 4 MG/ML INJ IV ×3 (00:41→15:40)
--- NOTE | 2020-01-16 03:26 | PC.NURSE ---
pt was confused and tried to pull out telle multiple times, pt said she can't get up and had pulled off sheets and was pulling at catheter, pt continues to pull off nasal cannula and O2 levels drop. Nurse aid is now in room with pt and pt is lying comfortably.
--- NOTE | 2020-01-16 04:05 | PC.NURSE ---
patient moved to room near nursing station due to increased confusion/agitation.
[2020-01-16 05:15] LABS: Blood Urea Nitrogen 19 mg/dL (7-17); Carbon Dioxide 24 mmol/L (22-32); Chloride 111 mmol/L (98-107); Potassium 3.9 mmol/L (3.4-5.1); Sodium 139 mmol/L (137-145)
[2020-01-16 05:16] LABS: BUN Creatinine Ratio 21.1 (6-22); Estimated Glomerular Filt Rate > 60.0 mL/min (>60); Glucose 117 mg/dL (80-110); HEMOLYSIS < 15 (0-50)
[2020-01-16] MEDS: CEFTRIAXONE 1 GM/50 ML FROZ.PIGGY IV ×2 (05:40→19:28)
[2020-01-16 06:23] LABS: Alanine Aminotransferase 79 IU/L (<35); Albumin 3.6 g/dL (3.5-5.0); Alkaline Phosphatase 203 U/L (38-126); Aspartate Aminotransferase 85 IU/L (14-36); Bilirubin Total 0.5 mg/dL (0.2-1.3); Total Protein 6.5 g/dL (6.3-8.2)
[2020-01-16 06:23] LABS: Acetaminophen < 10 ug/mL (10-30)
--- NOTE | 2020-01-16 07:02 | DI.MRI.S_ITS ---
PROCEDURE: MR PELVIS WO CON INDICATIONS: r/o occult fx TECHNIQUE: Noncontrast coronal and axial T1 spin echo and STIR through the bony pelvis. COMPARISON: [facility], CR, XR HIP W PEL IF DONE LT 2V, 01/14/2020, 15:57. FINDINGS: Image quality: Excellent. Bones: Diffuse infiltration of the normal marrow fat signal intensity in keeping with widespread osseous metastatic disease. No definite focal marrow signal change to suggest fracture identified. There is anatomic alignment. Bilateral hip joint degeneration Small bilateral hip joint effusions. The origin of the hamstring tendon is intact at the ischial tuberosity, as well as the associated sacrotuberous ligament. The straight and reflected heads of the rectus femoris muscle origin appear intact, as well as the conjoint tendon. Soft tissues: There is increased T2 hyperintensity/edema involving the left hip abductor muscle compartment in keeping with acute strain. There is also fluid layering along the superficial aspect of the gluteus medius muscle on the left in keeping with strain/partial tear. Right hip abductor insertional tendinopathy is age indeterminate. IMPRESSION: Acute strain of the left hip adductor muscles, and probably the left gluteus medius Diffuse marrow signal changes in keeping with widespread osseous metastatic disease. No definite occult fracture identified Age-indeterminate right hip abductor insertional tendinopathy Small bilateral hip joint effusions Dictated by: Jason Rascon M.D. on 01/16/2020 at 11:27 Approved by: Jason Rascon M.D. on 01/16/2020 at 11:34
--- NOTE | 2020-01-16 08:00 | ST.IPSCREEN ---
Patient seen this AM for swallow screen. No signs of dysphagia observed. Continue current diet, take meds as tolerated. Patient's ongoing altered mental status may be due to pain medications, per MD report. Will return in PM to evaluate cognition and language.
[2020-01-16] MEDS: ATORVASTATIN 20 MG TABLET 10 MG PO (08:04)
[2020-01-16] MEDS: AMLODIPINE 5 MG TABLET 10 MG PO (08:04)
[2020-01-16] MEDS: ENOXAPARIN 40 MG/0.4 ML SYRINGE SUBCUT (08:05)
--- NOTE | 2020-01-16 08:21 | P.PN_ITS ---
Subjective Subjective Date Patient Seen: 01/16/20 Time Patient Seen: 08:21 Interval history: Patient is not complaining of pain except for her low back which is old in longstanding. Was confused overnight. Pulled out her IV. Was moved to a room closer to the nurse's station. Also she was pulling off her oxygen and was modestly hypoxic overnight. This morning is bright awake and alert but unaware of place or time. Does recognize me as I enter the room. Does not really have any insight into the fact that she is confused disoriented Exam Vital Signs (past 8 hours): Oxygen Delivery Method Room Air Oxygen Flow Rate 2 Narrative Exam Narrative: Elderly female lying in hospital bed, assisting nurses to reposition her and doing it mostly on her own HEENT unremarkable Lungs-somewhat diminished breath sounds no wheezes or crackles, difficulty to hear because of patient's size Heart-regular rate and rhythm, murmur unchanged Abdomen-rash in pannus perhaps slightly less erythematous and less drainage Objective Labs Result Diagrams: 01/15/20 15:26 01/16/20 04:31 Labs: Laboratory Results - last 24 hr 01/15/20 01/15/20 01/15/20 15:26 15:26 15:26 WBC 4.9 RBC 3.29 L Hgb 11.5 L Hct 34.8 L MCV 106.0 H MCH 34.9 H MCHC 32.9 RDW 15.4 H Plt Count 397 Neut % (Auto) 55.0 Lymph % (Auto) 24.3 L [place] % (Auto) 17.6 H Eos % (Auto) 1.9 L Baso % (Auto) 1.2 Neut # (Auto) 2700 Lymph # (Auto) 1200 [place] # (Auto) 900 Eos # (Auto) 100 Baso # (Auto) 100 PT 12.8 H INR 1.1 APTT 33 Sodium 138 Potassium 6.1 H D Chloride 110 H Carbon Dioxide 20 L BUN 19 H Creatinine 1.19 H Estimated GFR 43.9 L BUN/Creatinine Ratio 16.0 Glucose 99 Calcium 8.5 Total Bilirubin 1.0 AST 145 H ALT 101 H Alkaline Phosphatase 231 H D Total Creatine Kinase 138 H CK-MB (CK-2) 1.02 CK-MB (CK-2) Rel Index 0.7 L Troponin I < 0.012 Total Protein 7.6 Albumin 4.1 Globulin 3.5 Albumin/Globulin Ratio 1.2 Urine Color Urine Appearance Urine pH Ur Specific [place] Urine Protein Urine Glucose (UA) Urine Ketones Urine Occult Blood Urine Nitrate Urine Bilirubin Urine Urobilinogen Ur Leukocyte Esterase Urine RBC Urine WBC Ur Squamous Epith Cells Urine Bacteria Hyaline Casts Ur Culture Indicated? U Opiates 300ng/mL cut Ur Oxycodone Screen Urine Methadone Screen Acetaminophen < 10 L Ur Barbiturates Screen U Tricyclic Antidepress Ur Phencyclidine Scrn Ur Amphetamines Screen U Methamphetamines Scrn Ur MDMA Scrn (Ecstasy) U Benzodiazepines Scrn Urine Cocaine Screen U Marijuana (THC) Screen COVID-19 PCR 01/15/20 01/15/20 01/15/20 15:26 19:15 19:15 WBC RBC Hgb Hct MCV MCH MCHC RDW Plt Count Neut % (Auto) Lymph % (Auto) [place] % (Auto) Eos % (Auto) Baso % (Auto) Neut # (Auto) Lymph # (Auto) [place] # (Auto) Eos # (Auto) Baso # (Auto) PT INR APTT Sodium Potassium Chloride Carbon Dioxide BUN Creatinine Estimated GFR BUN/Creatinine Ratio Glucose Calcium Total Bilirubin AST ALT Alkaline Phosphatase Total Creatine Kinase CK-MB (CK-2) CK-MB (CK-2) Rel Index Troponin I Total Protein Albumin Globulin Albumin/Globulin Ratio Urine Color Yellow Urine Appearance Sl cloudy Urine pH 5.5 Ur Specific [place] 1.010 Urine Protein 1+ H Urine Glucose (UA) Negative Urine Ketones Trace H Urine Occult Blood Negative Urine Nitrate Negative Urine Bilirubin Negative Urine Urobilinogen 0.2 Ur Leukocyte Esterase Negative Urine RBC None seen Urine WBC 0-1/hpf Ur Squamous Epith Cells 0-1 /hpf Urine Bacteria Many (>30) H Hyaline Casts 1-5/lpf Ur Culture Indicated? Cult not indicated U Opiates 300ng/mL cut Positive H Ur Oxycodone Screen Positive H Urine Methadone Screen Negative Acetaminophen Ur Barbiturates Screen Negative U Tricyclic Antidepress Positive H Ur Phencyclidine Scrn Negative Ur Amphetamines Screen Negative U Methamphetamines Scrn Negative Ur MDMA Scrn (Ecstasy) Negative U Benzodiazepines Scrn Negative Urine Cocaine Screen Negative U Marijuana (THC) Screen Negative COVID-19 PCR Negative 01/16/20 04:31 WBC RBC Hgb Hct MCV MCH MCHC RDW Plt Count Neut % (Auto) Lymph % (Auto) [place] % (Auto) Eos % (Auto) Baso % (Auto) Neut # (Auto) Lymph # (Auto) [place] # (Auto) Eos # (Auto) Baso # (Auto) PT INR APTT Sodium 139 Potassium 3.9 D Chloride 111 H Carbon Dioxide 24 BUN 19 H Creatinine 0.9 Estimated GFR > 60.0 BUN/Creatinine Ratio 21.1 Glucose 117 H Calcium 8.0 L Total Bilirubin 0.5 AST 85 H ALT 79 H Alkaline Phosphatase 203 H Total Creatine Kinase CK-MB (CK-2) CK-MB (CK-2) Rel Index Troponin I Total Protein 6.5 Albumin 3.6 Globulin Albumin/Globulin Ratio Urine Color Urine Appearance Urine pH Ur Specific [place] Urine Protein Urine Glucose (UA) Urine Ketones Urine Occult Blood Urine Nitrate Urine Bilirubin Urine Urobilinogen Ur Leukocyte Esterase Urine RBC Urine WBC Ur Squamous Epith Cells Urine Bacteria Hyaline Casts Ur Culture Indicated? U Opiates 300ng/mL cut Ur Oxycodone Screen Urine Methadone Screen Acetaminophen Ur Barbiturates Screen U Tricyclic Antidepress Ur Phencyclidine Scrn Ur Amphetamines Screen U Methamphetamines Scrn Ur MDMA Scrn (Ecstasy) U Benzodiazepines Scrn Urine Cocaine Screen U Marijuana (THC) Screen COVID-19 PCR Assessment & Plan Assessment & Plan narrative: 1. Pain-pain seems much better control but she has become much more disoriented. Again this is been her pattern with use of opiate narcotics in the past. I am going to do therefore discontinue the fentanyl. I am going to reorder some oral hydrocodone and see if we can control symptoms that way. If need be will use IV morphine boluses on a as needed basis as a backup. Hopefully her mental status will improve. Also plan for imaging of her pelvis today to see if there is any fracture although seems less likely, frankly watching her reposition herself in bed primarily on her left hip she is not having any pain or discomfort and I would be quite surprised if there is any true bony injury in addition to the metastatic disease which is clearly present 2. Altered mental status-this I think is mostly a metabolic encephalopathy due to multiple things but most likely the narcotics being use for pain management. This has been an issue with patient when she has had surgeries including back surgeries etcetera. Will try and minimize use of any narcotic pain medicine. May try using Toradol in low doses as well instead. (now that her renal f unction has improved) 3. Acute kidney injury-patient's labs this morning show resolution of her robert vated creatinine and acute kidney injury. Her electrolytes are also normal. I am going to DC IV fluids for now and watch her oral intake. 4. Skin infection-continue with IV antibiotics. Continue try and manage the area under her abdominal pannus and keep it as dry as possible. She has been adequately treated for yeast but may need additional code treatment with IV antibiotics and an antifungal. I am going to initiate oral fluconazole therapy therefore. 5. Hypertension-patient's modestly hypotensive anything. I have held at least 1 of her antihypertensives a but continue with the others for now and continue to monitor 6. Breast cancer-I am holding any therapies for breast cancer at this time. Will need to consult with Oncology regarding this when available. 7. Disposition-patient and most importantly patient's spouse will likely require additional assistance for patient to be able to return home safely. She will be seen by Physical therapy here but will need probably home health services at a minimum. Discharge planning has been/will be involved. Quality VTE Deep Vein Thrombosis/Pulmonary Embolism Present on Admission: No
[2020-01-16] MEDS: PANTOPRAZOLE 40 MG TABLET PO (09:22)
[2020-01-16] MEDS: FLUCONAZOLE 100 MG TABLET 200 MG PO (09:22)
[2020-01-16] MEDS: PARoxetine 20 MG TABLET 40 MG PO (09:22)
[2020-01-16] MEDS: SALMETEROL 50 MCG DISKUS 1 PUFF INH (10:07)
--- NOTE | 2020-01-16 12:06 | CM.DANOTE ---
DCP: Case received, EMR reviewed and met with patient. , Deshawn, was also at bedside. Introduced self and role. Was able to obtain information regarding patient's baseline activity level prior to hospitalization. DCP assessment completed with information currently available. Patient is a 79 year old female who admitted yesterday afternoon to the care of the hospitalist team. PCP: Dr. Flores. Payer: confirmed: [employer] Medicare. Patient came to the hospital via private vehicle secondary to weakness, confusion, as well as a rash to her abdominal folds. Patient had been hallucinating last pm, took out her IV and oxygen. Patient is sensitive to narcotics. Patient was admitted for metabolic encephalopathy. Dr. Flores mentioned that she is more alert today. She is on IV antibiotics for abdominal pannus, and they are attempting different narcotic. He mentioned that she may either need home health, or may need skilled. Spoke to patient earlier this morning. , Deshawn, was at bedside. Patient indicated that she uses a walker at home at baseline. does the meals, shopping. Initially mentioned home health as a possibility. She has not yet worked with P.T. P: ALEJANDRA to continue to follow. Called Lara at [facility] and asked her to review patient. She is [employer] Medicare, she will need to obtain an authorization. Will discuss with family. Other option is home health, and will discuss as well. Will also collaborate with P.T. Annalise Mendes RN/Childbirth Educator
--- NOTE | 2020-01-16 12:37 | PT-IP ANOTE ---
Checked with nurse and pt continues to be on bed rest. stated that pt continues to have uncontrolled pain and is not appropriate for PT at this time. will f/u.
[2020-01-16] MEDS: HYDROCODONE/ACET 10/325 TABLET 1 TAB PO (13:09)
[2020-01-16] MEDS: LIDOCAINE PATCH 1 EACH ADH..PATCH TOP (13:10)
[2020-01-16] MEDS: DEXAMETHASONE 4 MG/ML VIAL IV ×3 (13:10→23:43)
--- NOTE | 2020-01-16 13:14 | CM.DPC ---
DCP Cont: It is noted, after speaking to nursing, that patient is cognitively impaired. When this pillowcase turner went back to speak to patient regarding correction, patient stated, no, I think I can go back home. Nurse, Rose and Brenda were present in the room. Indicated is not sleeping at night, since he is having to care for his rn transplant. Brenda mentioned intervened and encouraged patient to go to skilled rehab before going back home, and patient agreed. Attempted to call , Deshawn. His cell phone number is: [phone]. Left him a message regarding plan of correction rehab. Patient was not able to work with P.T. due to pain issues. P: DCP to continue to follow. Referral has been sent to [facility]. Since patient has [employer] Medicare, Lara would need to obtain authorization. Will discuss another option of facilities with as well. Annalise Mendes RN/Expert Witness
--- NOTE | 2020-01-16 14:22 | CM.DPC ---
Addendum entered by Annalise Mendes R.N. 01/16/20 14:46: Anila from [facility] called and stated that they can't accept admissions for approximately 2 weeks, secondary to a positive case of COVID with a caregiver. Spoke to , Deshawn. He mentioned Dr. Flores discussing patient going home on hospice. Discussed some short term rehab prior to her going home, for does not have caregiver support in the home. Gave him [employer] book with caregiving agencies on them to contact. Stated funds are limited, but can look into it. Let him know that hospice does not cover caregivers in the home, would be private pay. He is hoping patient to go over to [facility] if possible. Let him know that referral was sent, but back up was sent to [facility]. Just found [facility] can't take, due to pain issues. Called [facility], they have openings, faxed to them. Faxed to [facility], spoke to Korina, faxed referral. [facility] , they will review. Original Note: DCP Cont: [facility] to [facility], [facility] , as well as [facility]. Lara at [facility] is also reviewing. Have not yet heard back from patient's , Deshawn. P: DCP to continue to follow. Lara is reviewing, may be working on insurance authorization. Will continue to reach out to , and will try and contact him again today. Annalise Mendes RN/Bench Worker Apprentice
--- NOTE | 2020-01-16 14:23 | SLP.IPNOTE ---
Attempted to see patient for cognitive linguistic evaluation. Patient continues to have altered mental status due to pain medication. She is alert and speech is clear; however, language is empty and unclear in meaning. Her was present in the room and agreed that cognitive evaluation is not appropriate at this time. Nursing made aware and in agreement. F/u tomorrow.
--- NOTE | 2020-01-16 15:30 | CM.DPC ---
Addendum entered by Annalise Mendes R.N. 01/16/20 15:39: Refaxed [facility], did not receive fax. is hoping for [facility]. [facility] has no availability until Tuesday, but will hold on to referral in case they get a discharge. Original Note: DCP Cont: Spoke to Berenice at [facility] . They can review and set up info visit. Spoke to , who stated was interested. Called over to A, Dr. Flores not in, but spoke to nurse Deyanira. Let her know that care management has been attempting fdc. [facility] not accepting due to pain issues. [facility] is not accepting admissions at this time. Have a call out to [facility]. Spoke to [facility], they do accept her insurance, and will review. Faxed over referral. Updated patient's , Deshawn, on facilities that have been faxed. P: DCP to continue to follow and will attempt placement. [facility] may be contacting patient's for informational visit. Annalise Mendes
--- NOTE | 2020-01-16 16:14 | PC.NURSE ---
Addendum entered by Alix Dougherty R.N. 01/16/20 22:44: Pt 02 sats per continuous monitor 93% with even and unlabored respirations. Does not rouse to movement in room. Allowed to sleep uninterrupted as pt has been restless and uncomfortable much of day today. Addendum entered by Alix Dougherty R.N. 01/16/20 21:20: Continues to rest quietly in bed with eyes closed without signs of distress or discomfort. 02 3L nc oxygen saturation level per continuous monitor 93%. No crying out, restless behavior or facial grimace. FLACC = 0. Addendum entered by Alix Dougherty R.N. 01/16/20 19:46: Due to pt's restlessness, attempting out of bed, confusion and disorientation a patient shoelace tipping machine operator was called in to sit with pt following 1:1 dayshift FITNESS CLUB MANAGER shift coming to a close. Pt's spouse has left for the evening. Pt currently lying flat in bed on back. Rouses easily to voice and remains calm and quiet. 02 3L per nc oxygen saturation level 91-93%. Careful monitoring by staff. IV antibiotic infusing as ordered to RUE PICC line without difficulty. Addendum entered by Alix Dougherty R.N. 01/16/20 18:25: Lidocaine patch came off with pt's restlessness in bed. FITNESS CLUB MANAGER assists pt to dangle per pt request. Pt is confused as to place. Argues with spouse in room to point of shouting periodically. Easily consoled and distracted. Addendum entered by Alix Dougherty R.N. 01/16/20 16:19: Pt sits up independently in bed. FITNESS CLUB MANAGER places bed in sitting position and pt now smiling and calm. Offered sips water and pt accepts. Demonstrates some confusion stating need to get up to bathroom and inquiring of staff what pt should be doing. Reassured and reoriented by staff and by pt's . Original Note: Pt calls out loudly. Staff attend to patient quickly. Pt reaches for staff hands and calms quickly when reassured and encouraged in slow deep breaths in through nose and out through mouth. Inquired of pt if experiencing fear and pt denies. Is able to position self in bed and states prefers to do this turning without staff assistance. 02 increased to 3L nc after administering 4 mg iv morphine to manage pain. Pt does c/o lower back pain 7-11/11. Spouse is present, but not currently involved in pt's care. Remains in chair across the room from patient. Tele in place. Erythema noted under abdominal pannus. Per report, pt has not tolerated scd's. Scattered areas of bruising to extremities. Diaphoretic and cool washcloth to forehead with fan to keep pt cool and circulate air in room.
[2020-01-16] MEDS: SODIUM CHLORIDE 0.9% FLUSH 10 ML IV ×2 (19:29→23:43)
[2020-01-17] VITALS (10 sets, daily range): BP systolic 116–134; BP diastolic 40–73; PULSE 81–88; RESP 14–20; TEMP 36.5–36.8; O2SAT 89–96
--- NOTE | 2020-01-17 00:12 | PC.NURSE ---
Addendum entered by Karen Madison R.N. 01/17/20 07:00: 0700 Dr. Flores stopped by to visit the patient. Assessed the rash on pannis. Nystatin has been ordered. Addendum entered by Karen Madison R.N. 01/17/20 06:11: 0600 The patient is alert and oriented to self. She is calm, cooperative and happy. When asked how her pain is, she responds with, Much better. She then says, Good morning, ladies. What kind of day do I have today? The patient appears more alert and talkative this morning. Original Note: 2300 Received safe hand-off report. The patient is in lying in bed, restless. She is able to answer yes/no questions (eg., Are you in pain? Shakes her head yes); she is alert and only oriented to self. When asked when her birthday is, she gives a statement unrelated to the question. The patient has an indwelling catheter in place. The patient has a rash on her lower abdomen/pannis. I will pass on to the day shift to request an order for a Nystatin powder.
[2020-01-17] MEDS: SODIUM CHLORIDE 0.9% FLUSH 10 ML IV ×3 (05:46→18:09)
[2020-01-17] MEDS: MORPHINE 2 MG/ML INJ IV ×4 (05:46→15:29)
[2020-01-17] MEDS: DEXAMETHASONE 4 MG/ML VIAL IV ×4 (05:49→23:34)
[2020-01-17] MEDS: CEFTRIAXONE 1 GM/50 ML FROZ.PIGGY IV ×2 (05:57→18:08)
[2020-01-17] MEDS: SODIUM CHLORIDE 0.9% 250 ML 21 ML IV (06:25)
--- NOTE | 2020-01-17 07:02 | PM.PN.1 ---
Subjective Subjective Date Patient Seen: 01/17/20 Time Patient Seen: 07:02 Interval history: Patient appears to be more normal. Still think she has been of altered mental status but she easily awakens recognizes me ask the usual appropriate questions about my family etcetera. Denies any real pain although his telling nurses she might have 4/10 degree of pain in her back. Has not been up out of bed Had on remarkable night. Confusion certainly was much improved, per nursing staff, compared to previous evening/night Exam Vital Signs (past 8 hours): - 01/16/20 23:30 01/17/20 00:03 Temperature 97.5 F L Pulse Rate 105 H Respiratory Rate 18 Blood Pressure 131/76 Pulse Oximetry 94 92 Oxygen Delivery Method Nasal Cannula Oxygen Flow Rate 3 Narrative Exam Narrative: Rash under abdominal pannus much less erythematous still open and oozing but improved Objective Labs Result Diagrams: 01/15/20 15:26 01/16/20 04:31 Assessment & Plan Assessment & Plan narrative: 1. Pain-patient's pain seems improved. Perhaps due to the dexamethasone. Did not really make any whole sole changes in her pain medication otherwise. Still has the fentanyl patch in place and last dose of IV morphine was yesterday afternoon. Last oral hydrocodone was yesterday afternoon as well. Also has lidocaine patch in place. Overall does seem improved. I think we do need to try and move her a bit unfortunately and see if that stirs up pain again. She was been pretty good shape yesterday until she was moved around for her MRI. 2. -patient is much more appropriate today. I still think she somewhat altered but much improved. Will inquire of her spouse when he arrives when he thinks about her overall mental status 3. Skin infection-continue with IV antibiotics. I am going to add topical nystatin to the oral fluconazole as started yesterday definitely improving 4. Hypertension-patient has been adequately controlled with her blood pressure. No change in medications. 5. Breast cancer-as per discussion with Dr. Alvarado yesterday it seems that she probably had progression of her breast cancer in her bones anyway, despite the fact that other areas seem to show improvement. The bony Mets seem to be causing majority of her bony pain in the face of no other diagnosis. Hospice referral has been made and will see what sort of information and what her clinical status is. It appears now best option would be transferred to [facility] facility for end of life/hospice care. Patient is going to be very difficult to manage at home but of course why think we do need to get her up and moving a bit here to determine what physical ability she does still have left etcetera. That would help determine what kind of care she will need over the coming days and weeks. Quality VTE Deep Vein Thrombosis/Pulmonary Embolism Present on Admission: No
[2020-01-17] MEDS: AMLODIPINE 5 MG TABLET 10 MG PO (07:57)
[2020-01-17] MEDS: HYDROCODONE/ACET 10/325 TABLET 1 TAB PO ×2 (07:57→13:32)
[2020-01-17] MEDS: PANTOPRAZOLE 40 MG TABLET PO (07:57)
[2020-01-17] MEDS: ENOXAPARIN 40 MG/0.4 ML SYRINGE SUBCUT ×2 (07:57→21:46)
[2020-01-17] MEDS: LIDOCAINE PATCH 1 EACH ADH..PATCH TOP (08:02)
[2020-01-17] MEDS: ATORVASTATIN 20 MG TABLET 10 MG PO (08:02)
[2020-01-17] MEDS: FLUCONAZOLE 100 MG TABLET 200 MG PO (08:03)
[2020-01-17] MEDS: PARoxetine 20 MG TABLET 40 MG PO (08:06)
[2020-01-17] MEDS: MOMETASONE 1 EACH INH ×2 (09:00→19:21)
[2020-01-17] MEDS: SALMETEROL 50 MCG DISKUS 1 PUFF INH ×2 (09:02→19:21)
[2020-01-17] MEDS: NYSTATIN POWDER 15GM 1 APPLIC TOP ×3 (09:04→21:48)
--- NOTE | 2020-01-17 10:13 | PC.NURSE ---
Patient is currently sleeping
--- NOTE | 2020-01-17 11:05 | ST.IPSLE ---
Speech-Language Pathology Speech/Language Eval CERTIFIED MEDICAL DOSIMETRIST Adult Cognitive Linguistic Eval Start: 01/17/20 10:51 Freq: Status: Active Protocol: Document 01/17/20 10:52 TLC (Rec: 01/17/20 11:05 TLC [id number]) Adult Cognitive Linguistic Evaluation Session Time Visit Start Time 10:20 Visit Stop Time 10:35 Total Visit Minutes [address] Flores Reason for Referral Altered mental status Setting Assessment Location Acute Care Visit Type Note Type Initial evaluation Next Note Type Next Note Type Treatment Note Patient Information Identification Type Name Medical History Patient was admitted for pain related to bone mets and altered mental status, likely related to narcotics for pain management. Occupation Status Retired, worked formerly for [employer] Hearing Level Impaired Vision Vision Status Not Impaired Previous Therapy Previous Speech-Language Therapy No Assessment Oral Motor Examination Completed No Informal Assessment Receptive Language Normal No: required repetitions Receptive Language Impairment(s) Comprehension of complex yes/ no questions,Comprehension of conversation Expressive Language Normal No Expressive Language Impairment(s) Expression of complex thoughts /ideas Pragmatic Language Normal Yes Speech Normal Yes Cognition Normal No Cognitive Impairment(s) Orientation,Short-term memory, Thought organization Formal Assessment Standardized Test/Screener Type [facility] Mental Status ([facility]) Administration Complete Results indicating moderate neurocognitive disorder. Patient was not oriented to day of the week. She had difficulty with auditory math, divergent naming, short term recall of objects, drawing a clock /marking time correctly, and answering questions about a short story read aloud. Findings/Results Language Function Mild-moderately impaired Cognitive Function Moderately impaired Cognitive Communication Deficits Self-awareness of Cognitive- Limited awareness (minimal Communication Deficits appreciation without specificity) Concomitant Factors Concomitant Factors Hearing loss Impact on Functioning Activity Limits/Particip.Rest. Mod: Interpersonal Interactions Sev: General Tasks and Demands Household Tasks Safety Risks Sev: Being Left Alone at Home Reacting to Emergency Managing Medication Traveling Alone in Community Prognosis Prognosis Poor Based on Comorbidities,Other (comment) Comment ongoing need for narcotics to manage pain related to bony mets Plan of Care Speech-Language Treatment No Patient/Caregiver Education Described results of evaluation,Patient expressed understanding of evaluation
[2020-01-17] MEDS: MORPHINE 10 MG/0.5 ML ORAL SYRINGE PO ×4 (12:23→23:34)
--- NOTE | 2020-01-17 12:57 | CM.DPC ---
Addendum entered by Annalise Mendes R.N. 01/17/20 13:26: Received update from patient's primary nurse, Monet. She is unable to participate in any type of physical therapy due to pain, and is having pain upon movement in bed as well. She is continuing to get morphine for pain. Called , Deshawn, and let him know that her insurance will not cover her for [facility] since she can't participate in any type of rehab. Mentioned private pay, but stated, he can't afford for her to stay at [facility] and pay that much money. He will contact his son, who is POA, and daughter in law. Stated that he will let them know that they should come up within the next couple of days, for he wants to take her home on hospice. Left [facility] a message on plan, for plan is home with hospice. Berenice at [facility] had originally mentioned possibility of equipment being delivered by Tuesday, with open on Tuesday for nursing. Left a message to confirm this. Original Note: DCP Cont: Dr. Flores had been in early seeing patient. Continuing to work on pain control. She has not yet been up secondary to pain. Spoke to Lizzie at [facility]. She mentioned that was already called on informational visit, but consents would need to be signed. Received them via fax, and had , Deshawn, sign them. Followed up with Lara at [facility]. They indicated that they can't accept patient while she is on IV Morphine, and would need to be on oral pain management for 24 hours, and working with P.T. [facility]. Stated that they can accept her as long as she is not on IV Morphine, and can work with P.T. She is willing to start the [place] Medicare auth regardless. Korina at [facility] also stated that they can accept if she goes on oral pain medications and works with therapy. Left another message with Demetrice at [facility], and has not returned call. Hospice indicated that they may be able to deliver equipment by Tuesday, and possible admission on Tuesday, if patient goes home. Discussed this with , Deshawn. Stated, it may be possible for her to go home if I have all the equipment, and my family can come up. He is hoping to try for rehab first, if possible. Patient was also involved in conversation. She was awake and alert, and engaged in planning and choices. Patient stated, I would rather go home, if I have to go to skilled, then I have to. Explained to patient and , that the challenges of her going to skilled under rehab is pain management, and being able to participate in P.T, for insurance would not authorize if not. P: DEP to follow closely. Liban is going to initiate [facility] Medicare authorization, but patient will need to be on oral pain management. She will also need to be up and work with P.T. Other option is home with hospice, forms have been signed, and equipment can be delivered on Tuesday. Will go ahead and complete PASSR as well. Annalise Mendes RN/Project Engineer
--- NOTE | 2020-01-17 14:11 | PT-IP ANOTE ---
Pt continues to have a bed rest order. Talked to pt and spouse regarding PT and spouse refused PT stated that if PT can just do things in bed and he will be ok with it. informed spouse regarding PT goals, risks and benefits and spouse stated that pt has bone mets on her hip and does not want to risk pt falling. pt stated to hold on to PT eval for 5 days and informed pt that PT cannot hold off an eval for that long. informed pt and spouse that PT will just d/c the order and if they agreed to do it eventually, the doctor can put in another PT order. Pt and spouse agreed. informed nurse Shu regarding pt and spouse's refusal to do PT at this time.
--- NOTE | 2020-01-17 15:45 | CM.DPC ---
DCP Cont: Spoke to [facility]ice at [facility] . Stated that they can deliver equipment to patient's home tomorrow. This will include a hospital bed, table, oxygen. Plan is for hospice nurse to open Tuesday, either morning or afternoon. P: DCP to continue to follow. Plan is for home with hospice, she will need BLS transport, when stable, other option is [facility], which unlikely will authorize since patient has not been participating with therapy. Annalise Mendes RN/Texturing Machine Fixer
--- NOTE | 2020-01-17 17:22 | DIET.PN ---
Dietary Progress Note Assessment: 79y F c metastatic breast cancer to bones and joints admitted for uncontrolled pain and referred to nutrition for met ca. Today pts pain is controlled to the point she is able to laugh and joke c RDs and her . Pt excited to eat dinner of beef tips and ice cream. Pt is gluten-free and allergic to iodine and peanuts. Kitchen is aware of allergies. Discussed pts nutrition needs prior to d/c, encouraged hydration and provided pt's spouse c handout for foolproof smoothie to encourage hydration and nutrition even when low energy or while in pain. Pt excited about smoothies and requests one with breakfast tomorrow: strawberry, raspberry, banana, yogurt. Pt will d/c tomorrow on hospice at home. HT: 160cm WT: 116kg BMI: 45.4 Labs: on admit: K+ 6.1 H, BUN 19 H, Cr 1.19 H, eGFR 43.9 L then improved next day to K+ 3.9, BUN 19 H, Cr 0.9, eGFR >60 MNA: mod decrease PO, 5# wt loss in 3mo Hermann: 19 Nutrition Diagnosis: decreased oral intake r/t uncontrolled pain secondary to met br cancer aeb pt admitted c uncontrolled pain, pt reports unintentional 5# weight loss in 3mo, pt reports reduced appetite, pt admitted dehydrated. Interventions: 1. Provided pt and her spouse c smoothie recipe handout c flexible ingredients. Encouraged intake of smoothies to help c nutrition and hydration. 2. Reiterated penelope awareness of pts food allergies: peanuts, gluten, shellfish to increase pts confidence and comfort eating in the hospital setting. Diet Order: gluten free
[2020-01-17] MEDS: SENNOSIDES 8.6 MG TABLET 17.2 MG PO (21:46)
[2020-01-18] VITALS (8 sets, daily range): BP systolic 114–128; BP diastolic 58–75; PULSE 90–96; RESP 16–24; TEMP 36.2–36.9; O2SAT 90–96
[2020-01-18] MEDS: MORPHINE 10 MG/0.5 ML ORAL SYRINGE PO ×6 (01:45→23:39)
[2020-01-18] MEDS: CALCIUM CARBONATE 500 MG TAB 1000 MG PO ×2 (01:45→21:14)
--- NOTE | 2020-01-18 02:13 | PC.NURSE ---
0145 While repositioning patient, a Fentanyl patch was found on the patient's left hip, dated 01/14. This patch has been removed. No history of administration for this patch was found in the MAR, nor the task to remove patch.
[2020-01-18] MEDS: DEXAMETHASONE 4 MG/ML VIAL IV ×4 (05:32→23:39)
[2020-01-18] MEDS: SODIUM CHLORIDE 0.9% FLUSH 10 ML IV ×4 (05:33→23:42)
[2020-01-18] MEDS: CEFTRIAXONE 1 GM/50 ML FROZ.PIGGY IV (05:44)
--- NOTE | 2020-01-18 07:20 | P.PN_ITS ---
Subjective Subjective Date Patient Seen: 01/18/20 Time Patient Seen: 07:20 Interval history: Patient had a better night per nursing staff than the night before. Less pain. Did have some of her indigestion and Tums seem to help overnight She continues to express a desire to go home. I discussed with her that we believe it is her breast cancer in the bones caus ing all of her pain. Also informed her that while her breast cancer has gotten better elsewhere it is not better in her bones based on the pain. I discussed with Dr. Alvarado and I reviewed our discussion with patient. Basically telling her that it appears her cancer is advancing despite her treatment and at this point focusing on treating her pain and symptoms with pain medicine is about all we have since she has failed treatment for the cancer itself radiation treatment for the bone cancer etcetera. We discussed hospice and she seem to understand that. Is difficult to know how much she is fully comprehending. Her baseline attitude is certainly very positive and sort of a ?laughing things off? and that is how she is responding now but I do not believe she is fully grasping her current status. Exam Vital Signs (past 8 hours): - 01/17/20 23:46 Temperature 98.3 F Pulse Rate 87 Respiratory Rate 16 Blood Pressure 116/40 L Pulse Oximetry 95 Oxygen Delivery Method Nasal Cannula Oxygen Flow Rate 2 Objective Labs Result Diagrams: 01/15/20 15:26 01/16/20 04:31 Assessment & Plan Assessment & Plan narrative: At this point plan is for her to go home with hospice. She has not had any parental narcotics and has been managed with oral morphine as well as a fentanyl patch which will need to be replaced today. I would continue with the oral morphine solution and the fentanyl for now. She has rather miserable pain when moved and will need to minimize that period to that and she should have her Person catheter remain in place. I am going to leave her IV access in place for now and I am uncertain as to whether not it makes sense to send her home with that, probably not but kind of depends on her symptom management and control over the next 24-48 hours. Anticipate she might be ready for discharge home with hospice management as early as the which is Tuesday She also need to continue on oral antibiotics for her abdominal wound, and I am switching her over to that today as well. Note: Greater than 45 minutes was spent evaluating the patient on the floor, including examining the patient, discussing clinical course with clinical and nursing staff, reviewing clinical course in the computer, preparing documentation and writing orders for continued management of care, discussing status with family as appropriate, reviewing plans for the next 24 hours with both patient/family and nursing staff as appropriate. I visited the patient more than once during the course of the this 24 hour. For discussions with patient's spouse as well as patient and nursing staff Quality VTE Deep Vein Thrombosis/Pulmonary Embolism Present on Admission: No
[2020-01-18] MEDS: ENOXAPARIN 40 MG/0.4 ML SYRINGE SUBCUT ×2 (07:29→21:14)
[2020-01-18] MEDS: PANTOPRAZOLE 40 MG TABLET PO (07:30)
[2020-01-18] MEDS: ATORVASTATIN 20 MG TABLET 10 MG PO (07:32)
[2020-01-18] MEDS: fentaNYL 25 MCG/PATCH TOP (07:34)
[2020-01-18] MEDS: AMLODIPINE 5 MG TABLET 10 MG PO (07:34)
[2020-01-18] MEDS: PARoxetine 20 MG TABLET 40 MG PO (07:35)
[2020-01-18] MEDS: LIDOCAINE PATCH 1 EACH ADH..PATCH TOP (07:35)
[2020-01-18] MEDS: FLUCONAZOLE 100 MG TABLET 200 MG PO (07:36)
[2020-01-18] MEDS: NYSTATIN POWDER 15GM 1 APPLIC TOP ×2 (07:47→21:20)
[2020-01-18] MEDS: TRIMETH/SULFA 160/800 (DS) TABLET 1 TAB PO ×2 (08:01→21:14)
[2020-01-18] MEDS: MOMETASONE 1 EACH INH ×2 (10:04→20:26)
[2020-01-18] MEDS: SALMETEROL 50 MCG DISKUS 1 PUFF INH ×2 (10:06→20:26)
--- NOTE | 2020-01-18 13:12 | CM.DPC ---
DCP continued: EMR Reviewed: CM/RN spoke with patients Deshawn who stated that hospice is planning on dropping off the medical equipment from hospice today at 1300. patients son and [id number] are planning on being here to assist with patients care on Tuesday. RODNEY spoke with patients nurse Shu and she states patient has a PICC line and MD stated that he might keep line in place for use at home with pain management. Patient will need BLS transport set up for D/C and hospice will be established on Tuesday. patients stated he will be ready to take her home as soon as hospice supplies is set up later today or early tomorrow. CM department will follow to assist with any D/C needs. Holly Zamora RN
[2020-01-18] MEDS: SENNOSIDES 8.6 MG TABLET 17.2 MG PO (21:14)
[2020-01-19 03:50] VITALS: BP 131/74; PULSE 99; RESP 16; TEMP 36.5; O2SAT 93
[2020-01-19] MEDS: MORPHINE 10 MG/0.5 ML ORAL SYRINGE PO ×2 (04:55→12:34)
[2020-01-19] MEDS: DEXAMETHASONE 4 MG/ML VIAL IV ×2 (05:27→12:34)
[2020-01-19] MEDS: SODIUM CHLORIDE 0.9% FLUSH 10 ML IV (05:27)
[2020-01-19 08:30] VITALS: PULSE 90; RESP 20; TEMP 37; O2SAT 94
[2020-01-19] MEDS: ENOXAPARIN 40 MG/0.4 ML SYRINGE SUBCUT (08:32)
[2020-01-19] MEDS: FLUCONAZOLE 100 MG TABLET 200 MG PO (08:32)
[2020-01-19] MEDS: LIDOCAINE PATCH 1 EACH ADH..PATCH TOP (08:32)
[2020-01-19] MEDS: PANTOPRAZOLE 40 MG TABLET PO (08:33)
[2020-01-19] MEDS: PARoxetine 20 MG TABLET 40 MG PO (08:33)
[2020-01-19] MEDS: ATORVASTATIN 20 MG TABLET 10 MG PO (08:33)
[2020-01-19] MEDS: AMLODIPINE 5 MG TABLET 10 MG PO (08:33)
[2020-01-19] MEDS: NYSTATIN POWDER 15GM 1 APPLIC TOP (08:34)
[2020-01-19] MEDS: MOMETASONE 1 EACH INH (09:18)
--- NOTE | 2020-01-19 09:18 | P.DS_ITS ---
History of Present Illness History of Present Illness Date Patient Seen: 01/19/20 Time Patient Seen: 09:18 Chief complaint: MAJOR PAIN BAD RASH ON THE STOMACH Narrative: 79-year-old female battling metastatic breast cancer was admitted via emergency department with pain out of control Patient was seen in the oncology clinic earlier today and had severe pain. She had pain was seen in the ER day prior to admission. At that point she had evaluation of both her knee her pelvis and hip and no acute bony fracture was found. Also had imaging of her spine which is another location of pain and no fracture seen. Patient has widespread metastatic disease including in all of those joints and bones. Pain is unable to be managed at home and because of some alterations in mental status was transported to the ED for evaluation. There she underwent a stroke protocol evaluation. Head CT imaging of the head with CT angiography and no findings other than diffuse bony metastasis seen in the calvarium as well Consultation with tele neurologist suggested she should be admitted for complete stroke workup. However was felt to be most likely that she was experiencing mental status changes related to her pain medication and or her out of control pain Patient's breast cancer and treatment course is well documented elsewhere but basically treatment under Dr. Alvarado here in [place]. Has been responding to therapy but shown evidence of widespread metastatic disease and has received palliative radiation for same. Had been having pain but nothing to this degree until the last 24-48 hours Patient easily recognizes me when I enter the room. She is complaining only of pain in her back her hip and leg are better at the moment. She is somewhat tachypneic but does not report any respiratory distress. Discharge Providers Provider Date of admission: 01/16/20 10:56 Discharge Date: 01/19/20 Primary care physician: Sandor Flores MD Consults: 01/15/20 18:00 Consult to Discharge Planning Routine Comment: Consult to Physical Therapy Evaluate & Treat Comment: Physician Instructions: Evaluate and Treat Consult to Speech Therapy Evaluate & Treat Comment: Physician Instructions: Evaluate and treat 01/16/20 12:46 Consult to Hospice Referral Routine Comment: 01/16/20 16:26 Consult to Dietitian, Adult Routine Comment: Reason For Exam: metastatic cancer Discharge provider: Becky Wong MD Summary Hospital Course Discharge Diagnosis: 1. Metastatic breast cancer 2. Metabolic encephalopathy, narcotic induced, resolved 3. Asthma 4. Morbid obesity 5. Obstructive sleep apnea 6. Hypertension 7. Chronic back pain 8. Skin rash 9. Acute kidney injury, resolved Hospital Course: Patient was admitted for pain control for metastatic breast cancer. There was some concern that she may have had a stroke, stroke protocol imaging was nonrevealing. During this admission, arrangements for hospice have been made and patient will be discharged today on home hospice. Family is involved and supportive. She was noted to have a sub-pannicular rash that has been treated with antibiotics and topical antifungal, she will be discharged on a continued course of her antibiotic. Status at Discharge Cognitive/behavioral status at discharge: at baseline, oriented Functional status at discharge: uses cane/walker Overall status at discharge: patient is not back to baseline Exam Vital Signs (past 8 hours): - 01/19/20 03:50 01/19/20 08:30 Temperature 97.7 F 98.6 F Pulse Rate 99 H 90 Respiratory Rate 16 20 Blood Pressure 131/74 Pulse Oximetry 93 94 Oxygen Delivery Method Nasal Cannula Oxygen Flow Rate 2 Narrative Exam Narrative: GENERAL: Alert and oriented, appearing stated age and in no acute distress. HEENT: Head normocephalic/atraumatic. Pupils equal, round, and reactive to light and accomodation. Extraocular muscles intact. Tympanic membranes clear. Nasal mucosa moist, septum midline. Oral mucosa moist, no lesions. Neck soft and supple, no lymphadenopathy. LUNGS: Diminished inspiratory effort but otherwise, clear to ausculation bilaterally, no wheezes, rhonchi or rales. CV: Normal S1 and S2 with 5/5 holosystolic murmur, no rubs or gallops. ABDOMEN: Soft, non-tender, non-distended, no organomegaly. Positive bowel sounds. EXTREMITIES: 3+ pitting edema bilateral lower ankles. NEURO: Cranial nerves II through XII grossly intact, no focal deficits. PSYCH: Alert and oriented x 3. SKIN: Beefy red sub-pannicular rash with a 1 cm ulceration, left lateral side. Objective Labs Result Diagrams: 01/15/20 15:26 01/16/20 04:31 Discharge Plan Discharge Plan Patient Disposition: Hospice - Home Discharge orders & Medications Prescriptions: New fentanyl 25 mcg/hr Patch 72 Hour 25 mcg topical Q72H Qty: 5 RF: 0 hydrocodone-acetaminophen 10-325 mg Tablet 1 - 2 tab PO Q3HR PRN (Reason: Pain, Moderate (4-6)) Qty: 90 RF: 0 lidocaine 5 % Adhesive Patch,Medicated 1 patch topical DAILY Qty: 15 RF: 3 sulfamethoxazole-trimethoprim 800-160 mg Tablet 1 tab PO BID Qty: 10 RF: 0 morphine concentrate 100 mg/5 mL (20 mg/mL) solution 10 - 20 mg PO Q2HR PRN (Reason: severe pain (scale score 7-10)) Qty: 120 RF: 0 Continued loratadine [Claritin] 10 MG tablet 10 mg PO PRN Qty: 0 RF: 0 cyanocobalamin (vitamin B-12) 1,000 MCG tablet extended release 1,000 mcg PO QDAY Qty: 90 RF: 11 epinephrine [EpiPen 2-Juanito] 0.3 mg/0.3 mL auto-injector See Rx Instructions .ROUTE .COMPLEX Qty: 2 RF: 0 fluticasone propionate 50 mcg/actuation spray,suspension 1 spray NASAL BID Qty: 18.2 RF: 3 potassium chloride 10 mEq capsule, extended release See Rx Instructions .ROUTE .COMPLEX Qty: 180 RF: 3 amlodipine 10 mg tablet See Rx Instructions .ROUTE .COMPLEX Qty: 90 RF: 3 lansoprazole 30 mg capsule,delayed release(DR/EC) See Rx Instructions .ROUTE .COMPLEX Qty: 90 RF: 3 clobetasol 0.05 % cream See Rx Instructions TOP BID PRN (Reason: pain) Qty: 60 RF: 0 paroxetine HCl [Paxil] 40 mg tablet 40 mg PO DAILY Qty: 90 RF: 3 Serevent Diskus 50 mcg/dose blister with device See Rx Instructions .ROUTE .COMPLEX Qty: 60 RF: 3 cyclobenzaprine 10 mg tablet 10 mg PO BID PRN (Reason: muscle spasm) Qty: 60 RF: 0 Asmanex HFA 200 mcg/actuation HFA aerosol inhaler 1 puff inhalation BID Qty: 13 RF: 3 albuterol sulfate [Ventolin HFA] 90 mcg/actuation HFA aerosol inhaler 1 - 2 puff INH 4-6XD PRN (Reason: Shortness Of Breath) RF: 0 hyoscyamine sulfate 0.125 mg Tablet 0.125 mg PO PRN PRN (Reason: Stomach Upset) RF: 0 sucralfate 1 gram tablet 1 gram PO PRN PRN (Reason: Acid Reflux) RF: 0 furosemide 20 mg tablet 20 mg PO SEEINSTR RF: 0 naratriptan [Amerge] 2.5 MG tablet 2.5 mg PO PRN PRN (Reason: Headache) RF: 0 clotrimazole 1 % cream 1 applictn TOP BID 14 Days RF: 0 Systane Complete 0.6 % drops 1 drp EYE-BOTH PRN PRN (Reason: dry eye(s)) RF: 0 Discontinued atorvastatin 10 mg tablet See Rx Instructions .ROUTE .COMPLEX Qty: 90 RF: 3 losartan 100 mg tablet See Rx Instructions .ROUTE .COMPLEX Qty: 90 RF: 3 letrozole [Femara] 2.5 mg Tablet 2.5 mg PO DAILY Qty: 90 RF: 3 Ibrance 125 mg Capsule 125 mg PO DAILY Qty: 21 RF: 11 hydrocodone-acetaminophen [[place]] 5-325 mg tablet 1 - 2 tab PO Q4HP PRN (Reason: pain) Qty: 90 RF: 0 hydrocodone-acetaminophen [[place]] 5-325 mg tablet 2 tab PO Q6H PRN (Reason: pain) Qty: 14 RF: 0 lidocaine 5 % ointment 1 applic TOP BID-TID MDD three applications PRN (Reason: lumbar pain) Qty: 35.44 RF: 5 No Action (DME) Disabled Parking Qty: 1 RF: 0 Follow up/Referrals: Sandor Flores MD [Primary Care Provider] - Discharge Health Status Multidrug resistant organism: No MDRO Diet/Activity/Treatments Diet: Diet as Tolerated Catheter: 2-way Person Visit Report/Discharge Packet Visit Report Forms: Patient Portal/API, Stroke Signs & Symptoms Discharge Data Primary Care Provider: Sandor Flores Quality VTE Deep Vein Thrombosis/Pulmonary Embolism Present on Admission: No
[2020-01-19] MEDS: SALMETEROL 50 MCG DISKUS 1 PUFF INH (09:19)
[2020-01-19 09:20] VITALS: O2SAT 93
--- NOTE | 2020-01-19 09:21 | CM.DPC ---
Addendum entered by Jennifer Mitchell LPN 01/19/20 12:52: Final check in with Deshawn. He went to [facility] to clam picker medication. It was not ready yet but he says his son and daughter in law are waiting at the house and as soon as his gets settled at home he will go back and get the needed medicine. DAO Gama will medicate pt prior to d/c. Pt says she is glad to be going home today with her family around and a goal to be comfortable in that setting with the help of the Hospice Team. Addendum entered by Jennifer Mitchell LPN 01/19/20 12:27: Pt and his state they are comfortable with the d/c to home this afternoon. Dr. Wong has completed the d/c orders for today. [facility] plans to open pt to service tomorrow sometme between 10 and 11 AM. Will fax all now to Hospice . Dr. Flores sent all new medication orders to pt's pharmacy yesterday so that spouse could pick these up today. Pt's spouse Deshawn has been at bedside through out the day. DAO Gama is updated. Original Note: DCP: continued: case received, EMR reviewed and have followed up on the d/c plan that is expected for today as per Dr. Flores's note of yesterday and DCplanning note from Holly yesterday. Met with pt and her Deshawn. Deshawn confirms that DME was delivered to their home: address: [address] [place] [address] (address on face sheet if mail box address only). Confirmed need for [facility] ambulance and this is set up now with [facility] for clam picker [phone]. Pt has remained bed-bound during her stay here due to severe metastatic bone pain. Spoke with Rachel/VLADISLAV. She confirms that pt is set for their RN to fully open pt to service at home tomorrow.
[2020-01-19 09:22] VITALS: O2SAT 93
--- NOTE | 2020-01-19 09:54 | PC.NURSE ---
Patient is A&Ox3, she is rotunded and has some yeast build up under her panus. Nystatin powder placed under area with a dry abd pad. Area cleansed before putting on powder. Area with small amount of bleeding. Patient also has some small red open area's to bottom. Cream applied to area's and lidocaine patch put to lower back. She has denied pain, accept when she turned on her side. Patient eating breakfast and appears comfortable at this time. She is taking po morphine for discomfort.
--- NOTE | 2020-01-19 11:18 | PC.NURSE ---
Patient is A&Ox3. Medicated with oxycodone and camille dressing is cdi. Patient is comfortable and working with physical therapy. Apparently she did tell the noc shift RN that This RN did not give Patient pain medication yesterday and if you do look at the emar, she was medicated with pain medication x3. She was anxious yesterday and manipulative. Per Ortho their has been some questions about prior narcotic use. She is being appropriate now. She is calm and going home around 1330.
[2020-01-19] MEDS: TRIMETH/SULFA 160/800 (DS) TABLET 1 TAB PO (11:39)
[2020-01-19 12:21] VITALS: BP 131/75; PULSE 87; RESP 20; TEMP 37.1; O2SAT 93
== END 2020-01-19 13:49 | disposition hospice, home (50) | DRG 542 ==
LOC: ED 16:13 → AC 16:30
PROVIDERS: Admitting Provider Internal Medicine; Emergency Provider Emergency Medicine; PCP Internal Medicine; Referring Provider Emergency Medicine; Visit Provider Internal Medicine
DX: C79.51 Secondary malignant neoplasm of bone (principal); G92 Toxic encephalopathy; N17.9 Acute kidney failure, unspecified; Z68.42 Body mass index [BMI] 45.0-49.9, adult; C77.3 Secondary and unspecified malignant neoplasm of axilla and upper limb lymph nodes; L03.311 Cellulitis of abdominal wall; C50.412 Malignant neoplasm of upper-outer quadrant of left female breast; G89.3 Neoplasm related pain (acute) (chronic); E66.01 Morbid (severe) obesity due to excess calories; R06.82 Tachypnea, not elsewhere classified; E87.5 Hyperkalemia; T40.605A Adverse effect of unspecified narcotics, initial encounter; G47.33 Obstructive sleep apnea (adult) (pediatric); I10 Essential (primary) hypertension; R00.0 Tachycardia, unspecified; B36.9 Superficial mycosis, unspecified; I95.9 Hypotension, unspecified; R09.02 Hypoxemia; Z86.718 Personal history of other venous thrombosis and embolism; Z11.59 Encounter for screening for other viral diseases; Z17.0 Estrogen receptor positive status [ER+]
CPT/HCPCS: 36569; 36592; 70450; 70496; 70498; 72195; 80048; 80053; 80305; 80329; 81001; 82040; 82247; 82550; 82553; 82962; 84075; 84155; 84450; 84460; 84484; 85025; 85610; 85730; 87635; 90471; 90662; 92523; 93005; 94640; 94760; 94762; 96361; 96365; 96375; 99215; 99220; 99233; 99284; 99285; 99291; G0378; A9270; G0480; J0610; J1100; J1642; J1650; J2270; J2405; Q9967